=== PATIENT | male | born 1975 | race Caucasian/White ===

== ENCOUNTER 2017-11-10 15:17 | Emergency (ER) | payer MEDICAID, SELFPAY ==
[2017-11-10 15:18] VITALS: BP 163/90; PULSE 89; RESP 18; TEMP 37.2; O2SAT 98; BMI 31.2
--- NOTE | 2017-11-10 15:31 | CT_ITS ---
STUDY: CT ABDOMEN AND PELVIS WITH CONTRAST REASON FOR EXAM: Male, 41 years old. Flank pain RADIATION DOSAGE (If Supplied By Facility): CTDIvol = ( 17.45 ) mGy, DLP = ( 1202.18 ) mGycm TECHNIQUE: Transaxial images were obtained from the dome of the diaphragm to the symphysis pubis without oral contrast. 100mL ml of Isovue 300 contrast was administered. Sagittal and coronal images were reconstructed. Individualized dose optimization techniques were used for this CT. COMPARISON: 01/04/2017 FINDINGS: The visualized lung bases are unremarkable. The visualized portions of the heart are within normal limits. Normal liver. There are surgical clips in the gallbladder fossa consistent with a prior cholecystectomy. Normal spleen. Normal pancreas. Normal bilateral adrenal glands. Normal right kidney. Normal left kidney. Normal visualized stomach. Multiple nondistended fluid-filled small bowel loops consistent with ileus. Normal colon. The appendix is visualized and appears normal. Appendix best seen on coronal recon image 63 Normal abdominal aorta. Normal inferior vena cava. Scattered subcentimeter mesenteric, retroperitoneal and inguinal adenopathy. Normal urinary bladder. Small fat-containing inguinal hernias. Normal osseous structures. CT/Abdomen/Pelvis W IV Cont ONLY IMPRESSION: No CT evidence of an acute inflammatory process, normal appendix visualized. Specifically, no obstructive uropathy or bladder abnormality. Small bowel ileus No free intraperitoneal fluid, air, or suspicious adenopathy Electronically Signed: Kirit Gill MD at 17:10 EST , Service support ,
--- NOTE | 2017-11-10 15:33 | ED.DCSUM_ITS ---
- ER Visit Summary Date of Service: 11/10/17 Chief Complaint: Abdominal pain History of Present Illness: The patient is a 41 M since to the emergency department with abdominal pain. Patient symptoms began yesterday. He states it started his midepigastric area. Since that time, he states it worked its way around to his right flank. He did have nausea with a few bouts of vomiting. He also had some loose watery diarrhea. He states he did have a low- grade fever yesterday. Patient states he had similar pain before with my gallbladder. The patient did have prior cholecystectomy. He is on no other abdominal surgery. He denies any blood in his emesis or in his diarrhea. He does have a history of diabetes but is not on insulin. Physical Examination: Vital signs reviewed General: Well-nourished, well-developed Head: Normocephalic, atraumatic Eyes: Pupils equal and reactive, extraocular muscles intact Neck, supple, no lymphadenopathy Heart: Regular rate and rhythm Respiratory: No distress, clear bilaterally Abdomen: Soft, tender in the midepigastric area without rebound or guarding, nondistended, no peritoneal signs Back: Nontender Extremities: Nontender, no edema, no cords Skin: Normal color no rash Neuro: Alert and oriented, no focal or lateralizing deficits Test Results: [] Emergency Department Course and Treatment: IV was established. The patient was given fluids, analgesics, and antiemetics. He did have marked improvement of his pain with his second dose. His labs are relatively unremarkable. CT shows questionable mild ileus, but the patient has had multiple bowel movements. I do feel he more likely has an enteritis. He is tolerating p.o. on reevaluation. He has no focal tenderness. He has a benign abdomen. I do for the patient is safe for discharge. I will prescribe him Zofran and Bentyl. He will be discharged home. Treatment Plan: [] Disposition: Discharge Impression: 1. Abdominal pain 2. Enteritis This note was generated with [employer] dictation software. It may contain incorrect words, spelling, and punctuation that were not noted in review of the chart prior to signing ED Disposition - Plan for ED Patient: Chief Complaint: Abd Pain Instructions: ED Abdominal Pain Unkn Cause Prescriptions: Ondansetron [Zofran Odt] 4 mg PO Q8H PRN PRN #10 tab PRN Reason: Nausea Dicyclomine HCl [Bentyl] 20 mg PO TIDAC #20 cap [facility] Kaur [NON-STAFF] -
[2017-11-10] MEDS: 0.9% Normal Saline 1,000 ML 1000 ML IV (15:41)
[2017-11-10] MEDS: Ondansetron 4 MG/2 ML Vial IV (15:41)
[2017-11-10 16:03] LABS: Absolute Lymphocyte Count 1.29 X10^3/ul (0.83-4.51); Absolute Neutrophil Count 4.4 X10^3/uL (2.0-7.7); Basophil# 0.04 X10^3/uL; Basophil% 0.6 % (0-1); Eosinophil# 0.08 X10^3/uL; Eosinophils% 1.2 % (0-5); Hematocrit 41.6 % (40-54); Hemoglobin 15.1 g/dl (13.0-16.5); Lymphocyte # 1.29 X10^3/ul (4.0); Lymphocyte % 20.1 % (19-41); Mean Corp Hgb Conc 36.3 g/gl (32-36); Mean Corpuscular Hgb 31.7 pg (27.0-32.0); Mean Corpuscular Volume 87.4 fL (80-94); Mean Platelet Vol. 9.7 fl (6.2-12.0); Monocyte# 0.61 X10^3/uL; Monocyte% 9.5 % (0-10); Neutrophil % 68.4 % (47-70); Platelet Count 195 K/mm3 (150-450); RBC Distribution Width CV 12.8 % (11.6-14.6); Red Blood Count 4.76 M/mm3 (4.6-6.2); White Blood Count 6.4 K/mm3 (4.4-11.0)
[2017-11-10 16:04] LABS: POSITIVE COUNT NO; POSITIVE DIFFERENTIAL NO; POSITIVE MORPHOLOGY NO
[2017-11-10 16:17] LABS: ALB/GLOB Ratio 1.1 RATIO (0.9-2.4); AST(SGOT) 18 U/L (15-37); Alanine Aminotransfer ALT/SGPT 45 U/L (16-61); Albumin, Serum 4.1 g/dL (3.2-5.0); Alkaline Phosphatase 92 U/L (45-117); Anion Gap 8 (5-15); BUN 13 mg/dL (7-18); BUN/Creat Ratio 15.7 RATIO (10-20); Calcium,Total 9.2 mg/dL (8.5-10.1); Chloride 103 mmol/L (98-107); Creatinine, Serum 0.83 mg/dL (0.70-1.30); EST Glomerular Filtration Rate 109 mL/min (>60); Est Glom Filt Rate - Afr Amer 132 mL/min (>60); Globulin 3.9 g/dL (2.2-4.2); Glucose 163 mg/dL (74-106); Lipase 214 U/L (73-393); Potassium 3.5 mmol/L (3.5-5.1); Sodium Level 140 mmol/L (136-145)
[2017-11-10 16:52] LABS: Bacteria 0 SEEN /hpf (None Seen); Mucous, Urine 0 SEEN /hpf (<or=2+); Red Blood Cells-Urine 0 SEEN /hpf (0-5); Squamous Epithelial Cells - UA 0 SEEN /hpf (0-5); White Blood Cells 0 SEEN /hpf (0-5)
[2017-11-10 16:56] LABS: Color, Urine Yellow (Yellow); Glucose, Dipstick Normal (Normal); Ketone-Dipstick Negative (Negative); Leukocyte Esterase-Dipstick Negative /ul (Negative); Nitrite-Dipstick Negative (Negative); Occult Blood-Urine Negative /ul (Negative); Protein-Dipstick Negative (Negative); Specific Gravity, Urine 1.015 (1.002-1.030); Urine Bilirubin Dipstick Negative (Negative); Urine Clarity Clear (Clear); Urine Urobilinogen Normal (Normal); Urine pH 6.5 (5.0 - 8.0)
[2017-11-10 17:20] VITALS: BP 120/58; PULSE 68; RESP 16; O2SAT 98
[2017-11-10 17:41] VITALS: BP 112/67; PULSE 76; RESP 14; O2SAT 99
== END 2017-11-10 17:42 | disposition home or self-care (01) ==
LOC: ED 16:09
PROVIDERS: Emergency Provider Emergency Medicine; Family Provider Nurse Practitioner Family; PCP Nurse Practitioner Family
DX: R10.9 Unspecified abdominal pain (principal); K52.9 Noninfective gastroenteritis and colitis, unspecified; K56.7 Ileus, unspecified; E11.9 Type 2 diabetes mellitus without complications; K21.9 Gastro-esophageal reflux disease without esophagitis; Z72.0 Tobacco use; Z79.84 Long term (current) use of oral hypoglycemic drugs; Z79.82 Long term (current) use of aspirin; Z79.899 Other long term (current) drug therapy; Z90.49 Acquired absence of other specified parts of digestive tract
CPT/HCPCS: 74177; 80053; 81001; 83690; 85025; 96361; 96372; 96374; 96375; 99283; J7030; Q9967; A4216; J2405

== ENCOUNTER 2017-12-05 08:35 | Day surgery (SDC) | payer MEDICAID, SELFPAY ==
--- NOTE | 2017-12-05 | EGD_PTH ---
PATIENT: GILLES SMITH LOC: EN U#:[id number] AGE/SX: 41/M ROOM: RE12/05/[address]: Dr. Glenn Krishnan MD : [id number] BED: DIS: 12/05/2017 SPEC #: [id number] RECD: 12/05/17 13:27 STATUS: YUE CK #: [id number] AMISHA: 12/05/17 00:[address]: Glenn Krishnan DEPT: SURGICAL PATHOLOGY RECD BY: Shari Escalante ENTERED: 12/05/17 14:48 SP TYPE: EGD BIOPSY MANISH DR: Swetha Cox, STAMPING DIE MAKER BENCH-C [facility] Tissues: BOWEL BIOPSY Procedures: Surgery Specimen Level IV HEADER OPERATION: EGD PRE-OP DIAGNOSIS: Epigastric pain TISSUE SUBMITTED: Small bowel biopsy MICROSCOPIC DIAGNOSIS Small bowel, biopsy: Fragment of small intestinal mucosa, no pathologic diagnosis. SJ:eric 3/8/18 MICROSCOPIC DESCRIPTION Slides are reviewed. GROSS DESCRIPTION Received in fixative is one container labeled with the patient's name and designated small bowel biopsy. The specimen consists of one irregular fragment of light henderson soft tissue that measures 0.6 x 0.2 x 0.1 cm. The specimen is totally submitted in one cassette. / AM:eric 12/05/17 TC:4 CPT: 87827
[2017-12-05 08:57] VITALS: BP 118/76; PULSE 71; RESP 16; TEMP 36.5; O2SAT 98; BMI 30.8
--- NOTE | 2017-12-05 09:59 | PCM.OPRPT ---
Problem List (1) Epigastric pain Status: Acute Report of Operation Date of Procedure: 12/05/17 Pre-Operative Diagnosis: r10.13 epigastric abdominal pain Post-Operative Diagnosis: Same Surgery/Procedure Performed:: 73697 esophagogastroduodenoscopy with biopsies Type of Anesthesia:: MAC Anesthesiologist: Sean Hodge Description of Procedure: Patient was brought in into the endoscopy suite. Back of his throat was sprayed with Cetacaine spray. A bite-block was placed. He was placed in the left lateral decubitus position. He was given graded anesthesia. The scope was inserted into the back of the oropharynx and directed down through the esophagus into the stomach and into the duodenum without difficulty operative findings: 1. Duodenum: Normal appearance no mass lesions biopsy for celiac sprue was obtained. 2. Stomach: Minimal gastritis was identified in the prepyloric area biopsy for H. pylori was obtained. Pylorus itself was widely patent and the scope easily traversed that into the duodenum. Retroflexion did not show any signs of a hiatal hernia there were no polyps there were no mass lesions. 3. Esophagus: Normal appearance no mass lesions no signs of esophagitis no signs of a hiatal hernia Z line was at 44 cm and was entirely normal. The scope was withdrawn the patient tolerated the procedure well. There is no obvious explanation for his epigastric pain I will see him back in the office and possibly evaluate him with esophageal manometry. - Admit VTE Documentation VTE Present on Admission: No VTE Mechan Device Prophylaxis: None VTE Pharm Prophylaxis ordered?: No Reason prophylaxis not ordered:: Treatment Not Indicated
[2017-12-05 10:02] VITALS: BP 101/65; BP 118/76; PULSE 70; RESP 16; O2SAT 98
[2017-12-05 10:05] VITALS: BP 107/91; BP 118/76; PULSE 78; RESP 14; O2SAT 96
[2017-12-05 10:10] VITALS: BP 111/73; BP 118/76; PULSE 72; RESP 16; O2SAT 93
[2017-12-05 10:15] VITALS: BP 113/69; BP 118/76; PULSE 75; RESP 16; TEMP 36.3; O2SAT 98
[2017-12-05 10:48] VITALS: BP 118/76
== END 2017-12-05 10:48 | disposition home or self-care (01) ==
LOC: EN 08:37 → AC 08:37
PROVIDERS: Visit Provider Surgery
PROC: 0DJ08ZZ Inspection of Upper Intestinal Tract, Via Natural or Artificial Opening Endoscopic (ICD-10-PCS; CPT 43235; principal; 2017-12-05 09:55)
DX: K29.70 Gastritis, unspecified, without bleeding (principal); E11.9 Type 2 diabetes mellitus without complications; G47.30 Sleep apnea, unspecified; K21.9 Gastro-esophageal reflux disease without esophagitis; E78.00 Pure hypercholesterolemia, unspecified; Z79.84 Long term (current) use of oral hypoglycemic drugs; Z79.82 Long term (current) use of aspirin; Z79.899 Other long term (current) drug therapy
CPT/HCPCS: 43239; 88305; J7120

== ENCOUNTER 2018-01-28 19:52 | Emergency (ER) | payer MEDICAID, SELFPAY ==
[2018-01-28 19:53] VITALS: BP 127/83; PULSE 83; RESP 16; TEMP 37; O2SAT 97; BMI 32.2
--- NOTE | 2018-01-28 21:27 | RAD_ITS ---
STUDY: X-RAY - RIGHT HAND REASON FOR EXAM: Male, 42 years old. No known injury. Hand swelling TECHNIQUE: 3 view(s) of the hand. COMPARISON: None. FINDINGS: Normal radiocarpal articulation. Normal distal radioulnar joint. Normal visualized carpal bones. Normal carpal articulations Normal carpometacarpal articulation of the thumb. Normal second through fifth carpometacarpal joints. Normal metacarpi. Normal metacarpophalangeal joint of the thumb. Normal interphalangeal joint of the thumb. Normal proximal and distal phalanges of the thumb. Normal metacarpophalangeal joints of the second through fifth fingers. Normal proximal and distal interphalangeal joints of the second through fifth fingers. Normal phalanges of the second through fifth fingers. There is soft tissue swelling along the ventral aspect of the metatarsals and proximal phalanges. RAD/Hand Min 3 Views IMPRESSION: No acute osseous injury. Soft tissue swelling. Electronically Signed: Jenni Otto MD at 21:50 EDT Tel , Service support ,
[2018-01-28] MEDS: oxyCODONE 5 MG Tablet PO (21:50)
--- NOTE | 2018-01-28 22:33 | ED.VISSUMM ---
- ER Visit Summary Date of Service: 01/28/18 Chief Complaint: Right thumb pain History of Present Illness: The patient is a 42 M presenting with right thumb pain. He states this has been ongoing since Sunday. 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 His hand hits the handle of the lawnmower and he states it is uneven. He complains of pain to the proximal right thumb. He has tried ice and Tylenol at home. No other injuries. He is right-handed. Physical Examination: Vitals are stable. Patient is afebrile. Alert no acute distress. HEENT exam is unremarkable. Lungs are clear and equal bilaterally. Heart is regular rate and rhythm. Extremities tenderness right thenar eminence, active full range of motion, normal cap refill Skin is warm and dry. No focal neurologic deficit. Remainder of exam is unremarkable. Emergency Department Course and Treatment: X-ray right hand shows no fracture, soft tissue swelling. He was given OxyIR ?1 in the ED. He is given a Velcro wrist splint. He is given a prescription for Naprosyn. Advised to follow-up with his primary care physician. Advised return ED if worsening complaints. Disposition: Discharge home Impression: Right hand contusion This note was generated with [employer] dictation software. It may contain incorrect words, spelling, and punctuation that were not noted in review of the chart prior to signing ED Disposition - Plan for ED Patient: Chief Complaint: Upper Extremity Injury Referrals: Izabel Chicas [Primary Care Provider] -
--- NOTE | 2018-01-28 22:37 | ED.DCSUM_ITS ---
- ER Visit Summary Date of Service: 01/28/18 Chief Complaint: Right thumb pain History of Present Illness: The patient is a 42 M presenting with right thumb pain. He states this has been ongoing since Sunday. 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 His hand hits the handle of the lawnmower and he states it is uneven. He complains of pain to the proximal right thumb. He has tried ice and Tylenol at home. No other injuries. He is right-handed. Physical Examination: Vitals are stable. Patient is afebrile. Alert no acute distress. HEENT exam is unremarkable. Lungs are clear and equal bilaterally. Heart is regular rate and rhythm. Extremities tenderness right thenar eminence, active full range of motion, normal cap refill Skin is warm and dry. No focal neurologic deficit. Remainder of exam is unremarkable. Emergency Department Course and Treatment: X-ray right hand shows no fracture, soft tissue swelling. He was given OxyIR ?1 in the ED. He is given a Velcro wrist splint. He is given a prescription for Naprosyn. Advised to follow-up with his primary care physician. Advised return ED if worsening complaints. Disposition: Discharge home Impression: Right hand contusion This note was generated with [employer] dictation software. It may contain incorrect words, spelling, and punctuation that were not noted in review of the chart prior to signing ED Disposition - Plan for ED Patient: Chief Complaint: Upper Extremity Injury Referrals: Izabel Chicsa [Primary Care Provider] -
--- NOTE | 2018-01-28 22:37 | ED.DEP ---
ED Disposition - Plan for ED Patient: Chief Complaint: Upper Extremity Injury Instructions: ED Contusion Upper Ext Prescriptions: Naproxen [Naprosyn] 500 mg PO BID PRN #20 tablet Referrals: Izabel Chicas [Primary Care Provider] -
== END 2018-01-28 23:08 | disposition home or self-care (01) ==
PROVIDERS: Emergency Provider Emergency Medicine
DX: S60.011A Contusion of right thumb without damage to nail, initial encounter (principal); W22.8XXA Striking against or struck by other objects, initial encounter; Y93.H2 Activity, gardening and landscaping; Y92.9 Unspecified place or not applicable; Y99.9 Unspecified external cause status
CPT/HCPCS: 73130; 99283

== ENCOUNTER 2018-03-13 07:12 | Emergency (ER) | payer MEDICAID, SELFPAY ==
[2018-03-13 07:13] VITALS: BP 134/89; PULSE 78; RESP 26; TEMP 36.7; O2SAT 99; BMI 31.9
--- NOTE | 2018-03-13 07:26 | EKG12_ITS ---
Test Reason : REPEAT Blood Pressure : / mmHG Vent. Rate : 069 BPM Atrial Rate : 069 BPM P-R Int : 148 ms QRS Dur : 088 ms QT Int : 398 ms P-R-T Axes : 014 -04 001 degrees QTc Int : 426 ms Normal sinus rhythm Normal ECG Confirmed by EDISON CASTRO, GILLES ([id number]), medical transcription editor RIMMA LUCAS ([id number]) on 03/15/2018 2:36:45 PM Referred By: CHANDLER Confirmed By:GILLES HOGAN MD
[2018-03-13 07:36] LABS: Absolute Lymphocyte Count 1.87 X10^3/ul (0.83-4.51); Absolute Neutrophil Count 3.5 X10^3/uL (2.0-7.7); Basophil# 0.03 X10^3/uL; Basophil% 0.5 % (0-1); Eosinophil# 0.12 X10^3/uL; Hematocrit 37.8 % (40-54); Hemoglobin 13.7 g/dl (13.0-16.5); Lymphocyte # 1.87 X10^3/ul (4.0); Lymphocyte % 30.6 % (19-41); Mean Corp Hgb Conc 36.2 g/gl (32-36); Mean Corpuscular Hgb 32.1 pg (27.0-32.0); Mean Corpuscular Volume 88.5 fL (80-94); Monocyte# 0.62 X10^3/uL; Monocyte% 10.1 % (0-10); Neutrophil # 3.47 X10^3/uL (2.7-7.7); Neutrophil % 56.8 % (47-70); Platelet Count 146 K/mm3 (150-450); RBC Distribution Width CV 13.2 % (11.6-14.6); RBC Distribution Width SD 42.3 fl (35.1-43.9); Red Blood Count 4.27 M/mm3 (4.6-6.2); White Blood Count 6.1 K/mm3 (4.4-11.0)
[2018-03-13 07:41] LABS: POSITIVE COUNT NO; POSITIVE DIFFERENTIAL NO; POSITIVE MORPHOLOGY NO
[2018-03-13 07:57] LABS: Anion Gap 8 (5-15); BUN 13 mg/dL (7-18); BUN/Creat Ratio 13.2 RATIO (10-20); Calcium,Total 8.8 mg/dL (8.5-10.1); Chloride 103 mmol/L (98-107); Creatinine, Serum 0.99 mg/dL (0.70-1.30); EST Glomerular Filtration Rate 89 mL/min (>60); Est Glom Filt Rate - Afr Amer 107 mL/min (>60); Glucose 220 mg/dL (74-106); Potassium 3.7 mmol/L (3.5-5.1); Sodium Level 141 mmol/L (136-145)
--- NOTE | 2018-03-13 08:10 | EKG12_ITS ---
Test Reason : CP Blood Pressure : / mmHG Vent. Rate : 078 BPM Atrial Rate : 078 BPM P-R Int : 146 ms QRS Dur : 086 ms QT Int : 372 ms P-R-T Axes : 040 -10 029 degrees QTc Int : 424 ms Normal sinus rhythm Normal ECG Confirmed by EDISON CASTRO, GILLES ([id number]), senior technical editor RIMMA LUCAS ([id number]) on 03/15/2018 2:37:00 PM Referred By: SOLO Confirmed By:GILLES HOGAN MD
--- NOTE | 2018-03-13 08:25 | ED.VISSUMM ---
- ER Visit Summary Date of Service: 03/13/18 Chief Complaint: Chest pain History of Present Illness: The patient is a 42 M past medical history of qcv-esphuvh-fritivryx diabetes and high cholesterol. States that he awoke this morning around 06 10 with midsternal chest pain radiating to the right. Associated nausea. No shortness of breath. He has never had a DVT or PE. He denies any recent travel, surgery or mobilization. He denies any leg pain or swelling. He denies any hemoptysis. There is no pleuritic nature to his pain. It is not associated with exertion. He states he had a negative stress test done about 1 year ago here at [facility]. He denies ever having a cardiac cath. He has never had any cardiac surgery, cardiac stents nor is he on any blood thinners. Physical Examination: Well-appearing middle-age male. No acute distress. Vital signs are stable afebrile. Blood pressure 134/89. Pulse ox 9 9% on room air no signs of hypoxia. H EENT exam unremarkable. Neck nontender no JVD. Lungs clear to auscultation bilaterally. Heart regular rhythm no murmur. Rate about 80. He does have mild reproducible chest wall tenderness where he is complaining of pain. There is no ecchymosis of bruising. No subcu air. No redness or warmth. Abdomen is soft and nontender. Normal bowel sounds no peritoneal signs. He is moving all 4 extremities. Calves are nontender without edema or cords. He has full range of motion of both upper and lower extremities. He is equal and symmetrical radial pulses. Back exam nontender. Neurologically he is awake and alert without focal deficits. Test Results: Portal chest x-ray one view shows no acute abnormality. Normal cardiac silhouette and mediastinum. CBC unremarkable except for a platelet count of 146,000 just below normal. BMP normal. Troponin normal. EKG sinus rhythm rate of 78 with no acute signs of VA or ischemia. Second EKG was also read as well by myself. It was a sinus rhythm rate of 69 with no signs of ischemia. Second troponin was also normal 2+ hours after the first. Repeat exam patient is doing well at 1010. Emergency Department Course and Treatment: Feet exam the patient is still having some chest discomfort. This really does not sound to be cardiac. I am going to get a repeat troponin and a repeat EKG. The patient has had a recent stress test which was negative. Treatment Plan: Patient is doing well repeat exam. Clinically I do not feel this is cardiac. He did have a negative nuclear stress test last July. He will be discharged home to follow-up with his primary care physician. Disposition: Discharge Impression: Acute atypical chest pain of uncertain etiology This note was generated with [employer] dictation software. It may contain incorrect words, spelling, and punctuation that were not noted in review of the chart prior to signing ED Disposition - Plan for ED Patient: Chief Complaint: Chest Pain Referrals: Izabel Chicas [Primary Care Provider] -
[2018-03-13 08:34] VITALS: BP 113/79; PULSE 71
--- NOTE | 2018-03-13 08:35 | ED.RN ---
PT REPORTS PAIN IS INCREASING AGAIN. DR ARTEAGA INFORMED STATES TO GIVE NITRO SERIES. DR ARTEAGA ENTERED ORDER FOR NITRO X1 TAB SL. CLARIFIED THAT DR WOULD LIKE NITRO X3 TAB SL- CONFIRMS. NOT ABLE TO ENTER NITRO SERIES SO EACH NITRO ORDERED INDEP.
[2018-03-13 08:41] VITALS: BP 119/66; PULSE 81
--- NOTE | 2018-03-13 08:43 | ED.DCSUM_ITS ---
- ER Visit Summary Date of Service: 03/13/18 Chief Complaint: Chest pain History of Present Illness: The patient is a 42 M past medical history of non- insulin-dependent diabetes and high cholesterol. States that he awoke this morning around 06 10 with midsternal chest pain radiating to the right. Associated nausea. No shortness of breath. He has never had a DVT or PE. He denies any recent travel, surgery or mobilization. He denies any leg pain or swelling. He denies any hemoptysis. There is no pleuritic nature to his pain. It is not associated with exertion. He states he had a negative stress test done about 1 year ago here at [facility]. He denies ever having a cardiac cath. He has never had any cardiac surgery, cardiac stents nor is he on any blood thinners. Physical Examination: Well-appearing middle-age male. No acute distress. Vital signs are stable afebrile. Blood pressure 134/89. Pulse ox 9 9% on room air no signs of hypoxia. H EENT exam unremarkable. Neck nontender no JVD. Lungs clear to auscultation bilaterally. Heart regular rhythm no murmur. Rate about 80. He does have mild reproducible chest wall tenderness where he is complaining of pain. There is no ecchymosis of bruising. No subcu air. No redness or warmth. Abdomen is soft and nontender. Normal bowel sounds no peritoneal signs. He is moving all 4 extremities. Calves are nontender without edema or cords. He has full range of motion of both upper and lower extremities. He is equal and symmetrical radial pulses. Back exam nontender. Neurologically he is awake and alert without focal deficits. Test Results: Portal chest x-ray one view shows no acute abnormality. Normal cardiac silhouette and mediastinum. CBC unremarkable except for a platelet count of 146,000 just below normal. BMP normal. Troponin normal. EKG sinus rhythm rate of 78 with no acute signs of SD or ischemia. Second EKG was also read as well by myself. It was a sinus rhythm rate of 69 with no signs of ischemia. Second troponin was also normal 2+ hours after the first. Repeat exam patient is doing well at 1010. Emergency Department Course and Treatment: Feet exam the patient is still having some chest discomfort. This really does not sound to be cardiac. I am going to get a repeat troponin and a repeat EKG. The patient has had a recent stress test which was negative. Treatment Plan: Patient is doing well repeat exam. Clinically I do not feel this is cardiac. He did have a negative nuclear stress test last July. He will be discharged home to follow-up with his primary care physician. Disposition: Discharge Impression: Acute atypical chest pain of uncertain etiology This note was generated with [employer] dictation software. It may contain incorrect words, spelling, and punctuation that were not noted in review of the chart prior to signing ED Disposition - Plan for ED Patient: Chief Complaint: Chest Pain Referrals: Izabel Chicas [Primary Care Provider] -
[2018-03-13 08:46] VITALS: BP 116/71; PULSE 81
[2018-03-13 10:14] VITALS: BP 110/74; PULSE 70; RESP 12; O2SAT 95
--- NOTE | 2018-03-13 10:15 | ED.DEP ---
ED Disposition - Plan for ED Patient: Disposition: Home or Assisted Living Chief Complaint: Chest Pain Instructions: ED Chest Pain Atypical Unkn Cause [facility]errals: [facility]zabel Kaur [Primary Care Provider] - 3-5 Days if not improving Additional Instructions: Call and follow-up with the Izabel asencio. Return if you are feeling worse.
== END 2018-03-13 10:22 | disposition home or self-care (01) ==
PROVIDERS: Emergency Provider Emergency Medicine
DX: R07.89 Other chest pain (principal); R11.0 Nausea; E11.9 Type 2 diabetes mellitus without complications; E78.00 Pure hypercholesterolemia, unspecified; Z79.84 Long term (current) use of oral hypoglycemic drugs; Z79.82 Long term (current) use of aspirin; Z79.899 Other long term (current) drug therapy
CPT/HCPCS: 36415; 71045; 80048; 84484; 85025; 93005; 99285; A4216

== ENCOUNTER 2018-04-05 22:46 | Emergency (ER) | payer MEDICAID, SELFPAY ==
[2018-04-05 22:48] VITALS: BP 150/93; PULSE 93; RESP 18; TEMP 37.4; O2SAT 95; BMI 30.9
[2018-04-05 23:00] LABS: Bedside Glucose 160 mg/dL (70-110)
--- NOTE | 2018-04-05 23:00 | EKG12_ITS ---
Test Reason : Blood Pressure : / mmHG Vent. Rate : 093 BPM Atrial Rate : 093 BPM P-R Int : 144 ms QRS Dur : 084 ms QT Int : 340 ms P-R-T Axes : 028 -20 008 degrees QTc Int : 422 ms Normal sinus rhythm Normal ECG Confirmed by NATALIE CASILLAS MD ([id number]), newspaper photo editor RIMMA LUCAS ([id number]) on 04/08/2018 2:18:37 PM Referred By: RIGOBERTO Confirmed By:NATALIE CASILLAS MD
--- NOTE | 2018-04-05 23:03 | ED.DCSUM_ITS ---
- ER Visit Summary Date of Service: 04/05/18 Chief Complaint: Low blood sugar, high blood pressure History of Present Illness: The patient is a 42 M presenting today stating earlier today he had a low blood sugar of 57. After eating repeat blood sugar was 160. He was concerned that his blood pressure was 168/95. He is not currently on blood pressure medication. He complains of shortness of breath and cough. Denies chest pain. Denies fever. Denies abdominal pain, nausea, vomiting. He complains of diarrhea. Denies other complaints. Physical Examination: Vitals are stable. Patient is afebrile. Alert no acute distress. HEENT exam is unremarkable. Neck is supple. Lungs are clear and equal bilaterally. Heart is regular rate and rhythm. Abdomen is soft nontender nondistended. Extremities are unremarkable. Skin is warm and dry. No focal neurologic deficit. Remainder of exam is unremarkable. Emergency Department Course and Treatment: Chest x-ray shows no acute process. EKG is sinus rate of 93 unchanged from previous. CBC, chemistries unremarkable. Glucose is 134. Patient is feeling improved in the emergency department. He has a scheduled appointment with his primary care physician next week. He is advised to monitor his blood sugars and his blood pressure. Advised return to ED if worsening complaints. Disposition: Discharge home Impression: Hypoglycemia, resolved This note was generated with [employer] dictation software. It may contain incorrect words, spelling, and punctuation that were not noted in review of the chart prior to signing ED Disposition - Plan for ED Patient: Chief Complaint: Hypoglycemia Instructions: ED Diabetes Hypoglycemia Oral Agent Referrals: Swetha Cox NP-C [Primary Care Provider] -
--- NOTE | 2018-04-05 23:06 | RAD_ITS ---
STUDY: X-RAY CHEST REASON FOR EXAM: Male, 42 years old. High blood pressure TECHNIQUE: Single AP portable view of the chest. COMPARISON: March 13, 2018 FINDINGS: The lungs are clear and expanded. There is no demonstrated pleural abnormality. Normal size heart. Normal mediastinum and derick. Normal visualized pulmonary arteries. Normal visualized aortic arch and descending thoracic aorta. Normal visualized thoracic spine. Normal visualized ribs, clavicles, and shoulders. There is no demonstrated abnormality of the visualized soft tissue structures of the upper abdomen. RAD/Chest 1 View (Portable) IMPRESSION: Normal x-ray examination of the chest. Electronically Signed: Rd Ji MD at 23:32 EDT , Service support ,
[2018-04-05 23:27] VITALS: RESP 18
[2018-04-05 23:34] LABS: Absolute Lymphocyte Count 1.25 X10^3/ul (0.83-4.51); Absolute Neutrophil Count 6.2 X10^3/uL (2.0-7.7); Basophil# 0.03 X10^3/uL; Basophil% 0.4 % (0-1); Eosinophil# 0.03 X10^3/uL; Eosinophils% 0.4 % (0-5); Hematocrit 39.7 % (40-54); Hemoglobin 14.5 g/dl (13.0-16.5); Lymphocyte # 1.25 X10^3/ul (4.0); Lymphocyte % 15.4 % (19-41); Mean Corp Hgb Conc 36.5 g/gl (32-36); Mean Corpuscular Hgb 32.6 pg (27.0-32.0); Mean Corpuscular Volume 89.2 fL (80-94); Mean Platelet Vol. 9.2 fl (6.2-12.0); Monocyte# 0.58 X10^3/uL; Monocyte% 7.1 % (0-10); Neutrophil # 6.22 X10^3/uL (2.7-7.7); Neutrophil % 76.5 % (47-70); Platelet Count 184 K/mm3 (150-450); RBC Distribution Width CV 12.8 % (11.6-14.6); RBC Distribution Width SD 41.2 fl (35.1-43.9); Red Blood Count 4.45 M/mm3 (4.6-6.2); White Blood Count 8.1 K/mm3 (4.4-11.0)
[2018-04-05 23:38] LABS: POSITIVE COUNT NO; POSITIVE DIFFERENTIAL NO; POSITIVE MORPHOLOGY NO
[2018-04-05 23:50] LABS: Anion Gap 8 (5-15); BUN 11 mg/dL (7-18); BUN/Creat Ratio 11.9 RATIO (10-20); Calcium,Total 9.4 mg/dL (8.5-10.1); Chloride 103 mmol/L (98-107); Creatinine, Serum 0.92 mg/dL (0.70-1.30); EST Glomerular Filtration Rate 96 mL/min (>60); Est Glom Filt Rate - Afr Amer 116 mL/min (>60); Estimated Creatinine Clearance 119.42 ml/min; Glucose 134 mg/dL (74-106); Potassium 3.7 mmol/L (3.5-5.1); Sodium Level 140 mmol/L (136-145)
--- NOTE | 2018-04-06 00:05 | ED.DEP ---
ED Disposition - Plan for ED Patient: Chief Complaint: Hypoglycemia Instructions: ED Diabetes Hypoglycemia Oral Agent Referrals: Swetha Cox, GABRIELLA-C [Primary Care Provider] -
[2018-04-06 00:24] VITALS: RESP 18
== END 2018-04-06 00:28 | disposition home or self-care (01) ==
LOC: ED 23:28
PROVIDERS: Emergency Provider Emergency Medicine; Family Provider Nurse Practitioner Family; PCP Nurse Practitioner Family
DX: E11.649 Type 2 diabetes mellitus with hypoglycemia without coma (principal); R19.7 Diarrhea, unspecified; R03.0 Elevated blood-pressure reading, without diagnosis of hypertension; J45.909 Unspecified asthma, uncomplicated; K21.9 Gastro-esophageal reflux disease without esophagitis; F41.9 Anxiety disorder, unspecified; Z79.84 Long term (current) use of oral hypoglycemic drugs; Z79.899 Other long term (current) drug therapy
CPT/HCPCS: 71045; 80048; 82962; 85025; 93005; 99285; A4216

== ENCOUNTER 2018-05-17 19:32 | Emergency (ER) | payer MEDICAID, SELFPAY ==
[2018-05-17 19:33] VITALS: BP 120/79; PULSE 108; RESP 16; TEMP 36.6; O2SAT 97; BMI 30.3
[2018-05-17] MEDS: Acetaminophen 500 MG Tablet 1000 MG PO (20:17)
[2018-05-17] MEDS: oxyCODONE 5 MG Tablet PO (20:18)
--- NOTE | 2018-05-17 21:45 | ED.DCSUM_ITS ---
- ER Visit Summary Date of Service: 05/17/18 Chief Complaint: Left foot pain History of Present Illness: The patient is a 42 M who [facility]. He reports he has pain in his left foot that began yesterday. Is a sharp pain is 10-10 with walking 7 out of 10 at rest. He denies any known trauma. No fall, MVA, or change in activity. However, he does report that he has a large dog which may have stepped on it. He denies any paresthesias or weakness. Physical Examination: Vitals: Stable. Afebrile. General: Well-nourished and well-developed. Head: Normocephalic atraumatic. Neck: Supple, no lymphadenopathy. No JVD. Nontender. Cardiovascular: Regular rate and rhythm. No murmurs. Respiratory: No respiratory distress. Clear to auscultation bilaterally. Abdominal: Soft, nontender, nondistended, normal bowel sounds. No guarding, rebound, or peritoneal signs. Back: Nontender. Extremities: Moderate tenderness palpation that is diffuse over the top of his left foot. This is reproduced with dorsiflexion against resistance. There is no erythema or warmth to suggest infection. He has a 2+ dorsalis pedis pulse Skin: Normal color, no rash. Neurologic: Alert and oriented ?3. Cranial nerves II through XII are intact. Normal strength and sensation. Psych: Normal affect. Test Results: X-ray is negative. Emergency Department Course and Treatment: Patient was treated to single dose of [place] here. He is resting comfortably. Treatment Plan: Patient will be discharged naproxen. Instructed to follow-up Dr. Duran in 1 week if not improving. Return to the emergency department for any worsening symptoms. Disposition: To home in improved and stable condition. Impression: 1. Left foot pain, acute. This note was generated with [employer] dictation software. It may contain incorrect words, spelling, and punctuation that were not noted in review of the chart prior to signing ED Disposition - Plan for ED Patient: Disposition: Home or Assisted Living Chief Complaint: Lower Extremity Injury Instructions: ED Sprain Foot Prescriptions: Naproxen [Naprosyn] 500 mg PO BID #14 tablet Referrals: Ishan Duran DPM [STAFF PHYSICIAN] - 1 Week if not improving
[2018-05-17 21:54] VITALS: PULSE 94; RESP 20; O2SAT 97
--- NOTE | 2018-05-17 21:54 | ED.RN ---
THIS NURSE REVIEWED D/C INSTRUCTIONS WITH PT. PT VERBALIZED UNDERSTANDING OF INSTRUCTIONS. PT DENIES FURTHER NEEDS OR QUESTIONS AT THIS TIME. PT AMBULATES FROM ROOM ON OWN WITHOUT ASSISTANCE FROM STAFF
== END 2018-05-17 21:55 | disposition home or self-care (01) ==
LOC: ED 20:14
PROVIDERS: Emergency Provider Emergency Medicine; Family Provider Nurse Practitioner Family; PCP Nurse Practitioner Family
DX: M79.672 Pain in left foot (principal); E11.9 Type 2 diabetes mellitus without complications; Z79.84 Long term (current) use of oral hypoglycemic drugs; Z79.82 Long term (current) use of aspirin; Z79.899 Other long term (current) drug therapy
CPT/HCPCS: 73630; 99283

== ENCOUNTER 2018-08-06 04:26 | Emergency (ER) | payer MEDICAID, SELFPAY ==
[2018-08-06 04:27] VITALS: BP 150/101; PULSE 92; RESP 24; TEMP 36.8; O2SAT 98; BMI 31.8
--- NOTE | 2018-08-06 04:43 | CT_ITS ---
STUDY: CT ABDOMEN AND PELVIS WITHOUT CONTRAST REASON FOR EXAM: Male, 42 years old. Kidney stones abdominal pain RADIATION DOSAGE (If Supplied By Facility): CTDIvol = ( 18.12 ) mGy, DLP = ( 932.63 ) mGycm TECHNIQUE: Transaxial images were obtained from the dome of the diaphragm to the symphysis pubis without oral contrast, and without intravenous contrast. Sagittal and coronal images were reconstructed. Individualized dose optimization techniques were used for this CT. COMPARISON: 11/10/2017 FINDINGS: The visualized lung bases are unremarkable. The visualized portions of the heart are within normal limits. Normal liver. There has been a cholecystectomy. Normal spleen. Normal pancreas. Normal bilateral adrenal glands. Normal right kidney. Normal left kidney. Normal visualized stomach. Normal small intestine. Normal colon. The appendix is visualized and appears normal. Normal abdominal aorta. Normal inferior vena cava. Normal retroperitoneum. Normal urinary bladder. There is NO ascites or free air, abscess or adenopathy. Normal abdominal wall. Normal osseous structures. CT/Abdomen/Pelvis without Cont IMPRESSION: There are NO kidney stones. There is NO bowel obstruction, colitis or enteritis. The appendix is normal. There has been a cholecystectomy. Electronically Signed: Prasad Glass MD at 6:06 EST , Service support ,
[2018-08-06] MEDS: Ondansetron 4 MG/2 ML Vial IV (05:06)
[2018-08-06] MEDS: Ketorolac 30 MG/ML Syringe 15 MG IV (05:06)
[2018-08-06 05:20] LABS: Absolute Lymphocyte Count 2.06 X10^3/ul (0.83-4.51); Absolute Neutrophil Count 3.5 X10^3/uL (2.0-7.7); Basophil# 0.05 X10^3/uL; Basophil% 0.8 % (0-1); Eosinophil# 0.17 X10^3/uL; Eosinophils% 2.7 % (0-5); Hematocrit 39.9 % (40-54); Hemoglobin 14.1 g/dl (13.0-16.5); Lymphocyte # 2.06 X10^3/ul (4.0); Lymphocyte % 32.9 % (19-41); Mean Corp Hgb Conc 35.3 g/gl (32-36); Mean Corpuscular Hgb 32.7 pg (27.0-32.0); Mean Corpuscular Volume 92.6 fL (80-94); Mean Platelet Vol. 9.1 fl (6.2-12.0); Monocyte# 0.48 X10^3/uL; Monocyte% 7.7 % (0-10); Neutrophil # 3.49 X10^3/uL (2.7-7.7); Neutrophil % 55.7 % (47-70); Platelet Count 175 K/mm3 (150-450); RBC Distribution Width CV 13.1 % (11.6-14.6); RBC Distribution Width SD 43.8 fl (35.1-43.9); Red Blood Count 4.31 M/mm3 (4.6-6.2); White Blood Count 6.3 K/mm3 (4.4-11.0)
[2018-08-06 05:23] LABS: POSITIVE COUNT NO; POSITIVE DIFFERENTIAL NO; POSITIVE MORPHOLOGY NO
[2018-08-06 05:32] LABS: Bacteria 0 SEEN /hpf (None Seen); Mucous, Urine 0 SEEN /hpf (<or=2+); Red Blood Cells-Urine 0 SEEN /hpf (0-5); Squamous Epithelial Cells - UA 0 SEEN /hpf (0-5); White Blood Cells 0 SEEN /hpf (0-5)
[2018-08-06 05:44] LABS: Color, Urine Yellow (Yellow); Glucose, Dipstick 1000 mg/dl (Normal); Ketone-Dipstick 5 mg/dl (Negative); Leukocyte Esterase-Dipstick Negative /ul (Negative); Nitrite-Dipstick Negative (Negative); Occult Blood-Urine Negative /ul (Negative); Protein-Dipstick 15 mg/dl (Negative); Specific Gravity, Urine 1.025 (1.002-1.030); Urine Bilirubin Dipstick Negative (Negative); Urine Clarity Sl. Cloudy (Clear); Urine Urobilinogen Normal (Normal)
[2018-08-06 05:53] LABS: Anion Gap 9 (5-15); BUN 10 mg/dL (7-18); BUN/Creat Ratio 11.8 RATIO (10-20); Calcium,Total 8.5 mg/dL (8.5-10.1); Chloride 103 mmol/L (98-107); Creatinine, Serum 0.85 mg/dL (0.70-1.30); EST Glomerular Filtration Rate 106 mL/min (>60); Est Glom Filt Rate - Afr Amer 128 mL/min (>60); Estimated Creatinine Clearance 129.25 ml/min; Glucose 239 mg/dL (74-106); Potassium 3.5 mmol/L (3.5-5.1); Sodium Level 139 mmol/L (136-145)
--- NOTE | 2018-08-06 06:14 | ED.VISSUMM ---
- ER Visit Summary Date of Service: 08/06/18 Chief Complaint: Abdominal pain History of Present Illness: The patient is a 42 M presenting for evaluation secondary to abdominal pain. Patient states that about 2100 he had a sudden onset of abdominal pain. He describes it as a sharp pain with occasional paroxysms of stabbing pain in his right lower quadrant and right back. He states that it seems to be better with lying flat. He endorses some nausea, but denies any sort of vomiting hematemesis diarrhea fevers. He does endorse that there is a mild amount of dysuria associated with this but no hematuria. Patient denies any history of kidney stones. He is status post cholecystectomy. Review of systems otherwise negative. Physical Examination: Vital signs are within normal limits, patient is afebrile. General: Patient is well-nourished well-developed and in no acute distress. Head: Normocephalic, atraumatic Eyes: Pupils equal round and reactive bilaterally, extra occular motion intact bialterally ENT: Moist mucous membranes Neck: Supple, no lymphadenopathy, no JVD, no meningismus CVS: Heart regular rate and rhythm, radial pulses 2+ bilaterally Resp: Respirations nondistressed, lung sounds clear bilaterally Abdomen: Soft, right upper quadrant tenderness without guarding or rebound noted, nondistended, no palpable masses, normal bowel sounds Back: Nontender Extremities: Nontender, atraumatic, active full range of motion, no peripheral edema Skin: warm, no rashes, no petechia Neuro: Alert and oriented x 4, CN 2-12 intact, no lateralizing neurological defecits Psyc: Normal affect Test Results: CBC chemistry and urinalysis found to be unremarkable. CT abdomen and pelvis shows no evidence of kidney stones, no evidence appendicitis, no evidence of bowel blockage or acute inflammatory process. Emergency Department Course and Treatment: Patient presented for evaluation secondary to abdominal pain. Patient seemed to be more localizing the pain to his flank and right upper quadrant although he is status post cholecystectomy so the likelihood of gallbladder disease is eliminated. Patient was treated with Toradol and Zofran and IV fluids. CBC chemistry urinalysis found to be unremarkable. CT abdomen and pelvis also unremarkable. Patient had improvement of his pain on repeat evaluation at 6 AM. At this point the patient has a nonsurgical abdomen, and nonspecific abdominal pain. I believe that he safely can be discharged with a course of Bentyl. He was given signs and symptoms for which to return which he voiced understanding of and his own words. Patient was discharged with outpatient follow-up as needed. Disposition: Discharge Impression: 1. Abdominal pain This note was generated with [employer] dictation software. It may contain incorrect words, spelling, and punctuation that were not noted in review of the chart prior to signing ED Disposition - Plan for ED Patient: Disposition: Home or Assisted Living Chief Complaint: Abd Pain Diagnosis: Abdominal pain Instructions: ED Abdominal Pain Unkn Cause Prescriptions: Dicyclomine HCl [Bentyl] 20 mg PO TIDAC #20 cap Referrals: Swetha Cox, SUPERVISOR L[employer]SCAPE-C [Primary Care Provider] - 1-2 Days if not improving
--- NOTE | 2018-08-06 06:18 | ED.DCSUM_ITS ---
- ER Visit Summary Date of Service: 08/06/18 Chief Complaint: Abdominal pain History of Present Illness: The patient is a 42 M presenting for evaluation secondary to abdominal pain. Patient states that about 2100 he had a sudden onset of abdominal pain. He describes it as a sharp pain with occasional paro xysms of stabbing pain in his right lower quadrant and right back. He states that it seems to be better with lying flat. He endorses some nausea, but denies any sort of vomiting hematemesis diarrhea fevers. He does endorse that there is a mild amount of dysuria associated with this but no hematuria. Patient denies any history of kidney stones. He is status post cholecystectomy. Review of sys tems otherwise negative. Physical Examination: Vital signs are within normal limits, patient is afebrile. General: Patient is well-nourished well-developed and in no acute distress. Head: Normocephalic, atraumatic Eyes: Pupils equal round and reactive bilaterally, extra occular motion intact bialterally ENT: Moist mucous membranes Neck: Supple, no lymphadenopathy, no JVD, no meningismus CVS: Heart regular rate and rhythm, radial pulses 2+ bilaterally Resp: Respirations nondistressed, lung sounds clear bilaterally Abdomen: Soft, right upper quadrant tenderness without guarding or rebound noted, nondistended, no palpable masses, normal bowel sounds Back: Nontender Extremities: Nontender, atraumatic, active full range of motion, no peripheral edema Skin: warm, no rashes, no petechia Neuro: Alert and oriented x 4, CN 2-12 intact, no lateralizing neurological defecits Psyc: Normal affect Test Results: CBC chemistry and urinalysis found to be unremarkable. CT abdomen and pelvis shows no evidence of kidney stones, no evidence appendicitis, no evidence of bowel blockage or acute inflammatory process. Emergency Department Course and Treatment: Patient presented for evaluation secondary to abdominal pain. Patient seemed to be more localizing the pain to his flank and right upper quadrant although he is status post cholecystectomy so the likelihood of gallbladder disease is eliminated. Patient was treated with Toradol and Zofran and IV fluids. CBC chemistry urinalysis found to be unremarkable. CT abdomen and pelvis also unremarkable. Patient had improvement of his pain on repeat evaluation at 6 AM. At this point the patient has a nonsurgical abdomen, and nonspecific abdominal pain. I believe that he safely can be discharged with a course of Bentyl. He was given signs and symptoms for which to return which he voiced understanding of and his own words. Patient was discharged with outpatient follow-up as needed. Disposition: Discharge Impression: 1. Abdominal pain This note was generated with [employer] dictation software. It may contain incorrect words, spelling, and punctuation that were not noted in review of the chart prior to signing ED Disposition - Plan for ED Patient: Disposition: Home or Assisted Living Chief Complaint: Abd Pain Diagnosis: Abdominal pain Instructions: ED Abdominal Pain Unkn Cause Prescriptions: Dicyclomine HCl [Bentyl] 20 mg PO TIDAC #20 cap Referrals: Swetha Cox, CARDIOLOGY TECHNOLOGIST-C [Primary Care Provider] - 1-2 Days if not improving
[2018-08-06 06:22] VITALS: BP 137/86; PULSE 83; O2SAT 95
== END 2018-08-06 06:25 | disposition home or self-care (01) ==
PROVIDERS: Emergency Provider Emergency Medicine; Family Provider Nurse Practitioner Family; PCP Nurse Practitioner Family
DX: R10.31 Right lower quadrant pain (principal); E11.9 Type 2 diabetes mellitus without complications; M54.9 Dorsalgia, unspecified; R30.0 Dysuria; R11.0 Nausea; Z79.84 Long term (current) use of oral hypoglycemic drugs; Z79.899 Other long term (current) drug therapy; Z90.49 Acquired absence of other specified parts of digestive tract
CPT/HCPCS: 74176; 80048; 81001; 85025; 96374; 96375; 99285; A4216; J2405

== ENCOUNTER 2018-08-20 16:27 | Emergency (ER) | payer MEDICAID, SELFPAY ==
[2018-08-20 16:28] VITALS: BP 138/88; PULSE 87; RESP 16; TEMP 36.8; O2SAT 99; BMI 32.1
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
--- NOTE | 2018-08-20 16:59 | ED.DEP ---
ED Disposition - Plan for ED Patient: Disposition: Home or Assisted Living Chief Complaint: Back Instructions: ED Spasm Back No Trauma Prescriptions: Oxycodone HCl/Acetaminophen [Percocet 5/325] 1 tablet PO Q6H PRN PRN 3 Days #12 tablet PRN Reason: Pain Naproxen [Naprosyn] 500 mg PO BID PRN PRN #20 tablet PRN Reason: Pain Cyclobenzaprine [Flexeril] 10 mg PO TID PRN #20 tablet PRN Reason: Muscle Spasm Referrals: Swetha Cox BRIDGE LEVERMAN-C [Primary Care Provider] - 1 Week
[2018-08-20] MEDS: oxyCODONE 5 MG Tablet PO (17:08)
[2018-08-20] MEDS: Naproxen 500 MG Tablet PO (17:08)
[2018-08-20 17:11] VITALS: BP 124/77; PULSE 62; RESP 15; O2SAT 99
== END 2018-08-20 17:12 | disposition home or self-care (01) ==
PROVIDERS: Emergency Provider Emergency Medicine; Family Provider Nurse Practitioner Family; PCP Nurse Practitioner Family
DX: M62.830 Muscle spasm of back (principal); R20.0 Anesthesia of skin; E11.9 Type 2 diabetes mellitus without complications; K21.9 Gastro-esophageal reflux disease without esophagitis; Z72.0 Tobacco use; Z79.84 Long term (current) use of oral hypoglycemic drugs; Z79.1 Long term (current) use of non-steroidal anti-inflammatories (NSAID); Z79.899 Other long term (current) drug therapy
CPT/HCPCS: 99282

== ENCOUNTER 2018-10-26 20:45 | Emergency (ER) | payer MEDICAID, SELFPAY ==
[2018-10-26 20:46] VITALS: BP 132/87; PULSE 112; RESP 18; TEMP 36.2; O2SAT 98; BMI 31.6
--- NOTE | 2018-10-26 21:02 | ED.VISSUMM ---
- ER Visit Summary Date of Service: 10/26/18 Chief Complaint: [] Nasal congestion since yesterday History of Present Illness: The patient is a 42 M [] ports nasal congestion since yesterday occasional cough he is using eusebio and some other remedies for the congestion that has not helped he presents for evaluation no fever no abdominal pain no numbness weakness or paresthesias, eating and drinking without difficulty his diabetes is well-controlled Physical Examination: [] Afebrile he does have some rhinorrhea General, no distress resting comfortably HEENT is generally unremarkable, except for rhinorrhea his throat is clear The neck is supple no adenopathy Cardiovascular, regular rate and rhythm Lungs, clear bilateral Abdomen, soft nontender Extremities, no clubbing cyanosis or edema Neurologic, awake alert answering questions appropriately moving all 4 extremities Patient is complaining of a URI with predominant symptoms of rhinorrhea he is taken no specific medicines for this I explained to him he can use Tylenol and Advil [id number] flu medicine Flonase nasal spray and follow-up with his family doctors the next few days and he agrees with this Test Results: [] Emergency Department Course and Treatment: [] Treatment Plan: [] Disposition: [] Home stable Impression: [] URI This note was generated with [employer] dictation software. It may contain incorrect words, spelling, and punctuation that were not noted in review of the chart prior to signing ED Disposition - Plan for ED Patient: Chief Complaint: Cold Sx Referrals: Swetha Cox, GABRIELLA-C [Primary Care Provider] -
--- NOTE | 2018-10-26 21:04 | DCINST.ED_ITS ---
ED Disposition - Plan for ED Patient: Chief Complaint: Cold Sx Instructions: ED Upper Resp Infec No Abx Tx Referrals: Swetha Cox, GEOSPATIAL SYSTEMS INTEGRATOR-C [Primary Care Provider] -
[2018-10-26 21:09] VITALS: BP 130/80; PULSE 78; RESP 16; O2SAT 97
== END 2018-10-26 21:34 | disposition home or self-care (01) ==
LOC: ED 21:17
PROVIDERS: Emergency Provider Emergency Medicine; Referring Provider Nurse Practitioner Family
DX: J06.9 Acute upper respiratory infection, unspecified (principal); E11.9 Type 2 diabetes mellitus without complications; Z79.84 Long term (current) use of oral hypoglycemic drugs; Z79.899 Other long term (current) drug therapy
CPT/HCPCS: 99282

== ENCOUNTER 2018-11-06 08:47 | Emergency (ER) | payer MEDICAID, SELFPAY ==
[2018-11-06 08:48] VITALS: BP 152/90; PULSE 66; RESP 15; TEMP 36.6; O2SAT 98; BMI 31.6
--- NOTE | 2018-11-06 08:51 | EKG12_ITS ---
Test Reason : CHEST PAIN Blood Pressure : / mmHG Vent. Rate : 065 BPM Atrial Rate : 065 BPM P-R Int : 148 ms QRS Dur : 084 ms QT Int : 388 ms P-R-T Axes : 049 -08 014 degrees QTc Int : 403 ms Normal sinus rhythm Normal ECG Confirmed by SONJA CASTRO, NATALIE ([id number]), make up editor RIMMA LUCAS ([id number]) on 11/11/2018 9:48:54 AM Referred By: MACK Confirmed By:NATALIE CASILLAS MD
--- NOTE | 2018-11-06 08:51 | RAD_ITS ---
STUDY: X-RAY CHEST REASON FOR EXAM: Male, 42 years old. Chest pain. TECHNIQUE: Single AP portable view of the chest. COMPARISON: Comparison is made with prior study dated April 05, 2018. FINDINGS: EKG electrodes are seen. The lungs are clear and expanded. There is no demonstrated pleural abnormality. Normal size heart. Normal mediastinum and derick. Normal visualized pulmonary arteries. Normal visualized aortic arch and descending thoracic aorta. Normal visualized thoracic spine. Healed proximal left humeral fracture. There is no demonstrated abnormality of the visualized soft tissue structures of the upper abdomen. RAD/Chest 1 View (Portable) IMPRESSION: Normal x-ray examination of the chest. Electronically Signed: Carlos Curiel MD at 9:12 EST , Service support ,
--- NOTE | 2018-11-06 09:15 | ED.DCSUM_ITS ---
- ER Visit Summary Date of Service: 11/06/18 Chief Complaint: Anxiety attack History of Present Illness: The patient is a 42 M with a history of anxiety presenting with what he describes as his typical anxiety attack. He states that he always has chest pain with his panic attacks and that this is no different than his usual flareup. He believes that he is having anxiety because his dog had 4 puppies last night and he was so excited about naming them and keeping 1 of the puppies that he began to experience anxiety and chest tightness when he went to bed last night. When he woke up this morning it was still present. When he told his boss at [employer], he was advised to go to the emergency department for evaluation. He denies associated diaphoresis or dyspnea. There is no exertional or pleuritic component. He has had a stress test less than 1 year ago and it was negative. He denies recent travel or mobilization. He denies history of DVT or PE. Pain is currently quite mild in severity and has almost resolved after he took his anxiety medication. Physical Examination: Vitals are within normal limits. He is not in distress. Pulse ox is 99%. Heart tones are regular and without murmur. Lungs are clear bilaterally. No chest wall tenderness. No tenderness along the lower extremity venous system, palpable cords, or other evidence of DVT. Strong pulses in all extremities. His mental status exam is normal at this point. Thought content is normal. He denies suicidal thoughts or ideation. Test Results: Chest x-ray unremarkable. CBC, BMP, and troponin all negative. He began having pain last night which was over 8 hours ago so I do not feel he needs serial enzymes. Additionally, he had a negative stress test 1 year ago and he assures me that this is his typical anxiety attack symptom. He is fairly low risk for cardiac issues and I feel that he can safely be discharged home after a single negative biomarker. He has no clinical evidence of DVT and no hypoxia so I do not suspect pulmonary embolism. Emergency Department Course and Treatment: His pain resolved. He was discharged in stable condition to follow-up with his doctor Treatment Plan: Follow-up with his doctor Disposition: Home stable Impression: Initial encounter chest pain, anxiety attack This note was generated with [employer] dictation software. It may contain incorrect words, spelling, and punctuation that were not noted in review of the chart prior to signing ED Disposition - Plan for ED Patient: Instructions: ED Chest Pain NonCardiac Referrals: Izabel Chicas [Primary Care Provider] -
[2018-11-06 09:26] LABS: Absolute Lymphocyte Count 1.58 X10^3/ul (0.83-4.51); Absolute Neutrophil Count 2.6 X10^3/uL (2.0-7.7); Basophil# 0.04 X10^3/uL; Basophil% 0.8 % (0-1); Eosinophil# 0.21 X10^3/uL; Eosinophils% 4.3 % (0-5); Hematocrit 40.5 % (40-54); Hemoglobin 14.4 g/dl (13.0-16.5); Lymphocyte # 1.58 X10^3/ul (4.0); Lymphocyte % 32.1 % (19-41); Mean Corp Hgb Conc 35.6 g/gl (32-36); Mean Platelet Vol. 11.2 fl (6.2-12.0); Monocyte# 0.45 X10^3/uL; Monocyte% 9.1 % (0-10); Neutrophil # 2.63 X10^3/uL (2.7-7.7); Neutrophil % 53.5 % (47-70); Platelet Count 225 K/mm3 (150-450); RBC Distribution Width CV 13.4 % (11.6-14.6); White Blood Count 4.9 K/mm3 (4.4-11.0)
[2018-11-06 09:27] LABS: POSITIVE COUNT NO; POSITIVE DIFFERENTIAL NO; POSITIVE MORPHOLOGY NO
[2018-11-06 09:45] LABS: AST(SGOT) 46 U/L (15-37); Alanine Aminotransfer ALT/SGPT 46 U/L (16-61); Albumin, Serum 3.7 g/dL (3.2-5.0); Alkaline Phosphatase 88 U/L (45-117); Anion Gap 6 (5-15); BUN 10 mg/dL (7-18); BUN/Creat Ratio 11.7 RATIO (10-20); Bilirubin, Direct 0.11 mg/dL (0.00-0.30); Calcium,Total 8.3 mg/dL (8.5-10.1); Chloride 105 mmol/L (98-107); Creatinine, Serum 0.85 mg/dL (0.70-1.30); EST Glomerular Filtration Rate 105 mL/min (>60); Est Glom Filt Rate - Afr Amer 127 mL/min (>60); Estimated Creatinine Clearance 129.25 ml/min; Globulin 3.4 g/dL (2.2-4.2); Glucose 220 mg/dL (74-106); Lipase 102 U/L (73-393); Potassium 4.3 mmol/L (3.5-5.1); Protein, Total 7.1 g/dL (6.4-8.2); Sodium Level 138 mmol/L (136-145)
[2018-11-06 10:10] VITALS: BP 127/76; PULSE 62; RESP 15; O2SAT 97
== END 2018-11-06 10:14 | disposition home or self-care (01) ==
LOC: ED 09:25
PROVIDERS: Emergency Provider Emergency Medicine
DX: R07.9 Chest pain, unspecified (principal); F41.9 Anxiety disorder, unspecified; F41.0 Panic disorder [episodic paroxysmal anxiety]; E11.9 Type 2 diabetes mellitus without complications; I10 Essential (primary) hypertension; Z79.899 Other long term (current) drug therapy; Z79.84 Long term (current) use of oral hypoglycemic drugs
CPT/HCPCS: 71045; 80048; 80076; 83690; 84484; 85025; 93005; 99285; A4216

== ENCOUNTER 2019-01-11 21:34 | Emergency (ER) | payer MEDICAID, SELFPAY ==
[2019-01-11 21:35] VITALS: BP 133/95; PULSE 72; RESP 16; TEMP 36.3; O2SAT 99; BMI 30.2
--- NOTE | 2019-01-11 21:47 | ED.DCSUM_ITS ---
History of Present Illness Chief Complaint: Headache Narrative: She stated he started developing headache about 4 hours ago at home. Gradual onset frontal aching. Moderate in severity. He felt nausea just when he got here and had one episode of emesis in the car. Denies any visual symptoms. Does have a history of migraines per patient. Normally he takes Midol and goes away. He tried this earlier but it did not work. It did not come on suddenly. He is not having any other symptoms. Lites are not bothering his eyes. Denies any neck pain. - Past Medical History (1) Atypical chest pain Status: Acute (2) Epigastric pain Status: Acute (3) S/P cholecystectomy Status: Acute (4) S/P hernia repair Status: Acute (5) S/P tonsillectomy Status: Acute (6) Diabetes mellitus Status: Chronic (7) Diabetes mellitus type 2 in obese Status: Chronic (8) Dyslipidemia Status: Chronic (9) GERD (gastroesophageal reflux disease) Status: Chronic (10) Obesity, mild Status: Chronic Past Medical History - Allergies and Home Meds Allergies/Adverse Reactions: Allergies hydrocodone Adverse Reaction (Verified 01/11/19 21:35) Nausea/Vom/Diarrhea Primary Care Physician: [facility] Izabel Sawyer [Primary Care Provider] - Prior records reviewed: Yes Surgical History: no surgical history Smoking Status: Never smoker Alcohol: None Drugs: None - Family History Sibling Family History: Family History (Last Reviewed 12/12/17 @ 08:13 by Lina Coker) Father Cancer Family History: Reports: Heart Disease Review of Systems General: Denies: Chills, Fever, Sweats Eyes: Denies: Visual changes - bilaterally, Diplopia ENT: Denies: Rhinorrhea, Sore throat Cardiovascular: Denies: Chest pain, Palpitations Respiratory: Denies: Dyspnea, Cough, Dyspnea on exertion Gastrointestinal: Reports: Nausea. Denies: Abdominal pain, Vomiting, Diarrhea, Melena, Hematochezia Genitourinary: Denies: Dysuria, Hematuria, Frequency Musculoskeletal: Denies: Back pain, Extremity Pain Skin: Denies: Rash, Wounds Neurological: Reports: Headache. Denies: Weakness, Numbness Physical Exam Vital Signs/Narrative: Vital Signs Temp Pulse Resp BP Pulse Ox 01/11/19 21:35 97.3 F L 72 16 133/95 H 99 General: Well nourished, Well developed, No Acute Distress Head: Normocephalic, Atraumatic Eyes: Perrl, EOMI ENT: Moist mucous membranes, No rhinorrhea Neck: Supple, Nontender Cardiovascular: Regular rate, Regular rhythm, No murmurs Respiratory: No distress, CTA bilaterally, Chest nontender Abdomen: Soft, Nontender, Nondistended, Normal bowel sounds Back: Nontender, Normal Inspection Extremities: Nontender, No edema Skin: Normal color, No rash Neurological: Alert, Oriented x3, Cranial nerves II-XII grossly intact, Normal Strength, Normal Sensation, - - Resting comfortably. No temporal artery tenderness. No neck tenderness. Psychological: Normal affect, Normal Mood Diagnostic/Tx/Re-eval - Medical Decision Making I feel the patient is having a migraine. He feels the same. He gets these infrequently. He asked for injections IM to be discharged. Given Compazine Toradol and Benadryl. I discussed given IV fluids and IV medications and he declined this. I do not think he needs a CT of his head. Have a low suspicion for intracranial hemorrhage or mass lesion. He will follow-up as an outpatient ED Disposition - Plan for ED Patient: Diagnosis: Migraine headache Instructions: ED Headache Migraine Referrals: Izabel Chicas [Primary Care Provider] -
[2019-01-11] MEDS: DiphenhydrAMINE 50 MG/ML Syringe IM (21:56)
[2019-01-11] MEDS: Ketorolac 30 MG/ML Syringe 60 MG IM (21:56)
[2019-01-11] MEDS: proCHLORPERazine 10 MG/2 ML Vial IM (21:57)
[2019-01-11 22:18] VITALS: BP 138/90; PULSE 74; RESP 16; O2SAT 98
== END 2019-01-11 22:19 | disposition home or self-care (01) ==
LOC: ED 21:56
PROVIDERS: Emergency Provider Emergency Medicine
DX: G43.909 Migraine, unspecified, not intractable, without status migrainosus (principal); E11.9 Type 2 diabetes mellitus without complications; E78.5 Hyperlipidemia, unspecified; K21.9 Gastro-esophageal reflux disease without esophagitis; E66.9 Obesity, unspecified; Z79.84 Long term (current) use of oral hypoglycemic drugs; Z79.899 Other long term (current) drug therapy; Z90.49 Acquired absence of other specified parts of digestive tract
CPT/HCPCS: 96372; 99282

== ENCOUNTER 2019-08-09 19:54 | Emergency (ER) | payer SELFPAY ==
[2019-08-09 19:55] VITALS: BP 135/82; PULSE 95; RESP 17; TEMP 36.6; O2SAT 99; BMI 31.4
--- NOTE | 2019-08-09 20:04 | ED.DCSUM_ITS ---
History of Present Illness Chief Complaint: Dizziness Detail of Chief Complaint: Hyperglycemia, symptoms of hyperglycemia Informant: Patient Onset: Days Context: Sudden Onset Timing: Continuous, Waxes and wanes Quality: Symptoms of hyperglycemia Location: Not applicable Current Severity: Mild Maximum Severity: Moderate Worsened by: Not able to get prescription for Metformin Relieved by: Nothing Associated Symptoms: Read HPI Narrative: Patient is a 43-year-old male with type 2 diabetes. States he lost his insurance. He is not been able to fill his prescription for metformin Taya since July. He complains of blurred vision, polyuria, polydipsia and nocturia. He denies double vision or loss of vision. He denies ringing in his ears, decreased hearing or pain. Denies rhinorrhea, congestion or postnasal d rainage. Denies sore throat. Denies cough or shortness of breath. Denies chest pain. Does report nausea without vomiting or diarrhea. Denies paresthesia, anesthesia or motor weakness. Patient when asked to define what he means by dizziness. He states the lights bothering his eyes. Prior similar symptoms: No Recent Illness/Hospitalization: No - Past Medical History (1) S/P cholecystectomy Status: Acute (2) S/P tonsillectomy Status: Acute (3) Diabetes mellitus type 2 in obese Status: Chronic (4) Dyslipidemia Status: Chronic (5) GERD (gastroesophageal reflux disease) Status: Chronic (6) Obesity, mild Status: Chronic Past Medical History - Allergies and Home Meds Allergies/Adverse Reactions: Allergies hydrocodone Adverse Reaction (Verified 08/09/19 19:54) Nausea/Vom/Diarrhea Primary Care Physician: Izabel Chicas [Primary Care Provider] - Prior records reviewed: Yes Surgical History: no surgical history Lives: Alone Smoking Status: Never smoker Alcohol: None Drugs: None - Family History Sibling Family History: Family History (Last Reviewed 12/12/17 @ 08:13 by Lina Coker) Father Cancer Family History: Reports: Heart Disease Review of Systems General: Denies: Chills, Fever, Sweats Eyes: Reports: Blurred Vision - bilaterally. Denies: Visual changes - bilaterally, Diplopia ENT: Denies: Bilateral ear pain, Rhinorrhea, Sore throat Cardiovascular: Denies: Chest pain, Palpitations Respiratory: Denies: Dyspnea, Cough, Dyspnea on exertion Gastrointestinal: Denies: Abdominal pain, Nausea, Vomiting, Diarrhea, Melena, Hematochezia Genitourinary: Reports: Frequency, - - Nocturia. Denies: Dysuria, Hematuria Musculoskeletal: Denies: Myalgias, Arthralgias, Back pain, Swelling, Extremity Pain Skin: Denies: Rash, Wounds Neurological: Reports: Headache, Weakness. Denies: Parasthesia, Numbness Endocrine: Reports: Polyuria, Polydipsia Physical Exam Vital Signs/Narrative: Vital Signs Temp Pulse Resp BP Pulse Ox 08/09/19 19:55 97.8 F 95 17 135/82 H 99 Inital Vital Signs reviewed: Yes General: Well nourished, Well developed, Unkempt, No Acute Distress Head: Normocephalic, Atraumatic Eyes: Perrl, EOMI. Negative for: Pale conjunctiva, Scleral icterus ENT: No rhinorrhea, Dry mucous membranes Neck: Supple, Nontender, No lymphadenopathy, No JVD Cardiovascular: Regular rate, Regular rhythm, No murmurs, Normal S1, Normal S2 Respiratory: No distress, CTA bilaterally, Chest nontender Abdomen: Soft, Nontender, Nondistended, Normal bowel sounds Back: Nontender, Normal Inspection Extremities: Nontender, No edema Skin: Normal color, No rash Neurological: Alert, Oriented x3, Cranial nerves II-XII grossly intact, Normal Strength, Normal Sensation Psychological: Normal affect, Normal Mood Diagnostic/Tx/Re-eval Laboratory Results 08/09/19 08/09/19 08/09/19 20:01 20:05 20:05 WBC 7.2 RBC 5.06 Hgb 15.9 Hct 43.8 MCV 86.6 MCH 31.4 MCHC 36.3 H RDW Std Deviation 39.6 RDW Coeff of Génesis 12.7 Plt Count 194 MPV 9.2 Immature Gran % (Auto) 0.100 Neut % (Auto) 62.1 Lymph % (Auto) 28.8 [place] % (Auto) 6.9 Eos % (Auto) 1.5 Baso % (Auto) 0.6 Absolute Neuts (auto) 4.5 Absolute Lymphs (auto) 2.08 Nucleated RBC % 0 Sodium 135 L Potassium 3.6 Chloride 99 Carbon Dioxide 29.0 Anion Gap 7 BUN 11 Creatinine 0.94 Estim Creat Clear Calc 115.69 Est GFR (MDRD) Af Amer 112 Est GFR (MDRD) Non-Af 93 BUN/Creatinine Ratio 11.6 Glucose 318 H Calcium 8.9 Urine Color Urine Clarity Urine pH Ur Specific [place] Urine Protein Urine Glucose (UA) Urine Ketones Urine Occult Blood Urine Nitrite Urine Bilirubin Urine Urobilinogen Ur Leukocyte Esterase Urine RBC Urine WBC Ur Squamous Epith Cells Urine Bacteria Urine Mucus POC Glucose 323 H 08/09/19 20:33 WBC RBC Hgb Hct MCV MCH MCHC RDW Std Deviation RDW Coeff of Génesis Plt Count MPV Immature Gran % (Auto) Neut % (Auto) Lymph % (Auto) [place] % (Auto) Eos % (Auto) Baso % (Auto) Absolute Neuts (auto) Absolute Lymphs (auto) Nucleated RBC % Sodium Potassium Chloride Carbon Dioxide Anion Gap BUN Creatinine Estim Creat Clear Calc Est GFR (MDRD) Af Amer Est GFR (MDRD) Non-Af BUN/Creatinine Ratio Glucose Calcium Urine Color Yellow Urine Clarity Sl. Cloudy Urine pH 6.0 Ur Specific [place] 1.020 Urine Protein Negative Urine Glucose (UA) 1000 H Urine Ketones Negative Urine Occult Blood Negative Urine Nitrite Negative Urine Bilirubin Negative Urine Urobilinogen Normal Ur Leukocyte Esterase Negative Urine RBC 0 SEEN Urine WBC 0 SEEN Ur Squamous Epith Cells 0 SEEN Urine Bacteria 0 SEEN Urine Mucus 0 SEEN POC Glucose White count and differential unremarkable. Basic metabolic panel is remarkable elevated blood sugar with a normal CO2 and anion gap. Urine is positive for glucose only. - Medical Decision Making PTT is 325. Basic metabolic panel was obtained to assess CO2 and anion gap. IV was established he received 1 L of normal saline. He also will receive 4 units of insulin subcutaneous. Patient was informed of his results. He feels better after a liter of normal saline. He was discharged with prescription for metformin 500 mg twice daily. He states since he no longer has insurance he will follow-up at [facility]. ED Disposition - Plan for ED Patient: Disposition: Home or Assisted Living Diagnosis: Hyperglycemia due to type 2 diabetes mellitus Instructions: ED Diabetic Hyperglycemia Prescriptions: Metformin HCl 500 mg PO BID #60 tab Transmission Status: Pending to [facility]30 Referrals: Izabel Chicas [Primary Care Provider] - Additional Instructions: Your prescription was electronically sent to [facility]
[2019-08-09 20:06] LABS: Bedside Glucose 323 mg/dL (70-110)
[2019-08-09 20:13] LABS: Absolute Lymphocyte Count 2.08 X10^3/uL (0.83-4.51); Absolute Neutrophil Count 4.5 X10^3/uL (2.0-7.7); Basophil# 0.04 X10^3/uL; Basophil% 0.6 % (0-1); Eosinophil# 0.11 X10^3/uL; Eosinophils% 1.5 % (0-5); Hematocrit 43.8 % (40-54); Hemoglobin 15.9 g/dL (13.0-16.5); Lymphocyte # 2.08 X10^3/ul (4.0); Lymphocyte % 28.8 % (19-41); Mean Corp Hgb Conc 36.3 g/dL (32-36); Mean Corpuscular Hgb 31.4 pg (27.0-32.0); Mean Corpuscular Volume 86.6 fL (80-94); Mean Platelet Vol. 9.2 fl (6.2-12.0); Monocyte% 6.9 % (0-10); NRBC Flagged by Analyzer 0 % (0-5); Neutrophil # 4.48 X10^3/uL (2.7-7.7); Neutrophil % 62.1 % (47-70); Platelet Count 194 K/mm3 (150-450); RBC Distribution Width CV 12.7 % (11.6-14.6); RBC Distribution Width SD 39.6 fl (35.1-43.9); Red Blood Count 5.06 M/mm3 (4.6-6.2); White Blood Count 7.2 K/mm3 (4.4-11.0)
[2019-08-09] MEDS: 0.9% Normal Saline 1,000 ML 1000 ML IV (20:13)
[2019-08-09] MEDS: Insulin Lispro 100 UNIT/ML INSULN.PEN SC (20:13)
[2019-08-09 20:29] LABS: Anion Gap 7 (5-15); BUN 11 mg/dL (7-18); BUN/Creat Ratio 11.6 RATIO (10-20); Calcium,Total 8.9 mg/dL (8.5-10.1); Chloride 99 mmol/L (98-107); Creatinine, Serum 0.94 mg/dL (0.70-1.30); EST Glomerular Filtration Rate 93 mL/min (>60); Est Glom Filt Rate - Afr Amer 112 mL/min (>60); Estimated Creatinine Clearance 115.69 ml/min; Glucose 318 mg/dL (74-106); Potassium 3.6 mmol/L (3.5-5.1); Sodium Level 135 mmol/L (136-145)
[2019-08-09 20:40] LABS: Bacteria 0 SEEN /hpf (None Seen); Mucous, Urine 0 SEEN /hpf (<or=2+); Red Blood Cells-Urine 0 SEEN /hpf (0-5); Squamous Epithelial Cells - UA 0 SEEN /hpf (0-5); White Blood Cells 0 SEEN /hpf (0-5)
[2019-08-09 20:41] LABS: Color, Urine Yellow (Yellow); Glucose, Dipstick 1000 mg/dl (Normal); Ketone-Dipstick Negative (Negative); Leukocyte Esterase-Dipstick Negative /ul (Negative); Nitrite-Dipstick Negative (Negative); Occult Blood-Urine Negative /ul (Negative); Protein-Dipstick Negative (Negative); Urine Bilirubin Dipstick Negative (Negative); Urine Clarity Sl. Cloudy (Clear); Urine Urobilinogen Normal (Normal)
[2019-08-09 21:15] VITALS: BP 132/78; PULSE 99; RESP 15; O2SAT 99
== END 2019-08-09 21:18 | disposition home or self-care (01) ==
PROVIDERS: Emergency Provider Emergency Medicine
DX: E11.65 Type 2 diabetes mellitus with hyperglycemia (principal); E78.5 Hyperlipidemia, unspecified; K21.9 Gastro-esophageal reflux disease without esophagitis; E66.9 Obesity, unspecified; Z79.84 Long term (current) use of oral hypoglycemic drugs; Z79.899 Other long term (current) drug therapy; Z88.5 Allergy status to narcotic agent; Z90.49 Acquired absence of other specified parts of digestive tract
CPT/HCPCS: 80048; 81001; 82962; 85025; 96360; 99284; J7030

== ENCOUNTER 2019-11-02 20:45 | Emergency (ER) | payer MEDICAID, SELFPAY ==
[2019-11-02 20:46] VITALS: BP 143/97; PULSE 83; RESP 16; TEMP 36.8; O2SAT 98; BMI 33.0
[2019-11-02 20:58] VITALS: O2SAT 98
--- NOTE | 2019-11-02 21:00 | RAD_ITS ---
STUDY: X-RAY CHEST REASON FOR EXAM: Male, 43 years old. COUGH TECHNIQUE: Portable COMPARISON: 11/06/2018 FINDINGS: The lungs are clear and expanded. There is no demonstrated pleural abnormality. Normal size heart. Normal mediastinum and derick. Normal visualized pulmonary arteries. Normal visualized aortic arch and descending thoracic aorta. Normal visualized thoracic spine. Normal visualized ribs, clavicles, and shoulders. There is no demonstrated abnormality of the visualized soft tissue structures of the upper abdomen. RAD/Chest 1 View (Portable) IMPRESSION: Normal x-ray examination of the chest. Electronically Signed: Mattie Marie MD at 21:25 EST Tel , Service support ,
--- NOTE | 2019-11-02 21:54 | ED.VISSUMM ---
- ER Visit Summary Date of Service: 11/02/19 Chief Complaint: Cough History of Present Illness: The patient is a 43 M presenting with cough, URI symptoms. This has been ongoing for the past week. He has had subjective fever and chills. He has rhinorrhea and productive cough. He did not receive a flu shot this year. 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 Denies other complaints. Physical Examination: Vitals are stable. Patient is afebrile. Alert no acute distress. HEENT exam is unremarkable. Neck is supple. Lungs are clear and equal bilaterally. Heart is regular rate and rhythm. Abdomen is soft nontender nondistended. Extremities are unremarkable. Skin is warm and dry. No focal neurologic deficit. Remainder of exam is unremarkable. Emergency Department Course and Treatment: Chest x-ray shows no acute process. Influenza negative. Patient is given prescription for Tessalon Perles. Advised follow-up with his primary care physician. Advised return the ED for worsening complaints. Disposition: Discharge home Impression: URI This note was generated with [employer] dictation software. It may contain incorrect words, spelling, and punctuation that were not noted in review of the chart prior to signing ED Disposition - Plan for ED Patient: Referrals: [facility],Izabel Kaur [Primary Care Provider] -
--- NOTE | 2019-11-02 21:56 | ED.DEP ---
ED Disposition - Plan for ED Patient: Instructions: VIRAL SYNDROME (Adult) Prescriptions: Benzonatate [Tessalon Perle] 200 mg PO TID PRN PRN #20 capsule PRN Reason: Cough Referrals: Izabel Chicas [Primary Care Provider] -
[2019-11-02 22:05] VITALS: PULSE 71; RESP 18; O2SAT 98
--- NOTE | 2019-11-02 22:05 | ED.RN ---
THIS NURSE REVIEWED D/C INSTRUCTIONS WITH PT. PT VERBALIZED UNDERSTANDING OF INSTRUCTIONS. DENIES FURTHER NEEDS OR QUESTIONS AT [facility]
== END 2019-11-02 22:06 | disposition home or self-care (01) ==
LOC: ED 21:10
PROVIDERS: Emergency Provider Emergency Medicine
DX: J06.9 Acute upper respiratory infection, unspecified (principal); E11.9 Type 2 diabetes mellitus without complications; Z79.84 Long term (current) use of oral hypoglycemic drugs; Z79.899 Other long term (current) drug therapy
CPT/HCPCS: 71045; 87804; 99282

== ENCOUNTER 2019-11-05 00:57 | Emergency (ER) | payer MEDICAID, SELFPAY ==
[2019-11-05 00:59] VITALS: BP 155/111; PULSE 95; RESP 16; TEMP 37; O2SAT 97; BMI 32.2
[2019-11-05 01:31] LABS: Bedside Glucose 388 mg/dL (70-110)
--- NOTE | 2019-11-05 02:06 | ED.VIS.GEN ---
History of Present Illness Chief Complaint: Hyperglycemia Narrative: Patient is a 43-year-old male who presents with elevated blood sugar. He is a diabetic. He is on metformin only. He is not insulin-dependent. He states normally his blood sugar is in the 150s. Tonight he had a headache and blurry vision so he checked his blood sugar at home and it was about 450. He does complain of polydipsia and polyuria. No fevers. No vomiting or diarrhea. He has had a recent cough and is taking Tessalon Perles. Past Medical History - Allergies and Home Meds Allergies/Adverse Reactions: Allergies hydrocodone Adverse Reaction (Verified 11/02/19 20:48) Nausea/Vom/Diarrhea Primary Care Physician: [facility],Izabel Kaur [Primary Care Provider] - Past Medical History: - - Diabetes, hypertension, hyperlipidemia Surgical History: no surgical history Smoking Status: Current some day smoker - Family History Sibling Family History: Family History (Last Reviewed 12/12/17 @ 08:13 by Lina Coker) Father Cancer Family History: Reports: Heart Disease Review of Systems All systems negative except as indicated General: Denies: Fever Eyes: Reports: Blurred Vision - bilaterally Cardiovascular: Denies: Chest pain Respiratory: Reports: Cough. Denies: Dyspnea Gastrointestinal: Denies: Abdominal pain, Nausea, Vomiting, Diarrhea Skin: Denies: Rash Neurological: Reports: Headache Endocrine: Reports: Polyuria, Polydipsia Allergy: Denies: Uticaria Physical Exam Vital Signs/Narrative: Vital Signs Temp Pulse Resp BP Pulse Ox 11/05/19 00:59 98.6 F 95 16 155/111 H 97 Inital Vital Signs reviewed: Yes General: Well nourished, Well developed, Obese Head: Normocephalic Eyes: EOMI ENT: Moist mucous membranes Neck: Supple Cardiovascular: Regular rate, Regular rhythm Respiratory: No distress, CTA bilaterally Abdomen: Soft, Nontender Skin: Normal color Neurological: Alert Psychological: Normal affect Diagnostic/Tx/Re-eval Laboratory Results 11/05/19 11/05/19 11/05/19 01:10 01:10 01:10 WBC 6.3 RBC 4.89 Hgb 15.6 Hct 42.3 MCV 86.5 MCH 31.9 MCHC 36.9 H RDW Std Deviation 39.4 RDW Coeff of Génesis 12.7 Plt Count 216 MPV 9.7 Immature Gran % (Auto) 0.200 Neut % (Auto) 55.0 Lymph % (Auto) 33.3 [place] % (Auto) 9.0 Eos % (Auto) 1.7 Baso % (Auto) 0.8 Absolute Neuts (auto) 3.5 Absolute Lymphs (auto) 2.10 Nucleated RBC % 0 Specimen Type Sample Site VBG pH VBG pO2 VBG O2 Sat (Calc) VBG O2 Content VBG Base Excess POC Mix VBG pCO2 Pt Tmp O2 Delivery Device Blood Gas Notified Whom Sodium 133 L Potassium 3.7 Chloride 100 Carbon Dioxide 25.0 Anion Gap 8 BUN 12 Creatinine 1.22 Estim Creat Clear Calc 86.58 Est GFR (MDRD) Af Amer 83 Est GFR (MDRD) Non-Af 69 BUN/Creatinine Ratio 9.8 L Glucose 446 H Calcium 8.7 Acetone Level NEGATIVE POC Glucose 11/05/19 11/05/19 11/05/19 01:23 02:20 03:21 WBC RBC Hgb Hct MCV MCH MCHC RDW Std Deviation RDW Coeff of Génesis Plt Count MPV Immature Gran % (Auto) Neut % (Auto) Lymph % (Auto) [place] % (Auto) Eos % (Auto) Baso % (Auto) Absolute Neuts (auto) Absolute Lymphs (auto) Nucleated RBC % Specimen Type OMKAR Sample Site OTHER VBG pH 7.42 VBG pO2 54 H VBG O2 Sat (Calc) 88 H VBG O2 Content 27 VBG Base Excess 2 POC Mix VBG pCO2 Pt Tmp 40.0 L O2 Delivery Device Room Air Blood Gas Notified Whom ED MD Sodium Potassium Chloride Carbon Dioxide Anion Gap BUN Creatinine Estim Creat Clear Calc Est GFR (MDRD) Af Amer Est GFR (MDRD) Non-Af BUN/Creatinine Ratio Glucose Calcium Acetone Level POC Glucose 388 H 321 H 11/05/19 04:14 WBC RBC Hgb Hct MCV MCH MCHC RDW Std Deviation RDW Coeff of Génesis Plt Count MPV Immature Gran % (Auto) Neut % (Auto) Lymph % (Auto) [place] % (Auto) Eos % (Auto) Baso % (Auto) Absolute Neuts (auto) Absolute Lymphs (auto) Nucleated RBC % Specimen Type Sample Site VBG pH VBG pO2 VBG O2 Sat (Calc) VBG O2 Content VBG Base Excess POC Mix VBG pCO2 Pt Tmp O2 Delivery Device Blood Gas Notified Whom Sodium Potassium Chloride Carbon Dioxide Anion Gap BUN Creatinine Estim Creat Clear Calc Est GFR (MDRD) Af Amer Est GFR (MDRD) Non-Af BUN/Creatinine Ratio Glucose Calcium Acetone Level POC Glucose 302 H - Medical Decision Making Patient was treated with IV fluids. Laboratory evaluation as above notable for diabetic hyperglycemia but no evidence of DKA. He has a normal pH, negative ketones. He was given subcutaneous insulin. On recheck his blood sugar is 300. Patient does note that he ran out of his metformin. I provided a refill for this and patient does have upcoming follow-up with his primary care provider later this month. Patient understands to return for new or worsening symptoms. He was discharged home. ED Disposition - Plan for ED Patient: Disposition: Home or Assisted Living Diagnosis: Diabetes mellitus with hyperglycemia Instructions: ED Diabetic Hyperglycemia Prescriptions: Metformin HCl 500 mg PO BID #60 tab Prescription Printed Referrals: [facility]zabel Kaur [Primary Care Provider] -
[2019-11-05 02:12] LABS: Absolute Neutrophil Count 3.5 X10^3/uL (2.0-7.7); Basophil# 0.05 X10^3/uL; Basophil% 0.8 % (0-1); Eosinophil# 0.11 X10^3/uL; Eosinophils% 1.7 % (0-5); Hematocrit 42.3 % (40-54); Hemoglobin 15.6 g/dL (13.0-16.5); Lymphocyte % 33.3 % (19-41); Mean Corp Hgb Conc 36.9 g/dL (32-36); Mean Corpuscular Hgb 31.9 pg (27.0-32.0); Mean Corpuscular Volume 86.5 fL (80-94); Mean Platelet Vol. 9.7 fl (6.2-12.0); Monocyte# 0.57 X10^3/uL; NRBC Flagged by Analyzer 0 % (0-5); Neutrophil # 3.46 X10^3/uL (2.7-7.7); Platelet Count 216 K/mm3 (150-450); RBC Distribution Width CV 12.7 % (11.6-14.6); RBC Distribution Width SD 39.4 fl (35.1-43.9); Red Blood Count 4.89 M/mm3 (4.6-6.2); White Blood Count 6.3 K/mm3 (4.4-11.0)
[2019-11-05] MEDS: 0.9% Normal Saline 1,000 ML 999 ML IV ×2 (02:17→02:18)
[2019-11-05 02:22] LABS: Anion Gap 8 (5-15); BUN 12 mg/dL (7-18); BUN/Creat Ratio 9.8 RATIO (10-20); Calcium,Total 8.7 mg/dL (8.5-10.1); Chloride 100 mmol/L (98-107); Creatinine, Serum 1.22 mg/dL (0.70-1.30); EST Glomerular Filtration Rate 69 mL/min (>60); Est Glom Filt Rate - Afr Amer 83 mL/min (>60); Estimated Creatinine Clearance 86.58 ml/min; Glucose 446 mg/dL (74-106); Potassium 3.7 mmol/L (3.5-5.1); Sodium Level 133 mmol/L (136-145)
[2019-11-05 02:25] LABS: Blood Gas Specimen Type VEN; O2 Delivery Device Room Air; SITE OTHER; VBG BASE EXCESS 2 mmol/L (-1.0-3.5); VBG Bicarbonate 26 mmol/L (22-26); VBG Oxygen Content 27 mmol/L (23-33); VBG PO2 54 mmHg (25-40); VBG SO2 88 % (50-70); VBG pH 7.42 (7.32-7.42)
[2019-11-05] MEDS: Insulin Lispro 100 UNIT/ML INSULN.PEN 8 UNIT SC (03:23)
[2019-11-05 03:25] VITALS: BP 137/81; PULSE 76; RESP 18; O2SAT 96
[2019-11-05 03:30] LABS: Bedside Glucose 321 mg/dL (70-110)
[2019-11-05 04:20] LABS: Bedside Glucose 302 mg/dL (70-110)
--- NOTE | 2019-11-05 04:55 | ED.RN ---
PT received a total of 2L of NS fluids.
== END 2019-11-05 04:55 | disposition home or self-care (01) ==
PROVIDERS: Emergency Provider Emergency Medicine; Referring Provider Nurse Practitioner Family
DX: E11.65 Type 2 diabetes mellitus with hyperglycemia (principal); I10 Essential (primary) hypertension; E78.5 Hyperlipidemia, unspecified; R05 Cough; Z88.5 Allergy status to narcotic agent; Z79.84 Long term (current) use of oral hypoglycemic drugs; F17.200 Nicotine dependence, unspecified, uncomplicated
CPT/HCPCS: 36415; 80048; 82009; 82803; 82962; 85025; 96360; 96361; 99284; J7030; A4216

== ENCOUNTER 2019-11-13 07:40 | Emergency (ER) | payer MEDICAID, SELFPAY ==
[2019-11-13 07:41] VITALS: BP 126/88; PULSE 74; RESP 17; TEMP 37.1; O2SAT 97; BMI 31.8
--- NOTE | 2019-11-13 07:51 | CT_ITS ---
STUDY: CT ABDOMEN AND PELVIS WITH CONTRAST REASON FOR EXAM: Male, 43 years old. Left sided abdomen pain x 1 week, worsening. Prior cholecystectomy, hernia repair. Diet controlled diabetes. RADIATION DOSAGE (If Supplied By Facility): CTDIvol = ( 21.22 ) mGy, DLP = ( 1280.32 ) mGycm TECHNIQUE: Transaxial images were obtained from the dome of the diaphragm to the symphysis pubis with oral contrast. Oral and amp; IV Gastrografin and amp; 100mL Isovue-300 was administered. Sagittal and coronal images were reconstructed. Individualized dose optimization techniques were used for this CT. COMPARISON: CT abdomen and pelvis 08/06/2018. FINDINGS: There is mild atelectasis in the lingula. The visualized portions of the heart are within normal limits. Normal liver. There are surgical clips in the gallbladder fossa consistent with a prior cholecystectomy. Normal spleen. Normal pancreas. Normal bilateral adrenal glands. Normal right kidney. Normal left kidney. Normal visualized stomach. Normal small intestine. Normal colon. The appendix is visualized and appears normal. Normal abdominal aorta. Normal inferior vena cava. Normal retroperitoneum. Normal urinary bladder. Normal abdominal wall. There is straightening of the lumbar lordosis. CT/Abdomen/Pelvis WITH Contrast IMPRESSION: No acute abdominal or pelvic pathology. Cholecystectomy. Electronically Signed: Edmund Cheek, at 11:45 EST Tel , Service support ,
--- NOTE | 2019-11-13 07:52 | ED.VISSUMM ---
- ER Visit Summary Date of Service: 11/13/19 Chief Complaint: [Abdominal pain] History of Present Illness: The patient is a 43 M [presents to the emergency department complaint of abdominal pain for the last 8 days. Patient was seen in the emergency department in [place] 8 days ago and had lab work and a CT scan that per patient were unremarkable. Patient states that he has had continued pain since that time. Patient feels like the pain is getting worse. Patient describes the pain is left upper quadrant it kind of radiates across the center of his abdomen and at times into his back. He has had nausea but no vomiting. He denies any fever although he has had chills and sweats. Patient describes some urinary frequency without any dysuria or hematuria. Patient denies any chest pain or shortness of breath. Pain is made worse with coughing. Patient has never had pain like this before. At times food seems to make it worse. Currently rates it as a 9 out of 10. Patient has history of diabetes, high cholesterol, and history of GERD. Patient has had prior cholecystectomy as well as hernia repair.] Physical Examination: [HEENT-PERRLA, EOMI. Cranial nerves II through XII grossly intact. TMs clear. Mucous membranes moist. No adenopathy. Cardiovascular-regular rate and rhythm without murmur or ectopy Lungs-clear to auscultation, chest wall stable without crepitus or subcu emphysema Abdomen-normoactive bowel sounds, soft. Patient does have tenderness over the epigastric region as well as the left upper quadrant that seems to reproduce his pain. There is no rebound, rigidity, or peritoneal signs. Extremities-intact ?4, normal range of motion, normal pulses, atraumatic] Test Results: [CBC with it was normal. Chemistries unremarkable. LFTs normal. Lipase was 162. Urinalysis unremarkable. Troponin was less than 0.15. EKG obtained arrival shows sinus rhythm with a ventricular rate of 67 bpm with no acute ST segment changes. CT scan of the abdomen pelvis with IV and p.o. contrast showed nothing acute.] Emergency Department Course and Treatment: [Received 1 dose of morphine and Zofran. Patient complained of pain migrating and moving to the right flank at one point.] Treatment Plan: [Patient advised to follow-up with his primary care physician within next 3 to 5 days. Patient will be given a prescription for few Percocet for pain.] Disposition: [Discharged home in stable condition] Impression: [Abdominal pain-etiology uncertain] This note was generated with [employer] dictation software. It may contain incorrect words, spelling, and punctuation that were not noted in review of the chart prior to signing ED Disposition - Plan for ED Patient: Referrals: [facility],Izabel Kaur [Primary Care Provider] -
[2019-11-13] MEDS: Morphine 4 MG/ML Syringe IV (08:08)
[2019-11-13] MEDS: Ondansetron 4 MG/2 ML Vial IV (08:08)
[2019-11-13 08:12] LABS: Absolute Neutrophil Count 3.4 X10^3/uL (2.0-7.7); Basophil# 0.05 X10^3/uL; Basophil% 0.9 % (0-1); Eosinophil# 0.11 X10^3/uL; Mean Corp Hgb Conc 35.6 g/dL (32-36); Mean Corpuscular Hgb 31.3 pg (27.0-32.0); Mean Corpuscular Volume 87.9 fL (80-94); Mean Platelet Vol. 9.7 fl (6.2-12.0); Monocyte# 0.41 X10^3/uL; Monocyte% 7.6 % (0-10); NRBC Flagged by Analyzer 0 % (0-5); Neutrophil % 63.3 % (47-70); Platelet Count 184 K/mm3 (150-450); RBC Distribution Width CV 12.5 % (11.6-14.6); RBC Distribution Width SD 39.7 fl (35.1-43.9); Red Blood Count 5.12 M/mm3 (4.6-6.2); White Blood Count 5.4 K/mm3 (4.4-11.0)
--- NOTE | 2019-11-13 08:14 | EKG12_ITS ---
Test Reason : Blood Pressure : / mmHG Vent. Rate : 067 BPM Atrial Rate : 067 BPM P-R Int : 140 ms QRS Dur : 088 ms QT Int : 382 ms P-R-T Axes : 041 -11 001 degrees QTc Int : 403 ms Sinus rhythm with Premature atrial complexes Otherwise normal ECG Confirmed by JUAN BURROUGHS ([id number]), copy editor RIMMA LUCAS ([id number]) on 11/17/2019 3:46:00 PM Referred By: TOD Confirmed By:JUAN BURROUGHS
[2019-11-13 08:27] LABS: ALB/GLOB Ratio 1.1 RATIO (0.9-2.4); AST(SGOT) 22 U/L (15-37); Alanine Aminotransfer ALT/SGPT 62 U/L (16-61); Albumin, Serum 4.1 g/dL (3.2-5.0); Alkaline Phosphatase 85 U/L (45-117); Anion Gap 6 (5-15); BUN 18 mg/dL (7-18); BUN/Creat Ratio 18.6 RATIO (10-20); Calcium,Total 9.2 mg/dL (8.5-10.1); Chloride 106 mmol/L (98-107); Creatinine, Serum 0.97 mg/dL (0.70-1.30); EST Glomerular Filtration Rate 90 mL/min (>60); Est Glom Filt Rate - Afr Amer 109 mL/min (>60); Estimated Creatinine Clearance 108.89 ml/min; Globulin 3.7 g/dL (2.2-4.2); Glucose 225 mg/dL (74-106); Lipase 162 U/L (73-393); Potassium 3.9 mmol/L (3.5-5.1); Protein, Total 7.8 g/dL (6.4-8.2); Sodium Level 139 mmol/L (136-145)
[2019-11-13] MEDS: 0.9% Normal Saline 1,000 ML 125 ML IV (08:31)
[2019-11-13 08:35] LABS: Bacteria 0 SEEN /hpf (None Seen); Mucous, Urine 0 SEEN /hpf (<or=2+)
[2019-11-13 08:37] LABS: Color, Urine Yellow (Yellow); Glucose, Dipstick 250 mg/dl (Normal); Ketone-Dipstick 5 mg/dl (Negative); Leukocyte Esterase-Dipstick Negative /ul (Negative); Nitrite-Dipstick Negative (Negative); Occult Blood-Urine Negative /ul (Negative); Protein-Dipstick Negative (Negative); Specific Gravity, Urine 1.025 (1.002-1.030); Urine Bilirubin Dipstick Negative (Negative); Urine Clarity Clear (Clear); Urine Urobilinogen Normal (Normal)
[2019-11-13 09:00] LABS: Red Blood Cells-Urine 0-5 SEEN /hpf (0-5); Squamous Epithelial Cells - UA 0-5 SEEN /hpf (0-5); White Blood Cells 0-5 SEEN /hpf (0-5)
[2019-11-13 10:47] VITALS: BP 119/86; PULSE 63; RESP 16; O2SAT 98
--- NOTE | 2019-11-13 11:49 | ED.DEP ---
ED Disposition - Plan for ED Patient: Instructions: ABDOMINAL PAIN, Unkown Cause, (Male) Prescriptions: Oxycodone HCl/Acetaminophen [Percocet 5/325] 1 tablet PO Q6H PRN PRN 3 Days #12 tablet PRN Reason: Pain Transmission Status: Received by TAMERA NIELSEN [facility] Referrals: [facility],Izabel Kaur [Primary Care Provider] - 3-5 Days
== END 2019-11-13 12:09 | disposition home or self-care (01) ==
PROVIDERS: Emergency Provider Emergency Medicine
DX: R10.12 Left upper quadrant pain (principal); R35.0 Frequency of micturition; E11.9 Type 2 diabetes mellitus without complications; E78.00 Pure hypercholesterolemia, unspecified; K21.9 Gastro-esophageal reflux disease without esophagitis; Z90.49 Acquired absence of other specified parts of digestive tract
CPT/HCPCS: 74177; 80053; 81001; 83690; 84484; 85025; 93005; 96361; 96374; 96375; 99284; J7030; Q9967; A4216; J2405

== ENCOUNTER → 2020-06-14 11:29 | Outpatient (CLI) | payer MEDICAID, SELFPAY ==
[2020-06-14 12:22] LABS: Absolute Lymphocyte Count 1.78 X10^3/uL (0.83-4.51); Absolute Neutrophil Count 3.6 X10^3/uL (2.0-7.7); Basophil# 0.04 X10^3/uL; Basophil% 0.7 % (0-1); Eosinophil# 0.15 X10^3/uL; Eosinophils% 2.5 % (0-5); Hemoglobin 14.6 g/dL (13.0-16.5); Lymphocyte # 1.78 X10^3/ul (4.0); Lymphocyte % 29.4 % (19-41); Mean Corp Hgb Conc 35.6 g/dL (32-36); Mean Corpuscular Hgb 32.4 pg (27.0-32.0); Mean Corpuscular Volume 90.9 fL (80-94); Mean Platelet Vol. 9.4 fl (6.2-12.0); Monocyte# 0.45 X10^3/uL; Monocyte% 7.4 % (0-10); NRBC Flagged by Analyzer 0 % (0-5); Neutrophil % 59.3 % (47-70); Platelet Count 217 K/mm3 (150-450); RBC Distribution Width CV 13.2 % (11.6-14.6); RBC Distribution Width SD 42.1 fl (35.1-43.9); Red Blood Count 4.51 M/mm3 (4.6-6.2); White Blood Count 6.1 K/mm3 (4.4-11.0)
[2020-06-14 12:43] LABS: Hemoglobin A1c 7.1 % (3.8-5.6)
[2020-06-14 12:58] LABS: Vitamin D,25 Hydroxy 21.6 ng/mL
[2020-06-14 13:02] LABS: ALB/GLOB Ratio 1.2 RATIO (0.9-2.4); AST(SGOT) 28 U/L (15-37); Alanine Aminotransfer ALT/SGPT 60 U/L (16-61); Albumin, Serum 4.2 g/dL (3.2-5.0); Alkaline Phosphatase 85 U/L (45-117); Anion Gap 3 (5-15); BUN 12 mg/dL (7-18); BUN/Creat Ratio 15.6 RATIO (10-20); Calcium,Total 8.8 mg/dL (8.5-10.1); Chloride 103 mmol/L (98-107); Cholesterol 196 mg/dL (200); Creatinine, Serum 0.77 mg/dL (0.70-1.30); EST Glomerular Filtration Rate 117 mL/min (>60); Est Glom Filt Rate - Afr Amer 142 mL/min (>60); Globulin 3.4 g/dL (2.2-4.2); Glucose 180 mg/dL (74-106); High Density Lipoprotein 37 mg/dL; Potassium 3.9 mmol/L (3.5-5.1); Protein, Total 7.6 g/dL (6.4-8.2); Sodium Level 137 mmol/L (136-145); Triglycerides 271 mg/dL; Very Low Density Lipoprotein 54 mg/dL (5-40)
== END ==
PROVIDERS: Referring Provider Nurse Practitioner Family; Visit Provider Nurse Practitioner Family
DX: E11.9 Type 2 diabetes mellitus without complications (principal); E78.2 Mixed hyperlipidemia; E55.9 Vitamin D deficiency, unspecified
CPT/HCPCS: 36415; 80053; 80061; 82306; 83036; 85025

== ENCOUNTER 2020-09-14 12:50 | Emergency (ER) | payer MEDICAID, SELFPAY ==
[2020-09-14 12:51] VITALS: BP 153/91; PULSE 89; RESP 20; TEMP 37.1; O2SAT 100; BMI 31.1
--- NOTE | 2020-09-14 13:13 | EKG12_ITS ---
Test Reason : CP Blood Pressure : / mmHG Vent. Rate : 079 BPM Atrial Rate : 079 BPM P-R Int : 136 ms QRS Dur : 090 ms QT Int : 368 ms P-R-T Axes : 035 -19 034 degrees QTc Int : 421 ms Sinus rhythm with Premature atrial complexes Otherwise normal ECG Confirmed by HOA CASTRO, MARIA ESTHER ([id number]), staff editor JACLYN TOLBERT ([id number]) on 09/22/2020 9:58:45 A M Referred By: FRANKLYN Confirmed By:LEILA CAMARA MD
--- NOTE | 2020-09-14 13:13 | ED.DCSUM_ITS ---
History of Present Illness Chief Complaint: Shortness of Breath Informant: Patient Narrative: 44-year-old male with past medical history of diabetes presents with concern for chest pain and cough and myalgias. States that it began approximately 3 hours ago. 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 Denies any nausea, vomiting, diaphoresis. Patient is not a current smoker. Past Medical History - Allergies and Home Meds Allergies/Adverse Reactions: Allergies hydrocodone Adverse Reaction (Verified 09/14/20 12:53) Nausea/Vom/Diarrhea Primary Care Physician: [facility],Izabel Kaur [Primary Care Provider] - Prior records reviewed: Yes Past Medical History: - - DMII Surgical History: no surgical history Lives: With Family Smoking Status: Former smoker Alcohol: None Drugs: None - Family History Sibling Family History: Family History (Last Reviewed 12/12/17 @ 08:13 by Lina Coker) Father Cancer Family History: Reports: Heart Disease Review of Systems General: Reports: Malaise. Denies: Chills, Fever, Sweats Eyes: Denies: Visual changes - bilaterally, Diplopia ENT: Denies: Rhinorrhea, Sore throat Cardiovascular: Reports: Chest pain. Denies: Palpitations Respiratory: Reports: Dyspnea. Denies: Cough, Dyspnea on exertion Gastrointestinal: Denies: Abdominal pain, Nausea, Vomiting, Diarrhea, Melena, Hematochezia Genitourinary: Denies: Dysuria, Hematuria, Frequency Musculoskeletal: Reports: Myalgias. Denies: Back pain, Extremity Pain Skin: Denies: Rash, Wounds Neurological: Denies: Headache, Weakness, Numbness Physical Exam Vital Signs/Narrative: Vital Signs Temp Pulse Resp BP Pulse Ox 09/14/20 12:51 98.7 F 89 20 H 153/91 H 100 Inital Vital Signs reviewed: Yes General: Well nourished, Well developed, No Acute Distress Head: Normocephalic, Atraumatic Eyes: Perrl, EOMI ENT: Moist mucous membranes, No rhinorrhea Neck: Supple, Nontender Cardiovascular: Regular rate, Regular rhythm, No murmurs Respiratory: No distress, CTA bilaterally, Chest nontender Abdomen: Soft, Nontender, Nondistended, Normal bowel sounds Back: Nontender, Normal Inspection Extremities: Nontender, No edema Skin: Normal color, No rash Neurological: Alert, Oriented x3, Cranial nerves II-XII grossly intact, Normal Strength, Normal Sensation Psychological: Normal affect, Normal Mood Diagnostic/Tx/Re-eval Chest X-Ray - ED: 1 View, Read by ED Physician, Read by Radiologist, Normal - Rhythm Strip Rhythm Strip: Sinus Rhythm Rate: 79 Ectopy: PAC(s) - EKG Initial EKG Interpretation: Sinus Rhythm - Normal sinus rhythm at 79 bpm. VT interval of 136 ms. QTC of 421 ms. No evidence of ST elevation or depression at this time. - Medical Decision Making Patient appears well and nontoxic. Vital signs within normal limits. Chest x- ray interpreted by myself and is stable without signs of cardiomegaly or acute infiltrate. Radiologist concurs. EKG shows no acute ischemia. Troponin negative. Coronavirus negative. Patient advised if he has continued symptoms he needs to self isolate at home and be retested in the next 4 to 5 days as an outpatient. Asked to return for new or worsening symptoms. Patient agreeable and discharged home in stable condition. Impression: 1. Atypical chest pain 2. URI ED Disposition - Plan for ED Patient: Disposition: Home or Assisted Living Instructions: ED Chest Pain, Uncertain Cause [facility] [Primary Care Provider] - 2 Days Additional Instructions: Please self-isolate at home until symptoms resolve. Should be retested in 4 days if symptoms persist as an outpatient.
--- NOTE | 2020-09-14 13:13 | RAD_ITS ---
STUDY: X-RAY CHEST REASON FOR EXAM: Male, 44 years old. COUGH, SOB ACUTE ON-SET TODAY TECHNIQUE: Single AP portable view of the chest. COMPARISON: Comparison is made with prior study dated 11/02/2019. FINDINGS: EKG electrodes are seen. Mild increased markings in the lingular segment of the left upper lobe. Early infiltrate should be ruled out. There is no demonstrated pleural abnormality. Normal size heart. Normal mediastinum and derick. Normal visualized pulmonary arteries. Normal visualized aortic arch and descending thoracic aorta. Normal visualized thoracic spine. Normal visualized ribs, clavicles, and shoulders. There is no demonstrated abnormality of the visualized soft tissue structures of the upper abdomen. RAD/Chest 1 View (Portable) IMPRESSION: Mild increased markings in the lingular segment of the left upper lobe. Early infiltrate should be ruled out. Electronically Signed: Carlos Curiel, at 14:26 EST , Service support ,
[2020-09-14 13:27] VITALS: BP 163/93; PULSE 92; RESP 15; O2SAT 99
[2020-09-14 13:29] VITALS: O2SAT 98
[2020-09-14 13:38] LABS: Absolute Lymphocyte Count 1.28 X10^3/uL (0.83-4.51); Absolute Neutrophil Count 3.5 X10^3/uL (2.0-7.7); Basophil# 0.03 X10^3/uL; Basophil% 0.6 % (0-1); Eosinophil# 0.09 X10^3/uL; Eosinophils% 1.7 % (0-5); Hematocrit 42.4 % (40-54); Hemoglobin 14.8 g/dL (13.0-16.5); Lymphocyte # 1.28 X10^3/ul (4.0); Lymphocyte % 24.3 % (19-41); Mean Corp Hgb Conc 34.9 g/dL (32-36); Mean Corpuscular Volume 88.7 fL (80-94); Mean Platelet Vol. 9.4 fl (6.2-12.0); Monocyte# 0.35 X10^3/uL; Monocyte% 6.7 % (0-10); NRBC Flagged by Analyzer 0 % (0-5); Neutrophil # 3.51 X10^3/uL (2.7-7.7); Neutrophil % 66.7 % (47-70); Platelet Count 201 K/mm3 (150-450); RBC Distribution Width CV 12.3 % (11.6-14.6); RBC Distribution Width SD 40.1 fl (35.1-43.9); Red Blood Count 4.78 M/mm3 (4.6-6.2); White Blood Count 5.3 K/mm3 (4.4-11.0)
[2020-09-14 13:52] LABS: ALB/GLOB Ratio 1.2 RATIO (0.9-2.4); AST(SGOT) 18 U/L (15-37); Alanine Aminotransfer ALT/SGPT 42 U/L (16-61); Alkaline Phosphatase 83 U/L (45-117); Anion Gap 7 (5-15); BUN 10 mg/dL (7-18); BUN/Creat Ratio 11.2 RATIO (10-20); CRP 5.55 mg/L (0.0-3.0); Calcium,Total 8.6 mg/dL (8.5-10.1); Chloride 104 mmol/L (98-107); Creatinine, Serum 0.89 mg/dL (0.70-1.30); EST Glomerular Filtration Rate 98 mL/min (>60); Est Glom Filt Rate - Afr Amer 119 mL/min (>60); Estimated Creatinine Clearance 117.47 ml/min; Globulin 3.3 g/dL (2.2-4.2); Glucose 197 mg/dL (74-106); Potassium 3.8 mmol/L (3.5-5.1); Protein, Total 7.3 g/dL (6.4-8.2); Sodium Level 138 mmol/L (136-145)
[2020-09-14 15:01] VITALS: BP 131/72; PULSE 73; RESP 17; O2SAT 99
== END 2020-09-14 15:05 | disposition home or self-care (01) ==
PROVIDERS: Emergency Provider Emergency Medicine
DX: J06.9 Acute upper respiratory infection, unspecified (principal); R07.89 Other chest pain; R06.00 Dyspnea, unspecified; E11.9 Type 2 diabetes mellitus without complications; Z79.84 Long term (current) use of oral hypoglycemic drugs; Z79.899 Other long term (current) drug therapy; Z87.891 Personal history of nicotine dependence
CPT/HCPCS: 71045; 80053; 84484; 85025; 86140; 87426; 93005; 99285

== ENCOUNTER → 2020-11-23 08:50 | Outpatient (CLI) | payer MEDICAID, SELFPAY ==
[2020-11-23 09:11] LABS: Absolute Lymphocyte Count 2.15 X10^3/uL (0.83-4.51); Absolute Neutrophil Count 3.6 X10^3/uL (2.0-7.7); Basophil# 0.08 X10^3/uL; Basophil% 1.2 % (0-1); Eosinophil# 0.19 X10^3/uL; Eosinophils% 2.9 % (0-5); Hematocrit 44.2 % (40-54); Hemoglobin 15.4 g/dL (13.0-16.5); Lymphocyte # 2.15 X10^3/ul (4.0); Lymphocyte % 32.4 % (19-41); Mean Corp Hgb Conc 34.8 g/dL (32-36); Mean Corpuscular Hgb 30.5 pg (27.0-32.0); Mean Corpuscular Volume 87.5 fL (80-94); Mean Platelet Vol. 9.1 fl (6.2-12.0); Monocyte# 0.57 X10^3/uL; Monocyte% 8.6 % (0-10); NRBC Flagged by Analyzer 0 % (0-5); Neutrophil # 3.64 X10^3/uL (2.7-7.7); Neutrophil % 54.7 % (47-70); Platelet Count 254 K/mm3 (150-450); RBC Distribution Width CV 12.7 % (11.6-14.6); RBC Distribution Width SD 40.4 fl (35.1-43.9); Red Blood Count 5.05 M/mm3 (4.6-6.2); White Blood Count 6.6 K/mm3 (4.4-11.0)
[2020-11-23 09:26] LABS: Hemoglobin A1c 6.3 % (3.8-5.6)
[2020-11-23 09:42] LABS: PTHIN 71.7 pg/mL (18.4-80.1)
[2020-11-23 09:45] LABS: ALB/GLOB Ratio 1.2 RATIO (0.9-2.4); AST(SGOT) 16 U/L (15-37); Alanine Aminotransfer ALT/SGPT 39 U/L (16-61); Albumin, Serum 4.2 g/dL (3.2-5.0); Alkaline Phosphatase 92 U/L (45-117); Anion Gap 6 (5-15); BUN 14 mg/dL (7-18); BUN/Creat Ratio 14.7 RATIO (10-20); Calcium,Total 9.2 mg/dL (8.5-10.1); Chloride 101 mmol/L (98-107); Cholesterol 184 mg/dL (200); Creatinine, Serum 0.96 mg/dL (0.70-1.30); EST Glomerular Filtration Rate 91 mL/min (>60); Est Glom Filt Rate - Afr Amer 110 mL/min (>60); Globulin 3.6 g/dL (2.2-4.2); Glucose 196 mg/dL (74-106); High Density Lipoprotein 35 mg/dL; Potassium 4.1 mmol/L (3.5-5.1); Protein, Total 7.8 g/dL (6.4-8.2); Sodium Level 138 mmol/L (136-145); Triglycerides 396 mg/dL; Very Low Density Lipoprotein 79 mg/dL (5-40)
[2020-11-23 09:47] LABS: Vitamin D,25 Hydroxy 11.5 ng/mL
== END ==
DX: E11.9 Type 2 diabetes mellitus without complications (principal); D69.6 Thrombocytopenia, unspecified; E78.2 Mixed hyperlipidemia; E55.9 Vitamin D deficiency, unspecified
CPT/HCPCS: 36415; 80053; 80061; 82306; 83036; 83970; 85025

== ENCOUNTER 2020-11-23 19:36 | Emergency (ER) | payer MEDICAID, SELFPAY ==
[2020-11-23 19:38] VITALS: BP 133/100; PULSE 94; RESP 16; TEMP 36.3; O2SAT 99; BMI 30.6
[2020-11-23 20:00] LABS: Bacteria 0 SEEN /hpf (None Seen); Mucous, Urine 0 SEEN /hpf (<or=2+); Red Blood Cells-Urine 0 SEEN /hpf (0-5); Squamous Epithelial Cells - UA 0 SEEN /hpf (0-5); White Blood Cells 0 SEEN /hpf (0-5)
[2020-11-23 20:04] LABS: Color, Urine Yellow (Yellow); Glucose, Dipstick Normal (Normal); Ketone-Dipstick Negative (Negative); Leukocyte Esterase-Dipstick Negative /ul (Negative); Nitrite-Dipstick Negative (Negative); Occult Blood-Urine 10 /ul (Negative); Protein-Dipstick 30 mg/dl (Negative); Specific Gravity, Urine 1.025 (1.002-1.030); Urine Bilirubin Dipstick Negative (Negative); Urine Clarity Clear (Clear); Urine Urobilinogen Normal (Normal)
[2020-11-23 20:06] LABS: Absolute Lymphocyte Count 2.06 X10^3/uL (0.83-4.51); Absolute Neutrophil Count 4.3 X10^3/uL (2.0-7.7); Basophil# 0.06 X10^3/uL; Basophil% 0.8 % (0-1); Eosinophil# 0.15 X10^3/uL; Eosinophils% 2.1 % (0-5); Hematocrit 43.5 % (40-54); Hemoglobin 15.5 g/dL (13.0-16.5); Lymphocyte # 2.06 X10^3/ul (4.0); Lymphocyte % 28.8 % (19-41); Mean Corp Hgb Conc 35.6 g/dL (32-36); Mean Corpuscular Hgb 31.1 pg (27.0-32.0); Mean Corpuscular Volume 87.3 fL (80-94); Mean Platelet Vol. 9.4 fl (6.2-12.0); Monocyte# 0.54 X10^3/uL; Monocyte% 7.5 % (0-10); NRBC Flagged by Analyzer 0 % (0-5); Neutrophil # 4.33 X10^3/uL (2.7-7.7); Neutrophil % 60.5 % (47-70); Platelet Count 262 K/mm3 (150-450); RBC Distribution Width CV 12.7 % (11.6-14.6); RBC Distribution Width SD 39.5 fl (35.1-43.9); Red Blood Count 4.98 M/mm3 (4.6-6.2); White Blood Count 7.2 K/mm3 (4.4-11.0)
[2020-11-23 20:17] LABS: Anion Gap 6 (5-15); BUN 13 mg/dL (7-18); BUN/Creat Ratio 12.9 RATIO (10-20); Calcium,Total 9.1 mg/dL (8.5-10.1); Chloride 101 mmol/L (98-107); Creatinine, Serum 1.01 mg/dL (0.70-1.30); EST Glomerular Filtration Rate 85 mL/min (>60); Est Glom Filt Rate - Afr Amer 103 mL/min (>60); Estimated Creatinine Clearance 106.58 ml/min; Glucose 192 mg/dL (74-106); Sodium Level 137 mmol/L (136-145)
--- NOTE | 2020-11-23 20:46 | CT_ITS ---
STUDY: CT ABDOMEN AND PELVIS WITHOUT CONTRAST REASON FOR EXAM: Male, 44 years old. right flank pain RADIATION DOSAGE (If Supplied By Facility): CTDIvol = ( 15.87 ) mGy, DLP = ( 844.69 ) mGycm TECHNIQUE: Transaxial images were obtained from the dome of the diaphragm to the symphysis pubis without oral contrast, and without intravenous contrast. Sagittal and coronal images were reconstructed. Individualized dose optimization techniques were used for this CT. COMPARISON: 11/13/2019. FINDINGS: Limited views through the lower chest show some scarring in the lingula, grossly stable. There is decreased attenuation of the liver consistent with steatosis. There is hepatomegaly. The gallbladder is contracted. Normal spleen. Normal pancreas. Normal bilateral adrenal glands. Normal right kidney. Normal left kidney. No definite renal or ureteral stones are seen. There is no hydronephrosis on either side. Evaluation of the GI tract is limited by absence of oral contrast. Cannot exclude stomach wall thickening. No dilated loops of bowel or evidence for obstruction. Cannot exclude segmental thickening of the and[place]en of the small or large bowel. Cannot exclude enteritis or colitis. Moderate diffuse fecal retention. Appendix within normal limits. Normal abdominal aorta. Normal inferior vena cava. Normal retroperitoneum. Normal urinary bladder. Normal abdominal wall. There are diffuse degenerative changes of the visualized lumbar spine. CT/Abdomen/Pelvis without Cont IMPRESSION: No definite acute or significant abnormality seen. Electronically Signed: Wilton Gonzalez MD at 21:31 EST , Service support ,
--- NOTE | 2020-11-23 20:48 | ED.VIS.GEN ---
History of Present Illness Chief Complaint: Abd Pain Informant: Patient Onset: Today Context: Sudden Onset Timing: Waxes and wanes Current Severity: Moderate Maximum Severity: Moderate Narrative: Patient presents with sharp pain to the right flank that started approximately 3 hours ago. He denies any injury. No vomiting or diarrhea. No dysuria or obvious hematuria. Patient has had prior cholecystectomy. - Past Medical History (1) Anxiety and depression Status: Chronic (2) Diabetes mellitus Status: Chronic (3) Dyslipidemia Status: Chronic (4) GERD (gastroesophageal reflux disease) Status: Chronic Past Medical History - Allergies and Home Meds Allergies/Adverse Reactions: Allergies hydrocodone Adverse Reaction (Verified 11/23/20 19:36) Nausea/Vom/Diarrhea Primary Care Physician: [facility],Izabel Kaur [Primary Care Provider] - Keep Ayden appointment Prior records reviewed: Yes Surgical History: no surgical history Smoking Status: Never smoker - Family History Sibling Family History: Family History (Last Reviewed 12/12/17 @ 08:13 by Lina Coker) Father Cancer Family History: Reports: Heart Disease Review of Systems General: Denies: Chills, Fever Eyes: Denies: Visual changes - bilaterally ENT: Denies: Bilateral ear pain Cardiovascular: Denies: Chest pain Respiratory: Denies: Dyspnea, Cough Gastrointestinal: Reports: Abdominal pain. Denies: Nausea, Vomiting, Diarrhea Genitourinary: Denies: Dysuria, Hematuria Musculoskeletal: Denies: Swelling, Extremity Pain Skin: Denies: Rash Neurological: Denies: Headache Hematologic: Denies: Easy bruising, Easy bleeding Allergy: Denies: Uticaria Physical Exam Vital Signs/Narrative: Vital Signs Temp Pulse Resp BP Pulse Ox 11/23/20 19:38 97.4 F L 94 16 133/100 H 99 Inital Vital Signs reviewed: Yes General: Well nourished, Well developed Head: Normocephalic ENT: Moist mucous membranes Neck: Supple Cardiovascular: Regular rate, Regular rhythm Respiratory: No distress, CTA bilaterally Abdomen: Soft, Tender - Mild tenderness right lateral abdominal wall., Hypoactive bowel sounds Extremities: Nontender Skin: Normal color Neurological: Alert, Oriented x3 Psychological: Normal affect Diagnostic/Tx/Re-eval Impressions Abdomen/Pelvis CT 11/23/20 20:46 IMPRESSION: No definite acute or significant abnormality seen. Electronically Signed: Wilton Gonzalez MD at 21:31 EST , Service support , 11/23/20 20:46 Abdomen/Pelvis without Cont [CT] Stat Laboratory Results 11/23/20 11/23/20 11/23/20 19:50 19:50 19:55 WBC 7.2 RBC 4.98 Hgb 15.5 Hct 43.5 MCV 87.3 MCH 31.1 MCHC 35.6 RDW Std Deviation 39.5 RDW Coeff of Génesis 12.7 Plt Count 262 MPV 9.4 Immature Gran % (Auto) 0.300 Neut % (Auto) 60.5 Lymph % (Auto) 28.8 [place] % (Auto) 7.5 Eos % (Auto) 2.1 Baso % (Auto) 0.8 Absolute Neuts (auto) 4.3 Absolute Lymphs (auto) 2.06 Nucleated RBC % 0 Sodium 137 Potassium 4.0 Chloride 101 Carbon Dioxide 30.0 Anion Gap 6 BUN 13 Creatinine 1.01 Estim Creat Clear Calc 106.58 Est GFR (MDRD) Af Amer 103 Est GFR (MDRD) Non-Af 85 BUN/Creatinine Ratio 12.9 Glucose 192 H Calcium 9.1 Urine Color Yellow Urine Clarity Clear Urine pH 5.0 Ur Specific [place] 1.025 Urine Protein 30 H Urine Glucose (UA) Normal Urine Ketones Negative Urine Occult Blood 10 H Urine Nitrite Negative Urine Bilirubin Negative Urine Urobilinogen Normal Ur Leukocyte Esterase Negative Urine RBC 0 SEEN Urine WBC 0 SEEN Ur Squamous Epith Cells 0 SEEN Urine Bacteria 0 SEEN Urine Mucus 0 SEEN - Medical Decision Making Patient was given morphine, Toradol, Zofran, and IV fluids. On repeat evaluation he was resting more comfortably. Test results are discussed with him. He does not voice that when he got up to use the restroom while here he had significant pain when urinating. I do not see evidence of kidney stone on his scan, however he may have recently passed a small stone or have a noncalcified stone that is not visible on imaging. No evidence of UTI. Patient will be given a prescription for Percocet at home. He has a follow-up appointment scheduled with his PCP in early November. Return instructions are provided. ED Disposition - Plan for ED Patient: Disposition: Home or Assisted Living Diagnosis: Flank pain Instructions: ED Flank Pain, Uncertain Cause Prescriptions: Oxycodone HCl/Acetaminophen [Percocet 5/325] 1 tab PO Q6H PRN PRN 3 Days #10 tab PRN Reason: Pain Transmission Status: Received by [id number] Referrals: [facility],Izabel Kaur [Primary Care Provider] - Keep Ayden appointment
[2020-11-23] MEDS: Ondansetron 4 MG/2 ML Vial IV (20:58)
[2020-11-23] MEDS: 0.9% Normal Saline 1,000 ML 150 ML IV (20:58)
[2020-11-23] MEDS: Morphine 4 MG/ML Syringe IV (20:59)
[2020-11-23] MEDS: Ketorolac 30 MG/ML Syringe IV (20:59)
== END 2020-11-23 22:56 | disposition home or self-care (01) ==
PROVIDERS: Emergency Provider Emergency Medicine
DX: R10.9 Unspecified abdominal pain (principal); E11.9 Type 2 diabetes mellitus without complications; E78.5 Hyperlipidemia, unspecified; K21.9 Gastro-esophageal reflux disease without esophagitis; E55.9 Vitamin D deficiency, unspecified; D69.6 Thrombocytopenia, unspecified; E78.2 Mixed hyperlipidemia; F32.9 Major depressive disorder, single episode, unspecified; F41.9 Anxiety disorder, unspecified; Z79.84 Long term (current) use of oral hypoglycemic drugs; Z79.899 Other long term (current) drug therapy; Z90.49 Acquired absence of other specified parts of digestive tract
CPT/HCPCS: 36415; 74176; 80048; 80053; 80061; 81001; 82306; 83036; 83970; 85025; 96361; 96374; 96375; 99283; J7030; A4216; J2405

== ENCOUNTER 2020-12-13 17:48 | Emergency (ER) | payer MEDICAID, SELFPAY ==
[2020-12-13 17:48] VITALS: BP 148/81; PULSE 122; RESP 16; TEMP 37.1; O2SAT 97; BMI 32.6
--- NOTE | 2020-12-13 17:56 | ED.VIS.GEN ---
History of Present Illness Chief Complaint: Abd Pain Informant: Patient Onset: Yesterday Context: Gradual Onset Timing: Continuous Current Severity: Moderate Maximum Severity: Moderate Narrative: The patient is a 44-year-old male history of non insulin dependent diabetes, who presents to the emergency department abdominal cramping, nausea, diarrhea. Patient states her symptoms began last night. He states he had some diffuse abdominal cramping. Today he states he has a generalized ache. He denies fevers. He does admit to chills. The pain is not localized. He states that he was still able to eat today. He does have history of prior hernia repair. He denies any urinary symptoms. Prior similar symptoms: Yes Recent Illness/Hospitalization: No Past Medical History - Allergies and Home Meds Allergies/Adverse Reactions: Allergies hydrocodone Adverse Reaction (Verified 12/13/20 17:48) Nausea/Vom/Diarrhea Primary Care Physician: [facility],Izaebl Kaur [Primary Care Provider] - Prior records reviewed: Yes Past Medical History: - - Diabetes, high cholesterol Surgical History: no surgical history Smoking Status: Never smoker - Family History Sibling Family History: Family History (Last Reviewed 12/12/17 @ 08:13 by Lina Coker) Father Cancer Family History: Reports: Heart Disease Review of Systems General: Denies: Chills, Fever, Sweats Eyes: Denies: Visual changes - bilaterally, Diplopia ENT: Denies: Rhinorrhea, Sore throat Cardiovascular: Denies: Chest pain, Palpitations Respiratory: Denies: Dyspnea, Cough, Dyspnea on exertion Gastrointestinal: Reports: Abdominal pain, Nausea, Diarrhea. Denies: Vomiting, Melena, Hematochezia Genitourinary: Denies: Dysuria, Hematuria, Frequency Musculoskeletal: Denies: Back pain, Extremity Pain Skin: Denies: Rash, Wounds Neurological: Denies: Headache, Weakness, Numbness Physical Exam Vital Signs/Narrative: Vital Signs Temp Pulse Resp BP Pulse Ox 12/13/20 17:48 98.7 F 122 H 16 148/81 H 97 Inital Vital Signs reviewed: Yes General: Well nourished, Well developed, No Acute Distress Head: Normocephalic, Atraumatic Eyes: Perrl, EOMI ENT: Moist mucous membranes, No rhinorrhea Neck: Supple, Nontender Cardiovascular: Regular rate, Regular rhythm, No murmurs Respiratory: No distress, CTA bilaterally, Chest nontender Abdomen: Soft, Nontender, Nondistended, Hyperactive bowel sounds Back: Nontender, Normal Inspection Extremities: Nontender, No edema Skin: Normal color, No rash Neurological: Alert, Oriented x3, Cranial nerves II-XII grossly intact, Normal Strength, Normal Sensation Psychological: Normal affect, Normal Mood Diagnostic/Tx/Re-eval Abnormal Lab Results 12/13/20 12/13/20 18:15 18:15 WBC 7.5 RBC 4.84 Hgb 15.2 Hct 43.3 MCV 89.5 MCH 31.4 MCHC 35.1 RDW Std Deviation 42.4 RDW Coeff of Génesis 13.2 Plt Count 183 MPV 9.1 Immature Gran % (Auto) 0.100 Neut % (Auto) 76.0 H Lymph % (Auto) 12.1 L [place] % (Auto) 9.2 Eos % (Auto) 2.1 Baso % (Auto) 0.5 Absolute Neuts (auto) 5.7 Absolute Lymphs (auto) 0.91 Nucleated RBC % 0 Sodium 137 Potassium 3.7 Chloride 105 Carbon Dioxide 27.0 Anion Gap 5 BUN 14 Creatinine 0.93 Estim Creat Clear Calc 109.08 Est GFR (MDRD) Af Amer 113 Est GFR (MDRD) Non-Af 93 BUN/Creatinine Ratio 15.0 Glucose 189 H Calcium 8.8 Total Bilirubin 0.90 AST 25 ALT 57 Alkaline Phosphatase 93 Total Protein 8.1 Albumin 4.2 Globulin 3.9 Albumin/Globulin Ratio 1.1 Lipase 178 - Medical Decision Making Patient presents with diffuse abdominal cramping, nausea, and diarrhea. He has no focal tenderness. Metabolic work-up was pursued. Labs are unremarkable. The patient was given fluids, Zofran, and Bentyl. He did have some improvement. No further nausea. He was complaining of some mild pain. He was given morphine and a total resolution of his symptoms. At this point, I do not suspect a dangerous process of his pain. He will be treated Bentyl and Zofran. I did queen's counsel him that if his symptoms worsen, migrate to his right lower quadrant, or spikes fever to return. He is comfortable with this plan of care. Impression 1. Nausea 2. Cramping abdominal pain ED Disposition - Plan for ED Patient: Disposition: Home or Assisted Living Instructions: ED Gastritis (Adult) Prescriptions: Dicyclomine HCl [Bentyl] 20 mg PO TIDAC #20 cap Prescription Printed Ondansetron [Zofran Odt] 4 mg PO Q8H PRN PRN #10 tab PRN Reason: Nausea Prescription Printed Referrals: [facility],Izabel Kaur [Primary Care Provider] -
[2020-12-13] MEDS: 0.9% Normal Saline 1,000 ML 1000 ML IV (18:13)
[2020-12-13] MEDS: Dicyclomine 20 MG/2 ML Vial IM (18:13)
[2020-12-13] MEDS: Ondansetron 4 MG/2 ML Vial IV (18:13)
[2020-12-13 18:28] LABS: Absolute Lymphocyte Count 0.91 X10^3/uL (0.83-4.51); Absolute Neutrophil Count 5.7 X10^3/uL (2.0-7.7); Basophil# 0.04 X10^3/uL; Basophil% 0.5 % (0-1); Eosinophil# 0.16 X10^3/uL; Eosinophils% 2.1 % (0-5); Hematocrit 43.3 % (40-54); Hemoglobin 15.2 g/dL (13.0-16.5); Lymphocyte # 0.91 X10^3/ul (4.0); Lymphocyte % 12.1 % (19-41); Mean Corp Hgb Conc 35.1 g/dL (32-36); Mean Corpuscular Hgb 31.4 pg (27.0-32.0); Mean Corpuscular Volume 89.5 fL (80-94); Mean Platelet Vol. 9.1 fl (6.2-12.0); Monocyte# 0.69 X10^3/uL; Monocyte% 9.2 % (0-10); NRBC Flagged by Analyzer 0 % (0-5); Platelet Count 183 K/mm3 (150-450); RBC Distribution Width CV 13.2 % (11.6-14.6); RBC Distribution Width SD 42.4 fl (35.1-43.9); Red Blood Count 4.84 M/mm3 (4.6-6.2); White Blood Count 7.5 K/mm3 (4.4-11.0)
[2020-12-13 18:43] LABS: ALB/GLOB Ratio 1.1 RATIO (0.9-2.4); AST(SGOT) 25 U/L (15-37); Alanine Aminotransfer ALT/SGPT 57 U/L (16-61); Albumin, Serum 4.2 g/dL (3.2-5.0); Alkaline Phosphatase 93 U/L (45-117); Anion Gap 5 (5-15); BUN 14 mg/dL (7-18); Calcium,Total 8.8 mg/dL (8.5-10.1); Chloride 105 mmol/L (98-107); Creatinine, Serum 0.93 mg/dL (0.70-1.30); EST Glomerular Filtration Rate 93 mL/min (>60); Est Glom Filt Rate - Afr Amer 113 mL/min (>60); Estimated Creatinine Clearance 109.08 ml/min; Globulin 3.9 g/dL (2.2-4.2); Glucose 189 mg/dL (74-106); Lipase 178 U/L (73-393); Potassium 3.7 mmol/L (3.5-5.1); Protein, Total 8.1 g/dL (6.4-8.2); Sodium Level 137 mmol/L (136-145)
[2020-12-13] MEDS: Morphine 4 MG/ML Syringe IV (19:07)
[2020-12-13 19:32] VITALS: BP 135/93; PULSE 96; RESP 16
== END 2020-12-13 19:36 | disposition home or self-care (01) ==
LOC: ED 18:44
PROVIDERS: Emergency Provider Emergency Medicine
DX: R11.0 Nausea (principal); R10.9 Unspecified abdominal pain; R19.7 Diarrhea, unspecified; E11.9 Type 2 diabetes mellitus without complications; E78.00 Pure hypercholesterolemia, unspecified; Z79.84 Long term (current) use of oral hypoglycemic drugs; Z79.899 Other long term (current) drug therapy
CPT/HCPCS: 80053; 83690; 85025; 96361; 96372; 96374; 96375; 99285; J7030; A4216; J2405

== ENCOUNTER 2021-02-06 07:55 | Emergency (ER) | payer MEDICAID, SELFPAY ==
[2021-02-06 08:00] VITALS: BP 140/96; PULSE 79; RESP 17; TEMP 36.7; O2SAT 98; BMI 31.0
--- NOTE | 2021-02-06 08:13 | ED.VIS.BACK ---
HPI History of Present Illness Chief Complaint: Back Informant: patient Onset/Context/Timing Onset: Yesterday Context: Gradual Onset Injury: fall (near-fall -- tripped and torqued upper back) Timing: Continuous Quality: Aching Location: Thoracic Current Severity: Moderate Maximum Severity: Moderate Worsened by: improves with Movement and - (lying on affected area) Relieved by: Remaining Still; Not Relieved By Medications (tried Tylenol only) Associated Symptoms Associated Symptoms: Negative for Numbness, Tingling, Radiation to Right Leg, Radiation to Left Leg, Abdominal Pain, Dysuria, Unable to Ambulate, Urinary Retention, Urinary Incontinence and Fecal Incontinence Narrative Narrative: Patient states he started having back discomfort yesterday and had trouble sleeping all night and presents for treatment. States he feels like he pulled something. He tripped and almost fell yesterday while at his sister's, he did not have immediate pain but had gradual onset hours later of this discomfort. Nothing in his chest or abdomen, nothing in his low back just his upper back. No radiation into his neck or head or arms. No numbness or tingling or weakness in his extremities. Nonpleuritic. He is a type II diabetic, compliant with his medications states his blood sugars under better control now that he has had some medicine changes, running in the 120s recently. No recent illness. No other injuries. [facility] Medical History Atypical chest pain Diabetes mellitus Diabetes mellitus type 2 in obese Dyslipidemia GERD (gastroesophageal reflux disease) Obesity, mild Home Medications fluoxetine 20 mg PO DAILY 09/14/20 [History Last Taken Unknown] omeprazole 20 mg PO DAILY 09/14/20 [History Last Taken Unknown] cholecalciferol (vitamin D3) 50,000 unit PO WE 02/06/21 [History Last Taken Unknown] cholestyramine (with sugar) 1 ea PO DAILY 02/06/21 [History Last Taken Unknown] cyclobenzaprine 10 mg PO TID PRN #15 tablet 02/06/21 [Rx Last Taken Unknown] metformin 750 mg PO DAILY 02/06/21 [History Last Taken Unknown] Allergy/AdvReac Type Severity Reaction Status Date / Time hydrocodone AdvReac Nausea/Vom/ Verified 02/06/21 07:56 Diarrhea Family History Father Cancer Lung Surgical History History of esophagogastroduodenoscopy (EGD) S/P cholecystectomy S/P hernia repair S/P tonsillectomy Social History Smoking Status: Never smoker second hand exposure: No alcohol intake: never substance use type: does not use caffeine: Yes what type of physical activity do you participate in: none frequency: does not exercise seatbelt use: always ROS ROS ED Constitutional Constitutional ED: Denies chills or fever(s) Eyes Eyes: Denies change in vision or diplopia ENT ENT ED: Denies rhinorrhea or sore throat Cardiovascular Cardiovascular: Denies chest pain or palpitations Respiratory/Chest Respiratory/Chest: Denies cough or dyspnea Gastrointestinal Gastrointestinal: Denies abdominal pain, diarrhea, nausea or vomiting Genitourinary Genitourinary ED: Denies dysuria or hematuria Musculoskeletal Musculoskeletal: Denies neck pain Integumentary Denies abscess or rash Neurologic Neurologic: Denies headache(s), paresthesias or weakness Psychiatric Psychiatric: Denies anxiety or suicidal thoughts EXAM Physical Exam Const Vital Signs: 02/06/21 08:00 Temperature 98.1 F Temperature Source Oral Pulse Rate 79 Respiratory Rate 17 Blood Pressure 140/96 H Blood Pressure Mean 110 Pulse Ox 98 Oxygen Delivery Method Room Air Positive well nourished and well developed General Appearance ED: well developed and NAD HEENT Reports moist mucous membranes normocephalic and atraumatic Eyes PERRL and EOMs intact bilaterally Neck full ROM and supple Resp normal respiratory effort, no use of accessory muscles and clear to auscultation bilaterally Resp Narrative: No splinting with deep inspiration. Equal breath sounds present bilaterally and clear. Cardio regular rate, regular rhythm and no murmurs GI non-tender and non-distended Auscultation: normoactive bowel sounds Palpation: soft Back/Spine no CVA tenderness, normal ROM and normal to inspection Back/Spine Narrative: No midline tenderness or paraspinal tenderness. No step-off or abnormality. Patient states he has pain when he moves but he is able to without any apparent extreme difficulty. Area of pain is from about the T3 area down to around T9 or 10. Extremity normal to inspection General Extremety ED: Negative for edema, pulses abnormal or tenderness General Extremity: Negative for edema or pulses abnormal Neuro oriented x3, CN's II-XII intact bilaterally and no sensory deficits noted Sensorium / Orientation: awake and alert Motor Exam: strength 5/5 throughout Skin no rashes or lesions noted and no wounds MDM MDM MDM Narrative Medical decision making narrative: History and exam are consistent with muscular strain in the patient's thoracic back. He had labs within the last month or 2, his renal function is normal with an EGFR over 100. He was given a half dose of Toradol IM as well as Norflex, and discharged with a prescription for Flexeril. Advised that if he has no improvement after a week or so, to follow-up with his doctor, returning to the ER for dyspnea, abdominal symptoms, neurologic symptoms. He is comfortable with that plan. Discharge Plan Triage Chief Complaint: Back ED Provider: Arvind Mckeon Dx/Rx/DC Orders Clinical Impression: Acute thoracic myofascial strain Instructions: ED Thoracic Spine Strain Prescriptions: New cyclobenzaprine 10 mg tablet 10 mg PO TID PRN (Reason: Muscle Spasm) Qty: 15 RF: 0 No Action omeprazole 20 MG capsule,delayed release(DR/EC) 20 mg PO DAILY RF: 0 fluoxetine 20 MG capsule 20 mg PO DAILY RF: 0 metformin 750 mg tablet extended release 24 hr 750 mg PO DAILY RF: 0 cholestyramine (with sugar) 4 gram powder 1 ea PO DAILY RF: 0 cholecalciferol (vitamin D3) 1,250 mcg (50,000 unit) capsule 50,000 unit PO WE RF: 0 Primary Care Provider: [facility] Izabel Maradiaga Referrals: [facility] Izabel Maradiaga [Primary Care Provider] - 1 Week if not improving Disposition Disposition: Home, self care
[2021-02-06] MEDS: Orphenadrine 60 MG/2 ML Ampul IM (08:19)
[2021-02-06] MEDS: Ketorolac 30 MG/ML Syringe IM (08:19)
[2021-02-06 08:23] VITALS: BP 123/94; PULSE 71; RESP 15
== END 2021-02-06 08:47 | disposition home or self-care (01) ==
LOC: ED 08:30
PROVIDERS: Emergency Provider Emergency Medicine
DX: S29.012A Strain of muscle and tendon of back wall of thorax, initial encounter (principal); E66.9 Obesity, unspecified; K21.9 Gastro-esophageal reflux disease without esophagitis; E11.9 Type 2 diabetes mellitus without complications; Z79.84 Long term (current) use of oral hypoglycemic drugs; W01.0XXA Fall on same level from slipping, tripping and stumbling without subsequent striking against object, initial encounter
CPT/HCPCS: 96372; 99282

== ENCOUNTER 2021-04-07 22:51 | Emergency (ER) | payer MEDICAID, SELFPAY ==
[2021-04-07 22:52] VITALS: BP 140/67; PULSE 98; RESP 16; TEMP 36.6; O2SAT 98; BMI 31.1
--- NOTE | 2021-04-07 23:24 | EDS_ITS ---
HPI HPI - URI History of Present Illness Chief Complaint: Cough Informant: patient Onset/Context/Timing Onset: Weeks (2) Context: Gradual Onset Timing: Continuous Quality: [employer] mostly w/ occ white sputum Current Severity: Moderate Maximum Severity: Moderate Worsened by: - (nothing) Relieved by: - (nothing despite taking urgent care Rx's) Associated Symptoms Associated Symptoms: Positive for Nasal Congestion, Chest Pain (heaviness) and Productive Cough; Negative for Headache, Diarrhea and Shortness of Breath Narrative Narrative: Patient has had a cough for the past 2 weeks. He has had some myalgias but it has not been the most prominent symptom. No fevers or dyspnea. He has had chest heaviness for the past 2 weeks as well, it has been constant, for the entire time of the illness. It is nonpleuritic, substernal, feels like an elephant sitting on his chest. He is a type II diabetic and takes reflux medication but is otherwise healthy and states his sugars are fairly well controlled on his medication and diet. He saw urgent care several days ago, although he has not been wheezing nor does he have a history of asthma, they put him on prednisone, cough medication, and albuterol inhaler. He states it is not helping but now he is urinating more and more thirsty. Diabetic. ROS ROS ED Constitutional Constitutional ED: Denies chills or fever(s) Eyes Eyes: Denies change in vision or diplopia ENT ENT ED: Denies rhinorrhea or sore throat Cardiovascular Cardiovascular: Denies chest pain or palpitations Respiratory/Chest Respiratory/Chest: Reports as per HPI and cough; Denies dyspnea or wheezing Gastrointestinal Gastrointestinal: Denies abdominal pain, diarrhea, nausea or vomiting Genitourinary Genitourinary ED: Denies dysuria or hematuria Musculoskeletal Musculoskeletal: Reports myalgias; Denies back pain or neck pain Integumentary Denies abscess or rash Neurologic Neurologic: Denies headache(s), paresthesias or weakness Psychiatric Psychiatric: Denies anxiety or suicidal thoughts [facility] Medical History Atypical chest pain Diabetes mellitus Diabetes mellitus type 2 in obese Dyslipidemia GERD (gastroesophageal reflux disease) Obesity, mild Home Medications fluoxetine 20 mg PO DAILY 09/14/20 [History Last Taken Unknown] omeprazole 20 mg PO DAILY 12/15/20 [History Last Taken Unknown] cholecalciferol (vitamin D3) 50,000 unit PO WE 02/06/21 [History Last Taken Unknown] cholestyramine (with sugar) 1 ea PO DAILY 02/06/21 [History Last Taken Unknown] cyclobenzaprine 10 mg PO TID PRN #15 tablet 02/06/21 [Rx Last Taken Unknown] metformin 750 mg PO DAILY 02/06/21 [History Last Taken Unknown] azithromycin 250 mg PO DAILY #6 tablet 04/08/21 [Rx Last Taken Unknown] Allergy/AdvReac Type Severity Reaction Status Date / Time hydrocodone AdvReac Nausea/Vom/ Verified 04/07/21 22:54 Diarrhea Family History Father Cancer Lung Surgical History History of esophagogastroduodenoscopy (EGD) S/P cholecystectomy S/P hernia repair S/P tonsillectomy Social History Smoking Status: Never smoker second hand exposure: No alcohol intake: never substance use type: does not use caffeine: Yes what type of physical activity do you participate in: none frequency: does not exercise seatbelt use: always EXAM Physical Exam Const Vital Signs: 04/07/21 22:52 04/07/21 23:29 Temperature 97.9 F Temperature Source Temporal Pulse Rate 98 Respiratory Rate 16 Respiratory Effort Normal Non-Labored Respiratory Depth Normal Respiratory Pattern Normal Blood Pressure 140/67 H Blood Pressure Mean 91 Pulse Ox 98 Oxygen Delivery Method Room Air Positive well nourished and well developed General Appearance ED: well developed and NAD HEENT Reports moist mucous membranes normocephalic and atraumatic Eyes PERRL and EOMs intact bilaterally Neck full ROM, no lymphadenopathy and supple Resp normal respiratory effort and clear to auscultation bilaterally Cardio regular rate, regular rhythm and no murmurs GI non-tender and non-distended Auscultation: normoactive bowel sounds Palpation: soft Back/Spine no CVA tenderness General Back: other FROM Extremity normal to inspection and no calf tenderness General Extremety ED: Negative for edema, pulses abnormal or tenderness General Extremity: Negative for edema or pulses abnormal Neuro oriented x3, CN's II-XII intact bilaterally and no sensory deficits noted Sensorium / Orientation: awake and alert Motor Exam: strength 5/5 throughout Skin no rashes or lesions noted and no wounds MDM MDM MDM Narrative Medical decision making narrative: Patient showed me his recent negative Covid test from urgent care, it was PCR. Therefore I do not think any of his Covid testing needs to be repeated. His glucose is high likely due to the prednisone, which is not indicated given his history and illness. He likely has bronchitis, could be viral, since he has been sick for 2 weeks and not improving at all, I think it would be reasonable to treat him for atypicals with a Z-Remi. I do not think he needs further cardiac work-up with his normal EKG and troponin high- sensitivity at 4.5. Patient is comfortable with that plan. Lab Data Attestation: I reviewed the patient's lab results. Labs: Laboratory Results - last 24 hr 04/07/21 04/07/21 23:35 23:40 Troponin I High Sens 4.5 POC Glucose 320 H Radiography Diagnostic Testing: Radiology Impression Chest X-Ray 04/07/21 23:24 IMPRESSION: Normal x-ray examination of the chest. Electronically Signed: Bashir Camp DO at 23:47 EDT Tel , Service support , EKG Initial EKG: Attestation: I personally reviewed and interpreted this EKG as follows: Interpretation: Sinus Rhythm and No Acute Injury Pattern Comments: PVCs frequent Discharge Plan Triage Chief Complaint: Cough ED Provider: Arvind Mckeon Dx/Rx/DC Orders Clinical Impression: Acute bronchitis, Chest pain, unspecified, Hyperglycemia due to type 2 diabetes mellitus Instructions: ED Upper Resp Infec Abx Tx Prescriptions: New azithromycin [azithromycin] 250 MG tablet 250 mg PO DAILY Qty: 6 RF: 0 Continued omeprazole 20 MG capsule,delayed release(DR/EC) 20 mg PO DAILY RF: 0 fluoxetine 20 MG capsule 20 mg PO DAILY RF: 0 metformin 750 mg tablet extended release 24 hr 750 mg PO DAILY RF: 0 cholestyramine (with sugar) 4 gram powder 1 ea PO DAILY RF: 0 cholecalciferol (vitamin D3) 1,250 mcg (50,000 unit) capsule 50,000 unit PO WE RF: 0 cyclobenzaprine 10 mg tablet 10 mg PO TID PRN (Reason: Muscle Spasm) Qty: 15 RF: 0 Primary Care Provider: Izabel Boucher Referrals: [facility] Izabel Maradiaga [Primary Care Provider] - (And/or [facility] primary care 1 week if not improving) Activity Restrictions/Additional Instructions: STOP Deltasone/prednisone. May continue other medications as needed for cough. Disposition Disposition: Home, Self Care
--- NOTE | 2021-04-07 23:24 | RAD_ITS ---
STUDY: X-RAY CHEST REASON FOR EXAM: Male, 45 years old. cough TECHNIQUE: Single AP portable view of the chest. COMPARISON: 09/14/2020 FINDINGS: The lungs are clear and expanded. There is no demonstrated pleural abnormality. Normal size heart. Normal mediastinum and derick. Normal visualized pulmonary arteries. Normal visualized aortic arch and descending thoracic aorta. Normal visualized thoracic spine. Normal visualized ribs, clavicles, and shoulders. There is no demonstrated abnormality of the visualized soft tissue structures of the upper abdomen. RAD/Chest 1 View (Portable) IMPRESSION: Normal x-ray examination of the chest. Electronically Signed: Bashir Camp DO at 23:47 EDT Tel , Service support ,
--- NOTE | 2021-04-07 23:26 | EKG12_ITS ---
Test Reason : DYSRYTHMIA Blood Pressure : / mmHG Vent. Rate : 092 BPM Atrial Rate : 092 BPM P-R Int : 144 ms QRS Dur : 088 ms QT Int : 352 ms P-R-T Axes : 044 -20 014 degrees QTc Int : 435 ms Sinus rhythm with Premature atrial complexes with Aberrant conduction Otherwise normal ECG Confirmed by SONJA CASTRO, NATALIE ([id number]), market editor JACLYN TOLBERT ([id number]) on 04/11/2021 1:06:35 PM Referred By: CHRISTA Confirmed By:NATALIE ACSILLAS MD
[2021-04-07 23:41] LABS: Bedside Glucose 320 mg/dL (70-110)
[2021-04-08 00:08] LABS: Troponin-I HS 4.5 pg/mL (3.0-78.5)
== END 2021-04-08 00:52 | disposition home or self-care (01) ==
PROVIDERS: Emergency Provider Emergency Medicine
DX: J20.9 Acute bronchitis, unspecified (principal); J45.909 Unspecified asthma, uncomplicated; E11.65 Type 2 diabetes mellitus with hyperglycemia; E78.5 Hyperlipidemia, unspecified; K21.9 Gastro-esophageal reflux disease without esophagitis; E66.9 Obesity, unspecified; Z79.84 Long term (current) use of oral hypoglycemic drugs; Z79.899 Other long term (current) drug therapy
CPT/HCPCS: 71045; 82962; 84484; 93005; 99284; A4216

== ENCOUNTER 2021-09-06 01:49 | Emergency (ER) | payer MEDICAID, SELFPAY ==
[2021-09-06 01:51] VITALS: BP 142/94; PULSE 67; RESP 16; TEMP 36.6; O2SAT 98; BMI 30.3
--- NOTE | 2021-09-06 02:01 | CT_ITS ---
STUDY: CT ABDOMEN AND PELVIS WITH CONTRAST REASON FOR EXAM: Male, 45 years old patient with abdominal pain. RADIATION DOSAGE (If Supplied By Facility): CTDIvol = ( 16.27 ) mGy, DLP = ( 1262.72 ) mGycm TECHNIQUE: Transaxial images were obtained from the dome of the diaphragm to the symphysis pubis without oral contrast. 100 ml of IV Isovue-370 was administered. Sagittal and coronal images were reconstructed. Individualized dose optimization techniques were used for this CT. COMPARISON: CT of the abdomen and pelvis dated 11/23/2020. FINDINGS: There is mild right basilar dependent atelectasis. The visualized portions of the heart are within normal limits. There is decreased attenuation of the liver consistent with steatosis. There is non-visualization of the gallbladder, which may be secondary to either contraction or a prior cholecystectomy. Normal spleen. Normal pancreas. Normal bilateral adrenal glands. Normal right kidney. Normal left kidney. Normal visualized stomach. There is no evidence for dilated bowel, ascites or pneumoperitoneum. The small bowel has a grossly normal appearance. There is nonspecific thickening of the andersen of the distal transverse colon, descending and sigmoid colon suggesting sequela of acute versus chronic infectious or inflammatory colitis. Most of the stool is visible in the ascending colon. There are prominent diverticula in the transverse colon versus spasm of the colon or strictures. The appendix is visualized and appears normal. Normal abdominal aorta. There is venous distention of the inferior vena cava (IVC). Normal retroperitoneum. Normal urinary bladder. Normal visualized prostate gland. Normal abdominal wall. There are degenerative changes of the sacroiliac joints with bridging osteophytes. Imaged thoracic and lumbar vertebral bodies have normal height and alignment. CT/Abdomen/Pelvis W IV Cont ONLY IMPRESSION: 1. Hepatic steatosis. 2. Questionable infectious or inflammatory colitis. Electronically Signed: Annamarie Rangel MD at 3:39 EST , Service support ,
--- NOTE | 2021-09-06 02:02 | ED.VIS.GI ---
HPI HPI - GI History of Present Illness Chief Complaint: Abd Pain Informant: patient Abdominal Pain/Flank Pain Onset: Days Timing: Continuous Quality: Aching Current Severity: Mild Maximum Severity: Mild Worsened by: Nothing Relieved by: Nothing Nausea/Vomiting/Emesis GI Symptom: Negative for Nausea and Vomiting Diarrhea/Melena/Hematochezia GI Symptom: Negative for Diarrhea, Melena and Hematochezia Associated Symptoms Associated Symptoms: Negative for Dysuria, Frequency and Hematuria Narrative Narrative: 5-year-old male past medical history of hernia repair and gallbladder surgery. No diabetic or reflux. States since Sunday his mid right and left-sided abdominal pain. He denies any trauma. He denies any nausea or vomiting. Denies any fever or chills. Denies any dysuria. No melena. No diarrhea nor constipation. Pain goes into his back but his back itself does not hurt. Prior similar symptoms: No Recent Illness/Hospitalization: No PFSH PFSH Medical History Atypical chest pain Diabetes mellitus Diabetes mellitus type 2 in obese Dyslipidemia GERD (gastroesophageal reflux disease) Obesity, mild Home Medications fluoxetine 40 mg PO DAILY 09/14/20 [History Last Taken Unknown] omeprazole 20 mg PO DAILY 09/14/20 [History Last Taken Unknown] cholecalciferol (vitamin D3) 50,000 unit PO WE 02/06/21 [History Last Taken Unknown] cholestyramine (with sugar) 1 ea PO DAILY 02/06/21 [History Last Taken Unknown] metformin 500 mg PO DAILY 02/06/21 [History Last Taken Unknown] cetirizine 10 mg PO DAILY 09/06/21 [History Last Taken Unknown] ciprofloxacin HCl [Cipro] 500 mg PO BID 10 Days #20 tab 09/06/21 [Rx Last Taken Unknown] metronidazole 500 mg PO BID 10 Days #20 tab 09/06/21 [Rx Last Taken Unknown] Allergy/AdvReac Type Severity Reaction Status Date / Time hydrocodone AdvReac Nausea/Vom/ Verified 09/06/21 01:50 Diarrhea Family History Father Cancer Lung Surgical History History of esophagogastroduodenoscopy (EGD) S/P cholecystectomy S/P hernia repair S/P tonsillectomy Social History Smoking Status: Never smoker second hand exposure: No alcohol intake: never substance use type: does not use caffeine: Yes what type of physical activity do you participate in: none frequency: does not exercise seatbelt use: always ROS ROS ED ROS Narrative Abdominal pain. Review of Systems ROS Unobtainable: Denies due to encephalopathy Constitutional Constitutional ED: Denies fever(s) ENT ENT ED: Denies ear pain Cardiovascular Cardiovascular: Denies chest pain Respiratory/Chest Respiratory/Chest: Denies cough or dyspnea Gastrointestinal Gastrointestinal: Reports abdominal pain; Denies constipation, diarrhea, melena, nausea or vomiting Genitourinary Genitourinary ED: Denies dysuria or hematuria Musculoskeletal Musculoskeletal: Denies myalgias Integumentary Denies rash Neurologic Neurologic: Denies headache(s) Psychiatric Psychiatric: Denies depression Endocrine Endocrinology: Denies polyuria Hematologic/Lymphatic Hematologic/Lymphatic: Denies easy bruising Allergic/Immunologic Allergic/Immunologic ED: Denies urticaria EXAM Physical Exam Narrative Exam Narrative: 45-year-old male vital signs stable afebrile. HEENT exam normal. Moist mucous memories. Neck nontender. Lungs clear to auscultation. Heart regular rhythm no murmur. Abdomen soft nondistended normal bowel sounds no peritoneal signs. Tender about the left and right mid abdomen. No hernia or mass. No distention. No pulsatile mass. Right upper and right lower quadrants are unremarkable. No obstruction. Normal bowel sounds. Moving all 4 extremities. Back nontender. Neurologically normal. Const Vital Signs: 09/06/21 01:51 Temperature 97.8 F Temperature Source Oral Pulse Rate 67 Respiratory Rate 16 Blood Pressure 142/94 H Blood Pressure Mean 110 Pulse Ox 98 Oxygen Delivery Method Room Air Positive well nourished, well developed and obese; Negative for cachectic, contractures or unkempt General Appearance ED: well developed and NAD; Negative for unkempt, cachectic, contractures or pallor Nutritional Appearance: obese; Negative for cachectic HEENT Reports moist mucous membranes normocephalic and atraumatic; Negative for trauma or tenderness Eyes PERRL and EOMs intact bilaterally Neck no lymphadenopathy, supple and no JVD General: Negative for tenderness Resp normal respiratory effort and clear to auscultation bilaterally Auscultation: Negative for rales, rhonchi or wheezes GI non-distended and no masses; Negative for non-tender Inspection: Negative for abdominal distention Auscultation: normoactive bowel sounds; Negative for hyperactive bowel sounds or hypoactive bowel sounds Palpation: soft and tender; Negative for guarding, rigid or rebound tenderness present Back/Spine no CVA tenderness General Back: Negative for CVA tenderness Extremity full ROM General Extremety ED: Negative for edema or tenderness General Extremity: Negative for edema Neuro moves all extremities Sensorium / Orientation: alert, oriented to person, oriented to place and oriented to time; Negative for orientation impaired, confused, lethargic or stuporous Motor Exam: strength 5/5 throughout Psych mental status grossly normal and thought process normal Appearance: Negative for unkempt Skin no wounds General Skin Exam: Negative for jaundice or pallor Lesions: no lesions Rashes: no rashes MDM MDM MDM Narrative Medical decision making narrative: 45-year-old male with mid abdominal pain without other symptoms. CAT scan labs pending. Treated with morphine, Toradol and Zofran. Gallbladders out. There is no signs of obstruction. It be atypical appendicitis. Repeat exam patient doing well at 3:50 AM. Will be discharged home. We went over his results. Due to the colitis he will be placed on Cipro and Flagyl and follow-up with his primary care physician. Lab Data Attestation: I reviewed the patient's lab results. Lab results narrative: CBC unremarkable white count of 6. Hemoglobin of 14. Electrolytes unremarkable gap of 8 normal BUN and creatinine. Liver enzymes unremarkable. Glucose 352. UA negative. CAT scan concern for inflammatory versus infectious colitis. Labs: Laboratory Results - last 24 hr 09/06/21 09/06/21 09/06/21 02:15 02:17 02:17 WBC 6.6 RBC 4.69 Hgb 14.9 Hct 41.3 MCV 88.1 MCH 31.8 MCHC 36.1 H RDW Std Deviation 41.1 RDW Coeff of Génesis 13.1 Plt Count 209 MPV 9.3 Immature Gran % (Auto) 0.200 Neut % (Auto) 52.3 Lymph % (Auto) 35.3 Craven % (Auto) 9.2 Eos % (Auto) 2.1 Baso % (Auto) 0.9 Absolute Neuts (auto) 3.5 Absolute Lymphs (auto) 2.34 Nucleated RBC % 0 Sodium 137 Potassium 3.8 Chloride 102 Carbon Dioxide 27.0 Anion Gap 8 BUN 12 Creatinine 1.00 Estim Creat Clear Calc 106.53 Est GFR (MDRD) Af Amer 104 Est GFR (MDRD) Non-Af 86 BUN/Creatinine Ratio 12.0 Glucose 352 H Calcium 9.4 Total Bilirubin 0.80 AST 32 ALT 68 H Alkaline Phosphatase 108 Total Protein 7.5 Albumin 4.0 Globulin 3.5 Albumin/Globulin Ratio 1.1 Lipase 249 Urine Color Yellow Urine Clarity Clear Urine pH 5.0 Ur Specific Hoffman 1.020 Urine Protein 15 H Urine Glucose (UA) 1000 H Urine Ketones Negative Urine Occult Blood Negative Urine Nitrite Negative Urine Bilirubin Negative Urine Urobilinogen Normal Ur Leukocyte Esterase Negative Urine RBC 0 SEEN Urine WBC 0 SEEN Ur Squamous Epith Cells 0 SEEN Urine Bacteria 0 SEEN Urine Mucus 0 SEEN Radiography Diagnostic Testing: Clinical Impression(s) from Imaging Studies Abdomen/Pelvis CT 09/06/21 02:01 IMPRESSION: 1. Hepatic steatosis. 2. Questionable infectious or inflammatory colitis. Electronically Signed: Annamarie Rangel MD at 3:39 EST , Service support , Discharge Plan Triage Chief Complaint: Abd Pain ED Provider: Santy Groves Dx/Rx/DC Orders Clinical Impression: Colitis Prescriptions: New ciprofloxacin HCl [Cipro] 500 mg tablet 500 mg PO BID 10 Days Qty: 20 RF: 0 metronidazole 500 mg tablet 500 mg PO BID 10 Days Qty: 20 RF: 0 No Action omeprazole 20 MG capsule,delayed release(DR/EC) 20 mg PO DAILY RF: 0 fluoxetine 20 MG capsule 40 mg PO DAILY RF: 0 metformin 750 mg tablet extended release 24 hr 500 mg PO DAILY RF: 0 cholestyramine (with sugar) 4 gram powder 1 ea PO DAILY RF: 0 cholecalciferol (vitamin D3) 1,250 mcg (50,000 unit) capsule 50,000 unit PO WE RF: 0 cetirizine 10 mg tablet 10 mg PO DAILY RF: 0 Primary Care Provider: Renetta Schmid Referrals: Renetta Schmid MD [Primary Care Provider] - 1 Week Activity Restrictions/Additional Instructions: You have inflammation on your colon on the CAT scan which could be infectious or inflammatory. You will be placed on 2 antibiotics in case it is infectious. You need to follow-up with your primary care physician because they may have to have you see a surgeon or central stores attendant to have a colonoscopy for further evaluation. Tylenol and Motrin for pain. Plenty of fluids and rest. Disposition Disposition: Home, Self Care
[2021-09-06] MEDS: Ketorolac 30 MG/ML Syringe IV (02:16)
[2021-09-06] MEDS: Ondansetron 4 MG/2 ML Vial IV (02:16)
[2021-09-06] MEDS: 0.9% Normal Saline 1,000 ML 1000 ML IV (02:16)
[2021-09-06] MEDS: morphine 8 MG/ML Syringe IV (02:18)
[2021-09-06 02:21] LABS: Bacteria 0 SEEN /hpf (None Seen); Mucous, Urine 0 SEEN /hpf (<or=2+); Red Blood Cells-Urine 0 SEEN /hpf (0-5); Squamous Epithelial Cells - UA 0 SEEN /hpf (0-5); White Blood Cells 0 SEEN /hpf (0-5)
[2021-09-06 02:22] LABS: Absolute Lymphocyte Count 2.34 X10^3/uL (0.83-4.51); Absolute Neutrophil Count 3.5 X10^3/uL (2.0-7.7); Basophil# 0.06 X10^3/uL; Basophil% 0.9 % (0-1); Eosinophil# 0.14 X10^3/uL; Eosinophils% 2.1 % (0-5); Hematocrit 41.3 % (40-54); Hemoglobin 14.9 g/dL (13.0-16.5); Lymphocyte # 2.34 X10^3/ul (0.83-4.51); Lymphocyte % 35.3 % (19-41); Mean Corp Hgb Conc 36.1 g/dL (32-36); Mean Corpuscular Hgb 31.8 pg (27.0-32.0); Mean Corpuscular Volume 88.1 fL (80-94); Mean Platelet Vol. 9.3 fl (6.2-12.0); Monocyte# 0.61 X10^3/uL; Monocyte% 9.2 % (0-10); NRBC Flagged by Analyzer 0 % (0-5); Neutrophil # 3.46 X10^3/uL (2.7-7.7); Neutrophil % 52.3 % (47-70); Platelet Count 209 K/mm3 (150-450); RBC Distribution Width CV 13.1 % (11.6-14.6); RBC Distribution Width SD 41.1 fl (35.1-43.9); Red Blood Count 4.69 M/mm3 (4.6-6.2); White Blood Count 6.6 K/mm3 (4.4-11.0)
[2021-09-06 02:23] LABS: Color, Urine Yellow (Yellow); Glucose, Dipstick 1000 mg/dl (Normal); Ketone-Dipstick Negative (Negative); Leukocyte Esterase-Dipstick Negative /ul (Negative); Nitrite-Dipstick Negative (Negative); Occult Blood-Urine Negative /ul (Negative); Protein-Dipstick 15 mg/dl (Negative); Urine Bilirubin Dipstick Negative (Negative); Urine Clarity Clear (Clear); Urine Urobilinogen Normal (Normal)
[2021-09-06 02:39] LABS: ALB/GLOB Ratio 1.1 RATIO (0.9-2.4); AST(SGOT) 32 U/L (15-37); Alanine Aminotransfer ALT/SGPT 68 U/L (16-61); Alkaline Phosphatase 108 U/L (45-117); Anion Gap 8 (5-15); BUN 12 mg/dL (7-18); Calcium,Total 9.4 mg/dL (8.5-10.1); Chloride 102 mmol/L (98-107); EST Glomerular Filtration Rate 86 mL/min (>60); Est Glom Filt Rate - Afr Amer 104 mL/min (>60); Estimated Creatinine Clearance 106.53 ml/min; Globulin 3.5 g/dL (2.2-4.2); Glucose 352 mg/dL (74-106); Lipase 249 U/L (73-393); Potassium 3.8 mmol/L (3.5-5.1); Protein, Total 7.5 g/dL (6.4-8.2); Sodium Level 137 mmol/L (136-145)
[2021-09-06] MEDS: metroNIDAZOLE 500 MG Tablet PO (04:10)
[2021-09-06] MEDS: Ciprofloxacin 500 MG Tablet PO (04:10)
[2021-09-06 04:13] VITALS: PULSE 86; RESP 16; O2SAT 98
== END 2021-09-06 04:14 | disposition home or self-care (01) ==
PROVIDERS: Emergency Provider Emergency Medicine; PCP Internal Medicine
DX: K52.9 Noninfective gastroenteritis and colitis, unspecified (principal); E11.9 Type 2 diabetes mellitus without complications; E78.5 Hyperlipidemia, unspecified; K21.9 Gastro-esophageal reflux disease without esophagitis; E66.9 Obesity, unspecified; Z79.84 Long term (current) use of oral hypoglycemic drugs; Z79.899 Other long term (current) drug therapy
CPT/HCPCS: 74177; 80053; 81001; 83690; 85025; 96361; 96374; 96375; 99284; J7030; Q9967; A4216; J2405

== ENCOUNTER 2022-01-15 11:17 | Emergency (ER) | payer MEDICAID, SELFPAY ==
[2022-01-15 11:19] VITALS: BP 114/97; PULSE 148; RESP 18; TEMP 36.7; O2SAT 94; BMI 30.7
--- NOTE | 2022-01-15 11:31 | EDS_ITS ---
HPI History of Present Illness Chief Complaint: Nausea/Vomiting/Diarrhea Informant: patient Narrative Narrative: 46-year-old male presented to the emergency room with vomiting and diarrhea. Patient states that several days ago he went to urgent care with a cough and was prescribed an inhaler, prednisone, and a mucus pill. He states that 2 days ago he ate [employer] and other family members did as well and they also noted that the food tasted different. He states that this morning he began to vomit and diarrhea began around 0100 hrs. He denies any mucus or blood in the stool or vomit. He notes crampy discomfort in his abdomen. He feels lightheaded when standing. [facility] Medical History Atypical chest pain Diabetes mellitus Diabetes mellitus type 2 in obese Dyslipidemia GERD (gastroesophageal reflux disease) Obesity, mild Home Medications fluoxetine 40 mg PO DAILY 09/14/20 [History Last Taken Unknown] omeprazole 20 mg PO DAILY 09/14/20 [History Last Taken Unknown] cholecalciferol (vitamin D3) 50,000 unit PO WE 02/06/21 [History Last Taken Unknown] cholestyramine (with sugar) 1 ea PO DAILY 02/06/21 [History Last Taken Unknown] metformin 500 mg PO DAILY 02/06/21 [History Last Taken Unknown] cetirizine 10 mg PO DAILY 09/06/21 [History Last Taken Unknown] ciprofloxacin HCl [Cipro] 500 mg PO BID 10 Days #20 tab 09/06/21 [Rx Last Taken Unknown] metronidazole 500 mg PO BID 10 Days #20 tab 09/06/21 [Rx Last Taken Unknown] ondansetron 4 mg PO Q6H PRN PRN #20 tab 01/15/22 [Rx Last Taken Unknown] Allergy/AdvReac Type Severity Reaction Status Date / Time hydrocodone AdvReac Nausea/Vom/ Verified 01/15/22 11:23 Diarrhea Family History Father Cancer Lung Surgical History History of esophagogastroduodenoscopy (EGD) S/P cholecystectomy S/P hernia repair S/P tonsillectomy Social History Smoking Status: Never smoker second hand exposure: No alcohol intake: never substance use type: does not use caffeine: Yes what type of physical activity do you participate in: none frequency: does not exercise seatbelt use: always ROS ROS ED Constitutional Constitutional ED: Reports fever(s) and subjective; Denies chills or weight loss Eyes Eyes: Denies change in vision or diplopia ENT ENT ED: Denies ear pain, rhinorrhea or sore throat Cardiovascular Cardiovascular: Denies chest pain, orthopnea, palpitations or racing heartbeat Respiratory/Chest Respiratory/Chest: Reports cough; Denies dyspnea or orthopnea Gastrointestinal Gastrointestinal: Reports diarrhea, nausea and vomiting; Denies abdominal pain Genitourinary Genitourinary ED: Denies dysuria, hematuria or urinary frequency Musculoskeletal Musculoskeletal: Denies arthralgias or myalgias Integumentary Denies abscess or rash Neurologic Neurologic: Denies headache(s) or weakness Psychiatric Psychiatric: Denies anxiety, depression, suicidal ideation or suicidal thoughts Endocrine Endocrinology: Denies polydipsia, polyphagia or polyuria Allergic/Immunologic Allergic/Immunologic ED: Denies mouth swelling, tongue swelling or urticaria EXAM Physical Exam Const Vital Signs: 01/15/22 11:19 01/15/22 11:37 Temperature 98.1 F Temperature Source Temporal Pulse Rate 148 H 119 H Respiratory Rate 18 18 Blood Pressure 114/97 H 117/96 H Blood Pressure Mean 102 103 Pulse Ox 94 96 Oxygen Delivery Method Room Air Room Air Positive well nourished and well developed General Appearance ED: well developed HEENT Reports normocephalic, head/scalp atraumatic, TM's clear and moist mucous membranes Negative for tenderness Tympanic Membrane ED: Yes TM's clear Eyes PERRL and EOMs intact bilaterally Neck no lymphadenopathy, supple and no JVD Resp normal respiratory effort and clear to auscultation bilaterally Cardio regular rate, regular rhythm and no murmurs GI normal to inspection, nondistended, normoactive bowel sounds and non-tender Palpation: soft Back/Spine no CVA tenderness and normal ROM Extremity normal to inspection General Extremety ED: Negative for edema General Extremity: Negative for edema Neuro oriented x3 and CN's II-XII intact bilaterally Sensorium / Orientation: alert Motor Exam: strength 5/5 throughout Psych mental status grossly normal Mood & Affect: Negative for depressed or tearful Skin no rashes or lesions noted and no wounds MDM MDM MDM Narrative Medical decision making narrative: Patient received 2 L of IV fluids and Zofran. Basic blood work showed a glucose of 429 most likely due to his prednisone use, diabetes, and now gastroenteritis. Patient will have a prescription for Zofran sent. He is to continue to monitor his sugars and follow-up with primary care. Lab Data Attestation: I reviewed the patient's lab results. Labs: Laboratory Results - last 24 hr 01/15/22 01/15/22 11:40 11:40 WBC 7.4 RBC 5.11 Hgb 16.1 Hct 43.3 MCV 84.7 MCH 31.5 MCHC 37.2 H RDW Std Deviation 41.7 RDW Coeff of Génesis 13.5 Plt Count 173 MPV 9.2 Immature Gran % (Auto) 0.300 Neut % (Auto) 81.4 H Lymph % (Auto) 6.5 L [place] % (Auto) 10.9 H Eos % (Auto) 0.5 Baso % (Auto) 0.4 Absolute Neuts (auto) 6.0 Absolute Lymphs (auto) 0.48 L Nucleated RBC % 0 Sodium 132 L Potassium 3.9 Chloride 97 L Carbon Dioxide 24.0 Anion Gap 11 BUN 19 H Creatinine 1.14 Estim Creat Clear Calc 89.81 Est GFR (MDRD) Af Amer 89 Est GFR (MDRD) Non-Af 74 BUN/Creatinine Ratio 16.7 Glucose 429 H Calcium 8.7 Total Bilirubin 1.30 H AST 23 ALT 49 Alkaline Phosphatase 100 Total Protein 7.8 Albumin 4.2 Globulin 3.6 Albumin/Globulin Ratio 1.2 Discharge Plan Triage Chief Complaint: Nausea/Vomiting/Diarrhea ED Provider: Glenn Reyes Dx/Rx/DC Orders Clinical Impression: Gastroenteritis, Hyperglycemia due to type 2 diabetes mellitus Instructions: ED Gastroenteritis, Viral (Adult) Prescriptions: New ondansetron [ondansetron] 4 MG tablet 4 mg PO Q6H PRN PRN (Reason: Nausea) Qty: 20 RF: 0 No Action omeprazole 20 MG capsule,delayed release(DR/EC) 20 mg PO DAILY RF: 0 fluoxetine 20 MG capsule 40 mg PO DAILY RF: 0 metformin 750 mg tablet extended release 24 hr 500 mg PO DAILY RF: 0 cholestyramine (with sugar) 4 gram powder 1 ea PO DAILY RF: 0 cholecalciferol (vitamin D3) 1,250 mcg (50,000 unit) capsule 50,000 unit PO WE RF: 0 cetirizine 10 mg tablet 10 mg PO DAILY RF: 0 ciprofloxacin HCl [Cipro] 500 mg tablet 500 mg PO BID 10 Days Qty: 20 RF: 0 metronidazole 500 mg tablet 500 mg PO BID 10 Days Qty: 20 RF: 0 Primary Care Provider: Renetta Schmid Referrals: Renetta Schmid MD [Primary Care Provider] - As Needed Disposition Disposition: Home, Self Care
[2022-01-15 11:37] VITALS: BP 117/96; PULSE 119; RESP 18; O2SAT 96
[2022-01-15] MEDS: Ondansetron 4 MG/2 ML Vial IV (11:41)
[2022-01-15] MEDS: 0.9% Normal Saline 1,000 ML 1000 ML IV ×2 (11:57→11:58)
[2022-01-15 12:02] LABS: ALB/GLOB Ratio 1.2 RATIO (0.9-2.4); AST(SGOT) 23 U/L (15-37); Alanine Aminotransfer ALT/SGPT 49 U/L (16-61); Albumin, Serum 4.2 g/dL (3.2-5.0); Alkaline Phosphatase 100 U/L (45-117); Anion Gap 11 (5-15); BUN 19 mg/dL (7-18); BUN/Creat Ratio 16.7 RATIO (10-20); Calcium,Total 8.7 mg/dL (8.5-10.1); Chloride 97 mmol/L (98-107); Creatinine, Serum 1.14 mg/dL (0.70-1.30); EST Glomerular Filtration Rate 74 mL/min (>60); Est Glom Filt Rate - Afr Amer 89 mL/min (>60); Estimated Creatinine Clearance 89.81 ml/min; Globulin 3.6 g/dL (2.2-4.2); Glucose 429 mg/dL (74-106); Potassium 3.9 mmol/L (3.5-5.1); Protein, Total 7.8 g/dL (6.4-8.2); Sodium Level 132 mmol/L (136-145)
[2022-01-15 12:04] LABS: Absolute Lymphocyte Count 0.48 X10^3/uL (0.83-4.51); Basophil# 0.03 X10^3/uL; Basophil% 0.4 % (0-1); Eosinophil# 0.04 X10^3/uL; Eosinophils% 0.5 % (0-5); Hematocrit 43.3 % (40-54); Hemoglobin 16.1 g/dL (13.0-16.5); Lymphocyte # 0.48 X10^3/ul (0.83-4.51); Lymphocyte % 6.5 % (19-41); Mean Corp Hgb Conc 37.2 g/dL (32-36); Mean Corpuscular Hgb 31.5 pg (27.0-32.0); Mean Corpuscular Volume 84.7 fL (80-94); Mean Platelet Vol. 9.2 fl (6.2-12.0); Monocyte% 10.9 % (0-10); NRBC Flagged by Analyzer 0 % (0-5); Neutrophil % 81.4 % (47-70); POSITIVE DIFFERENTIAL YES; Platelet Count 173 K/mm3 (150-450); RBC Distribution Width CV 13.5 % (11.6-14.6); RBC Distribution Width SD 41.7 fl (35.1-43.9); Red Blood Count 5.11 M/mm3 (4.6-6.2); White Blood Count 7.4 K/mm3 (4.4-11.0)
[2022-01-15 12:05] LABS: Differential Indicated SCAN CRITERIA MET
[2022-01-15 13:51] VITALS: BP 112/70; PULSE 119; RESP 20; O2SAT 98
[2022-01-15 14:06] VITALS: BP 116/78; PULSE 104; RESP 16; TEMP 36.9; O2SAT 98
== END 2022-01-15 14:07 | disposition home or self-care (01) ==
PROVIDERS: Emergency Provider Emergency Medicine; PCP Internal Medicine; Visit Provider Emergency Medicine
DX: K52.9 Noninfective gastroenteritis and colitis, unspecified (principal); E11.65 Type 2 diabetes mellitus with hyperglycemia; E78.5 Hyperlipidemia, unspecified; K21.9 Gastro-esophageal reflux disease without esophagitis; E66.9 Obesity, unspecified; Z79.84 Long term (current) use of oral hypoglycemic drugs; Z79.899 Other long term (current) drug therapy
CPT/HCPCS: 80053; 85025; 96361; 96374; 99283; J7030; J2405

== ENCOUNTER 2022-01-16 16:28 | Emergency (ER) | payer MEDICAID, SELFPAY ==
[2022-01-16 16:31] VITALS: BP 151/95; PULSE 106; RESP 16; TEMP 35.8; O2SAT 97; BMI 30.8
--- NOTE | 2022-01-16 17:13 | EKG12_ITS ---
Test Reason : CP Blood Pressure : / mmHG Vent. Rate : 115 BPM Atrial Rate : 115 BPM P-R Int : 138 ms QRS Dur : 080 ms QT Int : 330 ms P-R-T Axes : 051 -28 026 degrees QTc Int : 456 ms Sinus tachycardia with Premature atrial complexes Leftward axis Poor R wave progression Nonspecific ST abnormality Abnormal ECG Confirmed by EDISON CASTRO, GILLES ([id number]), electronic news gathering editor JACLYN TOLBERT ([id number]) on 01/17/2022 8:59:11 AM Referred By: YA Confirmed By:GILLES HOGAN MD
--- NOTE | 2022-01-16 17:14 | EDS_ITS ---
HPI History of Present Illness Chief Complaint: General Illness Narrative Narrative: 36-year-old male presenting with chest pain. He states started about 3 today. He states he is concerned he might have acid reflux. He has no cardiac history that he admits to. He does have a history of diabetes and was recently on prednisone and has a history of gastroenteritis. He still having diarrhea but is not vomiting. No black or bloody stools. No hematemesis or coffee-ground emesis. No fever. PFSH PFS Medical History Atypical chest pain Diabetes mellitus Diabetes mellitus type 2 in obese Dyslipidemia GERD (gastroesophageal reflux disease) Obesity, mild Home Medications fluoxetine 40 mg PO DAILY 09/14/20 [History Last Taken Unknown] omeprazole 20 mg PO DAILY 09/14/20 [History Last Taken Unknown] cholecalciferol (vitamin D3) 50,000 unit PO WE 02/06/21 [History Last Taken Unknown] cholestyramine (with sugar) 1 ea PO DAILY 02/06/21 [History Last Taken Unknown] metformin 500 mg PO DAILY 02/06/21 [History Last Taken Unknown] cetirizine 10 mg PO DAILY 09/06/21 [History Last Taken Unknown] ciprofloxacin HCl [Cipro] 500 mg PO BID 10 Days #20 tab 09/06/21 [Rx Last Taken Unknown] metronidazole 500 mg PO BID 10 Days #20 tab 09/06/21 [Rx Last Taken Unknown] ondansetron 4 mg PO Q6H PRN PRN #20 tab 01/15/22 [Rx Last Taken Unknown] dulaglutide [Trulicity] 0.75 mg SUBCUT QWEEK 01/16/22 [History Last Taken Unknown] Allergy/AdvReac Type Severity Reaction Status Date / Time hydrocodone AdvReac Nausea/Vom/ Verified 01/16/22 16:34 Diarrhea Family History Father Cancer Lung Surgical History History of esophagogastroduodenoscopy (EGD) S/P cholecystectomy S/P hernia repair S/P tonsillectomy Social History Smoking Status: Never smoker second hand exposure: No alcohol intake: never substance use type: does not use caffeine: Yes what type of physical activity do you participate in: none frequency: does not exercise seatbelt use: always ROS ROS ED Constitutional Constitutional ED: Denies chills or fever(s) Eyes Eyes: Denies blurry vision or diplopia ENT ENT ED: Denies rhinorrhea or sore throat Cardiovascular Cardiovascular: Reports chest pain Respiratory/Chest Respiratory/Chest: Denies dyspnea Gastrointestinal Gastrointestinal: Reports abdominal pain, diarrhea and nausea Genitourinary Genitourinary ED: Denies dysuria or hematuria Musculoskeletal Musculoskeletal: Denies arthralgias or myalgias Integumentary Denies rash Neurologic Neurologic: Denies headache(s) or paresthesias EXAM Physical Exam Const Vital Signs: 01/16/22 16:31 01/16/22 16:40 01/16/22 17:22 Temperature 96.4 F L Temperature Source Temporal Pulse Rate 106 H Respiratory Rate 16 Respiratory Pattern Normal Blood Pressure 151/95 H Blood Pressure Mean 113 Pulse Ox 97 Oxygen Delivery Method Room Air Room Air Positive well nourished General Appearance ED: NAD; Negative for pallor HEENT Reports moist mucous membranes Negative for trauma Eyes PERRL and EOMs intact bilaterally Chest Wall inspection of chest normal Resp normal respiratory effort and clear to auscultation bilaterally Cardio regular rate Rate: tachycardic GI normal to inspection, nondistended, normoactive bowel sounds Back/Spine no CVA tenderness Extremity normal to inspection General Extremety ED: Negative for edema or tenderness General Extremity: Negative for edema Neuro oriented x3 and CN's II-XII intact bilaterally Sensorium / Orientation: alert Motor Exam: strength 5/5 throughout Psych mental status grossly normal Skin General Skin Exam: Negative for jaundice or pallor MDM MDM MDM Narrative Medical decision making narrative: Patient with recent gastroenteritis now complaining of retrosternal chest pain. He states he believes it might be acid reflux but he has not had chest pain before. He does not describe chest pressure or tightness. He states at times it feels sharp but there is no pleuritic component to it. EKG obtained shows a normal sinus rhythm with a ventricular rate of 115 bpm with occasional PACs. Patient states he has been able to eat food today however it goes right through him and he has diarrhea. He denies black or bloody stools. Patient CBC and BMP are unremarkable with exception of a mild hypokalemia with a potassium of 3.4 and a glucose at slightly elevated at 285 without anion gap. Sodium also slightly low at 130 however however adjusted this is not too abnormal. Patient given a liter of IV fluids. High-sensitivity troponin is less than 3. Chest x-ray on my interpretation shows no acute cardiopulmonary process and the radiologist does agree. Clinically I do not believe this is ACS given the patient's pain and recent steroid use with nausea and vomiting. Patient is given a GI cocktail. He is counseled to continue his acid reflux medication. He will continue Zofran at home. Patient stable for discharge. Impression: 1. Chest pain noncardiac 2. History of GERD 3. Hyperglycemia 4. Pseudohyponatremia Lab Data Attestation: I reviewed the patient's lab results. Labs: Laboratory Results - last 24 hr 01/16/22 01/16/22 01/16/22 16:44 16:44 16:44 WBC 7.6 RBC 5.36 Hgb 16.7 H Hct 46.3 MCV 86.4 MCH 31.2 MCHC 36.1 H RDW Std Deviation 41.4 RDW Coeff of Génesis 13.3 Plt Count 169 MPV 9.6 Immature Gran % (Auto) 0.500 Neut % (Auto) 73.1 H Lymph % (Auto) 14.5 L [place] % (Auto) 11.4 H Eos % (Auto) 0.1 Baso % (Auto) 0.4 Absolute Neuts (auto) 5.5 Absolute Lymphs (auto) 1.10 Nucleated RBC % 0 Sodium 130 L Potassium 3.4 L Chloride 96 L Carbon Dioxide 22.0 Anion Gap 12 BUN 17 Creatinine 1.05 Estim Creat Clear Calc 97.51 Est GFR (MDRD) Af Amer 98 Est GFR (MDRD) Non-Af 81 BUN/Creatinine Ratio 16.2 Glucose 285 H Calcium 8.5 Troponin I High Sens < 3 L Radiography Diagnostic Testing: Clinical Impression(s) from Imaging Studies Chest X-Ray 01/16/22 17:20 IMPRESSION: No radiographic evidence of acute cardiopulmonary disease. at 1738 Reported and signed by: Joe Littlejohn MD Electronically Signed: Joe Littlejohn MD at 17:37 EDT , Discharge Plan Triage Chief Complaint: General Illness ED Provider: Qamar Gonzalez Dx/Rx/DC Orders Prescriptions: No Action omeprazole 20 MG capsule,delayed release(DR/EC) 20 mg PO DAILY RF: 0 fluoxetine 20 MG capsule 40 mg PO DAILY RF: 0 metformin 750 mg tablet extended release 24 hr 500 mg PO DAILY RF: 0 cholestyramine (with sugar) 4 gram powder 1 ea PO DAILY RF: 0 cholecalciferol (vitamin D3) 1,250 mcg (50,000 unit) capsule 50,000 unit PO WE RF: 0 cetirizine 10 mg tablet 10 mg PO DAILY RF: 0 ciprofloxacin HCl [Cipro] 500 mg tablet 500 mg PO BID 10 Days Qty: 20 RF: 0 metronidazole 500 mg tablet 500 mg PO BID 10 Days Qty: 20 RF: 0 ondansetron [ondansetron] 4 MG tablet 4 mg PO Q6H PRN PRN (Reason: Nausea) Qty: 20 RF: 0 Trulicity 0.75 mg/0.5 mL Pen Injector 0.75 mg SUBCUT QWEEK RF: 0 Primary Care Provider: Renetta Schmid
--- NOTE | 2022-01-16 17:20 | RAD_ITS ---
EXAM: XR CHEST, 1 VIEW : 1975 CLINICAL INDICATION: chest pain TECHNIQUE: Frontal view of the chest. This report was created using [employer] report generation technology. COMPARISON: 04/07/2021 FINDINGS: LUNGS AND PLEURAL SPACES: Unremarkable. No consolidation or edema. No pneumothorax. No effusion. HEART: Unremarkable. Cardiac silhouette not enlarged. MEDIASTINUM: Central airways and mediastinal contour are unremarkable. BONES/JOINTS: Unremarkable. SOFT TISSUES: Unremarkable. RAD/Chest 1 View (Portable) IMPRESSION: No radiographic evidence of acute cardiopulmonary disease. at 1738 Reported and signed by: Joe Littlejohn MD Electronically Signed: Joe Littlejohn MD at 17:37 EDT ,
[2022-01-16 17:28] LABS: Absolute Neutrophil Count 5.5 X10^3/uL (2.0-7.7); Basophil# 0.03 X10^3/uL; Basophil% 0.4 % (0-1); Eosinophil# 0.01 X10^3/uL; Eosinophils% 0.1 % (0-5); Hematocrit 46.3 % (40-54); Hemoglobin 16.7 g/dL (13.0-16.5); Lymphocyte % 14.5 % (19-41); Mean Corp Hgb Conc 36.1 g/dL (32-36); Mean Corpuscular Hgb 31.2 pg (27.0-32.0); Mean Corpuscular Volume 86.4 fL (80-94); Mean Platelet Vol. 9.6 fl (6.2-12.0); Monocyte# 0.86 X10^3/uL; Monocyte% 11.4 % (0-10); NRBC Flagged by Analyzer 0 % (0-5); Neutrophil # 5.53 X10^3/uL (2.7-7.7); Neutrophil % 73.1 % (47-70); Platelet Count 169 K/mm3 (150-450); RBC Distribution Width CV 13.3 % (11.6-14.6); RBC Distribution Width SD 41.4 fl (35.1-43.9); Red Blood Count 5.36 M/mm3 (4.6-6.2); White Blood Count 7.6 K/mm3 (4.4-11.0)
[2022-01-16] MEDS: 0.9% Normal Saline 1,000 ML 1000 ML IV (17:30)
[2022-01-16] MEDS: Famotidine 200 MG/20 ML MDV 20 MG in 0.9% Normal Saline (Pres. free 8 ML 300 MG IV (17:30)
[2022-01-16 17:41] LABS: Anion Gap 12 (5-15); BUN 17 mg/dL (7-18); BUN/Creat Ratio 16.2 RATIO (10-20); Calcium,Total 8.5 mg/dL (8.5-10.1); Chloride 96 mmol/L (98-107); Creatinine, Serum 1.05 mg/dL (0.70-1.30); EST Glomerular Filtration Rate 81 mL/min (>60); Est Glom Filt Rate - Afr Amer 98 mL/min (>60); Estimated Creatinine Clearance 97.51 ml/min; Glucose 285 mg/dL (74-106); Potassium 3.4 mmol/L (3.5-5.1); Sodium Level 130 mmol/L (136-145)
[2022-01-16 17:51] LABS: Troponin-I HS (w/2H Reflex) < 3 pg/mL (3.0-78.0)
[2022-01-16] MEDS: Mag Hydrox/Al Hydrox/Simeth 30 ML UDC PO (18:25)
[2022-01-16 19:04] VITALS: BP 139/94; PULSE 111; RESP 22; O2SAT 97
[2022-01-16 19:21] LABS: Reflex Troponin-HS? (from REC) Y
== END 2022-01-16 19:15 | disposition home or self-care (01) ==
PROVIDERS: Emergency Provider Student in an Organized Health Care Education/Training Program; PCP Internal Medicine; Visit Provider Student in an Organized Health Care Education/Training Program
DX: R07.89 Other chest pain (principal); E11.65 Type 2 diabetes mellitus with hyperglycemia; E87.6 Hypokalemia; R19.7 Diarrhea, unspecified; K21.9 Gastro-esophageal reflux disease without esophagitis; E78.5 Hyperlipidemia, unspecified; E66.9 Obesity, unspecified; Z79.84 Long term (current) use of oral hypoglycemic drugs; Z79.899 Other long term (current) drug therapy
CPT/HCPCS: 71045; 80048; 84484; 85025; 93005; 96361; 96374; 99285; J7030; A4216; J3490

== ENCOUNTER 2022-03-26 00:41 | Emergency (ER) | payer MEDICAID, SELFPAY ==
[2022-03-26 00:43] VITALS: BP 149/109; PULSE 103; RESP 20; TEMP 36.8; O2SAT 98; BMI 30.7
[2022-03-26] MEDS: Clindamycin HCl 150 MG Capsule 450 MG PO (01:04)
--- NOTE | 2022-03-26 01:04 | EX.ED.DYSGE1 ---
HPI History of Present Illness Chief Complaint: Abscess Narrative Narrative: 46-year-old male presenting with a small bump on the posterior aspect of his left testicle along the scrotum. He denies any trauma to the area. He states it is tender to palpation. He states he has used a heating pad and is not going away. He states he tried to squeeze it and nothing is come out of it. No systemic signs or symptoms. No urinary complaints. [facility] Medical History Atypical chest pain Diabetes mellitus Diabetes mellitus type 2 in obese Dyslipidemia GERD (gastroesophageal reflux disease) Obesity, mild Home Medications omeprazole 20 mg capsule,delayed release 20 mg PO DAILY 09/14/20 [History Last Taken Unknown] cholecalciferol (vitamin D3) 1,250 mcg (50,000 unit) capsule 1,000 mcg PO WE 02/06/21 [History Last Taken Unknown] dulaglutide 0.75 mg/0.5 mL subcutaneous pen injector (Trulicity) 0.75 mg subcut QWEEK 01/16/22 [History Last Taken Unknown] clindamycin HCl 150 mg capsule 450 mg PO TID 7 days #63 caps 03/26/22 [Rx Last Taken Unknown] colestipol 1 gram tablet 3 tab PO TID 03/26/22 [History Last Taken Unknown] escitalopram oxalate 20 mg tablet 1 tab PO DAILY 03/26/22 [History Last Taken Unknown] rosuvastatin 10 mg tablet 1 tab PO QHS 03/26/22 [History Last Taken Unknown] Allergy/AdvReac Type Severity Reaction Status Date / Time hydrocodone AdvReac Nausea/Vom/ Verified 01/16/22 16:34 Diarrhea Family History Father Cancer Lung Surgical History History of esophagogastroduodenoscopy (EGD) S/P cholecystectomy S/P hernia repair S/P tonsillectomy Social History Smoking Status: Never smoker second hand exposure: No alcohol intake: never substance use type: does not use caffeine: Yes what type of physical activity do you participate in: none frequency: does not exercise seatbelt use: always ROS ROS ED Constitutional Constitutional ED: Denies chills or fever(s) Eyes Eyes: Denies change in vision ENT ENT ED: Denies rhinorrhea or sore throat Cardiovascular Cardiovascular: Denies chest pain or palpitations Respiratory/Chest Respiratory/Chest: Denies cough or dyspnea Gastrointestinal Gastrointestinal: Denies abdominal pain, constipation or diarrhea Genitourinary Genitourinary ED: Reports other Details: Tender area on left posterior scrotum Musculoskeletal Musculoskeletal: Denies arthralgias Neurologic Neurologic: Denies headache(s) Psychiatric Psychiatric: Denies anxiety or depression EXAM Physical Exam Const Vital Signs: 03/26/22 00:43 Temperature 98.2 F Temperature Source Oral Pulse Rate 103 H Respiratory Rate 20 H Blood Pressure 149/109 H Blood Pressure Mean 122 Pulse Ox 98 Oxygen Delivery Method Room Air Positive well nourished General Appearance ED: NAD HEENT Reports moist mucous membranes and dry mucous membranes Mouth ED: Yes dry mucous membranes Mouth: dry mucous membranes Eyes PERRL and EOMs intact bilaterally Resp normal respiratory effort Cardio regular rate and regular rhythm Narrative: There is a 0.5 cm firm area on the left posterior scrotum/perineal area. There is no fluctuance noted. Mild erythema. Mildly tender to palpation. Neuro oriented x3 and CN's II-XII intact bilaterally Psych mental status grossly normal MDM MDM MDM Narrative Medical decision making narrative: Patient has what looks to be an ingrown hair on the posterior aspect of the left scrotum in the perineal space. There is mild erythema. Its minimally tender to palpation. I do not believe there is an abscess here. I do believe it is more of a folliculitis that is localized to the. Likely due to an ingrown hair. Patient was started on clindamycin. He is counseled on sitz bath's. He is to monitor this and if it gets worse he is to return to the ER. Impression: 1. Folliculitis Discharge Plan Triage Chief Complaint: Abscess ED Provider: Qamar Gonzalez Dx/Rx/DC Orders Instructions: ED Folliculitis Prescriptions: New clindamycin HCl 150 mg capsule 450 mg PO TID 7 Days Qty: 63 0RF No Action omeprazole 20 MG capsule,delayed release(DR/EC) 20 mg PO DAILY cholecalciferol (vitamin D3) 1,250 mcg (50,000 unit) capsule 1,000 mcg PO WE Trulicity 0.75 mg/0.5 mL Pen Injector 0.75 mg SUBCUT QWEEK escitalopram oxalate 20 mg tablet 1 tab PO DAILY Label Comments: take 1 tablet by mouth once daily rosuvastatin 10 mg tablet 1 tab PO QHS Label Comments: take 1 tablet by mouth once daily at bedtime colestipol 1 gram tablet 3 tab PO TID Label Comments: take 3 tablets by mouth twice a day Primary Care Provider: Renetta Schmid Referrals: Renetta Schmid MD [Primary Care Provider] - Disposition Disposition: Home, Self Care
[2022-03-26 01:05] VITALS: RESP 16
== END 2022-03-26 01:05 | disposition home or self-care (01) ==
PROVIDERS: Emergency Provider Student in an Organized Health Care Education/Training Program; PCP Internal Medicine; Visit Provider Student in an Organized Health Care Education/Training Program
DX: L73.9 Follicular disorder, unspecified (principal); E11.9 Type 2 diabetes mellitus without complications; E78.5 Hyperlipidemia, unspecified; K21.9 Gastro-esophageal reflux disease without esophagitis; E66.9 Obesity, unspecified; Z79.899 Other long term (current) drug therapy
CPT/HCPCS: 99283

== ENCOUNTER 2024-03-13 19:08 | Emergency (ER) | payer MEDICAID, SELFPAY ==
[2024-03-13 19:09] VITALS: BP 128/79; PULSE 80; RESP 16; TEMP 36.9; O2SAT 97; BMI 28.2
[2024-03-13 19:10] VITALS: BP 128/79; PULSE 80; RESP 16; TEMP 36.9; O2SAT 97
--- NOTE | 2024-03-13 19:23 | EDS_ITS ---
HPI <WOO Ackerman - Last Filed: 03/13/24 20:35> History of Present Illness Chief Complaint: Abd Pain Narrative Narrative: Patient is 48-year-old male with history of hypertension hyperlipidemia, diabetes who presents to the emergency department for coughing, feeling short of breath. Patient dates he has had some lower abdominal pain that he was seen at [facility]. Patient had a CAT scan, this was negative. Enemas. Patient is currently going to the bathroom and there is no other pain. Patient states that he is feeling more short of breath and has coughing and is here for reevaluation. Patient denies any fever or chills, patient does have sometimes white sputum. He is currently not on antibiotics. [facility] <WOO Ackerman - Last Filed: 03/13/24 20:35> [facility] Medical History Atypical chest pain Diabetes mellitus Diabetes mellitus type 2 in obese Dyslipidemia GERD (gastroesophageal reflux disease) Obesity, mild Home Medications ?Medication ?Instructions ?Recorded ?Last Taken ?Type omeprazole 20 mg capsule,delayed 20 mg PO DAILY 09/14/20 Unknown History release cholecalciferol (vitamin D3) 1,250 1,000 mcg PO WE 02/06/21 Unknown History mcg (50,000 unit) capsule dulaglutide 0.75 mg/0.5 mL 0.75 mg subcut QWEEK 01/16/22 Unknown History subcutaneous pen injector (Trulicity) clindamycin HCl 150 mg capsule 450 mg (3 x 150 mg) PO TID 7 days 03/26/22 Unknown Rx #63 caps colestipol 1 gram tablet 3 tab PO TID 03/26/22 Unknown History escitalopram oxalate 20 mg tablet 1 tab PO DAILY 03/26/22 Unknown History rosuvastatin 10 mg tablet 1 tab PO QHS 03/26/22 Unknown History Allergy/AdvReac Type Severity Reaction Status Date / Time hydrocodone AdvReac Nausea/Vom/ Verified 03/13/24 19:11 Diarrhea Family History Father Cancer Lung Surgical History History of esophagogastroduodenoscopy (EGD) S/P cholecystectomy S/P hernia repair S/P tonsillectomy Social History Smoking Status: Never smoker second hand exposure: No alcohol intake: never substance use type: does not use caffeine: Yes what type of physical activity do you participate in: none frequency: does not exercise seatbelt use: always ROS <WOO Ackerman - Last Filed: 03/13/24 20:35> ROS ED ROS Narrative Constitutional: Negative for fever, chills, weight loss, weakness Eyes: Negative for vision loss, vision change, double vision ENT: Negative for any sore throat, ear pain, congestion Cardiovascular: Negative for any chest pain, tightness, palpitations Respiratory: Negative for any hemoptysis, dyspnea on exertion, orthopnea. Positive for cough, dyspnea, sputum production Gastrointestinal: Negative for any abdominal pain, nausea, vomiting, diarrhea, constipation, blood in stool, blood in vomit : Negative for any urinary frequency, dysuria, retention, blood in urine Muscle skeletal: Negative for any neck pain, back pain Neurological: Negative for any headache, syncope, dizziness Skin: Negative for any rashes, itching, abrasions, lacerations Psychiatric: Negative for any depression, anxiety, stress, suicidal ideation, homicidal ideation Hematologic: Negative for any excessive bruising, easy bleeding EXAM <WOO Ackerman - Last Filed: 03/13/24 20:35> Physical Exam Narrative Exam Narrative: Vital signs reviewed. HEET: Head normocephalic atraumatic, TMs clear bilaterally. Posterior pharynx is clear, moist mucous membranes. Nares clear bilaterally. Neck: Supple with no lymphadenopathy or tenderness. No signs of meningismus. Cardiac: Regular rate and rhythm no murmurs gallops or rubs, equal peripheral pulses bilaterally. Respiratory: Lungs clear to auscultation bilaterally. No chest tenderness. Patient does cough throughout my entire exam. However there is no wheezing. Patient looks generally well. Abdomen: Soft, nontender, nondistended. No abdominal bruit or pulsatile masses. No hepatosplenomegaly Extremities: No peripheral edema, no signs of gross trauma or deformity. Active full range of motion of all extremities. Neuro: Cranial nerves II through XII intact, no focal neurological deficits. Skin: Clean dry and intact with no rash, purpura, petechiae, vesicles or pus tules. Backs/flank: No CVA tenderness, no midline spinal tenderness, no deformity. Psych: Normal mood and affect. No SI, HI or acute psychosis. Const Vital Signs: 03/13/24 19:09 03/13/24 19:10 Temperature 98.4 F 98.4 F Temperature Source Temporal Temporal Pulse Rate 80 80 Respiratory Rate 16 16 Blood Pressure 128/79 H 128/79 H Blood Pressure Mean 95 95 Pulse Ox 97 97 Oxygen Delivery Method Room Air Room Air <Dr. Santy Groves MD - Last Filed: 03/13/24 20:31> Physical Exam Const Vital Signs: 03/13/24 19:09 03/13/24 19:10 Temperature 98.4 F 98.4 F Temperature Source Temporal Temporal Pulse Rate 80 80 Respiratory Rate 16 16 Blood Pressure 128/79 H 128/79 H Blood Pressure Mean 95 95 Pulse Ox 97 97 Oxygen Delivery Method Room Air Room Air [facility] <WOO Ackerman - Last Filed: 03/13/24 20:35> [facility] Lab Data Labs: Laboratory Results - last 24 hr 03/13/24 19:37 POC Glucose 257 H Treatment and Re-Evaluation :: Differential diagnosis includes however is not limited to: Asthma exacerbation, COPD exacerbation, community-acquired pneumonia, URI, viral symptoms, Patient appears to be in no obvious respiratory distress vital signs are stable, patient appears nontoxic. Presenting to the emergency department with complaints of cough, feeling shortness of breath. Patient will receive a two- view chest x-ray. All radiologic examinations were read, reviewed by the emergency department attending. From these reads, a plan of care will be put in place. BGT will be obtained. 2 view chest x-ray was negative for any acute process. Patient's BGT was 257, at this time, I do not believe the patient needs any antibiotics, patient is likely suffering from her upper respiratory tract infection. All questions were answered, patient will follow-up outpatient. Patient stable for discharge. <Dr. Santy Groves MD - Last Filed: 03/13/24 20:31> [facility] Narrative Medical decision making narrative: I have personally performed a face to face assessment of the patient and have reviewed the FLETCHER Note. I performed a substantive portion of the visit including all aspects of the following. My horne findings include: History is 48-year-old diabetic male complaining of o'clock. Initially says abdominal pain has had it extensively worked up. States he was diagnosed with constipation he has been having enemas, milk of magnesia etc. has been having bowel movements the last 2 days. States he is having chest discomfort when he coughs. Denies exertional chest pain. Exam is [right male vital signs stable afebrile. Pulse is 97% room air no hyp oxia. No distress. H EENT exam unremarkable. Neck nontender no lymphadenopathy. Lungs clear to auscultation bilaterally. Heart regular rate and rhythm no murmur rate about 80. He does have reproducible chest wall discomfort on the left. No rales rhonchi or wheezing. No crepitance or subcu air. Abdomen is soft and nontender. Moving all 4 extremities. Calves are nontender no edema or cords. Equal symmetric radial pulses. Neurologically is awake and alert no focal motor deficits.] Medical Decision Making [48-year-old male with a cough.] Other additions or changes: [None] Lab Data Attestation: I reviewed the patient's lab results. Lab results narrative: BGT 257. Labs: Laboratory Results - last 24 hr 03/13/24 19:37 POC Glucose 257 H Radiography Chest X-Ray - ED: 2 View, Read by ED Physician, Normal, Heart, Lungs, Mediastinum, Bony Structures and No Acute Disease Diagnostic Testing: Chest x-ray, 2 views, interpreted by myself shows no acute abnormality. Normal cardiac silhouette mediastinum. Discharge Plan Triage Chief Complaint: Abd Pain ED Midlevel Provider: Marcos Man ED Provider: Santy Groves Dx/Rx/DC Orders Clinical Impression: Cough, URI (upper respiratory infection) Instructions: ED URI, Viral, No Abx (Adult) Prescriptions: No Action omeprazole 20 MG capsule,delayed release(DR/EC) 20 mg PO DAILY cholecalciferol (vitamin D3) 1,250 mcg (50,000 unit) capsule 1,000 mcg PO WE Trulicity 0.75 mg/0.5 mL Pen Injector 0.75 mg SUBCUT QWEEK escitalopram oxalate 20 mg tablet 1 tab PO DAILY Patient Comments: take 1 tablet by mouth once daily rosuvastatin 10 mg tablet 1 tab PO QHS Patient Comments: take 1 tablet by mouth once daily at bedtime colestipol 1 gram tablet 3 tab PO TID Patient Comments: take 3 tablets by mouth twice a day clindamycin HCl 150 mg capsule 450 mg PO TID 7 Days Qty: 63 0RF Primary Care Provider: Renetta Schmid Referrals: Renetta Schmid MD [Primary Care Provider] - Print Language: Spanish Disposition Disposition: Home, Self Care
--- NOTE | 2024-03-13 19:30 | RAD_ITS ---
INDICATION: cough EXAMINATION/TECHNIQUE: X-RAY - XR Chest 2 Views COMPARISON: 01/16/2022. FINDINGS: The lungs are clear. The cardiomediastinal silhouette is unremarkable. No pleural effusion or pneumothorax. No acute osseous abnormalities. RAD/Chest PA and Lateral IMPRESSION: No acute radiographic abnormalities. Electronically Signed: Salvatore Hurt MD at 21:56 EDT ,
[2024-03-13 19:57] LABS: Bedside Glucose 257 mg/dL (74-106)
[2024-03-13 20:40] VITALS: BP 120/82; PULSE 67; RESP 16; TEMP 36.7; O2SAT 98
== END 2024-03-13 20:42 | disposition home or self-care (01) ==
PROVIDERS: Emergency Provider Emergency Medicine; PCP Internal Medicine; Visit Provider Emergency Medicine
DX: J06.9 Acute upper respiratory infection, unspecified (principal); E11.9 Type 2 diabetes mellitus without complications; R05.9 Cough, unspecified
CPT/HCPCS: 71046; 82962; 99282

== ENCOUNTER 2024-06-12 22:02 | Emergency (ER) | payer MEDICAID, SELFPAY ==
[2024-06-12 22:04] VITALS: BP 141/105; PULSE 106; RESP 18; TEMP 36.6; O2SAT 95; BMI 26.7
[2024-06-12 23:10] LABS: Bacteria 0 SEEN /hpf (None Seen); Mucous, Urine 0 SEEN /hpf (<or=2+); Red Blood Cells-Urine 0 SEEN /hpf (0-5); White Blood Cells 0 SEEN /hpf (0-5)
[2024-06-12 23:13] LABS: Absolute Lymphocyte Count 1.48 X10^3/uL (0.83-4.51); Absolute Neutrophil Count 4.3 X10^3/uL (2.0-7.7); Basophil# 0.06 X10^3/uL; Basophil% 0.9 % (0-1); Eosinophil# 0.13 X10^3/uL; Hematocrit 39.2 % (40-54); Hemoglobin 13.8 g/dL (13.0-16.5); Lymphocyte # 1.48 X10^3/ul (0.83-4.51); Lymphocyte % 22.7 % (19-41); Mean Corp Hgb Conc 35.2 g/dL (32-36); Mean Corpuscular Hgb 29.9 pg (27.0-32.0); Mean Corpuscular Volume 84.8 fL (80-94); Mean Platelet Vol. 9.2 fl (6.2-12.0); Monocyte# 0.52 X10^3/uL; NRBC Flagged by Analyzer 0 % (0-5); Neutrophil # 4.31 X10^3/uL (2.7-7.7); Neutrophil % 66.1 % (47-70); Platelet Count 200 K/mm3 (150-450); RBC Distribution Width CV 14.1 % (11.6-14.6); RBC Distribution Width SD 43.4 fl (35.1-43.9); Red Blood Count 4.62 M/mm3 (4.6-6.2); White Blood Count 6.5 K/mm3 (4.4-11.0)
[2024-06-12 23:15] LABS: Color, Urine Yellow (Yellow); Glucose, Dipstick 1000 mg/dl (Normal); Ketone-Dipstick Negative (Negative); Leukocyte Esterase-Dipstick Negative /ul (Negative); Nitrite-Dipstick Negative (Negative); Occult Blood-Urine Negative /ul (Negative); Protein-Dipstick Negative (Negative); Specific Gravity, Urine 1.015 (1.002-1.030); Urine Bilirubin Dipstick Negative (Negative); Urine Clarity Sl. Cloudy (Clear); Urine Urobilinogen Normal (Normal)
[2024-06-12 23:25] LABS: Amorphous Sediment 1+ URATE; Squamous Epithelial Cells - UA 0-5 SEEN /hpf (0-5)
--- NOTE | 2024-06-12 23:38 | EX.ED.DYSGE1 ---
HPI History of Present Illness Chief Complaint: Flank Pain Informant: patient Narrative Narrative: Patient is a 48-year-old male with history of [id number] type 2 diabetes mellitus, prior cholecystectomy, GERD, anxiety and depression and reports a history of passing a kidney stone. He is presenting today for high blood sugars for the past month. He states it was 323 today. He notes the past week his urine smelled like rotten eggs. Over the past day she is also developed some left flank pain. He states the pain is intermittent and worse with movement and then radiates to his back. He denies any dysuria, hematuria. He reports a low-grade temperature of 99.8 and some chills. Denies any recent change in his bowel movements. Notes he was having issues with diarrhea however because of his diabetic medications as well as having his gallbladder removed. No nausea vomiting reported. Denies any chest pain or difficulty breathing. No other complaints or concerns reported at this time. 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 [facility] Medical History Diabetes mellitus type 2 in obese Obesity, mild Dyslipidemia GERD (gastroesophageal reflux disease) Atypical chest pain Diabetes mellitus Home Medications ?Medication ?Instructions ?Recorded ?Last Taken ?Type omeprazole 20 mg capsule,delayed 20 mg PO DAILY 09/14/20 Unknown History release cholecalciferol (vitamin D3) 1,250 1,000 mcg PO WE 02/06/21 Unknown History mcg (50,000 unit) capsule dulaglutide 0.75 mg/0.5 mL 0.75 mg subcut QWEEK 01/16/22 Unknown History subcutaneous pen injector (Trulicity) clindamycin HCl 150 mg capsule 450 mg (3 x 150 mg) PO TID 7 days 03/26/22 Unknown Rx #63 caps colestipol 1 gram tablet 3 tab PO TID 03/26/22 Unknown History escitalopram oxalate 20 mg tablet 1 tab PO DAILY 03/26/22 Unknown History rosuvastatin 10 mg tablet 1 tab PO QHS 03/26/22 Unknown History Allergy/AdvReac Type Severity Reaction Status Date / Time hydrocodone AdvReac Nausea/Vom/ Verified 06/12/24 22:28 Diarrhea Family History Father Cancer Lung Surgical History History of esophagogastroduodenoscopy (EGD) S/P tonsillectomy S/P hernia repair S/P cholecystectomy Social History Smoking Status: Never smoker second hand exposure: No alcohol intake: never substance use type: does not use caffeine: Yes what type of physical activity do you participate in: none frequency: does not exercise seatbelt use: always ROS ROS ED Constitutional Constitutional ED: Reports chills and fever(s) ENT ENT ED: Denies sore throat Cardiovascular Cardiovascular: Denies chest pain Respiratory/Chest Respiratory/Chest: Denies cough Gastrointestinal Gastrointestinal: Reports abdominal pain; Denies nausea or vomiting Genitourinary Genitourinary ED: Reports other Details: Reports odor to his urine ; Denies dysuria, hematuria or urinary frequency Musculoskeletal Musculoskeletal: Reports back pain Integumentary Denies rash Neurologic Neurologic: Denies headache(s) EXAM Physical Exam Const Vital Signs: 06/12/24 22:04 06/12/24 22:21 06/13/24 00:03 Temperature 97.9 F Temperature Source Temporal Pulse Rate 106 H 95 Respiratory Rate 18 18 Respiratory Effort Normal Respiratory Pattern Normal Blood Pressure 141/105 H 123/90 H Blood Pressure Mean 117 101 Pulse Ox 95 97 Oxygen Delivery Method Room Air Room Air 06/13/24 02:00 Temperature Temperature Source Pulse Rate 77 Respiratory Rate 18 Respiratory Effort Respiratory Pattern Blood Pressure 131/80 H Blood Pressure Mean 97 Pulse Ox 97 Oxygen Delivery Method Room Air Positive well nourished and well developed General Appearance ED: well developed and NAD HEENT Reports dry mucous membranes Mouth ED: Yes dry mucous membranes Mouth: dry mucous membranes Eyes PERRL Neck supple Chest Wall inspection of chest normal and palpation of chest normal Resp normal respiratory effort and clear to auscultation bilaterally Cardio regular rate and regular rhythm GI normal to inspection, nondistended, normoactive bowel sounds GI Narrative: Mild tenderness to palpation in the left upper quadrant Palpation: Negative for guarding Back/Spine General Back: CVA tenderness right Thoracic Spine / Upper Back: paraspinal muscle tenderness right T11 and T12; Negative for thoracic spinal tenderness Lumbar Spine / Lower Back: Negative for lumbar spinal tenderness Extremity normal to inspection General Extremety ED: Negative for edema General Extremity: Negative for edema Neuro oriented x3 Sensorium / Orientation: alert Motor Exam: Negative for general weakness Psych mental status grossly normal Skin no rashes or lesions noted and no wounds MDM MDM MDM Narrative Medical decision making narrative: Patient is evaluated for elevated blood glucose as well as left flank pain. Notes an odor to his urine but denies any dysuria or other urinary symptoms. Patient overall well-appearing. Is mildly tachycardic on arrival but this improves while in the emergency room. Patient is given IV fluids. Blood sugar is elevated at 454 however after liter of fluid is 316. Patient is given 8 units of insulin in the emergency room. Workup is otherwise largely negative. He has a normal anion gap and normal bicarb. Low suspicion for HHNK or DKA. CBC normal low suspicion for infection. Does have mild hyponatremia at 132 but suspect this is actually pseudohyponatremia secondary to his hyperglycemia. Urinalysis is not consistent with infection. CT flank study does not show any kidney stones. Patient does have prominent inguinal lymph nodes which he is informed of and will follow-up with his PCP. I do not think he requires antibiotics or further workup for this at this time. I do not think this is really associated with his flank pain at this time. Patient is initially given Tylenol with no improvement. Over then given Toradol (has normal kidney function) and a Lidoderm patch. Counseled alternate ibuprofen and Tylenol as needed for pain and to follow-up with his primary care doctor as scheduled tomorrow (later today). Patient verbalized agreement of transplant. Discharged home in stable condition. Lab Data Attestation: I reviewed the patient's lab results. Labs: Laboratory Results - last 24 hr 06/12/24 06/13/24 22:53 01:27 WBC 6.5 RBC 4.62 Hgb 13.8 Hct 39.2 L MCV 84.8 MCH 29.9 MCHC 35.2 RDW Std Deviation 43.4 RDW Coeff of Génesis 14.1 Plt Count 200 MPV 9.2 Immature Gran % (Auto) 0.300 Neut % (Auto) 66.1 Lymph % (Auto) 22.7 Reynolds % (Auto) 8.0 Eos % (Auto) 2.0 Baso % (Auto) 0.9 Absolute Neuts (auto) 4.3 Absolute Lymphs (auto) 1.48 Nucleated RBC % 0 Sodium 132 L Potassium 3.6 Chloride 96 L Carbon Dioxide 27.0 Anion Gap 9 BUN 13 Creatinine 1.01 Estim Creat Clear Calc 102.18 Est GFR (MDRD) Af Amer 102 Est GFR (MDRD) Non-Af 84 BUN/Creatinine Ratio 12.9 Glucose 454 H* Calcium 9.3 Total Bilirubin 0.70 AST 14 L ALT 19 Alkaline Phosphatase 118 H Total Protein 8.1 Albumin 3.9 Globulin 4.2 Albumin/Globulin Ratio 0.9 Urine Color Yellow Urine Clarity Sl. Cloudy Urine pH 5.0 Ur Specific [place] 1.015 Urine Protein Negative Urine Glucose (UA) 1000 H Urine Ketones Negative Urine Occult Blood Negative Urine Nitrite Negative Urine Bilirubin Negative Urine Urobilinogen Normal Ur Leukocyte Esterase Negative Urine RBC 0 SEEN Urine WBC 0 SEEN Ur Squamous Epith Cells 0-5 SEEN Amorphous Sediment 1+ URATE Urine Bacteria 0 SEEN Urine Mucus 0 SEEN POC Glucose 316 H Radiography Diagnostic Testing: Clinical Impression(s) from Imaging Studies Abdomen/Pelvis CT 06/13/24 23:36 IMPRESSION: 1. No acute intra-abdominal abnormalities. 2. Multiple prominent inguinal lymph nodes bilaterally measuring up to 1 cm in short axis dimension. These may be reactive to an infectious/inflammatory process, but clinical follow-up is recommended to ensure resolution. Electronically Signed: Rd Mcdonald MD at 1:13 EDT , Discharge Plan Triage Chief Complaint: Flank Pain Other Complaint: Hyperglycemia ED Provider: Greta De Leon Dx/Rx/DC Orders Clinical Impression: Muscle strain of left upper back, Hyperglycemia due to type 2 diabetes mellitus Instructions: ED Back Sprain/Strain, ED Diabetic Hyperglycemia Prescriptions: No Action omeprazole 20 MG capsule,delayed release(DR/EC) 20 mg PO DAILY cholecalciferol (vitamin D3) 1,250 mcg (50,000 unit) capsule 1,000 mcg PO WE Trulicity 0.75 mg/0.5 mL Pen Injector 0.75 mg SUBCUT QWEEK escitalopram oxalate 20 mg tablet 1 tab PO DAILY Patient Comments: take 1 tablet by mouth once daily rosuvastatin 10 mg tablet 1 tab PO QHS Patient Comments: take 1 tablet by mouth once daily at bedtime colestipol 1 gram tablet 3 tab PO TID Patient Comments: take 3 tablets by mouth twice a day clindamycin HCl 150 mg capsule 450 mg PO TID 7 Days Qty: 63 0RF Primary Care Provider: Renetta Schmid Referrals: Renetta Schmid MD [Primary Care Provider] - Activity Restrictions/Additional Instructions: No signs of a kidney stone or kidney infection today. Your CT did show enlargement of your bilateral inguinal (groin) lymph nodes. Please follow-up with your primary care doctor for this. In addition your blood sugar was elevated however you do not require hospitalization for this. Make sure you are drinking plenty of fluids and adhering to a low sugar/low-carb diet. Again follow-up with your primary care doctor as scheduled. Alternate ibuprofen and Tylenol as needed for pain. Print Language: Yakut Disposition Disposition: Home, Self Care
[2024-06-12] MEDS: Acetaminophen 325 MG Tablet 650 MG PO (23:54)
[2024-06-12 23:55] LABS: ALB/GLOB Ratio 0.9 RATIO (0.9-2.4); AST(SGOT) 14 U/L (15-37); Alanine Aminotransfer ALT/SGPT 19 U/L (16-61); Albumin, Serum 3.9 g/dL (3.2-5.0); Alkaline Phosphatase 118 U/L (45-117); Anion Gap 9 (5-15); BUN 13 mg/dL (7-18); BUN/Creat Ratio 12.9 RATIO (10-20); Calcium,Total 9.3 mg/dL (8.5-10.1); Chloride 96 mmol/L (98-107); Creatinine, Serum 1.01 mg/dL (0.70-1.30); EST Glomerular Filtration Rate 84 mL/min (>60); Est Glom Filt Rate - Afr Amer 102 mL/min (>60); Estimated Creatinine Clearance 102.18 ml/min; Globulin 4.2 g/dL (2.2-4.2); Glucose 454 mg/dL (74-106); Potassium 3.6 mmol/L (3.5-5.1); Protein, Total 8.1 g/dL (6.4-8.2); Sodium Level 132 mmol/L (136-145)
[2024-06-12] MEDS: 0.9% Normal Saline (1000mL) 1,000 ML 999 ML IV (23:55)
[2024-06-13 00:03] VITALS: BP 123/90; PULSE 95; RESP 18; O2SAT 97
[2024-06-13 01:45] LABS: Bedside Glucose 316 mg/dL (74-106)
[2024-06-13 02:00] VITALS: BP 131/80; PULSE 77; RESP 18; O2SAT 97
[2024-06-13] MEDS: Insulin Lispro 100 UNIT/ML INSULN.PEN 8 UNIT SC (02:51)
[2024-06-13] MEDS: Lidocaine 5% Patch 1 PATCH TOPICAL (03:26)
[2024-06-13] MEDS: Ketorolac 15 MG/ML Vial IV (03:27)
[2024-06-13 03:32] VITALS: BP 129/80; PULSE 73; RESP 15; TEMP 36.4; O2SAT 96
--- NOTE | 2024-06-13 23:36 | CT_ITS ---
EXAM: CT ABDOMEN AND PELVIS WITHOUT INTRAVENOUS CONTRAST CLINICAL INDICATION: Pain TECHNIQUE: Helically acquired images were obtained of the abdomen and pelvis without intravenous contrast. This CT exam was performed using one or more of the following dose reduction techniques: automated exposure control, adjustment of the mA and/or kV according to patient size, and/or use of iterative reconstruction technique. RADIATION DOSE: CTDIvol = 11.45 mGy, DLP = 643.57 mGy-cm COMPARISON: CT abdomen and pelvis 02/12/2016 FINDINGS: LOWER THORAX: Bibasilar dependent atelectasis. No cardiomegaly. No significant pericardial effusion. ABDOMEN: LIVER: Hepatomegaly. GALLBLADDER AND BILE DUCTS: Cholecystectomy. No intra- or extrahepatic biliary ductal dilation. PANCREAS: Unremarkable. No focal cystic mass. SPLEEN: Splenomegaly. ADRENALS: Unremarkable. No nodules. KIDNEYS AND URETERS: No ureteral stones or renal obstruction. Normal renal size and position. STOMACH AND BOWEL: Unremarkable. No stomach or bowel distention. No focal inflammatory change. PELVIS: APPENDIX: The appendix is normal. BLADDER: Unremarkable. REPRODUCTIVE: Unremarkable as visualized. No mass. ABDOMEN and PELVIS: INTRAPERITONEAL SPACE: Unremarkable. No ascites or other fluid collection. No free air. BONES/JOINTS: Degenerative changes of the spine. No suspicious lytic or blastic abnormality. SOFT TISSUES: Unremarkable. No discrete abdominal or pelvic wall hernia. VASCULATURE: Unremarkable. Abdominal aorta is non-dilated. LYMPH NODES: Multiple prominent inguinal lymph nodes bilaterally measuring up to 1 cm in short axis dimension. CT/Abdomen/Pelvis without Cont IMPRESSION: 1. No acute intra-abdominal abnormalities. 2. Multiple prominent inguinal lymph nodes bilaterally measuring up to 1 cm in short axis dimension. These may be reactive to an infectious/inflammatory process, but clinical follow-up is recommended to ensure resolution. Electronically Signed: Rd Mcdonald MD at 1:13 EDT ,
== END 2024-06-13 03:33 | disposition home or self-care (01) ==
PROVIDERS: Emergency Provider Emergency Medicine; PCP Internal Medicine; Visit Provider Emergency Medicine
DX: S29.012A Strain of muscle and tendon of back wall of thorax, initial encounter (principal); E11.65 Type 2 diabetes mellitus with hyperglycemia; X58.XXXA Exposure to other specified factors, initial encounter; K21.9 Gastro-esophageal reflux disease without esophagitis; F41.9 Anxiety disorder, unspecified; F32.A Depression, unspecified; R59.0 Localized enlarged lymph nodes; R82.998 Other abnormal findings in urine; E78.5 Hyperlipidemia, unspecified; Z88.5 Allergy status to narcotic agent; Z90.49 Acquired absence of other specified parts of digestive tract; Z79.85 Long-term (current) use of injectable non-insulin antidiabetic drugs; Z79.899 Other long term (current) drug therapy
CPT/HCPCS: 74176; 80053; 81001; 82962; 85025; 96361; 96374; 99284; J7030; A4216

== ENCOUNTER 2025-06-07 18:19 | Emergency (ER) | payer BC, SELFPAY ==
[2025-06-07 18:19] VITALS: BP 147/94; PULSE 78; RESP 16; TEMP 36.9; O2SAT 98; BMI 29.7
--- NOTE | 2025-06-07 18:24 | EDS_ITS ---
HPI History of Present Illness Chief Complaint: Lower Extremity Injury [facility] Medical History Diabetes mellitus type 2 in obese Obesity, mild Dyslipidemia GERD (gastroesophageal reflux disease) Atypical chest pain Diabetes mellitus Home Medications ?Medication ?Instructions ?Recorded ?Last Taken ?Type omeprazole 20 mg capsule,delayed 20 mg PO DAILY Unknown History release cholecalciferol (vitamin D3) 1,250 1,000 mcg PO WE 06/21 Unknown History mcg (50,000 unit) capsule dulaglutide 0.75 mg/0.5 mL 0.75 mg subcut QWEEK Unknown History subcutaneous pen injector (Trulicity) clindamycin HCl 150 mg capsule 450 mg (3 x 150 mg) PO TID 7 days 03/26/22 Unknown Rx #63 caps colestipol 1 gram tablet 3 tab PO TID 03/26/22 Unknow n History escitalopram oxalate 20 mg tablet 1 tab PO DAILY 03/26 Unknown History rosuvastatin 10 mg tablet 1 tab PO QHS 03/26/22 Unknow n History Allergy/AdvReac Type Severity Reaction Status Date / Time hydrocodone AdvReac Nausea/Vom/ Verified 06/07/25 18:19 Diarrhea Family History Father Cancer Lung Surgical History History of esophagogastroduodenoscopy (EGD) S/P tonsillectomy S/P hernia repair S/P cholecystectomy Social History (Updated 06/07/25 @ 18:26 by Zahira Armenta) housing: house Smoking Status: Never smoker second hand exposure: No alcohol intake: never substance use type: does not use caffeine: Yes what type of physical activity do you participate in: none frequency: does not exercise seatbelt use: always EXAM Physical Exam Const Vital Signs: 06/07/25 18:19 Temperature 98.4 F Temperature Source Oral Pulse Rate 78 Respiratory Rate 16 Blood Pressure 147/94 H Blood Pressure Mean 111 Pulse Ox 98 MDM MDM MDM Narrative Medical decision making narrative: HISTORY OF PRESENT ILLNESS: Chief complaint: Ankle injury 49-year-old male history of type 2 diabetes, obesity, hyperlipidemia, GERD presents with ankle pain. Notes he was walking home when he rolled his right ankle. This occurred just prior to arrival REVIEW OF SYSTEMS: Pertinent positives: Ankle pain Pertinent negatives: Numbness, tingling PHYSICAL EXAM: Nursing triage notes reviewed, Vital signs reviewed Constitutional: please see mdm Extremities: Slight swelling and TTP over right lateral malleolus Neuro: Intact sensation L1-S1 dermatomal distributions. Intact 5/5 strength in hip flexion (T12-L3). Knee extension (L2-L4). Ankle dorsiflexion (L4-L5). Ankle plantar flexion (S1). Great toe extension (L5). 2+ patellar and Achilles DTRs. Skin: No signs of open fracture MEDICAL DECISION MAKING: Chief Complaint: please see HPI External records reviewed: Reviewed prior imaging studies. Reviewed x-ray from 2017 of the right ankle which showed prior avulsion injury of lateral ankle Factors affecting care: none Social determinants of health: none History obtained from others: none Consults: none [facility] Narrative: Patient was initially hemodynamically stable, afebrile and nontoxic-appearing. Exam with slight swelling and TTP over lateral malleolus. No sign of open fracture. Right lower extremity neurovascular intact otherwise. I considered the following differential diagnosis: Ankle fracture, ankle dislocation, ankle sprain I obtained an x-ray to further determine if the patient was suffering from a life-threatening etiology. Placed ice for initial pain control ALL IMAGES (IF OBTAINED) HAVE BEEN PERSONALLY REVIEWED AND INTERPRETED BY MYSELF. X-ray of the right ankle was read reviewed personally myself shows no acute fracture or dislocation. Realities agrees my interpretation. Aircast provided. [id number] pain relief recommendations given. RICE therapy discussed The patient and/or family, caregivers express understanding. The patient and/or family, caregivers agrees with the plan. Shared decision making: I will have a discussion with the patient and or visitors regarding risk/benefits of further testing or admission. They will be made aware of of the risk/benefits inherent in this decision they will be given the opportunity to voice understanding. Total critical care time today provided was at least 0 minutes. This excludes separately billable procedures. Critical care time (if documented) is secondary to the patient having high probability of clinically significant/life threatening deterioration in the patient's condition which required my urgent intervention. Impression: 1. Acute ankle pain 2. Acute ankle sprain Dispo: Discharge home This note was generated with [employer] dictation software. It may contain incorrect words, spelling, and punctuation that were not noted in review of the chart prior to signing. Radiography Diagnostic Testing: Clinical Impression(s) from Imaging Studies Ankle X-Ray 06/07/25 18:30 IMPRESSION: No radiographic evidence of an acute osseous injury or malalignment. - There is soft tissue swelling. - Other findings discussed above in detail. Reading Location: [id number] Discharge Plan Triage Chief Complaint: Lower Extremity Injury ED Provider: Moris Donohue Dx/Rx/DC Orders Prescriptions: No Action omeprazole 20 MG capsule,delayed release(DR/EC) 20 mg PO DAILY cholecalciferol (vitamin D3) 1,250 mcg (50,000 unit) capsule 1,000 mcg PO WE Trulicity 0.75 mg/0.5 mL Pen Injector 0.75 mg SUBCUT QWEEK escitalopram oxalate 20 mg tablet 1 tab PO DAILY Patient Comments: take 1 tablet by mouth once daily rosuvastatin 10 mg tablet 1 tab PO QHS Patient Comments: take 1 tablet by mouth once daily at bedtime colestipol 1 gram tablet 3 tab PO TID Patient Comments: take 3 tablets by mouth twice a day clindamycin HCl 150 mg capsule 450 mg PO TID 7 Days Qty: 63 0RF Primary Care Provider: Renetta Schmid Referrals: Renetta Schmid MD [Primary Care Provider] - Print Language: [place]
--- NOTE | 2025-06-07 18:30 | RAD_ITS ---
PROCEDURE: ANKLE MIN 3 VIEWS 06/07/2025 REASON FOR EXAM: PAIN TECHNIQUE: Procedure Code: RADANK Modality: DX Procedure: ANKLE MIN 3 VIEWS Laterality: Right COMPARISON: None FINDINGS: Osseous: Distal tibiofibular congruency is maintained. The ankle mortise is preserved. There is bony deformity of the distal fibular tip with a 14.4 mm fragment inferolateral to the distal fibula most likely representing an old ununited fracture fragment. Vague subchondral lucency noted along the lateral talar dome could represent an underlying osteochondral injury of indeterminate acuity. Mild osteoarthritic changes are noted at the ankle joint. Subtalar alignment is anatomic. Calcaneal height is preserved. Moderately large plantar calcaneal heel spur. Achilles insertional enthesopathic change noted. Soft tissue: There is focal lateral soft tissue swelling. Soft tissue injury is not reliably assessed by this technique. RAD/Ankle min 3 Views IMPRESSION: No radiographic evidence of an acute osseous injury or malalignment. - There is soft tissue swelling. - Other findings discussed above in detail. Reading Location: [id number]
--- OUTSIDE RECORDS SUMMARY | 2025-06-07 18:43 | XMS RPT_ITS | CCD ---
Author Organization [facility] Care Team Providers Care County Historian Name Role Phone David Stephenson Primary Care Provider UnavailDAVID Daley Primary Care Unavailable Binu CASTRO, Sandi [facility] Sandi Bird MD Primary Care Provider Binu CASTRO, Sandi Primary Care Provider Binu CASTRO, Sandi Primary Care Provider Sandi Bird MD Primary Care Provider Hilaria Foster PA-C L Unavailable [phone] Older COMPLIANCE ANALYST.SAVANAH, Kaya Unavailable Isela Anne PA-C Unavailable Hugh Marinelli Attending Unavailable Ganta, Sandi Primary Care Unavailable Ganta, Sandi Referring Unavailable Santy Groves Attending Unavailable Ganta, Sandi Primary Care Unavailable Greta De Leon Attending Unavailable Ganta, Sandi Primary Care Unavailable NATASHA DUENAS DO Admitting Unavailable NATASHA DUENAS DO Attending Unavailable NATASHA DUENAS DO Primary Care Unavailable CHUCK BURNS DO Attending Unavailable CHUCK BURNS DO Primary Care Unavailable CHUCK BURNS DO Admitting Unavailable ZENA MAN Attending Unavailable ZENA MAN Primary Care Unavailable ZENA MAN Admitting Unavailable JONA RUSSELL DO Attending Unavailable JONA RUSSELL DO Primary Care Unavailable JONA RUSSELL DO Admitting Unavailable Denjoel RESTREPO, Hilaria L Unavailable [phone] Isela Anne PA-C Unavailable GANTA, SANDI Attending Unavailable GANTA, SANDI Primary Care Unavailable GANTA, SANDI Attending Unavailable GANTA, SANDI Primary Care Unavailable GANTA, SANDI Referring Unavailable GANTA, SANDI Primary Care Unavailable GANTA, SANDI Referring Unavailable GANTA, SANDI Primary Care Unavailable OLDER, KAYA Attending Unavailable GANTA, SANDI Primary Care Unavailable SELF Referring Unavailable GANTA, SANDI Primary Care Unavailable GANTA, SANDI Primary Care Unavailable CLUTTER, TOMMY Attending Unavailable OLDER, KAYA Attending Unavailable GANTA, SANDI Primary Care Unavailable GANTA, SANDI Primary Care Unavailable SELLERS, LU Referring Unavailable GANTA, SANDI Primary Care Unavailable Allergies Allergy Classification Reported Allergen(s) Allergy Type Date of Onset Reaction(s) Facility Opioid Agonists (2 sources) HYDROcodone Drug Allergy 4 GI Upset [facility] (1 source) Acetaminophen / HYDROcodone Drug Allergy 0 Nausea And Vomiting [place] (20 sources) HYDROcodone; Translations: [HYDROCODONE] Drug Allergy 4 GI Upset [facility] (1 source) HYDROcodone Drug Allergy 4 [facility] Repository Medications Current Medications Medication Drug Class(es) Dates Sig (Normalized) Sig (Original) Blood-Glucose Meter (TRUE METRIX GLUCOSE METER) monitoring kit (1 source) Start: 03-21-2023 End: 03-22-2023 Blood-Glucose Meter (TRUE METRIX GLUCOSE METER) monitoring kit 1 Each as needed for up to 1 day. 1 Each 0 03/21/2023 03/22/2023 Active Comment on above: 1 Each as needed for up to 1 day. busPIRone hydrochloride 5 mg oral tablet (20 sources) Start: 12-26-2023 End: 08-18-2024 take 1 tablet by mouth twice daily busPIRone (BUSPAR) 5 mg tablet Take 1 tablet by mouth two times a day. 180 tablet 3 08/18/2024 Active Start: 11-05-2023 take 1 tablet by [facility] twice daily busPIRone (BUSPAR) 5 mg tablet Take 1 tablet by mouth two times a day. 60 tablet 1 11/05/2023 Active Comment on above: Take 1 tablet by [facility] two times a day. Take 1 tablet by [facility] twice daily cetirizine hydrochloride 10 mg oral tablet (2 sources) Histamine-1 Receptor Antagonist Start: 09-06-20 take 10 mg by mouth once daily Cetirizine Active 10 MG PO DAILY September 06, 2021 2:53am ciprofloxacin 500 mg oral tablet (2 sources) Quinolone Antimicrobial Start: 09-06-20 take 1 tablet by mouth twice daily Ciprofloxacin Hcl (Cipro) 500 mg tablet Active 500 MG PO TWICE A DAY 20 07September 06, 2021 4:58am clindamycin 150 mg oral capsule (1 source) Lincosamide Antibacterial Start: 03-26-20 take 450 mg by mouth three times daily Clindamycin Hcl Active 450 MG PO THREE TIMES A DAY March 26, 2022 12:00am colesevelam hydrochloride 625 mg oral tablet (1 source) Bile Acid Sequestrant Start: 05-05-20 take 1 tablet by mouth twice daily at mealtime colesevelam (WELCHOL) 625 mg tablet Take 1 tablet by mouth two times a day with meals. 180 tablet 3 05/05/2025 Active colestipol hydrochloride 1000 mg oral tablet (20 sources) Bile Acid Sequestrant Start: 04-30-20 take 3 tablets by mouth twice daily colestipol (COLESTID) 1 gram tablet Indications: Diarrhea, unspecified type Take 3 tablets by mouth two times a day. 360 tablet 1 04/30/2025 Active Start: 03-26-2022 take 3 tablets by mo ut three times daily Colestipol Active 3 TABLET PO THREE TIMES A DAY March 26, 2022 12:00am Start: 08-15-2021 End: 04-21-2025 take 3 tablets by mouth twice daily colestipol (COLESTID) 1 gram tablet Indications: Diarrhea, unspecified type Take 3 tablets by mouth two times a day. 360 tablet 1 12/04/2024 04/21/2025 Discontinued Comment on above: Take 3 tablets by mo uth twice daily. Take 3 tablets by mo uth two times a day. cyclobenzaprine hydrochloride 10 mg oral tablet (1 source) Muscle Relaxant Start: 05-14-20 take 1 tablet by mouth three times daily as needed for muscle spasms cyclobenzaprine (FLEXERIL) 10 MG tablet Take 1 tablet by mouth 3 times daily as needed for Muscle spasms 30 tablet 0 05/14/2020 Active escitalopram 20 mg oral tablet (20 sources) Serotonin Reuptake Inhibitor Start: 09-21-20 End: 08-18-20 take 1 tablet by mouth once daily escitalopram oxalate (LEXAPRO) 20 mg tablet Take 1 tablet by mouth once daily. 90 tablet 3 08/18/2024 Active Start: 08-21-2022 take 1 tablet by [facility] once daily escitalopram oxalate (LEXAPRO) 20 mg tablet Take 1 tablet by mouth once daily. 90 tablet 3 08/21/2022 Active Start: 11-07-2021 End: 04-11-2022 take 1 tablet by mouth once daily escitalopram oxalate (LEXAPRO) 20 mg tablet Take 1 tablet by mouth once daily. 30 tablet 5 04/12/2022 Active Comment on above: Take 1 tablet by [facility] once daily. FLUoxetine 20 mg oral capsule (5 sources) Serotonin Reuptake Inhibitor Start: 09-14-2020 take 40 mg by mouth once daily Fluoxetine Active 40 MG PO DAILY September 14, 2020 2:27pm Start: 04-05-2018 End: 11-13-2019 take 20 mg by mouth once daily Fluoxetine Discontinued 20 MG PO DAILY April 05, 2018 10:52pm November 13, 2019 10:31am glipiZIDE er 5 mg 24 hr extended release oral tablet (20 sources) Sulfonylurea Start: 05-09-2024 End: 11-05-2024 take 1 tablet by mouth twice daily glipiZIDE (GLUCOTROL XL) 5 mg 24 hr tablet Indications: Controlled type 2 diabetes mellitus without complication, without long-term current use of insulin (HCC) Take 1 tablet by mouth two times a day. 180 tablet 3 08/18/2024 Active 12 hr guaiFENesin 600 mg extended release oral tablet (2 sources) Start: 01-01-2023 End: 01-06-2023 take 2 tablets by mouth twice daily guaiFENesin (MUCINEX) 600 mg 12 hr tablet Take 2 tablets by mouth twice daily for 5 days. 20 tablet 0 01/01/2023 01/06/2023 Active Comment on above: Take 2 tablets by mo [facility] twice daily for 5 days. 3 ml insulin glargine 100 unt/ml pen injector (20 sources) Insulin Analog Start: 06-19-2024 End: 12-03-2024 inject 10 [IU] by subcutaneous injection once daily at bedtime insulin glargine (LANTUS SOLOSTAR U-100 INSULIN) 100 unit/mL (3 mL) Inject 10 Units subcutaneously daily at bedtime. 9 mL 1 12/04/2024 Active lidocaine 0.05 mg/mg medicated patch (1 source) Antiarrhythmic, Amide Local Anesthetic Start: 05-14-2020 End: 05-24-2020 lidocaine (LIDODERM) 5 % Place 1 patch onto the skin every 24 hours for 10 days 12 hours on, 12 hours off. 10 patch 0 05/14/2020 05/24/2020 Active loperamide hydrochloride 2 mg oral capsule (1 source) Opioid Agonist Start: 05-29-2025 take 1 capsule by mouth once daily loperamide (IMODIUM A-D) 2 mg cap(s) Take 1 capsule by mouth once daily. 30 capsule 1 05/29/2025 Active 24 hr metFORMIN hydrochloride 500 mg extended release oral tablet (20 sources) Biguanide Start: 02-13-2023 End: 05-01-2026 take 1 tablet by mouth twice daily at mealtime metFORMIN ER (GLUCOPHAGE XR) 500 mg 24 hr tablet Take 1 tablet by mouth two times a day with meals. 180 tablet 3 05/01/2025 05/01/2026 Active Start: 08-21-2022 End: 02-11-2023 take 1 tablet by mouth twice daily at mealtime metFORMIN ER (GLUCOPHAGE XR) 500 mg 24 hr tablet Take 1 tablet by mouth twice daily with meals. 180 tablet 3 08/21/2022 02/11/2023 Discontinued Start: 05-10-2022 take 1 tablet by [facility] twice daily at mealtime metFORMIN ER (GLUCOPHAGE XR) 500 mg 24 hr tablet Take 1 tablet by mouth twice daily with meals. 60 tablet 5 05/10/2022 Active Start: 08-04-2021 take 1 tablet by [facility] twice daily at mealtime metFORMIN ER (GLUCOPHAGE XR) 500 mg 24 hr tablet Take 1 tablet by mouth twice daily with meals. 60 tablet 5 08/04/2021 Active Start: 02-06-2021 take 500 mg by mouth once corona y Metformin Active 500 MG PO DAILY February 06, 2021 7:56am Start: 08-09-2019 End: 09-14-2020 take 500 mg by mouth twice daily Metformin Discontinue d 500 MG PO TWICE A DAY 60 August 09, 2019 10:07pm September 14, 2020 2:29pm Comment on above: Take 1 tablet by [facility] twice daily with meals. Take 2 tablets by mo ut twice daily with meals. methylPREDNISolone 4 mg oral tablet (1 source) Corticosteroid Start: 2019 End: 2019 methylPREDNISolone (MEDROL, MELLY,) 4 MG tablet Take by mouth. 1 kit 0 05/14/2020 05/20/2020 Active metroNIDAZOLE 500 mg oral tablet (2 sources) Nitroimidazole Antimicrobial Start: 2020 take 500 mg by mouth twice daily Metronidazole Active 500 MG PO TWICE A DAY 20 07September 06, 2021 4:59am naproxen 500 mg oral tablet (1 source) Nonsteroidal Anti-inflammatory Drug Start: 2019 take 1 tablet by mouth twice daily naproxen (NAPROSYN) 500 MG tablet Take 1 tablet by mouth 2 times daily 60 tablet 0 05/14/2020 Active ofloxacin 3 mg/ml ophthalmic solution (1 source) Quinolone Antimicrobial Start: 2024 End: 2024 take 5 drop(s) into the eye(s) twice daily ofloxacin (OCUFLOX) 0.3 % ophthalmic solution - OTIC USE ONLY Indications: Acute otitis externa of right ear, unspecified type Use 5 drops in the right ear two times a day for 7 days. 10 mL 01/16/2025 01/23/2025 Active ondansetron 4 mg disintegrating oral tablet (2 sources) Serotonin-3 Receptor Antagonist Start: 2021 take 4 mg by mouth every six hours as needed Ondansetron Active 4 MG PO EVERY 6 HOURS NEEDED January 15, 2022 12:13pm rosuvastatin calcium 10 mg oral tablet (20 sources) HMG-CoA Reductase Inhibitor Start: 2022 End: 2023 take 1 tablet by mouth once daily at bedtime rosuvastatin (CRESTOR) 10 mg tablet Take 1 tablet by mouth daily at bedtime. 90 tablet 3 08/18/2024 Active Start: 08-21-2022 take 1 tablet by [facility] once daily at bedtime rosuvastatin (CRESTOR) 10 mg tablet Take 1 tablet by mouth daily at bedtime. 90 tablet 3 08/21/2022 Active Start: 08-15-2021 End: 07-10-2022 take 1 tablet by mouth once daily at bedtime rosuvastatin (CRESTOR) 10 mg tablet Take 1 tablet by mouth daily at bedtime. 90 tablet 0 07/10/2022 Active Start: 06-16-2017 End: 11-13-2019 take 10 mg by mouth once daily Rosuvastatin Discontinu ed 10 MG PO DAILY June 16, 2017 9:44pm November 13, 2019 10:31am Comment on above: Take 1 tablet by [facility] daily at bedtime. triamcinolone acetonide 0.25 mg/ml topical cream (2 sources) Corticosteroid Start: 04-22-2024 End: 04-29-2024 triamcinolone (KENALOG) 0.025 % cream Indications: Dry skin Apply to affected area two times a day for 7 days. 15 g 0 04/22/2024 04/29/2024 Active Completed/Discontinued Medications Medication Drug Class(es) Dates Sig (Normalized) Sig (Original) acetaminophen 325 mg / oxyCODONE hydrochloride 5 mg oral tablet (9 sources) Opioid Agonist Start: 11-23-2020 End: 11-26-2020 take 1 tablet by mouth every six hours as needed Oxycodone-Acetamino phen Discontinued 1 TABLET PO EVERY 6 HOURS NEEDED 10 November 23, 2020 11:43pm November 26, 2020 1:03am Start: 11-13-2019 End: 11-16-2019 take 1 tablet by mouth every six hours as needed Oxycodone-Acetaminophen Discontinued 1 TABLET PO EVERY 6 HOURS NEEDED 12 November 13, 2019 November 16, 2019 1:08am Start: 08-20-2018 End: 08-23-2018 take 1 tablet by mouth every six hours as needed Oxycodone-Acetaminophen Discontinued 1 TABLET PO EVERY 6 HOURS NEEDED 12 3 August 20, 2018 5:59pm August 23, 2018 1:12am amoxicillin 875 mg / clavulanate 125 mg oral tablet (3 sources) Penicillin-class Antibacterial Start: 11-10-2017 End: 12-12-2017 Amoxicillin-Pot Clavulanate Discontinued 1 EACH PO TWICE A DAY November 10, 2017 4:53pm December 12, 2017 8:13am benzonatate 100 mg oral capsule (20 sources) Non-narcotic Antitussive Start: 01-01-2023 take 2 capsules by mouth every eight hours as needed benzonatate (TESSALON PERLES) 100 mg capsule Take 2 capsules by mouth three times daily as needed. 30 capsule 0 01/01/2023 Active Start: 11-02-2019 End: 11-13-2019 take 200 mg by mouth three times daily as needed Benzonatate Discontinued 200 MG PO 3 TIMES DAILY NEEDED November 02, 2019 10:57pm November 13, 2019 10:31am Comment on above: Take 2 capsules by m out three times daily as needed. cholecalciferol 1.25 mg oral capsule (20 sources) Vitamin D Start: 3 End: 4 take 1 capsule by mouth every week cholecalciferol, Vitamin D3, (VITAMIN D3) 1,250 mcg (50,000 unit) cap capsule Indications: Vitamin D deficiency Take 1 capsule by mouth one time a week. 12 capsule 0 10/10/2022 05/12/2024 Discontinued Start: 08-15-2021 End: 10-08-2022 take 1 capsule by mouth every week cholecalciferol, Vitamin D3, (VITAMIN D3) 1,250 mcg (50,000 unit) cap capsule Indications: Vitamin D deficiency Take 1 capsule by mouth one time a week. 12 capsule 0 07/10/2022 10/08/2022 Discontinued Start: 02-06-2021 Cholecalcifero l (Vitamin D3) Active [address]14 UNIT PO WE February 06, 2021 7:56am Start: 02-06-2021 Cholecalcifero l (Vitamin D3) Active 1000 MCG PO WE February 06, 2021 12:00am Start: 08-01-2017 End: 11-13-2019 take 1000 [IU] by mouth once daily Cholecalciferol (Vitamin D3) Discontinued 1000 UNIT PO DAILY August 01, 2017 12:28pm November 13, 2019 10:31am Comment on above: Take 1 capsule by mo ut one time a week. cholestyramine resin 4000 mg powder for oral suspension (20 sources) Bile Acid Sequestrant Start: 12-07-19 End: 06-08-20 23 take 1 dose by mouth twice daily at mealtime cholestyramine (QUESTRAN) 4 gram packet Take 1 Packet by mouth twice daily with meals. 60 Packet 3 12/06/2021 06/08/2023 Discontinued (Erroneous entry) Start: 02-06-2021 Cholestyramine (With Sugar) Active 1 EACH PO DAILY February 06, 2021 7:56am Comment on above: Take 1 Packet by [facility] twice daily with meals. ciclopirox 80 mg/ml topical solution (20 sources) Start: End: Ciclopirox (LOPROX) 8 % solution Apply to affected area daily at bedtime. 6.6 mL 2 03/29/2023 05/12/2024 Discontinued Comment on above: Apply to affected ar ea daily at bedtime. clobetasol propionate 0.5 mg/ml topical cream (17 sources) Corticosteroid Start: End: clobetasol (TEMOVATE) 0.05 % cream Apply to affected area two times a day. Apply 1 g application to affected area two times a day as needed 30 g 5 05/13/2024 12/15/2024 Discontinued 0.5 ml dulaglutide 3 mg/ml auto-injector (20 sources) GLP-1 Receptor Agonist Start: End: inject 1.5 mg by subcutaneous injection every week dulaglutide (TRULICITY) 1.5 mg/0.5 mL pen injector Indications: Controlled type 2 diabetes mellitus without complication, without long-term current use of insulin (HCC) Inject 1.5 mg subcutaneously one time a week. 4 Each 09/21/2023 12/12/2023 Discontinued Start: 11-06-2022 End: 02-27-2023 inject 1.5 mg by subcutaneous injection every week dulaglutide (TRULICITY) 1.5 mg/0.5 mL pen injector Indications: Controlled type 2 diabetes mellitus without complication, without long-term current use of insulin (HCC) Inject 1.5 mg subcutaneously one time a week. 4 Each 5 02/27/2023 Active Start: 08-21-2022 End: 11-03-2022 inject 1.5 mg by subcutaneous injection every week dulaglutide (TRULICITY) 1.5 mg/0.5 mL pen injector Inject 1.5 mg subcutaneously one time a week. 4 Each 5 08/21/2022 11/03/2022 Discontinued Start: 09-06-2021 End: 02-24-2022 inject 0.75 mg by subcutaneous injection every week dulaglutide (TRULICITY) 0.75 mg/0.5 mL pen injector Inject 0.75 mg subcutaneously one time a week. Inject dose once per week. Discard Pen After 4 Each 5 02/24/2022 Active Comment on above: Inject 0.75 mg subcu taneously one time a week. Inject dose once per week. Discard Pen After Inject 1.5 mg subcut aneously one time a week. fluticasone propionate 0.05 mg/actuat metered dose nasal spray (20 sources) Corticosteroid Start: 01-02-20 take 2 spray(s) by mouth once daily fluticasone (FLONASE) 50 mcg/actuation nasal spray Use 2 Sprays in each nostril once daily. Rinse mouth after use. 1 Each 0 01/01/2023 Active Comment on above: Use 2 Sprays in each nostril once daily. Rinse mouth after use. 3 ml liraglutide 6 mg/ml pen injector (20 sources) GLP-1 Receptor Agonist Start: 12-14-19 End: 05-09-20 24 liraglutide (VICTOZA) 0.6 mg/ 0.1 ml subcutaneous pen injector Inject 0.6 mg daily via pen for 7 days, if tolerated increase to 1.2mg daily. Please supply the 3 pack option 9 mL 1 02/22/2024 05/09/2024 Discontinued Comment on above: Inject 0.6 mg daily via pen for 7 days, if tolerated increase to 1.2mg daily Inject 0.6 mg daily via pen for 7 days, if tolerated increase to 1.2mg daily. Please supply the 3 pack option omeprazole 20 mg delayed release oral capsule (20 sources) Proton Pump Inhibitor Start: 08-21-20 22 End: 12-16-19 25 take 1 capsule by mouth once daily omeprazole (PRILOSEC) 20 mg capsule Take 1 capsule by mouth once daily. 90 capsule 3 08/21/2022 12/15/2024 Discontinued Start: 09-14-2020 End: 07-10-2022 take 1 capsule by mouth once daily omeprazole (PRILOSEC) 20 mg capsule Take 1 capsule by mouth once daily. 90 capsule 0 07/10/2022 Active Comment on above: Take 1 capsule by [facility] once daily. semaglutide (OZEMPIC) 0.25 mg or 0.5 mg (2 mg/3 mL) pen (8 sources) Start: End: inject 0.5 mg by subcutaneous injection every week semaglutide (OZEMPIC) 0.25 mg or 0.5 mg (2 mg/3 mL) pen Indications: Controlled type 2 diabetes mellitus without complication, without long-term current use of insulin (HCC) Inject 0.5 mg subcutaneously one time a week. This REPLACES Trulicity 3 mL 5 12/12/2023 12/17/2023 Discontinued Start: 12-12-2023 inject 0.5 mg by sub cutaneous injection every week semaglutide (OZEMPIC) 0.25 mg or 0.5 mg (2 mg/3 mL) pen Indications: Controlled type 2 diabetes mellitus without complication, without long-term current use of insulin (HCC) Inject 0.5 mg subcutaneously one time a week. This REPLACES Trulicity 3 mL 5 12/12/2023 Active Start: 10-24-2023 End: 12-12-2023 inject 0.5 mg by subcutaneous injection every week semaglutide (OZEMPIC) 0.25 mg or 0.5 mg (2 mg/3 mL) pen Inject 0.5 mg subcutaneously one time a week. This REPLACES Trulicity 3 mL 5 10/24/2023 12/12/2023 Discontinued Start: 10-24-2023 inject 0.5 mg by sub cutaneous injection every week semaglutide (OZEMPIC) 0.25 mg or 0.5 mg (2 mg/3 mL) pen Inject 0.5 mg subcutaneously one time a week. This REPLACES Trulicity 3 mL 5 10/24/2023 Active Comment on above: Inject 0.5 mg subcut aneously one time a week. This REPLACES Trulicity traZODone hydrochloride 100 mg oral tablet (20 sources) Serotonin Reuptake Inhibitor Start: 04-11-20 take 1 tablet by mouth once daily at bedtime traZODone (DESYREL) 100 mg tablet Indications: Insomnia, unspecified type Take 1 tablet by mouth daily at bedtime. 30 tablet 4 04/11/2023 Active Start: 08-21-2022 take 1 tablet by [facility] once daily at bedtime traZODone (DESYREL) 50 mg tablet Take 1 tablet by mouth daily at bedtime. 30 tablet 1 08/21/2022 Active Comment on above: Take 1 tablet by [facility] daily at bedtime. Problems Active Problems Problem Classification Problem Date Documented Da te Episodic/Chronic Acute bronchitis (3 sources) Acute bronchitis; Translations: [Acute bronchitis, unspecified] Episodic Administrative/social admission (8 sources) Patient encounter status; Translations: [Encounter for pre-employment examination] 11-05-2023 Episodic Anxiety disorders (4 sources) Mixed anxiety and depressive disorder; Translations: [Anxiety disorder, unspecified] 11-05-2023 Chronic Diabetes mellitus with complications (20 sources) Hyperglycemia due to type 2 diabetes mellitus; Translations: [Type 2 diabetes mellitus with hyperglycemia] Onset: 1 09-06-2021 Chronic Diabetes mellitus without complication (20 sources) Diabetes mellitus; Translations: [Type 2 diabetes mellitus without complications] Onset: 6 10-14-2015 Chronic Disorders of lipid metabolism (6 sources) Dyslipidemia; Translations: [Hyperlipidemia, unspecified] Chronic Esophageal disorders (3 sources) Gastroesophageal reflux disease; Translations: [Gastro-esophageal reflux disease without esophagitis] Chronic Fluid and electrolyte disorders (3 sources) Dehydration; Translations: [Dehydration] Episodic Headache; including migraine (3 sources) Migraine; Translations: [Migraine, unspecified, not intractable, without status migrainosus] Chronic Mycoses (2 sources) Onychomycosis; Translations: [Tinea unguium] Episodic Nutritional deficiencies (2 sources) Vitamin D deficiency; Translations: [Vitamin D deficiency, unspecified] Chronic Other circulatory disease (1 source) Elevated blood-pressure reading without diagnosis of hypertension; Translations: [Elevated blood-pressure reading, without diagnosis of hypertension] Episodic Other ear and sense organ disorders (1 source) Acute otitis externa of right ear; Translations: [Unspecified acute noninfective otitis externa, right ear] 01-16-2025 Episodic Other ear and sense organ disorders (1 source) Unspecified acute noninfective otitis externa, right ear; Translations: [Acute otitis externa of right ear, unspecified type] Onset: Episodic Other gastrointestinal disorders (11 sources) Diarrhea; Translations: [Diarrhea, unspecified] Episodic Other liver diseases (20 sources) Steatosis of liver; Translations: [Fatty (change of) liver, not elsewhere classified] Onset: 1 09-06-2021 Chronic Other liver diseases (1 source) Increased bilirubin level; Translations: [Unspecified jaundice] 02-28-2024 Episodic Other liver diseases (1 source) Alkaline phosphatase raised; Translations: [Abnormal levels of other serum enzymes] 02-28-2024 Episodic Other nutritional; endocrine; and metabolic disorders (3 sources) Obesity; Translations: [Obesity, unspecified] Chronic Other nutritional; endocrine; and metabolic disorders (20 sources) Cholesterol level - finding; Translations: [Lipoprotein deficiency] Onset: 4 03-14-2016 Chronic Other skin disorders (2 sources) Ingrowing nail; Translations: [Ingrowing nail] Episodic Other skin disorders (1 source) Skin tag; Translations: [Other hypertrophic disorders of the skin] 11-05-2023 Episodic Other skin disorders (1 source) Xeroderma; Translations: [Xerosis cutis] 04-22-2024 Episodic Other skin disorders (1 source) Disorder of perianal skin; Translations: [Rash and other nonspecific skin eruption] 06-13-2024 Episodic Other upper respiratory infections (4 sources) Viral upper respiratory tract infection; Translations: [Acute upper respiratory infection, unspecified] Episodic Residual codes; unclassified (3 sources) History of hernia repair; Translations: [Other specified postprocedural states] Episodic Spondylosis; intervertebral disc disorders; other back problems (1 source) Degeneration of lumbar intervertebral disc; Translations: [Degenerative disc disease, lumbar] Chronic Spondylosis; intervertebral disc disorders; other back problems (1 source) Low back pain; Translations: [Right-sided low back pain without sciatica, unspecified chronicity] Episodic Sprains and strains (6 sources) Strain of thoracic region; Translations: [Strain of muscle and tendon of unspecified wall of thorax, initial encounter] Episodic Unclassified (1 source) Patient encounter status 12-15-2024 Past or Other Problems Problem Classification Problem Date Documented Da te Episodic/Chronic Abdominal pain (12 sources) Flank pain; Translations: [Unspecified abdominal pain] Onset: 03-09-2024 Episodic Allergic reactions (4 sources) Inflammatory dermatosis; Translations: [Dermatitis, unspecified] Onset: 02-23-2024 05-09-2024 Episodic Biliary tract disease (20 sources) Biliary calculus; Translations: [Calculus of gallbladder without cholecystitis without obstruction] Onset: 10-23-2013 Resolved: 03-14-2016 03-14-2016 Episodic Diabetes mellitus without complication (1 source) Hyperglycemia, unspecified; Translations: [Hyperglycemia] Onset: 06-14-2024 Episodic Fracture of upper limb (20 sources) Closed fracture of proximal left humerus; Translations: [Unspecified fracture of upper end of left humerus, initial encounter for closed fracture] Onset: 11-20-2013 Resolved: 03-14-2016 03-14-2016 Episodic Noninfectious gastroenteritis (20 sources) Colitis; Translations: [Noninfective gastroenteritis and colitis, unspecified] Onset: 09-06-2021 09-06-2021 Episodic Nonspecific chest pain (7 sources) Atypical chest pain; Translations: [Other chest pain] Onset: 03-09-2024 Episodic Other aftercare (1 source) 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; Translations: [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] Onset: 03-09-2024 Episodic Other connective tissue disease (20 sources) Pain in upper limb; Translations: [Pain in arm, unspecified] Onset: 01-12-2014 01-12-2014 Episodic Other gastrointestinal disorders (1 source) Constipation, unspecified; Translations: [Constipation, unspecified] Onset: 03-09-2024 Episodic Other lower respiratory disease (1 source) Shortness of breath; Translations: [Shortness of breath] Onset: 03-09-2024 Episodic Other skin disorders (1 source) Rash and other nonspecific skin eruption; Translations: [Perianal rash] Onset: 06-13-2024 Episodic Residual codes; unclassified (20 sources) Insomnia; Translations: [Insomnia, unspecified] Onset: 12-16-2013 12-16-2013 Episodic Residual codes; unclassified (1 source) Acquired absence of other specified parts of digestive tract; Translations: [Acquired absence of other specified parts of digestive tract] Onset: 03-09-2024 Episodic Results Test Name Value Interpretation Reference Range Facility ED MED ADMINISTRATION DETAIL on 02-04-2025 ED MED ADMINISTRATION DETAIL Desk Manager Medication Administration Record [facility] [address] [place] [address] [id number] 02/03/2025 Patient: MARCOS INFANTE Sex: Male : 1975 Age: 49y MEASUREMENTS: Wt: 97.5 kg, Ht/Tab: 73.0 in, BMI: 28.37 ALLERGIES: hydrocodone Medication Ordered Medication Administration Date/Time Amoxicillin-Clav 23:45 05/ Amoxicillin-Clav (Augmentin) PO 875 mg-125 mg Tab Given (Augmentin) PO 875 1 tab given. Allergies verified and confirmed 5 rights. Information 23:45 02/03/2025 mg-125 mg Tab 1 reviewed with patient. - 23:45 Teddy Vegas R.N. tab (NOW x1) Scanned TraMADol (Ultram) 23:46 05 TraMADol (Ultram) PO 50 mg given. Allergies verified Given PO 50 mg (NOW x1, and confirmed 5 rights. Information reviewed with patient. - 23:46 23:46 02/03/2025 HIGH ALERT Teddy Vegas R.N. MEDICATION) Scanned 1 of 1 Normal [facility] ED NURSES CLINICAL NOTEon ED NURSES CLINICAL NOTE Nurse Narrative Nurse Clinical Narrative [address] [address] [id number] 02/03/2025 23:09:00 Patient: MARCOS INFANTE Sex: Male : 1975 Age: 49y Disposition: Discharge to Home Disposition Decision Time: 23:50 02/03/2025 Departure Time: 00:02 02/04/2025 TRIAGE Arrived by private vehicle. Historian: (patient). Patient has a primary care physician. Primary physician (Brett). Triage time: 23:11 02/03/2025. Acuity: LEVEL 4. Chief Complaint: RIGHT EAR PAIN. Alert. This started today. ( Recent ear infection, just finished course of ear drops, denies relief). SEPSIS SCREEN: NEGATIVE. SIRS criteria negative. No possible sources of infection. -- 23:15 02/03/25 EDT Kavon Domingo R.N. 23:12 02/03/25. BP: 138/84 MAP: 102. HR: 88. RR: 16. O2 saturation: 95% on room air. Temperature: 98.2 F. Pain level now 05/10. -- 23:13 02/03/25 JS Domingo R.N. Measurements: 23:15 02/03/25 Wt: 97.5 kg, Ht/Tab: 73.0 in, BMI: 28.37 -- 23:02/03/25 JS Domingo R.N. Medications: home medications unknown -- 23:02/03/25 JS Domingo R.N. rosuvastatin 10 mg tablet: 1 tablet every night at bedtime. -- 23:02/03/25 JS Domingo R.N. 1 of 4 Nurse Narrative metformin ER 500 mg tablet,extended release 24 hr: 2 tablet twice a day. -- 23:02/03/25 JS Domingo R.N. Lantus Solostar U-100 Insulin 100 unit/mL (3 mL) subcutaneous pen: 10 unit every night at bedtime. -- 23:02/03/25 JS Domingo R.N. glipizide ER 5 mg tablet, extended release 24 hr: 1 tablet twice a day. -- 23:02/03/25 JS Domingo R.N. escitalopram 20 mg tablet: 1 tablet once a day. -- 23:02/03/25 JS Domingo R.N. colestipol 1 gram tablet: 3 tablet twice a day. -- 23:02/03/25 JS Domingo R.N. buspirone 5 mg tablet: 1 tablet twice a day. -- 23:02/03/25 JS Domingo R.N. 23:02/03/25. Preferred Pharmacy: ([facility]). -- 23:02/03/25 JS Domingo R.N. Allergies: hydrocodone -- 23:02/03/25 JS Domingo R.N. Problems: Diabetes Mellitus -- 23:02/03/25 EDT Kavon Domingo R.N. Anxiety disorder -- 23:14 02/03/25 [place]AK[place]HI[place] Kavon Domingo R.N. ADDITIONAL SURGERIES: Cholecystectomy -- 23:15 02/03/25 LAKESHIAT Kavon Domingo R.N. Hernia Repair -- 23:15 02/03/25 LAKESHIAT Kavon Domingo R.N. History 23:11 02/03/25. SOCIAL HX: Never smoker. No alcohol use or drug use. The patient has not traveled outside the [place] Infectious disease exposure: No infectious disease exposure. ABUSE ASSESSMENT: The patient answered yes to the question(s) Do you feel safe in your home? and no to the question(s) Are you afraid to go home?. SELF HARM ASSESSMENT: Self harm assessment was performed. The patient answered no to the question(s) Have you recently felt down, depressed, or hopeless? and Do you have thoughts of harming or killing yourself?. 2 of 4 Nurse Narrative FALL RISK ASSESSMENT: Fall risk assessment completed. No risk factors identified. -- 23:15 02/03/25 EDT Kavon Domingo R.N. Interventions 23:11 02/03/25. Identification band and allergy band on patient. -- 23:15 02/03/25 LAKESHIAT Kavon Domingo R.N. PHYSICAL ASSESSMENT 23:12 02/03/25. BP: 138/84 MAP: 102. HR: 88. RR: 16. O2 saturation: 95% on room air. Temperature: 98.2 F. Pain level now 8/10. -- 23:38 02/03/25 EDT Zahida Flores R.N. 23:31 02/03/25. Ambulatory to room. ( No drainage noted to right ear. Pt c/o pain extending to right neck area.). GENERAL / NEURO / PSYCH: Alert. HEENT: No facial asymmetry noted. Abnormal ear exam (Pt c/o pain to right ear with onset this AM). Right ear within normal limits. RESPIRATORY: Respirations not labored. SKIN: Skin is warm and dry. -- 23:41 02/03/25 EDT Zahida Flores R.N. NURSING PROGRESS NOTES 23:45 02/03/25. Amoxicillin-Clav (Augmentin) PO 875 mg-125 mg Tab 1 tab given. Allergies verified and confirmed 5 rights. Information reviewed with patient. -- 23:45 02/03/25 EDT Zahida Flores R.N. 23:46 02/03/25. TraMADol (Ultram) PO 50 mg given. Allergies verified and confirmed 5 rights. Information reviewed with patient. -- 23:46 02/03/25 EDT Zahida Flores R.N. 23:49 02/03/25. Head of bed elevated. The patient reports no complaints and the patient is calm. Call light placed in reach. Bed placed in lowest position. Brakes of bed on. -- 23:49 02/03/25 EDT Zahida Flores R.N. 23:50 02/03/25. ED physician at the patient's bedside (23:09 02/03/2025). -- 23:50 02/03/25 EDT Zahida Flores R.N. DISPOSITION / DISCHARGE 23:12 02/03/25. BP: 138/84 MAP: 102. HR: 88. RR: 16. O2 saturation: 95% on room air. Temperature: 98.2 F. Pain level now 8/10. -- 00:03 02/04/25 EDT Zahida Flores R.N. Departure time: 00:02 02/04/2025. Condition at departure: stable. Discharge instructions provided and reviewed with the patient. Reviewed medicat (more content not included)... Normal [facility] ED ORDER SHEET (CPOE ONLY)on 02-04-2025 ED ORDER SHEET (CPOE ONLY) Order Sheet Order Sheet [address] [address] [id number] 02/03/2025 Patient: MARCOS INFANTE Sex: Male : 1975 Age: 49y MEASUREMENTS: Wt: 97.5 kg, Ht/Tab: 73.0 in, BMI: 28.37 ALLERGIES: hydrocodone MEDICATION/IV/DRIP/FLUID ORDERS Order Description Priority Entered Acknowledged Completed Amoxicillin-Clav (Augmentin) 23:37 02/03/2025 23:38 23:45 PO 875 mg-125 mg Tab1 tab Natasha Duenas D.O. 02/03/2025 02/03/2025 (NOW x1) Zahida Vegas R.N. RPetronaNPetrona TraMADol (Ultram) PO50 mg 23:37 02/03/2025 23:38 23:46 (NOW x1, HIGH ALERT Natasha Duenas D.O. 02/03/2025 02/03/2025 MEDICATION) Zahida Vegas R.N. RPetronaNPetrona Reason for ordering with alerts: Clinical consideration given --23:37 02/03/2025 Natasha Duenas D.O. LAB ORDERS Order Description Priority Entered Acknowledged Collected Completed DIAGNOSTIC STUDY ORDERS Order Description Priority Entered Acknowledged Completed STAFF ORDERS 1 of 2 Order Sheet Order Description Priority Entered Acknowledged Collected Completed [Electronically signed by Natasha Duenas D.O. (02/04/2025 02:08 EDT)] 2 of 2 Normal [facility] ED PHYSICIAN CLINICAL REPORT on 02-04-2025 ED PHYSICIAN CLINICAL REPORT Narrative Physician Clinical Narrative [address] [address] [id number] 02/03/2025 23:09:00 Patient: MARCOS INFANTE Sex: Male : 1975 Age: 49y Disposition: Discharge to Home Disposition Decision Time: 23:50 02/03/2025 Departure Time: 00:02 02/04/2025 Measurements Wt: 97.5 kg, Ht/Tab: 73.0 in, BMI: 28.37 Initial Vital Sign Measured Time BP MAP HR RR O2Sat ETCO2 Temp Pain GCS RTS 23:12 02/03/2025 138/84 102 88 16 95% RA 98.2 F 8 Time Seen: 23:09 02/03/2025. Arrived- By private vehicle. Historian- patient. HISTORY OF PRESENT ILLNESS Chief Complaint: EARACHE. This started today and is still present. Location- right ear. The pain is described as moderate. The patient has had ear pain and hearing loss. No ear drainage, nasal discharge or congestion, sinus pressure or complaint of foreign body in the ear. No ear trauma, recent barotrauma, tinnitus, sore throat or toothache. No jaw pain or facial pain. Similar symptoms previously. Patient has had similar symptoms once. Recent medical care: The patient was seen recently in a clinic. ( Seen at [facility] and put on prescription ear drops. Still has the drops at home but symptoms are not improving). 1 of 4 Narrative REVIEW OF SYSTEMS CONSTITUTIONAL: No fever or chills. GI: Has not had decreased oral intake. No nausea, vomiting, diarrhea or abdominal pain. NEUROLOGICAL: No headache. EYES: No eye discomfort. : No difficulty with urination. SKIN: No skin rash. ENDO/HEME/LYMPH: No enlarged lymph nodes. MUSCULOSKELETAL: No joint pain. RESPIRATORY: No cough or difficulty breathing. CVS: No chest pain. PAST HISTORY See nurses notes. Anxiety disorder Diabetes Mellitus Surgeries: Cholecystectomy Hernia Repair Medications: home medications unknown Allergies: hydrocodone SOCIAL HISTORY Never smoker. No alcohol use or drug use. ADDITIONAL NOTES The nursing notes have been reviewed. PHYSICAL EXAM Appearance: Alert. Appears to be in pain. Eyes: Eyes normal inspection. Nose: Nose normal. Throat: Pharynx normal. No pharyngeal erythema. 2 of 4 Narrative Ear (right): There is erythema and dullness of the tympanic membrane. No erythema of the external canal, swelling of the external canal, material in the external canal, bulging of the tympanic membrane or perforation of the tympanic membrane. No TM tube seen. Ear (left): Left ear normal. Neck: Normal inspection. Neck supple. No lymphadenopathy. CVS: Normal heart rate and rhythm. Heart sounds normal. Respiratory: No respiratory distress. Painless inspiration. Breath sounds normal. Abdomen: Soft and nontender. Skin: Skin warm and dry. Normal skin color. No rash. Extremities: Extremities exhibit normal ROM. No lower extremity edema. Neuro: Oriented X 3. No motor deficit. No sensory deficit. PROGRESS AND PROCEDURES MEDICAL DECISION MAKING: Test(s) not done: based on risk / benefit analysis. The patient has been stable. Narcotics and antibiotics were given. The pain got better. The exam has not changed. (complaining of right ear pain that started again tonight. Was recently seen at [facility] for right ear pain and was placed on ear drops for swimmer's ear. But pain started to come back tonight. He denies any drainage from the right ear. Does complain of some hearing loss. Denies any trauma to the right ear. Presently rates his pain an 8 on a severity scale 1-10. Describes pain as sharp in nature.). Disposition: Condition: good. Disposition Decision Time: 23:50 02/03/2025. Patient discharged to Home. Discharged in good condition. Discharge decision based on the following: patient's condition is stable; patient is ambulatory; patient's pain is controlled; patient's exam is stable; stable condition on multiple repeat evaluations; social support is adequate; transportation is available; follow-up is available; clinical impression is consistent with outpatient treatment. CLINICAL IMPRESSION Acute right otitis media. No suppurative right otitis media. No perforation of right tympanic membrane. DISCHARGE INSTRUCTIONS (Take medication as prescribed.). Warnings: GENERAL WARNINGS: Return or contact your physician immediately if your condition worsens or changes unexpectedly, if not improving as expected, or if other problems arise. Prescription Medications: 3 of 4 Narrative tramadol 50 mg tablet: Take 1 tablet by mouth every six hours as needed for pain for 3 days, dispense 10 tablet. Refills 0. Pharmacy: [facility] [id number] [place] [address]. amoxicillin 875 mg-potassium clavulanate 125 mg tablet: Take 1 tablet by mouth twice a day for 10 days, dispense 20 tablet. Refills 0. (more content not included)... [facility] ED SUPER BILLon 02-04-[address] [address] [id number] 02/03/2025 Patient: MARCOS INFANTE Sex: Male : 1975 Age: 49y Item Professional Category Description Facility Code Code Quantity Fee Total Nurse/E/M EMERGENCY 572187 1 $0.00 $0.00 DEPARTMENT VISIT MODERATE SEVERITY (36990) Grand Total $0.00 Providers Natasha Duenas D.O. Chief Complaint EARACHE. Principal Diagnosis Acute right otitis media. No suppurative right otitis media. No perforation of right tympanic membrane. ICD-10 Codes 1 of 2 [facility] H66.91: Otitis media, unspecified, right ear 2 of 2 [facility] ED VISIT SUMMARYon ED VISIT SUMMARY Visit Overview Visit Overview [address] [address] [id number] 02/03/2025 [id number] Sex: Male : 1975 Age: 49y 02/04/2025 02:50 AM EDT ED Arrival:23:09 02/03/2025 EDT Status: Recent Travel:no Language:eng Adv Directive: Isolation Status: Ethnicity:N Fall Risk:no risk Infectious Disease Exposure:no Measurements:6'1 / 185.4 Self-Harm Status:risk Sepsis Screen:negative cm 215.0 lb / 97.5 kg Chief Complaint:RIGHT EAR PAIN, ([place]), and (Recent ear infection, just finished course of ear drops, denies relief) ALLERGIES hydrocodone HOME MEDICATIONS Unknown PAST MEDICAL HISTORY / PROBLEMS Anxiety disorder 1 of 3 Visit Overview Diabetes Mellitus See nurses notes PAST SURGICAL HISTORY Cholecystectomy Hernia Repair SOCIAL HISTORY Smoking status: No Alcohol use: No Drug use: No ED COURSE MEDICATIONS GIVEN IN EMERGENCY DEPARTMENT 23:45 02/03/25 Amoxicillin-Clav (Augmentin) PO 875 mg-125 mg Tab 1 tab 23:46 02/03/25 TraMADol (Ultram) PO 50 mg IV SITE INFORMATION INTAKE OUTPUT REASSESMENT (most recent) 23:49 02/03/25. Head of bed elevated. The patient reports no complaints and the patient is calm. Call light placed in reach. Bed placed in lowest position. Brakes of bed on. VITAL SIGNS First Vitals Last Vitals Temp 23:12 02/03/25 98.2 F Temp 23:12 02/03/25 98.2 F BP 23:12 02/03/25 138/84 BP 23:12 02/03/25 138/84 HR 23:12 02/03/25 88 HR 23:12 02/03/25 88 RR 23:12 02/03/25 16 RR 23:12 02/03/25 16 O2 Sat 23:12 02/03/25 95% RA O2 Sat 23:12 02/03/25 95% RA Pain 23:12 02/03/25 8 Pain 23:12 02/03/25 8 2 of 3 Visit Overview First Vitals Last Vitals ETCO2 23:12 02/03/25 ETCO2 23:12 02/03/25 GCS 23:12 02/03/25 GCS 23:12 02/03/25 RTS 23:12 02/03/25 RTS 23:12 02/03/25 PROCEDURES NURSING INTERVENTIONS LABS / STUDIES CLINICAL IMPRESSION ACUTE RIGHT OTITIS MEDIA. NO SUPPURATIVE RIGHT OTITIS MEDIA. NO PERFORATION OF RIGHT TYMPANIC MEMBRANE 3 of 3 Normal [facility] ED VITALS FLOW SHEETon 02-04 ED VITALS FLOW SHEET Vitals Vital Sign Flow Sheet [facility] [address] [place] [address] [id number] 02/03/2025 Patient: MARCOS INFANTE Sex: Male : 1975 Age: 49y Measurements Wt: 97.5 kg, Ht/Tab: 73.0 in, BMI: 28.37 Measured Time BP MAP HR RR O2Sat ETCO2 Temp Pain GCS RTS 23:12 02/03/2025 138/84 102 88 16 95% RA 98.2 F 8 1 of 1 Normal [facility] CNOVon 01-16-2025 CNOV Office Visit (UCWSTR ) INFANTEMARCOS MERIDA ([id number]) 1975 M Date Time Provider Department 01/16/25 12:00 PM TOMMY BASSETT [facility] During your visit today, we recorded the following information about you: Temperature Pulse Respiration Blood pressure 97.9 degrees 85/minute 20/minute 136/87 Weight 99 kg Tommy Bassett PA-C 01/16/2025 12:07 PM Signed This note was created using NoteWriter. Subjective Marcos Infante is a 49 year old male. Patient is a 49-year-old male who complains of acute onset of right ear pain that began at approximately 0300 this morning. Patient states that his left ear is asymptomatic and nontender. Patient reports no congestion, sinus pressure, sore throat, cough or other illness symptoms. Patient has noted no bleeding, serous appearing fluid to his right ear. Patient denies fever, chills or myalgia. Ear Pain Review of Systems HENT: Positive for ear pain. All other systems reviewed and are negative. Objective BP 136/87 Pulse 85 Temp 36.6 ?C (97.9 ?F) Resp 20 Wt 99 kg (218 lb 4.1 oz) SpO2 97% BMI 29.60 kg/m? Physical Exam Vitals and nursing note reviewed. Constitutional: Appearance: Normal appearance. He is normal weight. HENT: Head: Normocephalic and atraumatic. Right Ear: Tympanic membrane and external ear normal. There is no impacted cerumen. Left Ear: Tympanic membrane, ear canal and external ear normal. There is no impacted cerumen. Ears: Comments: Tympanic membranes are clear bilaterally with excellent color and light reflex. There is moderate edema noted to the right external canal the patient demonstrated significant tenderness with speculum insertion and otic exam. No bleeding, serous appearing fluid is noted at the right external canal. Right auricle is clear without erythema or edema. Exam of the left external canal is unremarkable. Nose: Nose normal. Mouth/Throat: Mouth: Mucous membranes are moist. Pharynx: Oropharynx is clear. Eyes: Extraocular Movements: Extraocular movements intact. Conjunctiva/sclera: Conjunctivae normal. Pupils: Pupils are equal, round, and reactive to light. Cardiovascular: Rate and Rhythm: Normal rate and regular rhythm. Pulses: Normal pulses. Heart sounds: Normal heart sounds. Pulmonary: Effort: Pulmonary effort is normal. Breath sounds: Normal breath sounds. Musculoskeletal: Cervical back: Normal range of motion and neck supple. Skin: General: Skin is warm and dry. Capillary Refill: Capillary refill takes less than 2 seconds. Neurological: General: No focal deficit present. Mental Status: He is alert and oriented to person, place, and time. Psychiatric: Mood and Affect: Mood normal. Behavior: Behavior normal. Thought Content: Thought content normal. Judgment: Judgment normal. Assessment and Plan Physical exam findings as noted above. Patient was provided with prescription for ofloxacin 0.3% otic solution and instructions for application were discussed. Patient verbalizes clear understanding of same. CLINICAL IMPRESSION: Acute Otitis Externa Right Ear ASSESSMENT/PLAN: 1. Acute otitis externa of right ear, unspecified type - ICD9: 380.10, ICD10: H60.501 - OFLOXACIN 0.3% EYE DROPS - OTIC USE ONLY MDM Risk of Complications, Morbidity, and/or Mortality Presenting problems: low Diagnostic procedures: low Management options: nehemias Bassett PA-C Allergies As of Date: 01/16/2025 Noted Allergy Reaction HYDROCODONE 11/20/2013 8 - GI Upset Date Reviewed: 01/16/2025 Reviewed by: Jaimee Covington LPN - Fully Assessed Reason for Visit: Ear Pain [817] Cmt: R ear pain x this am nasal congestion Primary Visit Diagnosis:Acute otitis externa of right ear, unspecified type [H60.501] Order(s):ofloxacin (OCUFLOX) 0.3 % ophthalmic solution - OTIC USE ONLYUse 5 drops in the right ear two times a day for 7 days.Disp: 10 mLRfl: 0 Prescriptions as of 01/16/2025 - ofloxacin (OCUFLOX) 0.3 % ophthalmic solution - OTIC USE ONLY Use 5 drops in the right ear two times a day for 7 days. - blood sugar diagnostic (BLOOD GLUCOSE TEST) test strip Test blood sugar(s) 3 times daily. Dx: Type 2 DM - Controlled E11.9 Insulin: Yes - Lancets Test blood sugar(s) 2-3 times daily and as needed. Dx: Type 2 DM - Controlled E11.9 Insulin: No - metFORMIN ER (GLUCOPHAGE XR) 500 mg 24 hr tablet Take 1 tablet by mouth two times a day with meals. - insulin glargine (LANTUS SOLOSTAR U-100 INSULIN) 100 unit/mL (3 mL) Inject 10 Units subcutaneously daily at bedtime. - colestipol (COLESTID) 1 gram tablet Take 3 tablets by mouth two times a day. - glipiZIDE (GLUCOTROL XL) 5 mg 24 hr tablet Take 1 tablet by mouth two times a day. - busPIRone (BUSPAR) 5 mg tablet Take 1 tablet by mouth two times a day. - escitalopram oxalate (LEXAPRO) 20 mg tablet Take 1 tablet by mouth once daily. - rosuvastati (more content not included)... Normal [facility] Office Visit Reporton 2024 Office Visit Report [facility] [address] [place] [address] OFFICE VISIT Date of Service: 01/08/25 MR#: [id number] Acct: [id number] Patient: MARCOS INFANTE Rep #: [id number] : 1975 Provider: REGULO Strange Age/Sex: 49/M Location: [email or web address] Status: Signed Intake Vital Signs 06/12/24 22:04 Height 6 ft 1 in Intake Visit Reasons: PE NON DOT DRUG SCREEN/ DOMETIC Chief Complaint: Preemployment physical Allergies hydrocodone Adverse Reaction (Verified 06/12/24 22:28) Nausea/Vom/Diarrhea Office Procedures [facility] Billing Sheet Testing Pre-Employment Drug Screen: Yes 01/15/25 0714 Date Hugh RAJPUT Cosigner Signature: Date (if applicable) CC: Normal [facility] CNNURSEon 12-19-2024 [facility] Nurse Visit (FAMPWS) MARCOS INFANTE ([id number]) 1975 M Date Time Provider Department 12/19/24 1:15 PM [facility] your visit today, we recorded the following information about you: NATALYA RAMIREZ 12/19/2024 1:22 PM Signed Patient presents for Pneumococcal and Hepatitis A vaccines. Denies any problems at this time. Tolerated injections well. Natalya Ramirez LPN Referring Provider: SELF [[id number]] Allergies As of Date: 12/19/2024 Noted Allergy Reaction HYDROCODONE 11/20/2013 8 - GI Upset Date Reviewed: 12/15/2024 Reviewed by: Kaya [place] APRN.DEVELOPMENT CHEMIST - Fully Assessed Reason for Visit: Imm/Inj [58] Primary Visit Diagnosis:Encounter for immunization [Z23] Prescriptions as of 12/19/2024 - metFORMIN ER (GLUCOPHAGE XR) 500 mg 24 hr tablet Take 1 tablet by mouth two times a day with meals. - insulin glargine (LANTUS SOLOSTAR U-100 INSULIN) 100 unit/mL (3 mL) Inject 10 Units subcutaneously daily at bedtime. - colestipol (COLESTID) 1 gram tablet Take 3 tablets by mouth two times a day. - glipiZIDE (GLUCOTROL XL) 5 mg 24 hr tablet Take 1 tablet by mouth two times a day. - busPIRone (BUSPAR) 5 mg tablet Take 1 tablet by mouth two times a day. - escitalopram oxalate (LEXAPRO) 20 mg tablet Take 1 tablet by mouth once daily. - rosuvastatin (CRESTOR) 10 mg tablet Take 1 tablet by mouth daily at bedtime. - blood sugar diagnostic (BLOOD GLUCOSE TEST) test strip Test blood sugar(s) 1 times daily. Dx: Type 2 DM - Controlled E11.9 Insulin: No - Lancets lancets Test blood sugar(s) 2-3 times daily and as needed. Dx: Type 2 DM - Controlled E11.9 Insulin: No Problem List As Of Date 12/19/2024 Noted Resolved Cholelithiasis [K80.20] 10/23/2013 03/14/2016 Cholecystitis [K81.9] 10/23/2013 03/14/2016 Fracture of humerus, proximal, left, closed [S4*11/20/2013 03/14/2016 Insomnia [G47.00] 12/16/2013 Arm pain [M79.603] 01/12/2014 Closed fracture of unspecified part of upper en*01/12/2014 03/14/2016 Diabetes mellitus type 2, controlled, without c*10/14/2015 Low HDL (under 40) [E78.6] 12/30/2013 Hepatic steatosis [K76.0] 09/06/2021 Colitis [K52.9] 09/06/2021 Uncontrolled type 2 diabetes mellitus with hype*09/06/2021 Encounter Status:Closed by NATALYA RAMIREZ on 12/19/24 [facility] Niesha 12-17-2024 CNPN Telephone (INTMWS) INFANTEMARCOS MERIDA ([id number]) 1975 M Date Time Provider Department 12/17/24 SANDI BIRD INTMWS During your visit today, we recorded the following information about you: NATALYA RAMIREZ 12/17/2024 8:15 AM Signed Patient scheduled for nurse visit 12/19/24 to receive Hepatitis A. Please place order at this time. Natalya Ramirez LPN Allergies As of Date: 12/17/2024 Noted Allergy Reaction HYDROCODONE 11/20/2013 8 - GI Upset Date Reviewed: 12/15/2024 Reviewed by: Kaya Colorado APRN.DEVELOPMENT CHEMIST - Fully Assessed Reason for Visit: Orders [681] Visit Diagnosis:Encounter for immunization [Z23] Order(s):HEP A VACCINE, ADULT (HAVRIX, VAQTA) [[id number]] Order #: [id number] Prescriptions as of 12/18/2024 - metFORMIN ER (GLUCOPHAGE XR) 500 mg 24 hr tablet Take 1 tablet by mouth two times a day with meals. - insulin glargine (LANTUS SOLOSTAR U-100 INSULIN) 100 unit/mL (3 mL) Inject 10 Units subcutaneously daily at bedtime. - colestipol (COLESTID) 1 gram tablet Take 3 tablets by mouth two times a day. - glipiZIDE (GLUCOTROL XL) 5 mg 24 hr tablet Take 1 tablet by mouth two times a day. - busPIRone (BUSPAR) 5 mg tablet Take 1 tablet by mouth two times a day. - escitalopram oxalate (LEXAPRO) 20 mg tablet Take 1 tablet by mouth once daily. - rosuvastatin (CRESTOR) 10 mg tablet Take 1 tablet by mouth daily at bedtime. - blood sugar diagnostic (BLOOD GLUCOSE TEST) test strip Test blood sugar(s) 1 times daily. Dx: Type 2 DM - Controlled E11.9 Insulin: No - Lancets lancets Test blood sugar(s) 2-3 times daily and as needed. Dx: Type 2 DM - Controlled E11.9 Insulin: No Problem List As Of Date 12/17/2024 Noted Resolved Cholelithiasis [K80.20] 10/23/2013 03/14/2016 Cholecystitis [K81.9] 10/23/2013 03/14/2016 Fracture of humerus, proximal, left, closed [S4*11/20/2013 03/14/2016 Insomnia [G47.00] 12/16/2013 Arm pain [M79.603] 01/12/2014 Closed fracture of unspecified part of upper en*01/12/2014 03/14/2016 Diabetes mellitus type 2, controlled, without c*10/14/2015 Low HDL (under 40) [E78.6] 12/30/2013 Hepatic steatosis [K76.0] 09/06/2021 Colitis [K52.9] 09/06/2021 Uncontrolled type 2 diabetes mellitus with hype*09/06/2021 Encounter Status:Closed by NATALYA RAMIREZ on 12/18/[address] [facility] MARCOS INFANTE ([id number]) 1975 M Date Time Provider Department 12/16/24 SANDI BIRD INTBernieWS During your visit today, we recorded the following information about you: NATALYA RAMIREZ 12/16/2024 9:49 AM Signed Patient scheduled for nurse visit 12/19/24 to receive Pneumococcal vaccine. Please place order at this time. Natalya Ramirez LPN Allergies As of Date: 12/16/2024 Noted Allergy Reaction HYDROCODONE 11/20/2013 8 - GI Upset Date Reviewed: 12/15/2024 Reviewed by: Kaya Colorado APRN.DEVELOPMENT CHEMIST - Fully Assessed Reason for Visit: Orders [681] Visit Diagnosis:Encounter for immunization [Z23] Order(s):PNEUMOCOCCAL VACCINE, 20 VALENT (PREVNAR 20) [[id number]] Order #: [id number] Prescriptions as of 12/17/2024 - metFORMIN ER (GLUCOPHAGE XR) 500 mg 24 hr tablet Take 1 tablet by mouth two times a day with meals. - insulin glargine (LANTUS SOLOSTAR U-100 INSULIN) 100 unit/mL (3 mL) Inject 10 Units subcutaneously daily at bedtime. - colestipol (COLESTID) 1 gram tablet Take 3 tablets by mouth two times a day. - glipiZIDE (GLUCOTROL XL) 5 mg 24 hr tablet Take 1 tablet by mouth two times a day. - busPIRone (BUSPAR) 5 mg tablet Take 1 tablet by mouth two times a day. - escitalopram oxalate (LEXAPRO) 20 mg tablet Take 1 tablet by mouth once daily. - rosuvastatin (CRESTOR) 10 mg tablet Take 1 tablet by mouth daily at bedtime. - blood sugar diagnostic (BLOOD GLUCOSE TEST) test strip Test blood sugar(s) 1 times daily. Dx: Type 2 DM - Controlled E11.9 Insulin: No - Lancets lancets Test blood sugar(s) 2-3 times daily and as needed. Dx: Type 2 DM - Controlled E11.9 Insulin: No Problem List As Of Date 12/16/2024 Noted Resolved Cholelithiasis [K80.20] 10/23/2013 03/14/2016 Cholecystitis [K81.9] 10/23/2013 03/14/2016 Fracture of humerus, proximal, left, closed [S4*11/20/2013 03/14/2016 Insomnia [G47.00] 12/16/2013 Arm pain [M79.603] 01/12/2014 Closed fracture of unspecified part of upper en*01/12/2014 03/14/2016 Diabetes mellitus type 2, controlled, without c*10/14/2015 Low HDL (under 40) [E78.6] 12/30/2013 Hepatic steatosis [K76.0] 09/06/2021 Colitis [K52.9] 09/06/2021 Uncontrolled type 2 diabetes mellitus with hype*09/06/2021 Encounter Status:Closed by NATALYA RAMIREZ on 12/17/24 [facility] CNOVon 12-15-2024 CNOV Office Visit (INTMWS ) MARCOS INFANTE ([id number]) 1975 M Date Time Provider Department 12/15/24 1:20 PM KAYA COLORADO During your visit today, we recorded the following information about you: Pulse Respiration Blood pressure Weight 78/minute 16/minute 124/72 96.6 kg Kaya Colorado APRN.CNP 12/15/2024 1:42 PM Signed CC: Patient presents with: Recheck: 6 month follow up HPI Marcos Infante is a 48 year old male who presents today for routine follow up. DIABETES MELLITUS: Mr. Infante denies excessive thirst or increased frequency of urination, chest pain or dyspnea , numbness, tingling or pain in extremities, new or unusual visual symptoms, low sugar/hypoglycemic reactions, weight loss/gain, and lightheadedness/dizziness. Follows a diabetic diet some of the time. He is compliant with medication(s) but would like to stop the metformin as it causes diarrhea which is why he takes the colestipol he says and it does not work. States he has diarrhea 2-3 times a day which he states he has the entire time he has taken the metformin and does not want to do it anymore. Currently is taking 2 tablets once a day. He reports checking his glucose on a twice a day schedule with sugars in the 130s range. Patient's last HgA1C was Hemoglobin A1C (%) Date Value 12/08/2024 6.4 06/14/2024 11.4 05/14/2021 8.5 11/27/2016 6.1 Hemoglobin A1C (POCT) (%) Date Value 08/21/2022 7.6 09/06/2021 8.5 ) Elevated Triglycerides: Taking statin therapy as ordered. Typically walks 7 days a week but has been walking less in the cold weather since moving back from [place]. Eating a healthy diet some of the time. REVIEW OF SYSTEMS See HPI PAST MEDICAL HISTORY Diagnosis Date Acute cholecystitis Diabetes mellitus type 2 in obese 2011 Hypertriglyceridemia 12/2013 Low HDL (under 40) 12/2013 Poor dentition PAST SURGICAL HISTORY Procedure Laterality Date HERNIA REPAIR HX 1975 LAPS SURG CHOLECYSTECTOMY W/CHOLANGIOGRAPHY 10/17/13 ALLERGIES Hydrocodone MEDICATIONS insulin glargine (LANTUS SOLOSTAR U-100 INSULIN) 100 unit/mL (3 mL) Inject 10 Units subcutaneously daily at bedtime. colestipol (COLESTID) 1 gram tablet Take 3 tablets by mouth two times a day. glipiZIDE (GLUCOTROL XL) 5 mg 24 hr tablet Take 1 tablet by mouth two times a day. busPIRone (BUSPAR) 5 mg tablet Take 1 tablet by mouth two times a day. escitalopram oxalate (LEXAPRO) 20 mg tablet Take 1 tablet by mouth once daily. rosuvastatin (CRESTOR) 10 mg tablet Take 1 tablet by mouth daily at bedtime. clobetasol (TEMOVATE) 0.05 % cream Apply to affected area two times a day. Apply 1 g application to affected area two times a day as needed blood sugar diagnostic (BLOOD GLUCOSE TEST) test strip Test blood sugar(s) 1 times daily. Dx: Type 2 DM - Controlled E11.9 Insulin: No metFORMIN ER (GLUCOPHAGE XR) 500 mg 24 hr tablet Take 2 tablets by mouth two times a day with meals. Lancets lancets Test blood sugar(s) 2-3 times daily and as needed. Dx: Type 2 DM - Controlled E11.9 Insulin: No omeprazole (PRILOSEC) 20 mg capsule Take 1 capsule by mouth once daily. FAMILY HISTORY Problem Relation Age of Onset Cancer Father COPD Mother Arthritis Mother Heart Maternal Grandmother Allergies Mother Social History Tobacco Use Smoking status: Never Smokeless tobacco: Never Vaping Use Vaping status: Never Used Substance Use Topics Alcohol use: No Drug use: No PHYSICAL EXAM BP 124/72 Pulse 78 Resp 16 Wt 96.6 kg (213 lb) SpO2 98% BMI 28.89 kg/m? General Appearance: well appearing, in no acute distress, alert Eyes: conjunctiva pink and moist, no icterus, sclera white, non-injected Lungs: Lungs clear to auscultation. No wheezing, rhonchi, rales. Heart: RRR without murmur, gallop, or rubs. No ectopy Abdomen: Abdomen soft, non-tender. Bowel sounds normal. No masses, organomegaly Extremities: No deformities, edema, skin discoloration, clubbing or cyanosis. Good capillary refill. Feet:Shoes and socks removed, normal distal pulses, sensitive to 10 gm monofilament, and vibratory perception normal Health maintenance reviewed with patient: Depression Screening Never done Anxiety Screening Never done Hepatitis A Vaccine(2 of 2 - Risk 2-dose series) due on 11/25/2016 Colorectal Cancer Screening Never done Pneumococcal Vaccine(2 of 2 - PCV) due on 09/06/2022 Dilated Retinal Exam due on 06/23/2023 Influenza Vaccine(1) due on 06/01/2024 Covid-19 Vaccine( - season) Never done Diabetic Foot Exam due on 11/05/2024 Urine Albumin:Creatinine Ratio due on 02/22/2025 HbA1C due on 06/10/2025 Annual PCP Team Chronic Disease Visit due on 06/13/2025 LDL Cholesterol due on 12/08/2025 DTaP,Tdap,Td Vaccine(3 - Td or Tdap) due on 04/14/2029 Hepatitis B Vaccine Completed Hepatitis C Screening Completed HIV Screening Completed DATA REVIEWED: (more content not included)... Normal [facility] CBC panel Auto (Bld)on 12-08 Erythrocyte distribution width (RBC) [Ratio] 13.0 % Normal 11.5-15.0 [facility] Comment on above: Order Comment: Speci men Type: BLOOD SPECIMENOrdering Facility: [facility] Address: [address] [place] [address] Performed By: #### 5 8410-2 ####[facility] LABCLIA [id number] [place] [address] [place] Hematocrit (Bld) [Volume fraction] 35.8 % Low 39.0-51.0 [facility] Comment on above: Order Comment: Speci men Type: BLOOD SPECIMENOrdering Facility: [facility] Address: [address] [place] [address] Performed By: #### 5 8410-2 ####[facility] LABCLIA [id number] [place] [address] [place] Hemoglobin (Bld) [Mass/Vol] 13.4 g/dL Normal 13.0-17.0 [facility] Comment on above: Order Comment: Speci men Type: BLOOD SPECIMENOrdering Facility: [facility] Address: [address] [place] [address] Performed By: #### 5 8410-2 ####[facility] LABIA [id number] [place] [address] [place] MCH (RBC) [Entitic mass] 32.6 pg Normal 26.0-34.0 [facility] Comment on above: Order Comment: Speci men Type: BLOOD SPECIMENOrdering Facility: [facility] Address: [address] [place] [address] Performed By: #### 5 8410-2 ####[facility] LABIA [id number] [place] [address] [place] MCHC (RBC) [Mass/Vol] 37.4 g/dL High 30.5-36.0 [facility] Comment on above: Order Comment: Speci men Type: BLOOD SPECIMENOrdering Facility: [facility] Address: [address] [place] [address] Performed By: #### 5 8410-2 ####[facility] LABCLIA [id number] [place] [address] [place] MCV (RBC) [Entitic vol] 87.1 fL Normal 80.0-100.0 [facility] Comment on above: Order Comment: Speci men Type: BLOOD SPECIMENOrdering Facility: [facility] Address: [address] [place] [address] Performed By: #### 5 8410-2 ####[facility] LABCLIA [id number] [place] [address] [place] Nucleated RBC (Bld) [#/Vol] 10*3/uL Normal <0.01 [facility] Comment on above: Order Comment: Speci men Type: BLOOD SPECIMENOrdering Facility: [facility] Address: [address] [place] [address] Performed By: #### 5 8410-2 ####[facility] LABCLIA [id number] [place] [address] [place] Platelet mean volume (Bld) [Entitic vol] 9.7 fL Normal 9.0-12.7 [facility] Comment on above: Order Comment: Speci men Type: BLOOD SPECIMENOrdering Facility: [facility] Address: [address] [place] [address] Performed By: #### 5 8410-2 ####[facility] LABCLIA [id number] [place] [address] [place] Platelets (Bld) [#/Vol] 175 10*3/uL Normal 150-400 [facility] Comment on above: Order Comment: Speci men Type: BLOOD SPECIMENOrdering Facility: [facility] Address: [address] [place] [address] Performed By: #### 5 8410-2 ####[facility] LABCLIA [id number] [place] [address] [place] RBC (Bld) [#/Vol] 4.11 10*6/uL Low 4.20-6.00 [facility] Comment on above: Order Comment: Speci men Type: BLOOD SPECIMENOrdering Facility: [facility] Address: [address] [place] [address] Performed By: #### 5 8410-2 ####[facility] LABCLIA [id number] [place] [id number] [place] WBC (Bld) [#/Vol] 5.70 10*3/uL Normal 3.70-11.00 [facility] Comment on above: Order Comment: Speci men Type: BLOOD SPECIMENOrdering Facility: [facility] Address: [address] [place] [address] Performed By: #### 5 8410-2 ####[facility] LABCLIA [id number] [address] [place] [address] [place] Comprehensive metabolic 2000 panelon 12-08-2024 Albumin [Mass/Vol] 4.3 g/dL Normal 3.9-4.9 [facility] Comment on above: Order Comment: Speci men Type: BLOOD SPECIMENOrdering Facility: [facility] Address: [address] [place] [address] Performed By: #### 2 4323-8, 23039-8, 6-3 ####[facility] LABIA [id number] [place] [address] [place] ALP [Catalytic activity/Vol] 86 U/L Normal 38-113 [facility] Comment on above: Order Comment: Speci men Type: BLOOD SPECIMENOrdering Facility: [facility] Address: [address] [place] [address] Performed By: #### 2 4323-8, 87635-7, 6-3 ####[facility] LABIA [id number] [address] [address] [place] ALT [Catalytic activity/Vol] 14 U/L Normal 10-54 [facility] Comment on above: Order Comment: Speci men Type: BLOOD SPECIMENOrdering Facility: [facility] Address: [address] [place] [address] Performed By: #### 2 4323-8, 89058-5, 6-3 ####[facility] LABCLIA [id number] [address] [place] [address] [place] Anion gap [Moles/Vol] 9 mmol/L Normal 8-15 [facility] Comment on above: Order Comment: Speci men Type: BLOOD SPECIMENOrdering Facility: [facility] Address: [address] [place] [address] Performed By: #### 2 4323-8, 38367-9, 6-3 ####[facility] LABCLIA [id number] [address] [address] [place] AST [Catalytic activity/Vol] 16 U/L Normal 14-40 [facility] Comment on above: Order Comment: Speci men Type: BLOOD SPECIMENOrdering Facility: [facility] Address: [address] [place], [place] [address] Performed By: #### 2 4323-8, 79078-5, 3015-3 ####[facility] LABIA [id number] [address] [address] [place] Bilirubin [Mass/Vol] 0.5 mg/dL Normal 0.2-1.3 [facility] Comment on above: Order Comment: Speci men Type: BLOOD SPECIMENOrdering Facility: [facility] Address: [address] [place], [place] [address] Performed By: #### 2 4323-8, 98055-7, 3015-3 ####[facility] LABIA [id number] [address] [address] [place] Calcium [Mass/Vol] 9.1 mg/dL Normal 8.5-10.2 [facility] Comment on above: Order Comment: Speci men Type: BLOOD SPECIMENOrdering Facility: [facility] Address: [address] [place], [place] [address] Performed By: #### 2 4323-8, 98929-2, 3015-3 ####[facility] LABIA [id number] [address] [address] [place] Chloride [Moles/Vol] 104 mmol/L Normal 98-107 [facility] Comment on above: Order Comment: Speci men Type: BLOOD SPECIMENOrdering Facility: [facility] Address: [address] [place] [address] Performed By: #### 2 4323-8, 10175-9, 3015-3 ####[facility] LABCLIA [id number] [place] [address] [place] CO2 [Moles/Vol] 28 mmol/L Normal 22-30 [facility] Comment on above: Order Comment: Speci men Type: BLOOD SPECIMENOrdering Facility: [facility] Address: [address] [place] [address] Performed By: #### 2 4323-8, 64001-3, 3 ####[facility] LABIA [id number] [place] [address] [place] Creatinine [Mass/Vol] 0.68 mg/dL Low 0.73-1.22 [facility] Comment on above: Order Comment: Speci men Type: BLOOD SPECIMENOrdering Facility: [facility] Address: [address] [place] [address] Performed By: #### 2 4323-8, 78553-0, 3 ####[facility] LABIA [id number] [place] [address] [place] Creatinine and Glomerular filtration rate.predicted panel (S/P/Bld) 115 mL/min/1.73m??? Normal >=60 [facility] Comment on above: Order Comment: Speci men Type: BLOOD SPECIMENOrdering Facility: [facility] Address: [address] [place] [address] Result Comment: Tiffany mated Glomerular Filtration Rate (eGFR) is calculated using the 2020 CKD-EPI creatinine equation. This equation utilizes serum creatinine, sex, and age as parameters. The creatinine assay has traceable calibration to isotope dilution-mass spectrometry. Refer to KDIGO guidelines for clinical interpretation. In patients with unstable renal function, e.g. those with acute kidney injury, the eGFR may not accurately reflect actual GFR. Performed By: #### 2 4323-8, 17197-8, 3015-3 ####[facility] LABCLIA [id number] [address] [address] [place] Glucose [Mass/Vol] 219 mg/dL High 74-99 [facility] Comment on above: Order Comment: Speci men Type: BLOOD SPECIMENOrdering Facility: [facility] Address: [address] [place] [address] Result Comment: The [place] Diabetes Association (ADA) provides guidance for cutoff values for fasting glucose and random glucose. The ADA defines fasting as no caloric intake for at least 8 hours. Fasting plasma glucose results between 100 to 125 mg/dL indicate increased risk for diabetes (prediabetes). Fasting plasma glucose results greater than or equal to 126 mg/dL meet the criteria for diagnosis of diabetes. In the absence of unequivocal hyperglycemia, results should be confirmed by repeat testing. In a patient with classic symptoms of hyperglycemia or hyperglycemic crisis, random plasma glucose results greater than or equal to 200 mg/dL meet the criteria for diagnosis of diabetes. Reference: Standards of Medical Care in Diabetes 2016, [place] [employer] Association. Diabetes Care. 2016.39(Suppl 1). Performed By: #### 2 4323-8, 09561-1, 6-3 ####[facility] LABIA [id number] [place] [address] [place] Potassium [Moles/Vol] 3.9 mmol/L Normal 3.7-5.1 [facility] Comment on above: Order Comment: Ryanni men Type: BLOOD SPECIMENOrdering Facility: [facility] Address: [address] [place] [address] Performed By: #### 2 4323-8, 31652-9, 3015-3 ####[facility] LABIA [id number] [place] [address] [place] Protein [Mass/Vol] 7.1 g/dL Normal 6.3-8.0 [facility] Comment on above: Order Comment: Ryanni men Type: BLOOD SPECIMENOrdering Facility: [facility] Address: [address] [place], [place] [address] Performed By: #### 2 4323-8, 88078-7, 3016-3 ####[facility] LABIA [id number] [address] [address] [place] Sodium [Moles/Vol] 141 mmol/L Normal 136-144 [facility] Comment on above: Order Comment: Speci men Type: BLOOD SPECIMENOrdering Facility: [facility] Address: [address] [place] [address] Performed By: #### 2 4323-8, 72076-5, 3016-3 ####[facility] LABIA [id number] [address] [address] [place] Urea nitrogen [Mass/Vol] 10 mg/dL Normal 9-24 [facility] Comment on above: Order Comment: Speci men Type: BLOOD SPECIMENOrdering Facility: [facility] Address: [address] [place] [address] Performed By: #### 2 4323-8, 98646-3, 3016-3 ####[facility] LABIA [id number] [address] [address] [place] HbA1c (Bld)on 12-08-2024 Average glucose Estimated from glycated hemoglobin (Bld) [Mass/Vol] 137 mg/dL Normal [facility] Comment on above: Order Comment: Speci men Type: BLOOD SPECIMENOrdering Facility: [facility] Address: [address] [place] [address] Result Comment: eAG: (Estimated average glucose) is a calculated value from HgbA1c and is congressional representative of the average blood glucose level in the last 2-3 month period. Performed By: #### 5 5454-3 ####[facility] [id number] [address] [address] [place] HbA1c (Bld) [Mass fraction] 6.4 % High 4.3-5.6 [facility] Comment on above: Order Comment: Speci men Type: BLOOD SPECIMENOrdering Facility: [facility] Address: [address] [place] [address] Result Comment: [place] Diabetes Association guidelines indicate that patients with HgbA1c in the range 5.7-6.4% are at increased risk for development of diabetes, and intervention by lifestyle modification may be beneficial. HgbA1c greater or equal to 6.5% is considered diagnostic of diabetes. Performed By: #### 5 5454-3 ####[facility] LABCLIA [id number] [facility] [address] [address] [place] Lipid 1996 panelon 5 Cholesterol [Mass/Vol] 121 mg/dL Normal <200 [facility] Comment on above: Order Comment: Brittnee david Type: BLOOD SPECIMENOrdering Facility: [facility] Address: [address] [place] [address] Result Comment: <200 mg/dL, Desirable 200-239 mg/dL, Borderline high >239 mg/dL, High Performed By: #### 2 4323-8, 81657-8, 3016-3 ####[facility] LABCLIA [id number] [address] [place] [address] [place] Cholesterol in HDL [Mass/Vol] 33 mg/dL Low >39 [facility] Comment on above: Order Comment: Brittnee david Type: BLOOD SPECIMENOrdering Facility: [facility] Address: [address] [place] [address] Result Comment: 40-5 9 mg/dL, Acceptable >59 mg/dL, High: Negative risk factor for coronary heart disease <40 mg/dL, Low: Positive risk factor for coronary heart disease Performed By: #### 2 4323-8, 44373-7, 3016-3 ####[facility] LABCLIA [id number] [address] [place] [address] [facility] [place] Cholesterol in LDL [Mass/Vol] 66 mg/dL Normal <100 [facility] Comment on above: Order Comment: Brittnee david Type: BLOOD SPECIMENOrdering Facility: [facility] Address: [address] [place] [address] Result Comment: <100 mg/dL, Optimal 100-129 mg/dL, Near optimal/above optimal 130-159 mg/dL, Borderline high 160-189 mg/dL, High >189 mg/dL, Very high Secondary prevention optimal LDL Cholesterol levels are recommended to be < 70 mg/dL Performed By: #### 2 4323-8, 41783-6, 3016-3 ####[facility] LABCLIA [id number] [facility] [place] [id number] [address] [place] YESSICA Cholesterol in LDL/Cholesterol in HDL [Mass ratio] 2.00 {ratio} Normal <2.54 [facility] Comment on above: Order Comment: Speci men Type: BLOOD SPECIMENOrdering Facility: [facility] Address: [address] [place] [address] Result Comment: Refe vandana: 1. National Cholesterol Education Program ATP III Guideline At-A-Glance Quick Desk Reference: National Heart, Lung, and Blood [place]. National Institutes of Health. 2001: NIH Publication No. 01-3305. 2. An International Atherosclerosis Society position paper: global recommendations for the management of dyslipidemia: executive summary, Atherosclerosis. 2014: 232(2):410-413. Performed By: #### 2 4323-8, 25471-4, 6-3 ####[facility] LABCLIA [id number] [address] [address] [place] Cholesterol in VLDL [Mass/Vol] 22 mg/dL Normal <30 [facility] Comment on above: Order Comment: Speci men Type: BLOOD SPECIMENOrdering Facility: [facility] Address: [address] [place] [address] Performed By: #### 2 4323-8, 12432-2, 6-3 ####[facility] LABIA [id number] [facility] [place] [id number], [place] [address] [place] Cholesterol non HDL [Mass/Vol] 88 mg/dL Normal <130 [facility] Comment on above: Order Comment: Speci men Type: BLOOD SPECIMENOrdering Facility: [facility] Address: [address] [place] [address] Result Comment: <130 mg/dL, Optimal 130-159 mg/dL, Near optimal/above optimal 160-189 mg/dL, Borderline high 190-219 mg/dL, High >219 mg/dL, Very high Secondary prevention optimal non HDL Cholesterol levels are recommended to be <100 mg/dL Performed By: #### 2 4323-8, 38359-7, 3015-3 ####[facility] LABCLIA [id number] [facility] [id number], [place] [address] [place] Cholesterol.total /Cholesterol in HDL [Mass ratio] 3.67 {ratio} Normal <5.10 [facility] Comment on above: Order Comment: Speci men Type: BLOOD SPECIMENOrdering Facility: [facility] Address: [address] [place] [address] Performed By: #### 2 4323-8, 89662-2, 3015-11 ####[facility] LABCLIA [id number] [facility] [address] [place] [address] [place] FASTING TIME 12 hrs Normal [facility] Comment on above: Order Comment: Speci men Type: BLOOD SPECIMENOrdering Facility: [facility] Address: [address] [place], [place] [address] Performed By: #### 2 4323-8, , 3015-11 ####[facility] LABCLIA [id number] [facility] [address] [place] [address] [place] Triglyceride [Mass/Vol] 111 mg/dL Normal <150 [facility] Comment on above: Order Comment: Speci men Type: BLOOD SPECIMENOrdering Facility: [facility] Address: [address] [place] [id number] Result Comment: <150 mg/dL, Normal 150-199 mg/dL, Borderline high 200-499 mg/dL, High >499 mg/dL, Very high Performed By: #### 2 4323-8, 11448-1, 3015-11 ####[facility] LABCLIA [id number] [facility] [place] [id number], [place] [address] [place] TSH SerPl-aCncon 12-08-2024 TSH Qn 2.190 m[IU]/L Normal 0.270-4.200 [facility] Comment on above: Order Comment: Speci men Type: BLOOD SPECIMENOrdering Facility: [facility] Address: [address] [place] [address] Performed By: #### 2 4323-8, 57276-2, 3016-3 ####[facility] LABCLIA [id number] [place] [address] [place] C peptide SerPl-mCncon 06-14 C peptide [Mass/Vol] 7.4 ng/mL High 1.1-4.4 [facility] Comment on above: Order Comment: Brittnee david Type: BLOOD SPECIMENOrdering Facility: [facility] Address: [address] [place] [address] Performed By: #### 1 986-9 ####[facility] LABIA [id number] [place] [address] [place] HbA1c (Bld)on 06-14-2024 Average glucose Estimated from glycated hemoglobin (Bld) [Mass/Vol] 280 mg/dL Normal [facility] Comment on above: Order Comment: Brittnee men Type: BLOOD SPECIMENOrdering Facility: [facility] Address: [address] [place] [address] Result Comment: eAG: (Estimated average glucose) is a calculated value from HgbA1c and is congressional representative of the average blood glucose level in the last 2-3 month period. Performed By: #### 5 5454-3 ####[facility] LABIA [id number] [place] [address] [place] HbA1c (Bld) [Mass fraction] 11.4 % High 4.3-5.6 [facility] Comment on above: Order Comment: Brittnee joann Type: BLOOD SPECIMENOrdering Facility: [facility] Address: [address] [place] [address] Result Comment: Amer ican Diabetes Association guidelines indicate that patients with HgbA1c in the range 5.7-6.4% are at increased risk for development of diabetes, and intervention by lifestyle modification may be beneficial. HgbA1c greater or equal to 6.5% is considered diagnostic of diabetes. Performed By: #### 5 5454-3 ####[facility] LABCLIA [id number] [facility] [id number] [address] [place] Abdomen/Pelvis without Conto n 06-13-2024 Abdomen/Pelvis without Cont [facility] [address] [place] [address] Abdomen/Pelvis without Cont MR#: [id number] Acct: [id number] Name: MARCOS INFANTE Rep #: [id number] : 1975 M 48 From: Rd Mcdonald MD PCP: Dr. Sandi Bird MD Status: REG ER Study: Abdomen/Pelvis without Cont Date of Exam: 06/01 12/22 Exam# [id number] Ordering Dr: Greta De Leon DO [id number] EXAM: CT ABDOMEN AND PELVIS WITHOUT INTRAVENOUS CONTRAST CLINICAL INDICATION: Pain TECHNIQUE: Helically acquired images were obtained of the abdomen and pelvis without intravenous contrast. This CT exam was performed using one or more of the following dose reduction techniques: automated exposure control, adjustment of the mA and/or kV according to patient size, and/or use of iterative reconstruction technique. RADIATION DOSE: CTDIvol = 11.45 mGy, DLP = 643.57 mGy-cm COMPARISON: CT abdomen and pelvis 02/12/2016 FINDINGS: LOWER THORAX: Bibasilar dependent atelectasis. No cardiomegaly. No significant pericardial effusion. ABDOMEN: LIVER: Hepatomegaly. GALLBLADDER AND BILE DUCTS: Cholecystectomy. No intra- or extrahepatic biliary ductal dilation. PANCREAS: Unremarkable. No focal cystic mass. SPLEEN: Splenomegaly. ADRENALS: Unremarkable. No nodules. KIDNEYS AND URETERS: No ureteral stones or renal obstruction. Normal renal size and position. STOMACH AND BOWEL: Unremarkable. No stomach or bowel distention. No focal inflammatory change. PELVIS: APPENDIX: The appendix is normal. BLADDER: Unremarkable. REPRODUCTIVE: Unremarkable as visualized. No mass. ABDOMEN and PELVIS: INTRAPERITONEAL SPACE: Unremarkable. No ascites or other fluid collection. No free air. BONES/JOINTS: Degenerative changes of the spine. No suspicious lytic or blastic abnormality. SOFT TISSUES: Unremarkable. No discrete abdominal or pelvic wall hernia. VASCULATURE: Unremarkable. Abdominal aorta is non-dilated. LYMPH NODES: Multiple prominent inguinal lymph nodes bilaterally measuring up to 1 cm in short axis dimension. CT/Abdomen/Pelvis without Cont IMPRESSION: 1. No acute intra-abdominal abnormalities. 2. Multiple prominent inguinal lymph nodes bilaterally measuring up to 1 cm in short axis dimension. These may be reactive to an infectious/inflammatory process, but clinical follow-up is recommended to ensure resolution. Electronically Signed: Rd Mcdonald MD at 1:13 EDT , CC: Dr. 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, [address] CNOVon 06-13-2024 CNOV Office Visit (INTMWS ) MARCOS INFANTE ([id number]) 1975 M Date Time Provider Department 06/13/24 11:40 AM SANDI BIRD INTMWS During your visit today, we recorded the following information about you: Pulse Blood pressure Weight 58/minute 112/74 91.2 kg Sandi Bird MD 06/13/2024 1:06 PM Signed Reason for Visit Patient presents with: Pain: Buttocks, itchy, last night went to [facility] ER for left side pain. Marcos Infante is a 48 year old male who presents here today for Above Complaints. Health Maintenance Depression Screening Anxiety Screening Colorectal Cancer Screening Dilated Retinal Exam HPI Marcos is a very pleasant 48-year-old gentleman with a past medical history of diabetes mellitus type 2, unclear if he has turned into type 1, he current is on OHAs but blood sugars are not well controlled. , hyperlipidemia, hepatic steatosis, anxiety depression, vitamin D deficiency and reflux disease. Due to his current job where he has to be away 4 weeks and home only one week in 5 and hence unable to work towards his health needs as required. 06/13/24: patient noticed bumps in the the anal areas 10 days ago. They are very itchy, and burning, they burn if he sits for long time Been to the ER due to high blood sugar and pain in the left side , he was given IV fluids, insulin and toradol. And discharged. His sugars are very uncontrolled in the range of 3-4 100s. He has not given me the blood work that I have asked him to give. CT scan was done and there was multiple inguinal nodes on 1 cm bilaterally that was seen. Diabetes mellitus: We had placed him on GLP-1's because of his diabetes and to help him lose weight, he developed severe constipation. He did not have a bowel movement for 2 weeks. On looking at his medication list I think it was a combination of the Victoza with the colestipol which she was taking 3 pills daily 2 times a day that caused the constipation. He is still on his metformin as he stopped his Victoza his sugars were in the 300 range. 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 So he does not want to take semaglutide or any injectables if he can avoid that at least till this new job. Dermatitis. He has a lot of dermatitis in the hand after his scabies. His hands itch. He completed treatment for scabies and there is no burrows that he feels but just his hands and feet are peeling. l No problem-specific Assessment AND Plan notes found for this encounter. PAST MEDICAL HISTORY Diagnosis Date Acute cholecystitis Diabetes mellitus type 2 in obese 2011 Hypertriglyceridemia 12/2013 Low HDL (under 40) 12/2013 Poor dentition PAST SURGICAL HISTORY Procedure Laterality Date HERNIA REPAIR HX 1975 LAPS SURG CHOLECYSTECTOMY W/CHOLANGIOGRAPHY 10/17/13 FAMILY HISTORY Problem Relation Age of Onset Cancer Father COPD Mother Arthritis Mother Heart Maternal Grandmother Allergies Mother Social History Tobacco Use Smoking status: Never Smokeless tobacco: Never Vaping Use Vaping status: Never Used Substance Use Topics Alcohol use: No Drug use: No Past medical history, appointments, medications, allergies reviewed. Pertinent Lab/Diagnostic Studies are reviewed and discussed today Current Outpatient Medications: clobetasol (TEMOVATE) 0.05 % cream glipiZIDE (GLUCOTROL XL) 5 mg 24 hr tablet blood sugar diagnostic (BLOOD GLUCOSE TEST) test strip busPIRone (BUSPAR) 5 mg tablet metFORMIN ER (GLUCOPHAGE XR) 500 mg 24 hr tablet escitalopram oxalate (LEXAPRO) 20 mg tablet rosuvastatin (CRESTOR) 10 mg tablet Lancets lancets colestipol (COLESTID) 1 gram tablet omeprazole (PRILOSEC) 20 mg capsule Review of Systems CONSTITUTIONAL: No fevers, chills night sweats, unintended weight loss CARDIOVASCULAR: No chest pain, dyspnea, palpitations, orthopnea, PND, ankle edema. PULM: No dyspnea, unexplained cough. GI: No dysphagia/odynophagia, problematic reflux, constipation, diarrhea, changes in stool habits, hematochezia, melena. : No new urinary complaints, including dysuria, gross hematuria or pyuria. NEURO: No new balance problems, peripheral weakness/paresthesias or numbness of concern. Physical Exam BP 112/74 (BP Site: Right Arm) Pulse (!) 58 Wt 91.2 kg (201 lb 1 oz) SpO2 97% BMI 27.27 kg/m? General appearance: Well appearing, alert, in no acute distress, well nourished. Skin: Skin color, texture, turgor normal, no suspicious rashes or lesions Head: Normocephalic, no masses, lesions, tenderness or abnormalities Eyes: Anicteric sclera. Pupils are equally round and reactive to light. Extraocular movements are intact. Lungs: Lungs clear to auscultation. No wheezing, rhonchi, rales Heart: RRR without murmur, gallop, or rubs. Perianal exam: Patient has raised stuck on bumps which are around 0.8 cm in diameter. (more content not included)... Normal [facility] CNPNon 06-13-2024 SAVANAHN Telephone (INTMWS) MARCOS INFANTE ([id number]) 1975 M Date Time Provider Department 06/13/24 SANDI BIRD INTMWS During your visit today, we recorded the following information about you: Karen Watkins LPN 06/13/2024 1:36 PM Signed Called Patrick monsalve requesting a consults DERREK for patient, stated they could see him pretty quick, and would call to schedule appointment with patient. Faxed over GAVIN, Facesheet, and Consult order. Karen Watkins LPN June 13, 2024 1:35 PM Kaya Colorado APRN.CNP 06/13/2024 2:57 PM Signed Noted Kaya Colorado APRN.CNP Allergies As of Date: 06/13/2024 Noted Allergy Reaction HYDROCODONE 11/20/2013 8 - GI Upset Date Reviewed: 06/13/2024 Reviewed by: Karen Watkins LPN - Fully Assessed Reason for Visit: Consult [502] Cmt: Patrick monsalve Prescriptions as of 06/13/2024 - clobetasol (TEMOVATE) 0.05 % cream Apply to affected area two times a day. Apply 1 g application to affected area two times a day as needed - glipiZIDE (GLUCOTROL XL) 5 mg 24 hr tablet Take 1 tablet by mouth two times a day. - blood sugar diagnostic (BLOOD GLUCOSE TEST) test strip Test blood sugar(s) 1 times daily. Dx: Type 2 DM - Controlled E11.9 Insulin: No - busPIRone (BUSPAR) 5 mg tablet Take 1 tablet by mouth two times a day. - metFORMIN ER (GLUCOPHAGE XR) 500 mg 24 hr tablet Take 2 tablets by mouth two times a day with meals. - colestipol (COLESTID) 1 gram tablet Take 3 tablets by mouth two times a day. - escitalopram oxalate (LEXAPRO) 20 mg tablet Take 1 tablet by mouth once daily. - rosuvastatin (CRESTOR) 10 mg tablet Take 1 tablet by mouth daily at bedtime. - Lancets lancets Test blood sugar(s) 2-3 times daily and as needed. Dx: Type 2 DM - Controlled E11.9 Insulin: No - omeprazole (PRILOSEC) 20 mg capsule Take 1 capsule by mouth once daily. Problem List As Of Date 06/13/2024 Noted Resolved Cholelithiasis [K80.20] 10/23/2013 03/14/2016 Cholecystitis [K81.9] 10/23/2013 03/14/2016 Fracture of humerus, proximal, left, closed [S4*11/20/2013 03/14/2016 Insomnia [G47.00] 12/16/2013 Arm pain [M79.603] 01/12/2014 Closed fracture of unspecified part of upper en*01/12/2014 03/14/2016 Diabetes mellitus type 2, controlled, without c*10/14/2015 Low HDL (under 40) [E78.6] 12/30/2013 Hepatic steatosis [K76.0] 09/06/2021 Colitis [K52.9] 09/06/2021 Uncontrolled type 2 diabetes mellitus with hype*09/06/2021 Encounter Status:Closed by KAYA COLORADO on 06/13/24 Normal [facility] CBC W/Diff, Automatedon 06-01 Absolute Lymph 1.48 X10 3/uL Normal 0.83-4.51 [facility] Comment on above: Performed By: #### L 100.0100, L500.4050 #### [facility] [address] [place], [address] Absolute Neut 4.3 X10 3/uL Normal 2.0-7.7 [facility] Comment on above: Performed By: #### L 100.0100, L500.4050 #### [facility] [address] [place], [address] Basophils/100 WBC (Bld) 0.9 % Normal 0-1 [facility] Comment on above: Performed By: #### L 100.0100, L500.4050 #### [facility] [address] [place], [address] Eosinophils/100 WBC (Bld) 2.0 % Normal 0-5 [facility] Comment on above: Performed By: #### L 100.0100, L500.4050 #### [facility] [address] [place], [address] Erythrocyte distribution width (RBC) [Ratio] 14.1 % Normal 11.6-14.6 [facility] Comment on above: Performed By: #### L 100.0100, L500.4050 #### [facility] [address] [place], [address] Hematocrit (Bld) [Volume fraction] 39.2 % Low 40-54 [facility] Comment on above: Performed By: #### L 100.0100, L500.4050 #### [facility] [address] [place], [address] Hemoglobin (Bld) [Mass/Vol] 13.8 g/dL Normal 13.0-16.5 [facility] Comment on above: Performed By: #### L 100.0100, L500.4050 #### [facility] [address] [place], [address] IG% 0.300 Normal 0.0-0.9 [facility] Comment on above: Result Comment: IG% - Immature Granulocytes (promyelocytes, myelocytes and metamyelocytes) > 1% indicates that a LEFT SHIFT is Present. Performed By: #### L 100.0100, L500.4050 #### [facility] [address] [place], [address] Lymphocytes/100 WBC (Bld) 22.7 % Normal 19-41 [facility] Comment on above: Performed By: #### L 100.0100, L500.4050 #### [facility] [address] [place], [address] MCH (RBC) [Entitic mass] 29.9 pg Normal 27.0-32.0 [facility] Comment on above: Performed By: #### L 100.0100, L500.4050 #### [facility] [address] [place], [address] MCHC (RBC) [Mass/Vol] 35.2 g/dL Normal 32-36 [facility] Comment on above: Performed By: #### L 100.0100, L500.4050 #### [facility] [address] [place], [address] MCV (RBC) [Entitic vol] 84.8 fL Normal 80-94 [facility] Comment on above: Performed By: #### L 100.0100, L500.4050 #### [facility] [address] [place], [address] Monocytes/100 WBC (Bld) 8.0 % Normal 0-10 [facility] Comment on above: Performed By: #### L 100.0100, L500.4050 #### [facility] [address] [place], [address] Neutrophils/100 WBC (Bld) 66.1 % Normal 47-70 [facility] Comment on above: Performed By: #### L 100.0100, L500.4050 #### [facility] [address] [place], [address] Nucleated RBC (Bld) [#/Vol] 0 10*3/uL Normal 0-5 [facility] Comment on above: Performed By: #### L 100.0100, L500.4050 #### [facility] [address] [place], [address] Platelet mean volume (Bld) [Entitic vol] 9.2 fL Normal 6.2-12.0 [facility] Comment on above: Performed By: #### L 100.0100, L500.4050 #### [facility] [address] [place], [address] Platelets (Bld) [#/Vol] 200 10*3/uL Normal 150-450 [facility] Comment on above: Performed By: #### L 100.0100, L500.4050 #### [facility] [address] [place], [address] RBC (Bld) [#/Vol] 4.62 10*6/uL Normal 4.6-6.2 [facility] Comment on above: Performed By: #### L 100.0100, L500.4050 #### [facility] [address] [place], [address] RDW SD 43.4 fl Normal 35.1-43.9 [facility] Comment on above: Performed By: #### L 100.0100, L500.4050 #### [facility] [address] [place], [address] WBC (Bld) [#/Vol] 6.5 10*3/uL Normal 4.4-11.0 [facility] Comment on above: Performed By: #### L 100.0100, L500.4050 #### [facility] [address] [place], [address] Comprehensive Metabolic Prof ilon 06-12-2024 Albumin [Mass/Vol] 3.9 g/dL Normal 3.2-5.0 [facility] Comment on above: Performed By: #### L 100.0100, L500.4050 #### [facility] [address] [place], [address] Albumin/Globulin [Mass ratio] 0.9 {ratio} Normal 0.9-2.4 [facility] Comment on above: Performed By: #### L 100.0100, L500.4050 #### [facility] [address] [place], [address] ALK P 118 U/L High 45-117 [facility] Comment on above: Performed By: #### L 100.0100, L500.4050 #### [facility] [address] [place], [address] ALT [Catalytic activity/Vol] 19 U/L Normal 16-61 [facility] Comment on above: Performed By: #### L 100.0100, L500.4050 #### [facility] [address] [place], [address] AST [Catalytic activity/Vol] 14 U/L Low 15-37 [facility] Comment on above: Performed By: #### L 100.0100, L500.4050 #### [facility] [address] [place], [address] Bilirubin [Mass/Vol] 0.70 mg/dL Normal 0.20-1.00 [facility] Comment on above: Result Comment: For patients on eltrombopag therapy, use of Dimension [place] TBIL is not recommended. Performed By: #### L 100.0100, L500.4050 #### [facility] [address] [place], [address] BUN/CRE 12.9 RATIO Normal 10-20 [facility] Comment on above: Performed By: #### L 100.0100, L500.4050 #### [facility] [address] [place], [address] CA,Total 9.3 mg/dL Normal 8.5-10.1 [facility] Comment on above: Performed By: #### L 100.0100, L500.4050 #### [facility] [address] [place], [address] Chloride [Moles/Vol] 96 mmol/L Low 98-107 [facility] Comment on above: Performed By: #### L 100.0100, L500.4050 #### [facility] [address] [place], [address] CO2 [Moles/Vol] 27.0 mmol/L Normal 21.0-32.0 [facility] Comment on above: Performed By: #### L 100.0100, L500.4050 #### [facility] [address] [place], [address] Creatinine [Mass/Vol] 1.01 mg/dL Normal 0.70-1.30 [facility] Comment on above: Result Comment: The validity of the calculated GFR GFRAA in patients over 70 years has not been determined. Clinical correlation is essential. Performed By: #### L 100.0100, L500.4050 #### [facility] [address] [place], [address] ECRCL 102.18 ml/min Normal [facility] Comment on above: Performed By: #### L 100.0100, L500.4050 #### [facility] [address] [place], [address] EST GFR - AA 102 mL/min Normal >60 [facility] Comment on above: Result Comment: Afri can Sudanese GFR Calc Performed By: #### L 100.0100, L500.4050 #### [facility] [address] [place], [address] GAP 9 Normal 5-15 [facility] Comment on above: Performed By: #### L 100.0100, L500.4050 #### [facility] [address] [place], [address] GFR/1.73 sq M.predicted among non-blacks MDRD (S/P/Bld) [Vol rate/Area] 84 mL/min/{1.73_m2} Normal >60 [facility] Comment on above: Result Comment: Non- GFR Calc Performed By: #### L 100.0100, L500.4050 #### [facility] [address] [place], [address] Globulin (S) [Mass/Vol] 4.2 g/dL Normal 2.2-4.2 [facility] Comment on above: Performed By: #### L 100.0100, L500.4050 #### [facility] [address] [place], [address] Glucose [Mass/Vol] 454 mg/dL Invalid Interpretation Code 74-106 [facility] Comment on above: Result Comment: Crit ical Result(s) Called at: 23:53:38 06/12/2024 by: UMER JOHNSON TO YIN LORD . Results read back by same. Glucose result greater than or equal to 200 mg/dL suggests DIABETES MELLITUS per A.D.A. criteria. Performed By: #### L 100.0100, L500.4050 #### [facility] [address] [place], [address] Potassium [Moles/Vol] 3.6 mmol/L Normal 3.5-5.1 [facility] Comment on above: Performed By: #### L 100.0100, L500.4050 #### [facility] [address] [place], [address] Sodium [Moles/Vol] 132 mmol/L Low 136-145 [facility] Comment on above: Performed By: #### L 100.0100, L500.4050 #### [facility] [address] [place], [address] T PROT 8.1 g/dL Normal 6.4-8.2 [facility] Comment on above: Performed By: #### L 100.0100, L500.4050 #### [facility] [address] [place], [address] Urea nitrogen [Mass/Vol] 13 mg/dL Normal 7-18 [facility] Comment on above: Performed By: #### L 100.0100, L500.4050 #### [facility] [address] [place], [address] Emergency Department Summary on 06-12-2024 Emergency Department Summary [facility] Medical Records Department [address] [place] [address] Emergency Department Summary 06/12/24 MR#: [id number] Acct: [id number] Name: MARCOS INFANTE Rep #: [id number] : 1975 48 From: Greta De Leon DO PCP: Dr. Sandi Bird MD Status:DEP ER Location: ED HPI History of Present Illness Chief Complaint: Flank Pain Informant: patient Narrative Narrative: Patient is a 48-year-old male with history of rgc-fhhajxu-unmkkifrz type 2 diabetes mellitus, prior cholecystectomy, GERD, anxiety and depression and reports a history of passing a kidney stone. He is presenting today for high blood sugars for the past month. He states it was 323 today. He notes the past week his urine smelled like rotten eggs. Over the past day she is also developed some left flank pain. He states the pain is intermittent and worse with movement and then radiates to his back. He denies any dysuria, hematuria. He reports a low-grade temperature of 99.8 and some chills. Denies any recent change in his bowel movements. Notes he was having issues with diarrhea however because of his diabetic medications as well as having his gallbladder removed. No nausea vomiting reported. Denies any chest pain or difficulty breathing. No other complaints or concerns reported at this time. 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 [facility] Medical History Diabetes mellitus type 2 in obese Obesity, mild Dyslipidemia GERD (gastroesophageal reflux disease) Atypical chest pain Diabetes mellitus Home Medications ???Medication ???Instructions ???Recorded ???Last Taken ???Type omeprazole 20 mg capsule,delayed 20 mg PO DAILY 12/15/20 Unknown History release cholecalciferol (vitamin D3) 1,250 1,000 mcg PO WE 02/06/21 Unknown History mcg (50,000 unit) capsule dulaglutide 0.75 mg/0.5 mL 0.75 mg subcut QWEEK 01/16/22 Unknown History subcutaneous pen injector (Trulicity) clindamycin HCl 150 mg capsule 450 mg (3 x 150 mg) PO TID 7 days 03/26/22 Unknown Rx #63 caps colestipol 1 gram tablet 3 tab PO TID 03/26/22 Unknown History escitalopram oxalate 20 mg tablet 1 tab PO DAILY 03/26/22 Unknown History rosuvastatin 10 mg tablet 1 tab PO QHS 03/26/22 Unknown History Allergy/AdvReac Type Severity Reaction Status Date / Time hydrocodone AdvReac Nausea/Vom/ Verified 06/12/24 22:28 Diarrhea Family History Father Cancer Lung Surgical History History of esophagogastroduodenoscopy (EGD) S/P tonsillectomy S/P hernia repair S/P cholecystectomy Social History Smoking Status: Never smoker second hand exposure: No alcohol intake: never substance use type: does not use caffeine: Yes what type of physical activity do you participate in: none frequency: does not exercise seatbelt use: always ROS ROS ED Constitutional Constitutional ED: Reports chills and fever(s) ENT ENT ED: Denies sore throat Cardiovascular Cardiovascular: Denies chest pain Respiratory/Chest Respiratory/Chest: Denies cough Gastrointestinal Gastrointestinal: Reports abdominal pain; Denies nausea or vomiting Genitourinary Genitourinary ED: Reports other Details: Reports odor to his urine ; Denies dysuria, hematuria or urinary frequency Musculoskeletal Musculoskeletal: Reports back pain Integumentary Denies rash Neurologic Neurologic: Denies headache(s) EXAM Physical Exam Const Vital Signs: 06/12/24 22:04 06/12/24 22:21 06/13/24 00:03 Temperature 97.9 F Temperature Source Temporal Pulse Rate 106 H 95 Respiratory Rate 18 18 Respiratory Effort Normal Respiratory Pattern Normal Blood Pressure 141/105 H 123/90 H Blood Pressure Mean 117 101 Pulse Ox 95 97 Oxygen Delivery Method Room Air Room Air 06/13/24 02:00 Temperature Temperature Source Pulse Rate 77 Respiratory Rate 18 Respiratory Effort Respiratory Pattern Blood Pressure 131/80 H Blood Pressure Mean 97 Pulse Ox 97 Oxygen Delivery Method Room Air Positive well nourished and well developed General Appearance ED: well developed and NAD HEENT Reports dry mucous membranes Mouth ED: Yes dry mucous membranes Mouth: dry mucous membranes Eyes PERRL Neck supple Chest Wall inspection of chest normal and palpation of chest normal Resp normal respiratory effort and clear to auscultation bilaterally Cardio regular rate and regular rhythm GI normal to inspection, nondistended, normoactive bowel sounds GI Narrative: Mild tenderness to palpation in the left upper quadrant (more content not included)... Normal [facility] Urinalysis, Completeon 06-12 AMORPHOUS 1+ URATE Normal [facility] Comment on above: Order Comment: CLEAN CATCH Performed By: #### L 400.0001 #### [facility] [address] [place] [address] EPI,SQUAMOUS 0-5 SEEN Normal 0-5 [facility] Comment on above: Order Comment: CLEAN CATCH Performed By: #### L 400.0001 #### [facility] [address] [place], [address] BACTERIA 0 SEEN Normal None Seen [facility] Comment on above: Order Comment: CLEAN CATCH Performed By: #### L 400.0001 #### [facility] [address] [facility] [address] Mucus Ql (Urine sed) 0 SEEN Normal [facility] Comment on above: Order Comment: CLEAN CATCH Performed By: #### L 400.0001 #### [facility] [address] [place], [address] RBC 0 SEEN Normal 0-5 [facility] Comment on above: Order Comment: CLEAN CATCH Performed By: #### L 400.0001 #### [facility] [address] [facility] [address] WBC 0 SEEN Normal 0-5 [facility] Comment on above: Order Comment: CLEAN CATCH Performed By: #### L 400.0001 #### [facility] [address], [address] CNPNess [facility] MARCOS INFANTE ([id number]) 1975 M Date Time Provider Department 05/12/24 [facility] During your visit today, we recorded the following information about you: Fabiola Garza LPN 05/12/2024 9:35 AM Signed Lynne with [facility] calls to request provider review directions for rx for clobetasol 0.05% cream. Lynne reports for insurance purposes the directions needs to say how many grams is to be applied at a time. Also it says for vaginal irritation, Lynne is requesting this to be taken out of the rx since it does not apply to pt. Please review. Resend rx to pharmacy. Fabiola Garza LPN Allergies As of Date: 05/12/2024 Noted Allergy Reaction HYDROCODONE 11/20/2013 8 - GI Upset Date Reviewed: 05/09/2024 Reviewed by: Zenaida Ramos MA - Fully Assessed Reason for Visit: Medication Problem [65] Prescriptions as of 06/30/2024 - insulin glargine (LANTUS SOLOSTAR U-100 INSULIN) 100 unit/mL (3 mL) Inject 10 Units subcutaneously daily at bedtime. - clobetasol (TEMOVATE) 0.05 % cream Apply to affected area two times a day. Apply 1 g application to affected area two times a day as needed - glipiZIDE (GLUCOTROL XL) 5 mg 24 hr tablet Take 1 tablet by mouth two times a day. - blood sugar diagnostic (BLOOD GLUCOSE TEST) test strip Test blood sugar(s) 1 times daily. Dx: Type 2 DM - Controlled E11.9 Insulin: No - busPIRone (BUSPAR) 5 mg tablet Take 1 tablet by mouth two times a day. - metFORMIN ER (GLUCOPHAGE XR) 500 mg 24 hr tablet Take 2 tablets by mouth two times a day with meals. - colestipol (COLESTID) 1 gram tablet Take 3 tablets by mouth two times a day. - escitalopram oxalate (LEXAPRO) 20 mg tablet Take 1 tablet by mouth once daily. - rosuvastatin (CRESTOR) 10 mg tablet Take 1 tablet by mouth daily at bedtime. - Lancets lancets Test blood sugar(s) 2-3 times daily and as needed. Dx: Type 2 DM - Controlled E11.9 Insulin: No - omeprazole (PRILOSEC) 20 mg capsule Take 1 capsule by mouth once daily. Problem List As Of Date 05/12/2024 Noted Resolved Cholelithiasis [K80.20] 10/23/2013 03/14/2016 Cholecystitis [K81.9] 10/23/2013 03/14/2016 Fracture of humerus, proximal, left, closed [S4*11/20/2013 03/14/2016 Insomnia [G47.00] 12/16/2013 Arm pain [M79.603] 01/12/2014 Closed fracture of unspecified part of upper en*01/12/2014 03/14/2016 Diabetes mellitus type 2, controlled, without c*10/14/2015 Low HDL (under 40) [E78.6] 12/30/2013 Hepatic steatosis [K76.0] 09/06/2021 Colitis [K52.9] 09/06/2021 Uncontrolled type 2 diabetes mellitus with hype*09/06/2021 Encounter Status:Closed by FABIOLA GARZA on 06/30/24 [facility] Telephone (INTMWS) INFANTE,MARCOS M ([id number]) 1975 M Date Time Provider Department 05/12/24 SANDI BIRDWS During your visit today, we recorded the following information about you: Lulú Canseco LPN 05/12/2024 9:34 AM Signed Patient calling at his appt on 05/09/2024, was prescribed cream for his hands? But pharmacy would not fill rx that was sent to them, since it was vaginal cream. Patient asking thought he was to get steroid cream for his hands? [facility]. Please advise Sandi Bird MD 05/12/2024 4:46 PM Signed Apologies, Sending the right clobetasol Regards, Ally Pinzon MD, LPN 05/12/2024 5:16 PM Signed Lynne from [facility] called back AND stated the Rx was put in the same as the previous one. It needs to specify amount of grams per application. And it also says for vaginal irritation. Please change order. MATTY Messina Rachel L, MA 05/13/2024 8:12 AM Signed New order pended, please review and file if agreeable. Hilaria Camacho MA Allergies As of Date: 05/12/2024 Noted Allergy Reaction HYDROCODONE 11/20/2013 8 - GI Upset Date Reviewed: 05/09/2024 Reviewed by: Zenaida Ramos MA - Fully Assessed Reason for Visit: Medication Question [9978] Order(s):clobetasol (TEMOVATE) 0.05 % creamApply to affected area two times a day. Apply 1 g application to affected area two times a day as neededDisp: 30 gRfl: 5 Prescriptions as of 05/13/2024 - clobetasol (TEMOVATE) 0.05 % cream Apply to affected area two times a day. Apply 1 g application to affected area two times a day as needed - glipiZIDE (GLUCOTROL XL) 5 mg 24 hr tablet Take 1 tablet by mouth two times a day. - blood sugar diagnostic (BLOOD GLUCOSE TEST) test strip Test blood sugar(s) 1 times daily. Dx: Type 2 DM - Controlled E11.9 Insulin: No - busPIRone (BUSPAR) 5 mg tablet Take 1 tablet by mouth two times a day. - metFORMIN ER (GLUCOPHAGE XR) 500 mg 24 hr tablet Take 2 tablets by mouth two times a day with meals. - colestipol (COLESTID) 1 gram tablet Take 3 tablets by mouth two times a day. - escitalopram oxalate (LEXAPRO) 20 mg tablet Take 1 tablet by mouth once daily. - rosuvastatin (CRESTOR) 10 mg tablet Take 1 tablet by mouth daily at bedtime. - Lancets lancets Test blood sugar(s) 2-3 times daily and as needed. Dx: Type 2 DM - Controlled E11.9 Insulin: No - omeprazole (PRILOSEC) 20 mg capsule Take 1 capsule by mouth once daily. Problem List As Of Date 05/12/2024 Noted Resolved Cholelithiasis [K80.20] 10/23/2013 03/14/2016 Cholecystitis [K81.9] 10/23/2013 03/14/2016 Fracture of humerus, proximal, left, closed [S4*11/20/2013 03/14/2016 Insomnia [G47.00] 12/16/2013 Arm pain [M79.603] 01/12/2014 Closed fracture of unspecified part of upper en*01/12/2014 03/14/2016 Diabetes mellitus type 2, controlled, without c*10/14/2015 Low HDL (under 40) [E78.6] 12/30/2013 Hepatic steatosis [K76.0] 09/06/2021 Colitis [K52.9] 09/06/2021 Uncontrolled type 2 diabetes mellitus with hype*09/06/2021 Prescriptions ordered this encounter Disp Refills Start End CLOBETASOL 0.05 % TOPICAL CREAM 30 g 5 05/12/2024 05/13/2024 Route: TOPICAL Sig: Apply 1 application to affected area two times a day as needed (Vaginal Irritation - (Use no more than 2 weeks)). Apply at sparingly to perineum up to twice daily for no more than 2 weeks CLOBETASOL 0.05 % TOPICAL CREAM 30 g 5 05/13/2024 Route: TOPICAL Sig: Apply to affected area two times a day. Apply 1 g application to affected area two times a day as needed Medications Discontinued During This Encounter Prescriptions - clobetasol (TEMOVATE) 0.05 % cream (Discontinued) Apply 1 application to affected area two times a day as needed (Vaginal Irritation - (Use no more than 2 weeks)). Apply at sparingly to perineum up to twice daily for no more than 2 weeks - clobetasol (TEMOVATE) 0.05 % cream (Discontinued) Apply 1 application to affected area two times a day as needed (Vaginal Irritation - (Use no more than 2 weeks)). Apply at sparingly to perineum up to twice daily for no more than 2 weeks Encounter Status:Closed by KAYA COLORADO on 05/13/24 Normal [facility] CBC W Auto Differential pane l (Bld)on 05-09-2024 Basophils (Bld) [#/Vol] 0.05 10*3/uL Normal <0.11 [facility] Comment on above: Order Comment: Speci men Type: BLOOD SPECIMENOrdering Facility: [facility] Address: [address] [place] [address] Performed By: #### 5 7021-8 ####[facility] LABCLIA [id number] [place] [address] [place] Basophils/100 WBC (Bld) 0.9 % Normal [facility] Comment on above: Order Comment: Speci men Type: BLOOD SPECIMENOrdering Facility: [facility] Address: [address] [place] [address] Performed By: #### 5 7021-8 ####[facility] LABCLIA [id number] [place] [address] [place] Differential cell count method Nom (Bld) Auto Normal [facility] Comment on above: Order Comment: Speci men Type: BLOOD SPECIMENOrdering Facility: [facility] Address: [address] [place] [address] Performed By: #### 5 7021-8 ####[facility] LABCLIA [id number] [place] [address] [place] Eosinophils (Bld) [#/Vol] 0.08 10*3/uL Normal <0.46 [facility] Comment on above: Order Comment: Speci men Type: BLOOD SPECIMENOrdering Facility: [facility] Address: [address] [place] [address] Performed By: #### 5 7021-8 ####[facility] LABCLIA [id number] [place] [address] [place] Eosinophils/100 WBC (Bld) 1.4 % Normal [facility] Comment on above: Order Comment: Speci men Type: BLOOD SPECIMENOrdering Facility: [facility] Address: [address] [place] [address] Performed By: #### 5 7021-8 ####[facility] LABIA [id number] [place] [address] [place] Erythrocyte distribution width (RBC) [Ratio] 14.0 % Normal 11.5-15.0 [facility] Comment on above: Order Comment: Speci men Type: BLOOD SPECIMENOrdering Facility: [facility] Address: [address] [place] [address] Performed By: #### 5 7021-8 ####[facility] LABIA [id number] [place] [address] [place] Hematocrit (Bld) [Volume fraction] 41.6 % Normal 39.0-51.0 [facility] Comment on above: Order Comment: Speci men Type: BLOOD SPECIMENOrdering Facility: [facility] Address: [address] [place] [address] Performed By: #### 5 7021-8 ####[facility] LABIA [id number] [place] [address] [place] Hemoglobin (Bld) [Mass/Vol] 14.6 g/dL Normal 13.0-17.0 [facility] Comment on above: Order Comment: Speci men Type: BLOOD SPECIMENOrdering Facility: [facility] Address: [address] [place] [address] Performed By: #### 5 7021-8 ####[facility] LABCLIA [id number] [place] [address] [place] Immature granulocytes (Bld) [#/Vol] 10*3/uL Normal <0.10 [facility] Comment on above: Order Comment: Speci men Type: BLOOD SPECIMENOrdering Facility: [facility] Address: [address] [place] [address] Performed By: #### 5 7021-8 ####[facility] LABCLIA [id number] [place] [address] [place] Immature granulocytes/100 WBC (Bld) 0.4 % Normal [facility] Comment on above: Order Comment: Speci men Type: BLOOD SPECIMENOrdering Facility: [facility] Address: [address] [place] [address] Performed By: #### 5 7021-8 ####[facility] LABCLIA [id number] [place] [address] [place] Lymphocytes (Bld) [#/Vol] 1.14 10*3/uL Normal 1.00-4.00 [facility] Comment on above: Order Comment: Speci men Type: BLOOD SPECIMENOrdering Facility: [facility] Address: [address] [place] [address] Performed By: #### 5 7021-8 ####[facility] LABCLIA [id number] [place] [address] [place] Lymphocytes/100 WBC (Bld) 20.4 % Normal [facility] Comment on above: Order Comment: Speci men Type: BLOOD SPECIMENOrdering Facility: [facility] Address: [address] [place] [address] Performed By: #### 5 7021-8 ####[facility] LABCLIA [id number] [place] [address] [place] MCH (RBC) [Entitic mass] 29.7 pg Normal 26.0-34.0 [facility] Comment on above: Order Comment: Speci men Type: BLOOD SPECIMENOrdering Facility: [facility] Address: [address] [place] [address] Performed By: #### 5 7021-8 ####[facility] LABIA [id number] [place] [address] [place] MCHC (RBC) [Mass/Vol] 35.1 g/dL Normal 30.5-36.0 [facility] Comment on above: Order Comment: Speci men Type: BLOOD SPECIMENOrdering Facility: [facility] Address: [address] [place] [address] Performed By: #### 5 7021-8 ####[facility] [id number] [place] [address] [place] MCV (RBC) [Entitic vol] 84.6 fL Normal 80.0-100.0 [facility] Comment on above: Order Comment: Speci men Type: BLOOD SPECIMENOrdering Facility: [facility] Address: [address] [place] [address] Performed By: #### 5 7021-8 ####[facility] LABIA [id number] [place] [address] [place] Monocytes (Bld) [#/Vol] 0.47 10*3/uL Normal <0.87 [facility] Comment on above: Order Comment: Speci men Type: BLOOD SPECIMENOrdering Facility: [facility] Address: [address] [place] [address] Performed By: #### 5 7021-8 ####[facility] LABIA [id number] [place] [address] [place] Monocytes/100 WBC (Bld) 8.4 % Normal [facility] Comment on above: Order Comment: Speci men Type: BLOOD SPECIMENOrdering Facility: [facility] Address: [address] [place] [address] Performed By: #### 5 7021-8 ####[facility] LABCLIA [id number] [place] [address] [place] Neutrophils (Bld) [#/Vol] 3.84 10*3/uL Normal 1.45-7.50 [facility] Comment on above: Order Comment: Speci men Type: BLOOD SPECIMENOrdering Facility: [facility] Address: [address] [place] [address] Performed By: #### 5 7021-8 ####[facility] LABCLIA [id number] [place] [address] [place] Neutrophils/100 WBC (Bld) 68.5 % Normal [facility] Comment on above: Order Comment: Speci men Type: BLOOD SPECIMENOrdering Facility: [facility] Address: [address] [place] [address] Performed By: #### 5 7021-8 ####[facility] LABCLIA [id number] [place] [address] [place] Nucleated RBC (Bld) [#/Vol] 10*3/uL Normal <0.01 [facility] Comment on above: Order Comment: Speci men Type: BLOOD SPECIMENOrdering Facility: [facility] Address: [address] [place] [address] Performed By: #### 5 7021-8 ####[facility] LABCLIA [id number] [place] [address] [place] Nucleated RBC/100 WBC (Bld) [Ratio] 0.0 /100 WBC Normal [facility] Comment on above: Order Comment: Speci men Type: BLOOD SPECIMENOrdering Facility: [facility] Address: [address] [place] [address] Performed By: #### 5 7021-8 ####[facility] LABCLIA [id number] [place] [address] [place] Platelet mean volume (Bld) [Entitic vol] 10.6 fL Normal 9.0-12.7 [facility] Comment on above: Order Comment: Speci men Type: BLOOD SPECIMENOrdering Facility: [facility] Address: [address] [place] [address] Performed By: #### 5 7021-8 ####[facility] LABIA [id number] [place] [address] [place] Platelets (Bld) [#/Vol] 192 10*3/uL Normal 150-400 [facility] Comment on above: Order Comment: Speci men Type: BLOOD SPECIMENOrdering Facility: [facility] Address: [address] [place] [address] Performed By: #### 5 7021-8 ####[facility] LABIA [id number] [place] [address] [place] RBC (Bld) [#/Vol] 4.92 10*6/uL Normal 4.20-6.00 [facility] Comment on above: Order Comment: Speci men Type: BLOOD SPECIMENOrdering Facility: [facility] Address: [address] [place] [address] Performed By: #### 5 7021-8 ####[facility] LABIA [id number] [place] [address] [place] WBC (Bld) [#/Vol] 5.60 10*3/uL Normal 3.70-11.00 [facility] Comment on above: Order Comment: Speci men Type: BLOOD SPECIMENOrdering Facility: [facility] Address: [address] [place] [address] Performed By: #### 5 7021-8 ####[facility] LABIA [id number] [place] [address] [place] CNOVon 05-09-2024 CNOV Office Visit (INTMWS ) MARCOS INFANTE ([id number]) 1975 M Date Time Provider Department 05/09/24 4:00 PM SANDI BIRD INTMWS During your visit today, we recorded the following information about you: Pulse Respiration Blood pressure Weight 94/minute 16/minute 118/82 89.6 kg Sandi Bird MD 05/12/2024 5:02 PM Signed Reason for Visit Patient presents with: Diabetes: Follow up, discuss medications, dry skin on hands and feet, reports he had scabies x 1 month ago Marcos Infante is a 48 year old male who presents here today for Above Complaints. Health Maintenance Depression Screening Anxiety Screening Colorectal Cancer Screening Dilated Retinal Exam HPI Marcos is a very pleasant 48-year-old gentleman with a past medical history of diabetes mellitus type 2 on GLP-1's but had some complications using them, hyperlipidemia, hepatic steatosis, anxiety depression, vitamin D deficiency and reflux disease. Diabetes mellitus: We had placed him on GLP-1's because of his diabetes and to help him lose weight, he developed severe constipation. He did not have a bowel movement for 2 weeks. On looking at his medication list I think it was a combination of the Victoza with the colestipol which she was taking 3 pills daily 2 times a day that caused the constipation. He is still on his metformin as he stopped his Victoza his sugars were in the 300 range. 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 So he does not want to take semaglutide or any injectables if he can avoid that at least till this new job. Dermatitis. He has a lot of dermatitis in the hand after his scabies. His hands itch. He completed treatment for scabies and there is no burrows that he feels but just his hands and feet are peeling No problem-specific Assessment AND Plan notes found for this encounter. PAST MEDICAL HISTORY No date: Acute cholecystitis 2011: Diabetes mellitus type 2 in obese 12/2013: Hypertriglyceridemia 12/2013: Low HDL (under 40) No date: Poor dentition PAST SURGICAL HISTORY 1976: HERNIA REPAIR HX 10/17/13: LAPS SURG CHOLECYSTECTOMY W/CHOLANGIOGRAPHY FAMILY HISTORY Problem Relation Age of Onset Cancer Father COPD Mother Arthritis Mother Heart Maternal Grandmother Allergies Mother Social History Tobacco Use Smoking status: Never Smokeless tobacco: Never Vaping Use Vaping Use: Never used Substance Use Topics Alcohol use: No Drug use: No Past medical history, appointments, medications, allergies reviewed. Pertinent Lab/Diagnostic Studies are reviewed and discussed today Current Outpatient Medications: busPIRone (BUSPAR) 5 mg tablet metFORMIN ER (GLUCOPHAGE XR) 500 mg 24 hr tablet colestipol (COLESTID) 1 gram tablet escitalopram oxalate (LEXAPRO) 20 mg tablet rosuvastatin (CRESTOR) 10 mg tablet Lancets lancets omeprazole (PRILOSEC) 20 mg capsule glipiZIDE (GLUCOTROL XL) 5 mg 24 hr tablet blood sugar diagnostic (BLOOD GLUCOSE TEST) test strip clobetasol (TEMOVATE) 0.05 % cream Insulin Putney, Disposable, (BD ULTRA-FINE BRIJESH PEN NEEDLE) 32 gauge x 5/32 Ciclopirox (LOPROX) 8 % solution cholecalciferol, Vitamin D3, (VITAMIN D3) 1,250 mcg (50,000 unit) cap capsule Review of Systems CONSTITUTIONAL: No fevers, chills night sweats, unintended weight loss CARDIOVASCULAR: No chest pain, dyspnea, palpitations, orthopnea, PND, ankle edema. PULM: No dyspnea, unexplained cough. GI: No dysphagia/odynophagia, problematic reflux, constipation, diarrhea, changes in stool habits, hematochezia, melena. : No new urinary complaints, including dysuria, gross hematuria or pyuria. NEURO: No new balance problems, peripheral weakness/paresthesias or numbness of concern. Physical Exam BP 118/82 (BP Site: Left Arm, BP Position: Sitting, BP Cuff Size: Regular Adult) Pulse 94 Resp 16 Wt 89.6 kg (197 lb 9.6 oz) SpO2 97% BMI 26.80 kg/m? General appearance: Well appearing, alert, in no acute distress, well nourished. Skin: Skin color, texture, turgor normal, no suspicious rashes or lesions Head: Normocephalic, no masses, lesions, tenderness or abnormalities Eyes: Anicteric sclera. Pupils are equally round and reactive to light. Extraocular movements are intact. Lungs: Lungs clear to auscultation. No wheezing, rhonchi, rales Heart: RRR without murmur, gallop, or rubs. Extremities: Peeling skin in the hands and legs. ASSESSMENT/PLAN: 1. Controlled type 2 diabetes mellitus without complication, without long-term current use of insulin ([facility]) - ICD9: 250.00, ICD10: E11.9 (primary diagnosis) I asked him to start taking the glipizide 5 mg 1 tablet in the morning and then 1 in the afternoon after a few days to make it a total of 2 tablets. After a week so that his blood does not crash all of a sudden. As it has been high over the past few days. - GLI (more content not included)... Normal [facility] Comprehensive metabolic 2000 panelon 05-09-2024 Albumin [Mass/Vol] 4.2 g/dL Normal 3.9-4.9 [facility] Comment on above: Order Comment: Speci men Type: BLOOD SPECIMENOrdering Facility: [facility] Address: [address] [place] [address] Performed By: #### 2 4323-8 ####[facility] LABCLIA [id number] [place] [address] [place] ALP [Catalytic activity/Vol] 159 U/L High 38-113 [facility] Comment on above: Order Comment: Speci men Type: BLOOD SPECIMENOrdering Facility: [facility] Address: [address] [place] [address] Performed By: #### 2 4323-8 ####[facility] LABCLIA [id number] [place] [address] [place] ALT [Catalytic activity/Vol] 10 U/L Normal 10-54 [facility] Comment on above: Order Comment: Speci men Type: BLOOD SPECIMENOrdering Facility: [facility] Address: [address] [place] [address] Performed By: #### 2 4323-8 ####[facility] LABCLIA [id number] [place] [address] [place] Anion gap [Moles/Vol] 14 mmol/L Normal 8-15 [facility] Comment on above: Order Comment: Speci men Type: BLOOD SPECIMENOrdering Facility: [facility] Address: [address] [place] [address] Performed By: #### 2 4323-8 ####[facility] LABCLIA [id number] [place] [address] [place] AST [Catalytic activity/Vol] 13 U/L Low 14-40 [facility] Comment on above: Order Comment: Speci men Type: BLOOD SPECIMENOrdering Facility: [facility] Address: [address] [place] [address] Performed By: #### 2 4323-8 ####[facility] LABCLIA [id number] [place] [address] [place] Bilirubin [Mass/Vol] 0.9 mg/dL Normal 0.2-1.3 [facility] Comment on above: Order Comment: Speci men Type: BLOOD SPECIMENOrdering Facility: [facility] Address: [address] [place] [address] Performed By: #### 2 4323-8 ####[facility] LABCLIA [id number] [place] [address] [place] Calcium [Mass/Vol] 9.7 mg/dL Normal 8.5-10.2 [facility] Comment on above: Order Comment: Speci men Type: BLOOD SPECIMENOrdering Facility: [facility] Address: [address] [place] [address] Performed By: #### 2 4323-8 ####[facility] LABCLIA [id number] [place] [address] [place] Chloride [Moles/Vol] 99 mmol/L Normal 98-107 [facility] Comment on above: Order Comment: Speci men Type: BLOOD SPECIMENOrdering Facility: [facility] Address: [address] [place] [address] Performed By: #### 2 4323-8 ####[facility] LABCLIA [id number] [place] [address] [place] CO2 [Moles/Vol] 24 mmol/L Normal 22-30 [facility] Comment on above: Order Comment: Speci men Type: BLOOD SPECIMENOrdering Facility: [facility] Address: [address] [place] [address] Performed By: #### 2 4323-8 ####[facility] LABCLIA [id number] [place] [address] [place] Creatinine [Mass/Vol] 0.64 mg/dL Low 0.73-1.22 [facility] Comment on above: Order Comment: Speci men Type: BLOOD SPECIMENOrdering Facility: [facility] Address: [address] [place] [address] Performed By: #### 2 4323-8 ####[facility] LABIA [id number] [place] [address] [place] Creatinine and Glomerular filtration rate.predicted panel (S/P/Bld) 118 mL/min/1.73m??? Normal >=60 [facility] Comment on above: Order Comment: Speci men Type: BLOOD SPECIMENOrdering Facility: [facility] Address: [address] [place] [address] Result Comment: Tiffany mated Glomerular Filtration Rate (eGFR) is calculated using the 2020 CKD-EPI creatinine equation. This equation utilizes serum creatinine, sex, and age as parameters. The creatinine assay has traceable calibration to isotope dilution-mass spectrometry. Refer to KDIGO guidelines for clinical interpretation. In patients with unstable renal function, e.g. those with acute kidney injury, the eGFR may not accurately reflect actual GFR. Performed By: #### 2 4323-8 ####[facility] LABCLIA [id number] [place] [address] [place] Glucose [Mass/Vol] 332 mg/dL High 74-99 [facility] Comment on above: Order Comment: Speci men Type: BLOOD SPECIMENOrdering Facility: [facility] Address: [address] [place] [address] Result Comment: The [place] [employer] (ADA) provides guidance for cutoff values for fasting glucose and random glucose. The ADA defines fasting as no caloric intake for at least 8 hours. Fasting plasma glucose results between 100 to 125 mg/dL indicate increased risk for diabetes (prediabetes). Fasting plasma glucose results greater than or equal to 126 mg/dL meet the criteria for diagnosis of diabetes. In the absence of unequivocal hyperglycemia, results should be confirmed by repeat testing. In a patient with classic symptoms of hyperglycemia or hyperglycemic crisis, random plasma glucose results greater than or equal to 200 mg/dL meet the criteria for diagnosis of diabetes. Reference: Standards of Medical Care in Diabetes 2016, [place] [employer]. Diabetes Care. 2016.39(Suppl 1). Performed By: #### 2 4323-8 ####[facility] LABCLIA [id number] [place] [address] [place] Potassium [Moles/Vol] 4.3 mmol/L Normal 3.7-5.1 [facility] Comment on above: Order Comment: Ryanni men Type: BLOOD SPECIMENOrdering Facility: [facility] Address: [address] [place] [address] Performed By: #### 2 4323-8 ####[facility] LABCLIA [id number] [place] [address] [place] Protein [Mass/Vol] 7.7 g/dL Normal 6.3-8.0 [facility] Comment on above: Order Comment: Speci men Type: BLOOD SPECIMENOrdering Facility: [facility] Address: [address] [place] [address] Performed By: #### 2 4323-8 ####[facility] LABCLIA [id number] [place] [address] [place] Sodium [Moles/Vol] 137 mmol/L Normal 136-144 [facility] Comment on above: Order Comment: Speci men Type: BLOOD SPECIMENOrdering Facility: [facility] Address: [address] [place] [address] Performed By: #### 2 4323-8 ####[facility] LABCLIA [id number] [address] [place] Urea nitrogen [Mass/Vol] 12 mg/dL Normal 9-24 [facility] Comment on above: Order Comment: Speci men Type: BLOOD SPECIMENOrdering Facility: [facility] Address: [address] [place] [address] Performed By: #### 2 4323-8 ####[facility] LABCLIA [id number] [address] [facility] CNOVon 04-22-2024 CNOV Office Visit (UCWSTR ) MARCOS INFANTE ([id number]) 1975 M Date Time Provider Department 04/22/24 6:45 PM IZAIAH FOSTER [facility] During your visit today, we recorded the following information about you: Temperature Pulse Respiration Blood pressure 97.6 degrees 102/minute 16/minute 120/70 Weight 89.8 kg Izaiah Foster APRN.DEVELOPMENT CHEMIST 04/22/2024 7:08 PM Signed Subjective Patient came in with complaints of peeling skin on his palms. Patient was recently diagnosed with scabies and went through scabies treatment patient says that seems to be better but now he has this itching peeling skin. Patient denies any other symptoms. The history is provided by the patient. Review of Systems Constitutional: Negative. Skin: Negative. Objective Physical Exam Constitutional: Appearance: Normal appearance. Pulmonary: Effort: Pulmonary effort is normal. Musculoskeletal: Hands: Comments: Scaly peeling skin in the areas marked before. Neurological: Mental Status: He is alert. PAST MEDICAL HISTORY Diagnosis Date Acute cholecystitis Diabetes mellitus type 2 in obese (HCC) 2011 Hypertriglyceridemia 12/2013 Low HDL (under 40) 12/2013 Poor dentition PAST SURGICAL HISTORY Procedure Laterality Date HERNIA REPAIR HX 1976 LAPS SURG CHOLECYSTECTOMY W/CHOLANGIOGRAPHY 10/17/13 ALLERGIES Hydrocodone MEDICATIONS busPIRone (BUSPAR) 5 mg tablet Take 1 tablet by mouth two times a day. metFORMIN ER (GLUCOPHAGE XR) 500 mg 24 hr tablet Take 2 tablets by mouth two times a day with meals. colestipol (COLESTID) 1 gram tablet Take 3 tablets by mouth two times a day. escitalopram oxalate (LEXAPRO) 20 mg tablet Take 1 tablet by mouth once daily. rosuvastatin (CRESTOR) 10 mg tablet Take 1 tablet by mouth daily at bedtime. blood sugar diagnostic (BLOOD GLUCOSE TEST) test strip Test blood sugar(s) 1 times daily. Dx: Type 2 DM - Controlled E11.9 Insulin: No Lancets lancets Test blood sugar(s) 2-3 times daily and as needed. Dx: Type 2 DM - Controlled E11.9 Insulin: No omeprazole (PRILOSEC) 20 mg capsule Take 1 capsule by mouth once daily. triamcinolone (KENALOG) 0.025 % cream Apply to affected area two times a day for 7 days. liraglutide (VICTOZA) 0.6 mg/ 0.1 ml subcutaneous pen injector Inject 0.6 mg daily via pen for 7 days, if tolerated increase to 1.2mg daily. Please supply the 3 pack option Insulin Putney, Disposable, (BD ULTRA-FINE BRIJESH PEN NEEDLE) 32 gauge x 5/32 Use one needle for each dose of victoza. once/day. Ciclopirox (LOPROX) 8 % solution Apply to affected area daily at bedtime. cholecalciferol, Vitamin D3, (VITAMIN D3) 1,250 mcg (50,000 unit) cap capsule Take 1 capsule by mouth one time a week. FAMILY HISTORY Problem Relation Age of Onset Cancer Father COPD Mother Arthritis Mother Heart Maternal Grandmother Allergies Mother Social History Tobacco Use Smoking status: Never Smokeless tobacco: Never Vaping Use Vaping Use: Never used Substance Use Topics Alcohol use: No Drug use: No ASSESSMENT/PLAN: 1. Dry skin - ICD9: 701.1, ICD10: L85.3 - TRIAMCINOLONE ACETONIDE 0.025 % TOPICAL CREAM Was educated about proper use of medication and supportive therapies patient will use it on his palms. Patient is okay with this care plan and will follow-up if signs and symptoms seem to be getting worse not better. Izaiah Foster APRN.DEVELOPMENT CHEMIST Allergies As of Date: 04/22/2024 Noted Allergy Reaction HYDROCODONE 11/20/2013 8 - GI Upset Date Reviewed: 04/22/2024 Reviewed by: Bee Riddle MA - Fully Assessed Reason for Visit: Derm Problem [33] Cmt: palm of hands dry skin after using scabies treatment x 1 week Primary Visit Diagnosis:Dry skin [L85.3] Order(s):triamcinolone (KENALOG) 0.025 % creamApply to affected area two times a day for 7 days.Disp: 15 gRfl: 0 Prescriptions as of 04/22/2024 - triamcinolone (KENALOG) 0.025 % cream Apply to affected area two times a day for 7 days. - busPIRone (BUSPAR) 5 mg tablet Take 1 tablet by mouth two times a day. - metFORMIN ER (GLUCOPHAGE XR) 500 mg 24 hr tablet Take 2 tablets by mouth two times a day with meals. - colestipol (COLESTID) 1 gram tablet Take 3 tablets by mouth two times a day. - liraglutide (VICTOZA) 0.6 mg/ 0.1 ml subcutaneous pen injector Inject 0.6 mg daily via pen for 7 days, if tolerated increase to 1.2mg daily. Please supply the 3 pack option - Insulin Putney, Disposable, (BD ULTRA-FINE BRIJESH PEN NEEDLE) 32 gauge x Use one needle for each dose of victoza. once/day. - escitalopram oxalate (LEXAPRO) 20 mg tablet Take 1 tablet by mouth once daily. - rosuvastatin (CRESTOR) 10 mg tablet Take 1 tablet by mouth daily at bedtime. - Ciclopirox (LOPROX) 8 % solution Apply to affected area daily at bedtime. - blood sugar diagnostic (BLOOD GLUCOSE TEST) test strip Test blood sugar(s) 1 times daily. Dx: Type 2 (more content not included)... Normal [facility] CNPNon 04-22-2024 CNPN Telephone (INTMWS) NARESHMARCOS ([id number]) 1975 M Date Time Provider Department 04/22/24 SANDI BIRD During your visit today, we recorded the following information about you: Allergies As of Date: 04/22/2024 Noted Allergy Reaction HYDROCODONE 11/20/2013 8 - GI Upset Date Reviewed: 02/28/2024 Reviewed by: Rocío Bowles MA - Fully Assessed Prescriptions as of 04/22/2024 - busPIRone (BUSPAR) 5 mg tablet Take 1 tablet by mouth two times a day. - metFORMIN ER (GLUCOPHAGE XR) 500 mg 24 hr tablet Take 2 tablets by mouth two times a day with meals. - colestipol (COLESTID) 1 gram tablet Take 3 tablets by mouth two times a day. - liraglutide (VICTOZA) 0.6 mg/ 0.1 ml subcutaneous pen injector Inject 0.6 mg daily via pen for 7 days, if tolerated increase to 1.2mg daily. Please supply the 3 pack option - Insulin Putney, Disposable, (BD ULTRA-FINE BRIJESH PEN NEEDLE) 32 gauge x 5/32 Use one needle for each dose of victoza. once/day. - escitalopram oxalate (LEXAPRO) 20 mg tablet Take 1 tablet by mouth once daily. - rosuvastatin (CRESTOR) 10 mg tablet Take 1 tablet by mouth daily at bedtime. - Ciclopirox (LOPROX) 8 % solution Apply to affected area daily at bedtime. - blood sugar diagnostic (BLOOD GLUCOSE TEST) test strip Test blood sugar(s) 1 times daily. Dx: Type 2 DM - Controlled E11.9 Insulin: No - Lancets lancets Test blood sugar(s) 2-3 times daily and as needed. Dx: Type 2 DM - Controlled E11.9 Insulin: No - cholecalciferol, Vitamin D3, (VITAMIN D3) 1,250 mcg (50,000 unit) cap capsule Take 1 capsule by mouth one time a week. - omeprazole (PRILOSEC) 20 mg capsule Take 1 capsule by mouth once daily. Problem List As Of Date 04/22/2024 Noted Resolved Cholelithiasis [K80.20] 10/23/2013 03/14/2016 Cholecystitis [K81.9] 10/23/2013 03/14/2016 Fracture of humerus, proximal, left, closed [S4*11/20/2013 03/14/2016 Insomnia [G47.00] 12/16/2013 Arm pain [M79.603] 01/12/2014 Closed fracture of unspecified part of upper en*01/12/2014 03/14/2016 Diabetes mellitus type 2, controlled, without c*10/14/2015 Low HDL (under 40) [E78.6] 12/30/2013 Hepatic steatosis [K76.0] 09/06/2021 Colitis [K52.9] 09/06/2021 Uncontrolled type 2 diabetes mellitus with hype*09/06/2021 Encounter Status:Closed by SANDI BIRD on 04/22/24 Normal [facility] Bedside Glucoseon 03-13-2024 FINGERSTICK GLU 257 mg/dL High 74-106 [facility] Comment on above: Result Comment: DEEPAK SOTOMAYOR OF PATIENT CARE PER NURSING PROTOCOL Performed By: #### L 501.080 #### [facility] [address] [place] [place], [address] Chest PA and Lateralon 03-13 Chest PA and Lateral [facility] Services [address] [place] [address] Chest PA and Lateral MR#: [id number] Acct: [id number] Name: NARESHMARCOS Rep #: [id number] : 1975 M 48 From: Salvatore orosco MD PCP: Dr. Sandi Bird MD Status: DEP ER Study: Chest PA and Lateral Date of Exam: 03/13/24 Exam# [id number] Ordering Dr: Marcos Man MISDRAW HAND-C [id number] INDICATION: cough EXAMINATION/TECHNIQUE: X-RAY - XR Chest 2 Views COMPARISON: 01/16/2022. FINDINGS: The lungs are clear. The cardiomediastinal silhouette is unremarkable. No pleural effusion or pneumothorax. No acute osseous abnormalities. RAD/Chest PA and Lateral IMPRESSION: No acute radiographic abnormalities. Electronically Signed: Salvatore Hurt MD at 21:56 EDT , CC: WOO Man; Dr. 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 Sandi Bird MD Status:DEP ER Location: ED HPI History of Present Illness Chief Complaint: Abd Pain Narrative Narrative: Patient is 48-year-old male with history of hypertension hyperlipidemia, diabetes who presents to the emergency department for coughing, feeling short of breath. Patient dates he has had some lower abdominal pain that he was seen at [facility]. Patient had a CAT scan, this was negative. Enemas. Patient is currently going to the bathroom and there is no other pain. Patient states that he is feeling more short of breath and has coughing and is here for reevaluation. Patient denies any fever or chills, patient does have sometimes white sputum. He is currently not on antibiotics. [facility] Medical History Atypical chest pain Diabetes mellitus Diabetes mellitus type 2 in obese Dyslipidemia GERD (gastroesophageal reflux disease) Obesity, mild Home Medications ???Medication ???Instructions ???Recorded ???Last Taken ???Type omeprazole 20 mg capsule,delayed 20 mg PO DAILY 09/14/20 Unknown History release cholecalciferol (vitamin D3) 1,250 1,000 mcg PO WE 02/06/21 Unknown History mcg (50,000 unit) capsule dulaglutide 0.75 mg/0.5 mL 0.75 mg subcut QWEEK 01/16/22 Unknown History subcutaneous pen injector (Trulicity) clindamycin HCl 150 mg capsule 450 mg (3 x 150 mg) PO TID 7 days 03/26/22 Unknown Rx #63 caps colestipol 1 gram tablet 3 tab PO TID 03/26/22 Unknown History escitalopram oxalate 20 mg tablet 1 tab PO DAILY 03/26/22 Unknown History rosuvastatin 10 mg tablet 1 tab PO QHS 03/26/22 Unknown History Allergy/AdvReac Type Severity Reaction Status Date / Time hydrocodone AdvReac Nausea/Vom/ Verified 03/13/24 19:11 Diarrhea Family History Father Cancer Lung Surgical History History of esophagogastroduodenoscopy (EGD) S/P cholecystectomy S/P hernia repair S/P tonsillectomy Social History Smoking Status: Never smoker second hand exposure: No alcohol intake: never substance use type: does not use caffeine: Yes what type of physical activity do you participate in: none frequency: does not exercise seatbelt use: always ROS ROS ED ROS Narrative Constitutional: Negative for fever, chills, weight loss, weakness Eyes: Negative for vision loss, vision change, double vision ENT: Negative for any sore throat, ear pain, congestion Cardiovascular: Negative for any chest pain, tightness, palpitations Respiratory: Negative for any hemoptysis, dyspnea on exertion, orthopnea. Positive for cough, dyspnea, sputum production Gastrointestinal: Negative for any abdominal pain, nausea, vomiting, diarrhea, constipation, blood in stool, blood in vomit : Negative for any urinary frequency, dysuria, retention, blood in urine Muscle skeletal: Negative for any neck pain, back pain Neurological: Negative for any headache, syncope, dizziness Skin: Negative for any rashes, itching, abrasions, lacerations Psychiatric: Negative for any depression, anxiety, stress, suicidal ideation, homicidal ideation Hematologic: Negative for any excessive bruising, easy bleeding EXAM Physical Exam Narrative Exam Narrative: Vital signs reviewed. HEET: Head normocephalic atraumatic, TMs clear bilaterally. Posterior pharynx is clear, moist mucous membranes. Nares clear bilaterally. Neck: Supple with no lymphadenopathy or tenderness. No signs of meningismus. Cardiac: Regular rate and rhythm no murmurs gallops or rubs, equal peripheral pulses bilaterally. Respiratory: Lungs clear to auscultation bilaterally. No chest tenderness. Patient does cough throughout my entire exam. However there is no wheezing. Patient looks generally well. Abdomen: Soft, nontender, nondistended. No abdominal bruit or pulsatile masses. No hepatosplenomegaly Extremities: No peripheral edema, no signs of gross trauma or deformity. Active full range of motion of all extremities. Neuro: Cranial nerves II through XII intact, no focal neurological deficits. Skin: Clean dry and intact with no rash, purpura, petechiae, vesicles or pustules. Backs/flank: No CVA tenderness, no midline spinal tenderness, no deformity. Psych: Normal mood and affect. No SI, HI or acute psychosis. Const Vital Signs: 03/13/24 19:09 03/13/24 19:10 Temperature 98.4 F 98.4 F Temperature Source Temporal Temporal (more content not included)... Normal [facility] CBC + DIFFon 03-09-2024 Baso # 0.01 x10EE3/UL Normal 0.00 - 0.10 [facility] Comment on above: Performed By: #### 2 [id number] #### [facility],[address] [place] [address] [id number] Basophils/100 WBC (Bld) 0.5 % Normal 0.0 - 2.0 [facility] Comment on above: Performed By: #### 2 17559 #### [facility],[address] [place] [address] 33531 CBC + DIFF Normal [facility] Comment on above: Result Comment: CBC- COMPLETE BLOOD COUNT Performed By: #### 2 25022 #### [facility],[address] [place] [address] 89187 EO # 0.05 x10EE3/UL Normal 0.00 - 0.50 [facility] Comment on above: Performed By: #### 2 50844 #### [place] [id number] Eosinophils/100 WBC (Bld) 1.6 % Normal 0.0 - 7.0 [facility] Comment on above: Performed By: #### 2 88952 #### [place] [address] Erythrocyte distribution width (RBC) [Ratio] 12.9 % Normal 12.0 - 15.6 [facility] Comment on above: Performed By: #### 2 48842 #### [place] [address] Hematocrit (Bld) [Volume fraction] 38.6 % Low 40.0 - 52.0 [facility] Comment on above: Performed By: #### 2 54698 #### [place] [address] Hemoglobin (Bld) [Mass/Vol] 13.5 g/dL Normal 13.0 - 17.5 [facility] Comment on above: Performed By: #### 2 62437 #### [place] [address] Lymph # 0.82 x10EE3/UL Normal 0.80 - 2.80 [facility] Comment on above: Performed By: #### 2 71359 #### [place] [address] Lymphocytes/100 WBC (Bld) 26.2 % Normal 20.0 - 45.0 [facility] Comment on above: Performed By: #### 2 11092 #### [place] [id number] MANUAL DIFF N/A Normal [facility] Comment on above: Performed By: #### 2 63686 #### [place] [address] MCH (RBC) [Entitic mass] 32 pg Normal 27 - 33 [facility] Comment on above: Performed By: #### 2 79269 #### [facility],[address] [place] [address] MCHC 35 X10 3 Normal 32 - 36 [facility] Comment on above: Performed By: #### 2 31127 #### [facility],[address] [place], [place] [id number] MCV (RBC) [Entitic vol] 90 fL Normal 81 - 98 [facility] Comment on above: Performed By: #### 2 72281 #### [facility],[address] [place] [address] Buchanan # 0.37 x10EE3/UL Normal 0.20 - 1.00 [facility] Comment on above: Performed By: #### 2 40319 #### [facility],[address] [place] [address] MONOS % 11.8 % High 0.0 - 10.0 [facility] Comment on above: Performed By: #### 2 92433 #### [facility],[address] [place] [address] 88076 Morphology Dominick (Bld) [Interp] N/A Normal [facility] Comment on above: Performed By: #### 2 57340 #### [facility],[address] [place], [place] [id number] Neut # 1.89 x10EE3/UL Normal 1.50 - 7.10 [facility] Comment on above: Performed By: #### 2 59994 #### [place] [id number] Neutrophils/100 WBC (Bld) 60.0 % Normal 46.0 - 76.0 [facility] Comment on above: Performed By: #### 2 55425 #### [facility],[address] [place] [address] PLATELET 137 x10EE3/UL Low 150 - 450 [facility] Comment on above: Performed By: #### 2 43903 #### [facility],[address] [place] [address] Platelet mean volume (Bld) [Entitic vol] 8.0 fL Normal 6.4 - 10.5 [facility] Comment on above: Result Comment: AUTO MATED DIFFERENTIAL Performed By: #### 2 31015 #### [place] [address] RBC 4.29 x 10EE6/UL Low 4.50 - 6.00 [facility] Comment on above: Performed By: #### 2 91825 #### [place] [address] WBC 3.2 x 10EE3/UL Low 4.5 - 10.8 [facility] Comment on above: Performed By: #### 2 70448 #### [place] [address] CMP with eGFRon 03-09-2024 AGE 48 years Normal [facility] Comment on above: Performed By: #### 2 86607 #### [place] [id number] Albumin [Mass/Vol] 3.7 g/dL Normal 3.4 - 5.0 [facility] Comment on above: Performed By: #### 2 65635 #### [place] [id number] Albumin/Globulin [Mass ratio] 0.9 {ratio} Normal 0.9 - 1.6 [facility] Comment on above: Performed By: #### 2 32836 #### [place] [id number] ALK PHOS 430 U/L High 46 - 116 [facility] Comment on above: Performed By: #### 2 35503 #### [place] [id number] ALT [Catalytic activity/Vol] 122 U/L High 16 - 63 [facility] Comment on above: Performed By: #### 2 98692 #### [facility],[address] [place] [address] 65152 Anion gap [Moles/Vol] 10 mmol/L Normal 10 - 20 [facility] Comment on above: Performed By: #### 2 52865 #### [facility],[address] [place] [address] 00576 AST [Catalytic activity/Vol] 75 U/L High 15 - 37 [facility] Comment on above: Performed By: #### 2 97180 #### [facility],[address] [place] [address] 06221 B/C RATIO 11 ratio Normal 0 - 30 [facility] Comment on above: Performed By: #### 2 33951 #### [facility],[address] [place] [address] 86949 Bilirubin [Mass/Vol] 1.8 mg/dL High 0.2 - 1.0 [facility] Comment on above: Performed By: #### 2 94826 #### [facility],[address] [place] [address] 31583 Calcium [Mass/Vol] 8.9 mg/dL Normal 8.5 - 10.1 [facility] Comment on above: Performed By: #### 2 49626 #### [facility],[address] [place] [address] 82824 Chloride [Moles/Vol] 100 mmol/L Normal 98 - 107 [facility] Comment on above: Performed By: #### 2 48035 #### [facility],[address] [place] [address] 83118 CMP with eGFR Normal [facility] Comment on above: Result Comment: COMP REHENSIVE METABOLIC PANEL Performed By: #### 2 17884 #### [facility],[address] [place] [address] 09590 CO2 [Moles/Vol] 28.2 mmol/L Normal 21.0 - 32.0 [facility] Comment on above: Performed By: #### 2 11130 #### [facility],[address] [place] [address] 88615 Creatinine [Mass/Vol] 0.84 mg/dL Normal 0.70 - 1.30 [facility] Comment on above: Performed By: #### 2 07189 #### [facility],[address] [place], [place] [id number] GFR/1.73 sq M.predicted among non-blacks MDRD (S/P/Bld) [Vol rate/Area] mL/min/{1.73_m2} Normal 60 - 999 [facility] Comment on above: Performed By: #### 2 33800 #### [facility],[address] [place] [address] Result Comment: ACCO RDING TO THE NATIONAL KIDNEY DISEASE EDUCATION PROGRAM(NKDE), A NORMAL eGFR IS A VALUE GREATER THAN OR EQUAL TO 60 ML/MIN/1.73 SQ METERS. CHRONIC KIDNEY DISEASE: <60mL/MIN/1.73 SQ METERS KIDNEY FAILURE: <15mL/MIN/1.73 SQ METERS THIS TEST SHOULD ONLY BE USED FOR PATIENTS 18 YEARS OF AGE AND OLDER. Globulin (S) [Mass/Vol] 3.9 g/dL High 1.5 - 3.8 [facility] Comment on above: Performed By: #### 2 75343 #### [facility],[address] [place] [address] 53932 Glucose [Mass/Vol] 190 mg/dL High 74 - 106 [facility] Comment on above: Performed By: #### 2 38445 #### [facility],[address] [place] [address] 96245 Potassium [Moles/Vol] 3.6 mmol/L Normal 3.5 - 5.1 [facility] Comment on above: Performed By: #### 2 14950 #### [facility],[address] [place] [address] 09653 Protein [Mass/Vol] 7.6 g/dL Normal 6.4 - 8.2 [facility] Comment on above: Performed By: #### 2 22052 #### [address] [address] Sodium [Moles/Vol] 135 mmol/L Low 136 - 145 [facility] Comment on above: Performed By: #### 2 61185 #### [address] [address] Urea nitrogen [Mass/Vol] 9 mg/dL Normal 7 - 18 [facility] Comment on above: Performed By: #### 2 80008 #### [address] [address] [address] ABDOMEN/PELVIS [facility] 2023 CT ABDOMEN/PELVIS [place] [address] Patient: MARCOS INFANTE Phone#: : 1975 Age: 48 Gender: M Pt. Type: ER Account: [id number] Location: [facility] Ordering: [employer] Exam Date: 03/09/2024/17:05 Family Phys: Charge Code: [id number] Physician: [place] Order #: [id number] Dose#: 20.0 mGy PROCEDURE: CT ABDOMEN/PELVIS WITH CONTRAST COMPARISON: None. INDICATIONS: Abdominal pain. TECHNIQUE: After obtaining the patient's consent, CT images were created with non-ionic intravenous contrast material. All CT scans at this facility use dose modulation, iterative reconstruction, and/or weight based dosing when appropriate to reduce radiation dose to as low as reasonably achievable. IV CONTRAST: Omnipaque 350,100ml TOTAL DOSE: 20.0 CTDIvol(mGy) FINDINGS: LIVER: Normal. No enlargement, atrophy, abnormal density, or significant focal lesion. BILIARY: Gallbladder is absent. PANCREAS: Normal. No lesion, fluid collection, ductal dilatation, or atrophy. SPLEEN: Splenomegaly. Spleen is 17 centimeters in anterior/posterior dimension. KIDNEYS: Normal. No mass, obstruction, or calcification. ADRENALS: Normal. No mass or enlargement. AORTA/VASCULAR: Normal. No aneurysm or dissection. RETROPERITONEUM: Normal. No mass or adenopathy. BOWEL/MESENTERY: There is mild to moderate stool retention.. No visible mass, obstruction, or bowel wall thickening. ABDOMINAL WALL: Normal. No mass or hernia. URINARY BLADDER: Normal. No visible focal wall thickening, lesion, or calculus. PELVIC NODES: Normal. No adenopathy. PELVIC ORGANS: Normal. No visible mass. Pelvic organs appropriate for patient age. BONES: Mild degenerative changes of the spine are present. LUNG BASES: Normal. No visible pulmonary or pleural disease. OTHER: Negative. Continued Report - Page 2 of 2 Patient: MARCOS INFANTE Phone#: : 1975 Age: 48 Gender: M Pt. Type: ER Account: [id number] Location: 052 Ordering: [employer] Exam Date: 03/09/202417:05 Family Phys: Charge Code: [id number] Physician: [place] Order #: [id number] Dose#: 20.0 mGy CONCLUSION: 1. Splenomegaly. 2. There is no evidence of acute abdominal or pelvic abnormality. Dictated by: Yudith Hernandez MD on 03/10/2024 at 9:08 Approved by: Yudith Hernandez MD on 03/10/2024 at 9:21 Normal [facility] CT CHEST (PE PROTOCOL)on CT CHEST (PE PROTOCOL) [place] [address] Patient: MARCOS INFANTE Phone#: : 1975 Age: 48 Gender: M Pt. Type: ER Account: [id number] Location: 052 Ordering: [employer] Exam Date: 03/09/2024/17:05 Family Phys: Charge Code: [id number] Physician: [place] Order #: [id number] Dose#: 8.5 mGy PROCEDURE: CT CHEST WITH CONTRAST FOR PE COMPARISON: None. INDICATIONS: Chest pain. TECHNIQUE: After obtaining the patient's consent, CT images were obtained with non-ionic intravenous contrast material. Multi-planar images were created to optimize visualization of vascular anatomy with MPR/MIPS and 3D imaging. All CT scans at this facility use dose modulation, iterative reconstruction, and/or weight based dosing when appropriate to reduce radiation dose to as low as reasonably achievable. IV CONTRAST: Omnipaque 350,100ml TOTAL DOSE: 8.5 CTDIvol(mGy) FINDINGS: VASCULATURE: Normal. No visible pulmonary arterial thrombus or attenuation. AORTA: Normal. No aneurysm or dissection. LUNGS: Linear atelectasis at the left base. No visible pulmonary disease. TAMI: Normal. No mass or adenopathy. MEDIASTINUM: Normal. No mass or adenopathy. CARDIAC: Normal. No enlargement, pericardial thickening, or significant calcification. PLEURA: Normal. No mass or effusion. CHEST WALL: Normal. No mass or axillary adenopathy. LIMITED ABDOMEN: Normal. Limited images of the upper abdomen are unremarkable. BONES: Normal. No bony lesion or fracture. OTHER: Negative. CONCLUSION: 1. There is no evidence of acute pulmonary abnormality. 2. There is no evidence of pulmonary embolus. Dictated by: Yudith Hernandez MD on 03/10/2024 at 9:02 Continued Report - Page 2 of 2 Patient: MARCOS INFANTE Phone#: : 1975 Age: 48 Gender: M Pt. Type: ER Account: [id number] Location: [facility] Ordering: [employer] Exam Date: 03/09/2024/17:05 Family Phys: Charge Code: [id number] Physician: [place] Order #: [id number] Dose#: 8.5 mGy Approved by: Yudith Hernandez MD on 03/10/2024 at 9:05 Normal [facility] D-DIMER, QUANTITATIVEon 06-0 D-DIMER QUANT 611 ng/ml High 0 - 230 [facility] Comment on above: Performed By: #### 2 97532 #### [facility],[address] [place] [address] D-DIMER, QUANTITATIVE Normal [facility] Comment on above: Result Comment: ULICES T D-DIMER Performed By: #### 2 86634 #### [facility],[address] [place] [address] 53125 TROPONIN I, HIGH SENSITIVITY on 03-09-2024 HS TROPONIN <4.0 Normal 0.0 - 76.2 [facility] Comment on above: Performed By: #### 2 42757 #### [facility],[address] [place] [address] 59301 HS TROPONIN <4.0 Normal 0.0 - 76.2 [facility] Comment on above: Performed By: #### 2 72467 #### [facility],[address] [place] [address] 32947 URINALYSISon 03-09-2024 Amorphous NONE Normal [facility] Comment on above: Performed By: #### 2 31842 #### [facility],[address] [place] [address] 07251 Bacteria NONE Normal [facility] Comment on above: Performed By: #### 2 45480 #### [facility],[address] [place] [address] 11146 Bilirubin Ql (U) Negative Normal NORMAL: NEGATIVE [facility] Comment on above: Performed By: #### 2 46373 #### [facility],[address] [place] [address] 88459 Casts NONE Normal [facility] Comment on above: Performed By: #### 2 42050 #### [facility],[address] [place] [address] 85147 Clarity (U) clear Normal NORMAL: CLEAR [facility] Comment on above: Performed By: #### 2 47883 #### [facility],[address] [place] [address] 77280 Color (U) ita Normal NORMAL: YELLOW [facility] Comment on above: Performed By: #### 2 96985 #### [facility],[address] [place] [address] 76070 Crystals LM Nom (Urine sed) NONE Normal [facility] Comment on above: Performed By: #### 2 09895 #### [facility],[address] [place] [address] 62786 Epi Cells OCC Normal [facility] Comment on above: Performed By: #### 2 58202 #### [facility],[address] [place] [address] 26129 Glucose Ql (U) NORM Normal NORMAL: NORMAL [facility] Comment on above: Performed By: #### 2 16706 #### [facility],[address] [place] [address] 77923 Hemoglobin Ql (U) Negative Normal NORMAL: NEGATIVE [facility] Comment on above: Performed By: #### 2 74157 #### [facility],[address] [place] [address] 64718 Ketone 50 Abnormal NORMAL: NEGATIVE [facility] Comment on above: Performed By: #### 2 39418 #### [facility],[address] [place] [address] 27233 Leukocytes 25 Abnormal NORMAL: NEGATIVE [facility] Comment on above: Performed By: #### 2 34318 #### [facility],[address] [place] [address] 30840 Mucous NONE Normal [facility] Comment on above: Performed By: #### 2 07910 #### [facility],[address] [place] [address] 61596 Nitrite Ql (U) Negative Normal NORMAL: NEGATIVE [facility] Comment on above: Performed By: #### 2 68105 #### [facility],[address] [place] [address] 82532 pH (U) 6.5 [pH] Normal NORMAL: 5.0-8.0 [facility] Comment on above: Performed By: #### 2 16699 #### [facility],[address] [place] [address] 09216 Protein Ql (U) 30 Abnormal NORMAL: NEGATIVE [facility] Comment on above: Performed By: #### 2 51771 #### [facility],[address] [place] [address] 98669 Rbc NONE Normal 0-3/hpf [facility] Comment on above: Performed By: #### 2 42763 #### [facility],[address] [place] [address] Sp [place] 1.005 Low NORMAL: 1.010-1.030 [facility] Comment on above: Performed By: #### 2 51429 #### [facility],[address] [place] [address] Specimen Type Void Normal [facility] Comment on above: Performed By: #### 2 14430 #### [facility],[address] [place] [address] Urinalysis dipstick W Reflex Microscopic panel (U) SEE BELOW Normal [facility] Comment on above: Result Comment: MICR OSCOPIC Performed By: #### 2 88707 #### [facility],[address] [place] [address] Urobilinog 4 Abnormal NORMAL: NORMAL [facility] Comment on above: Performed By: #### 2 14973 #### [facility],[address] [place] [address] Wbc 1-5 Normal 0-5/hpf [facility] Comment on above: Performed By: #### 2 65054 #### [facility],[address] [place] [address] Yeast NONE Normal [facility] Comment on above: Performed By: #### 2 11695 #### [facility],[address] [place] [address] CNOVon 02-28-2024 CNOV Office Visit (INTMWS ) INFANTEMARCOS MERIDA ([id number]) 1975 M Date Time Provider Department 02/28/24 1:40 PM KAYA [place] During your visit today, we recorded the following information about you: Pulse Respiration Blood pressure Weight 80/minute 16/minute 130/70 97.1 kg Kaya [place] APRN.DEVELOPMENT CHEMIST 02/28/2024 1:57 PM Signed CC: Patient presents with: Recheck: ER follow up, DM HPI Marcos Infante is a 48 year old male who presents today for ER follow-up. Facility: [facility] Date of visit: 02/24/24 Reason for visit: Blood sugars at home in the 400s-500 Hospital course: blood work unremarkable - given 1 L of fluid, repeat glucose in the 300s so discharged Diagnosis: diabetes with hyperglycemia Discharge: follow up with PCP His Victoza became too hot so had to throw it away a month ago. Will be picking it up tomorrow. Is also decreasing sugar in his diet and now seeing FBS nos in the 230s. Has had increase in thirst and urination but this is also improving with the lower sugars. He denies chest pain or dyspnea , numbness, tingling or pain in extremities, new or unusual visual symptoms, low sugar/hypoglycemic reactions, weight loss/gain, lightheadedness/dizziness, and bowel changes/loose stools. Patient's last HgA1C was Hemoglobin A1C (%) Date Value 02/23/2024 8.6 09/05/2023 6.4 05/14/2021 8.5 11/27/2016 6.1 Hemoglobin A1C (POCT) (%) Date Value 08/21/2022 7.6 09/06/2021 8.5 ) Last Ophthalmology exam was within the past 3 months Elevated bilirubin, Alk phos, and triglycerides. Denies any abdominal pain, nausea, vomiting, or bowel changes. REVIEW OF SYSTEMS See HPI PAST MEDICAL HISTORY Diagnosis Date Acute cholecystitis Diabetes mellitus type 2 in obese (HCC) 2011 Hypertriglyceridemia 12/2013 Low HDL (under 40) 12/2013 Poor dentition PAST SURGICAL HISTORY Procedure Laterality Date HERNIA REPAIR HX 1975 LAPS SURG CHOLECYSTECTOMY W/CHOLANGIOGRAPHY 10/17/13 ALLERGIES Hydrocodone MEDICATIONS colestipol (COLESTID) 1 gram tablet Take 3 tablets by mouth two times a day. liraglutide (VICTOZA) 0.6 mg/ 0.1 ml subcutaneous pen injector Inject 0.6 mg daily via pen for 7 days, if tolerated increase to 1.2mg daily. Please supply the 3 pack option busPIRone (BUSPAR) 5 mg tablet Take 1 tablet by mouth twice daily Insulin [place], Disposable, (BD ULTRA-FINE BRIJESH PEN NEEDLE) 32 gauge x Use one needle for each dose of victoza. once/day. escitalopram oxalate (LEXAPRO) 20 mg tablet Take 1 tablet by mouth once daily. rosuvastatin (CRESTOR) 10 mg tablet Take 1 tablet by mouth daily at bedtime. Ciclopirox (LOPROX) 8 % solution Apply to affected area daily at bedtime. blood sugar diagnostic (BLOOD GLUCOSE TEST) test strip Test blood sugar(s) 1 times daily. Dx: Type 2 DM - Controlled E11.9 Insulin: No metFORMIN ER (GLUCOPHAGE XR) 500 mg 24 hr tablet Take 2 tablets by mouth twice daily with meals. Lancets lancets Test blood sugar(s) 2-3 times daily and as needed. Dx: Type 2 DM - Controlled E11.9 Insulin: No cholecalciferol, Vitamin D3, (VITAMIN D3) 1,250 mcg (50,000 unit) cap capsule Take 1 capsule by mouth one time a week. omeprazole (PRILOSEC) 20 mg capsule Take 1 capsule by mouth once daily. FAMILY HISTORY Problem Relation Age of Onset Cancer Father COPD Mother Arthritis Mother Heart Maternal Grandmother Allergies Mother Social History Tobacco Use Smoking status: Never Smokeless tobacco: Never Vaping Use Vaping Use: Never used Substance Use Topics Alcohol use: No Drug use: No PHYSICAL EXAM BP 130/70 Pulse 80 Resp 16 Wt 97.1 kg (214 lb) SpO2 98% BMI 29.02 kg/m? General Appearance: well appearing, in no acute distress, alert Pysch: mood and affect broad and appropriate Skin: Skin color, texture, turgor normal for age; Eyes: conjunctiva pink and moist, no icterus, sclera white, non-injected Lungs: Lungs clear to auscultation. No wheezing, rhonchi, rales. Heart: RRR without murmur, gallop, or rubs. No ectopy Abdomen: Abdomen soft, non-tender. Bowel sounds normal. No masses, organomegaly Colorectal Cancer Screening Never done Dilated Retinal Exam due on 06/23/2023 Behavioral Health Screening Never done Hepatitis A Vaccine(2 of 2 - Risk 2-dose series) due on 11/05/2024 Covid-19 Vaccine(1 - season) due on 11/05/2024 Pneumococcal Vaccine(2 of 2 - PCV) due on 11/05/2024 HbA1C due on 05/25/2024 Influenza Vaccine(Season Ended) due on 06/01/2024 Diabetic Foot Exam due on 11/05/2024 Annual PCP Team Chronic Disease Visit due on 11/05/2024 Urine Albumin:Creatinine Ratio due on 02/22/2025 LDL Cholesterol due on 02/22/2025 DTaP,Tdap,Td Vaccine(3 - Td or Tdap) due on 04/14/2029 Hepatitis B Vaccine Completed Hepatitis C Screening Completed HIV Screening Completed DATA REVIEWED: Most recent labs Outside chart from [place] reviewed. ASS (more content not included)... Normal [facility] CBC + DIFFon 02-24-2024 Baso # 0.03 x10EE3/UL Normal 0.00 - 0.10 [facility] Comment on above: Performed By: #### 2 [id number] #### [facility],[address] [place] [address] Basophils/100 WBC (Bld) 0.7 % Normal 0.0 - 2.0 [facility] Comment on above: Performed By: #### 2 26825 #### [facility],[address] [place] [address] CBC + DIFF Normal [facility] Comment on above: Result Comment: CBC- COMPLETE BLOOD COUNT Performed By: #### 2 41848 #### [facility],[address] [place] [address] EO # 0.15 x10EE3/UL Normal 0.00 - 0.50 [facility] Comment on above: Performed By: #### 2 93871 #### [facility],[address] [place] [address] 90681 Eosinophils/100 WBC (Bld) 3.0 % Normal 0.0 - 7.0 [facility] Comment on above: Performed By: #### 2 81689 #### [facility],[address] [place], [place] [id number] Erythrocyte distribution width (RBC) [Ratio] 13.9 % Normal 12.0 - 15.6 [facility] Comment on above: Performed By: #### 2 35018 #### [facility],[address] [place], [place] [id number] Hematocrit (Bld) [Volume fraction] 41.5 % Normal 40.0 - 52.0 [facility] Comment on above: Performed By: #### 2 59702 #### [facility],[address] [place] [address] Hemoglobin (Bld) [Mass/Vol] 14.5 g/dL Normal 13.0 - 17.5 [facility] Comment on above: Performed By: #### 2 47566 #### [facility],[address] [place] [address] 94867 Lymph # 1.60 x10EE3/UL Normal 0.80 - 2.80 [facility] Comment on above: Performed By: #### 2 19145 #### [facility],[address] [place] [address] 23814 Lymphocytes/100 WBC (Bld) 31.5 % Normal 20.0 - 45.0 [facility] Comment on above: Performed By: #### 2 71785 #### [facility],[address] [place] [address] 83487 MANUAL DIFF N/A Normal [facility] Comment on above: Performed By: #### 2 57000 #### [facility],[address] [place] [address] 40275 MCH (RBC) [Entitic mass] 31 pg Normal 27 - 33 [facility] Comment on above: Performed By: #### 2 47759 #### [facility],[address] [place] [address] 81396 MCHC 35 X10 3 Normal 32 - 36 [facility] Comment on above: Performed By: #### 2 95978 #### [facility],[address] [place] [address] 33685 MCV (RBC) [Entitic vol] 90 fL Normal 81 - 98 [facility] Comment on above: Performed By: #### 2 04184 #### [facility],[address] [place] [address] 01937 Buchanan # 0.58 x10EE3/UL Normal 0.20 - 1.00 [facility] Comment on above: Performed By: #### 2 51880 #### [facility],[address] [place] [address] 84054 MONOS % 11.4 % High 0.0 - 10.0 [facility] Comment on above: Performed By: #### 2 94908 #### [facility],[address] [place] [address] 15983 Morphology Dominick (Bld) [Interp] N/A Normal [facility] Comment on above: Performed By: #### 2 21411 #### [facility],[address] [place] [address] 22449 Neut # 2.71 x10EE3/UL Normal 1.50 - 7.10 [facility] Comment on above: Performed By: #### 2 09493 #### [facility],[address] [place], [place] [id number] Neutrophils/100 WBC (Bld) 53.4 % Normal 46.0 - 76.0 [facility] Comment on above: Performed By: #### 2 86275 #### [facility],[address] [place], [place] [id number] PLATELET 182 x10EE3/UL Normal 150 - 450 [facility] Comment on above: Performed By: #### 2 73300 #### [facility],[address] [place] [address] 94881 Platelet mean volume (Bld) [Entitic vol] 8.1 fL Normal 6.4 - 10.5 [facility] Comment on above: Result Comment: AUTO MATED DIFFERENTIAL Performed By: #### 2 73575 #### [facility],[address] [place] [address] 42369 RBC 4.61 x 10EE6/UL Normal 4.50 - 6.00 [facility] Comment on above: Performed By: #### 2 05961 #### [facility],[address] [place] [address] 32339 WBC 5.1 x 10EE3/UL Normal 4.5 - 10.8 [facility] Comment on above: Performed By: #### 2 37869 #### [facility],[address] [place] [address] 41626 CMP with eGFRon 02-24-2024 AGE 48 years Normal [facility] Comment on above: Performed By: #### 2 69936 #### [facility],[address] [place] [address] 61765 Albumin [Mass/Vol] 3.8 g/dL Normal 3.4 - 5.0 [facility] Comment on above: Performed By: #### 2 59230 #### [facility],[address] [place] [address] 57608 Albumin/Globulin [Mass ratio] 1.1 {ratio} Normal 0.9 - 1.6 [facility] Comment on above: Performed By: #### 2 65929 #### [facility],[address] [place] [address] 80268 ALK PHOS 123 U/L High 46 - 116 [facility] Comment on above: Performed By: #### 2 38799 #### [facility],[address] [place] [address] 39462 ALT [Catalytic activity/Vol] 45 U/L Normal 16 - 63 [facility] Comment on above: Performed By: #### 2 47141 #### [facility],[address] [place] [address] 80257 Anion gap [Moles/Vol] 12 mmol/L Normal 10 - 20 [facility] Comment on above: Performed By: #### 2 82980 #### [facility],[address] [place] [address] 60540 AST [Catalytic activity/Vol] 17 U/L Normal 15 - 37 [facility] Comment on above: Performed By: #### 2 44669 #### [facility],[address] [place] [address] 11591 B/C RATIO 11 ratio Normal 0 - 30 [facility] Comment on above: Performed By: #### 2 62988 #### [facility],[address] [place] [address] 97390 Bilirubin [Mass/Vol] 1.4 mg/dL High 0.2 - 1.0 [facility] Comment on above: Performed By: #### 2 38055 #### [facility],[address] [place] [address] 03046 Calcium [Mass/Vol] 8.6 mg/dL Normal 8.5 - 10.1 [facility] Comment on above: Performed By: #### 2 88944 #### [facility],[address] [place] [address] 36794 Chloride [Moles/Vol] 95 mmol/L Low 98 - 107 [facility] Comment on above: Performed By: #### 2 83853 #### [facility],[address] [place] [address] 12339 CMP with eGFR Normal [facility] Comment on above: Result Comment: COMP REHENSIVE METABOLIC PANEL Performed By: #### 2 44113 #### [facility],[address] [place] [address] 25597 CO2 [Moles/Vol] 27.2 mmol/L Normal 21.0 - 32.0 [facility] Comment on above: Performed By: #### 2 92803 #### [facility],[address] [place] [address] 52527 Creatinine [Mass/Vol] 0.97 mg/dL Normal 0.70 - 1.30 [facility] Comment on above: Performed By: #### 2 61442 #### [facility],[address] [place] [address] 98601 GFR/1.73 sq M.predicted among non-blacks MDRD (S/P/Bld) [Vol rate/Area] mL/min/{1.73_m2} Normal 60 - 999 [facility] Comment on above: Performed By: #### 2 58656 #### [facility],[address] [place] [address] 85458 Result Comment: ACCO RDING TO THE NATIONAL KIDNEY DISEASE EDUCATION PROGRAM(NKDE), A NORMAL eGFR IS A VALUE GREATER THAN OR EQUAL TO 60 ML/MIN/1.73 SQ METERS. CHRONIC KIDNEY DISEASE: <60mL/MIN/1.73 SQ METERS KIDNEY FAILURE: <15mL/MIN/1.73 SQ METERS THIS TEST SHOULD ONLY BE USED FOR PATIENTS 18 YEARS OF AGE AND OLDER. Globulin (S) [Mass/Vol] 3.4 g/dL Normal 1.5 - 3.8 [facility] Comment on above: Performed By: #### 2 68918 #### [facility],[address] [place] [address] 32821 Glucose [Mass/Vol] 395 mg/dL High 74 - 106 [facility] Comment on above: Performed By: #### 2 98525 #### [facility],[address] [place] [address] 11559 Potassium [Moles/Vol] 3.6 mmol/L Normal 3.5 - 5.1 [facility] Comment on above: Performed By: #### 2 36605 #### [facility],[address] [place] [address] 71607 Protein [Mass/Vol] 7.2 g/dL Normal 6.4 - 8.2 [facility] Comment on above: Performed By: #### 2 77828 #### [facility],[address] [place] [address] 17279 Sodium [Moles/Vol] 131 mmol/L Low 136 - 145 [facility] Comment on above: Performed By: #### 2 00464 #### [facility],[address] [place] [address] 14973 Urea nitrogen [Mass/Vol] 11 mg/dL Normal 7 - 18 [facility] Comment on above: Performed By: #### 2 93366 #### [facility],[address] [place] [address] 67779 KETONE, BLOOD, QUALon 2023 Ketones Ql (U) Negative Normal LAUREN - NEGATIVE [facility] Comment on above: Result Comment: SPEC IMEN SERUM Performed By: #### 2 76345 #### [facility],[address] [place], [place] [id number] OSMOLALITY - SERUMon 024 OSMO SERUM 307 mOsm/kg High 280 - 302 [facility] Comment on above: Performed By: #### 2 75502 #### [facility],[address] [place] [address] 67205 VBGon 02-24-2024 vBE 1 mmol/L Normal -2 - 3 [facility] Comment on above: Performed By: #### 2 04249 #### [facility],[address] [place] [address] 58799 vHCO3 26 mmol/L Normal 23 - 28 [facility] Comment on above: Performed By: #### 2 68402 #### [facility],[address] [place] [address] 34597 vpCO2 42 mmHg Normal 41 - 51 [facility] Comment on above: Performed By: #### 2 12017 #### [facility],[address] [place] [address] 52254 vpH 7.40 Normal 7.31 - 7.41 [facility] Comment on above: Performed By: #### 2 32410 #### [facility],[address] [place] [address] 88342 vpO2 41 mmHg Normal [facility] Comment on above: Performed By: #### 2 51507 #### [facility],[address] [place] [address] 55550 vsO2 76 % Normal [facility] Comment on above: Performed By: #### 2 67737 #### [facility],[address] [place] [address] 39091 Absolute lymphocyte counton 01-16-2022 Lymphocytes Auto (Unsp spec) [#/Vol] 1.10 10*3/uL 0.83-4.51 [facility] Work Phone: Basophil percentageon 2021 Basophils/100 WBC (Bld) 0.4 % 0-1 [facility] Work Phone: Chloride [Moles/Vol] 96 mmol/L 98-107 [facility] Work Phone: Eosinophils/100 WBC (Bld) 0.1 % 0-5 [facility] Work Phone: Glucose [Mass/Vol] 285 mg/dL 74-106 [facility] Work Phone: Comment on above: Glucose result great er than or equal to 200 mg/dLsuggests DIABETES MELLITUS per A.D.A. criteria. Neutrophils (Bld) [#/Vol] 5.5 10*3/uL 2.0-7.7 [facility] Work Phone: Neutrophils/100 WBC (Bld) 73.1 % 47-70 [facility] Work Phone: Potassium [Moles/Vol] 3.4 mmol/L 3.5-5.1 [facility] Work Phone: Sodium [Moles/Vol] 130 mmol/L 136-145 [facility] Work Phone: WBC (Bld) [#/Vol] 7.6 10*3/uL 4.4-11.0 [facility] Blood erythrocytes count (nu mber/volume)on 01-16-2022 RBC (Bld) [#/Vol] 5.36 10*6/uL 4.6-6.2 [facility]: Blood hemoglobin measurement (mass/volume)on 01-16-2022 Hemoglobin (Bld) [Mass/Vol] 16.7 g/dL 13.0-16.5 [facility] Work Phone: [phone] Blood lymphocytes/100 leukoc yteson 01-16-2022 Lymphocytes/100 WBC (Bld) 14.5 % 19-41 [facility] Work Phone: [phone] Blood monocytes/100 leukocyt eson 01-16-2022 Monocytes/100 WBC (Bld) 11.4 % 0-10 [facility] Work Phone: [phone] Blood platelet mean volumeon 01-16-2022 Platelet mean volume (Bld) [Entitic vol] 9.6 fL 6.2-12.0 [facility] Work Phone: Determination of erythrocyte mean corpuscular volume (MCV)on 01-16-2022 MCV (RBC) [Entitic vol] 86.4 fL 80-94 [facility] Work Phone: Hematocrit Auto (Bld) [Volum e fraction]on 01-16-2022 Hematocrit (Bld) [Volume fraction] 46.3 % 40-54 [facility] Work Phone: Laboratory - Chemistry and C hemistry - challengeon 01-16-2022 CO2 [Moles/Vol] 22.0 mmol/L 21.0-32.0 [facility] Work Phone: [phone] Urea nitrogen/Creatini ne [Mass ratio] 16.2 mg/mg 10-20 [facility] Work Phone: Laboratory - Hematology and Cell countson 01-16-2022 Erythrocyte distribution width (RBC) [Entitic vol] 41.4 fL 35.1-43.9 [facility] Work Phone: [phone] Erythrocyte distribution width (RBC) [Ratio] 13.3 % 11.6-14.6 [facility] Work Phone: [phone] Immature granulocytes/100 WBC (Bld) 0.500 % 0.0-0.9 [facility] Work Phone: [phone] Comment on above: IG% - Immature Granu locytes (promyelocytes, myelocytes and metamyelocytes) > 1% indicates that a LEFT SHIFT is Present. MCH (RBC) [Entitic mass] 31.2 pg 27.0-32.0 [facility] Work Phone: [phone] Nucleated RBC/100 WBC (Bld) [Ratio] 0 % 0-5 [facility] Work Phone: [phone] MCHC Auto (RBC) [Mass/Vol]on 01-16-2022 MCHC (RBC) [Mass/Vol] 36.1 g/dL 32-36 [facility] Work Phone: No Panel Informationon 01-16 Estimated Creatinine Clearance Calc 97.51 ml/min [facility] Work Phone: [phone] Estimated GFR (MDRD) Amer 98 mL/min >60 [facility] Work Phone: [phone] Comment on above: GFR Calc Estimated GFR (MDRD) Non-Af Amer 81 mL/min >60 [facility] Work Phone: [phone] Comment on above: Non- GFR Calc Troponin I High Sensitivity < 3 pg/mL 3.0-78.0 [facility] Work Phone: [phone] Comment on above: Please Note: New Marisol t Units and Gender Specific Reference Ranges. For more information see Policy Stat Procedure [place] High Sensitivity Troponin (TNIH) and attachments. Platelets bldon 01-16-2022 Platelets (Bld) [#/Vol] 169 10*3/uL 150-450 [facility] Work Phone: [phone] Serum or plasma calcium patrice urement (mass/volume)on 01-16-2022 Calcium [Mass/Vol] 8.5 mg/dL 8.5-10.1 [facility] Work Phone: Serum or plasma creatinine m easurement (mass/volume)on 01-16-2022 Creatinine [Mass/Vol] 1.05 mg/dL 0.70-1.30 [facility] Work Phone: [phone] Comment on above: The validity of the calculated GFR & GFRAA in patients over 70 years has not been determined. Clinical correlation is essential. Serum or plasma urea nitroge n measurement (mass/volume)on 01-16-2022 Urea nitrogen [Mass/Vol] 17 mg/dL - [facility] Work Phone: [phone] Thin prep Papanicolaou smear with manual screeningon 01-16-2022 Thin prep Papanicolaou smear with manual screening 12 5-15 [facility] Work Phone: [phone] Absolute lymphocyte counton 01-15-2022 Lymphocytes Auto (Unsp spec) [#/Vol] 0.48 10*3/uL 0.83-4.51 [facility] Work Phone: Basophil percentageon 2021 Basophils/100 WBC (Bld) 0.4 % 0-1 [facility] Work Phone: [phone] Bilirubin [Mass/Vol] 1.30 mg/dL 0.20-1.00 [facility] Work Phone: [phone] Comment on above: For patients on eltr ombopag therapy, use of Dimension [place] TBIL is not recommended. Chloride [Moles/Vol] 97 mmol/L 98-107 [facility] Work Phone: [phone] Eosinophils/100 WBC (Bld) 0.5 % 0-5 [facility] Work Phone: [phone] Glucose [Mass/Vol] 429 mg/dL 74-106 [facility] Work Phone: [phone] Comment on above: Glucose result great er than or equal to 200 mg/dLsuggests DIABETES MELLITUS per A.D.A. criteria. Neutrophils (Bld) [#/Vol] 6.0 10*3/uL 2.0-7.7 [facility] Work Phone: Neutrophils/100 WBC (Bld) 81.4 % 47-70 [facility] Work Phone: Potassium [Moles/Vol] 3.9 mmol/L 3.5-5.1 [facility] Work Phone: Protein [Mass/Vol] 7.8 g/dL 6.4-8.2 [facility] Work Phone: [phone] Sodium [Moles/Vol] 132 mmol/L 136-145 [facility] Work Phone: [phone] WBC (Bld) [#/Vol] 7.4 10*3/uL 4.4-11.0 [facility] Work Phone: [phone] Blood erythrocytes count (nu mber/volume)on 01-15-2022 RBC (Bld) [#/Vol] 5.11 10*6/uL 4.6-6.2 [facility] Work Phone: Blood hemoglobin measurement (mass/volume)on 01-15-2022 Hemoglobin (Bld) [Mass/Vol] 16.1 g/dL 13.0-16.5 [facility] Work Phone: Blood lymphocytes/100 leukoc yteson 01-15-2022 Lymphocytes/100 WBC (Bld) 6.5 % 19-41 [facility] Work Phone: Blood manual differential co mment interpretation (narrative result)on 01-15-2022 Manual differential comment Dominick (Bld) [Interp] COMMENT [facility] Work Phone: Comment on above: LYMPHOPENIA NOTED Blood monocytes/100 leukocyt eson 01-15-2022 Monocytes/100 WBC (Bld) 10.9 % 0-10 [facility] Work Phone: Blood platelet mean volumeon 01-15-2022 Platelet mean volume (Bld) [Entitic vol] 9.2 fL 6.2-12.0 [facility] Work Phone: [phone] Determination of erythrocyte mean corpuscular volume (MCV)on 01-15-2022 MCV (RBC) [Entitic vol] 84.7 fL 80-94 [facility] Work Phone: [phone] Hematocrit Auto (Bld) [Volum e fraction]on 01-15-2022 Hematocrit (Bld) [Volume fraction] 43.3 % 40-54 [facility] Work Phone: [phone] Laboratory - Chemistry and C hemistry - challengeon 01-15-2022 ALP [Catalytic activity/Vol] 100 U/L 45-117 [facility] Work Phone: [phone] ALT [Catalytic activity/Vol] 49 U/L 16-61 [facility] Work Phone: [phone] CO2 [Moles/Vol] 24.0 mmol/L 21.0-32.0 [facility] Work Phone: [phone] Globulin (S) [Mass/Vol] 3.6 g/dL 2.2-4.2 [facility] Work Phone: [phone] Urea nitrogen/Creatini ne [Mass ratio] 16.7 mg/mg 10-20 [facility] Work Phone: [phone] Laboratory - Hematology and Cell countson 01-15-2022 Erythrocyte distribution width (RBC) [Entitic vol] 41.7 fL 35.1-43.9 [facility] Work Phone: [phone] Erythrocyte distribution width (RBC) [Ratio] 13.5 % 11.6-14.6 [facility] Work Phone: [phone] Immature granulocytes/100 WBC (Bld) 0.300 % 0.0-0.9 [facility] Work Phone: [phone] Comment on above: IG% - Immature Granu locytes (promyelocytes, myelocytes and metamyelocytes) > 1% indicates that a LEFT SHIFT is Present. MCH (RBC) [Entitic mass] 31.5 pg 27.0-32.0 [facility] Work Phone: [phone] Nucleated RBC/100 WBC (Bld) [Ratio] 0 % 0-5 [facility] Work Phone: [phone] MCHC Auto (RBC) [Mass/Vol]on 01-15-2022 MCHC (RBC) [Mass/Vol] 37.2 g/dL 32-36 [facility] Work Phone: No Panel Informationon 01-15 Estimated Creatinine Clearance Calc 89.81 ml/min [facility] Work Phone: [phone] Estimated GFR (MDRD) Amer 89 mL/min >60 [facility] Work Phone: [phone] Comment on above: GFR Calc Estimated GFR (MDRD) Non-Af Amer 74 mL/min >60 [facility] Work Phone: Comment on above: Non- GFR Calc Platelets bldon 01-15-2022 Platelets (Bld) [#/Vol] 173 10*3/uL 150-450 [facility] Work Phone: Serum or plasma albumin patrice urement (mass/volume)on 01-15-2022 Albumin [Mass/Vol] 4.2 g/dL 3.2-5.0 [facility] Work Phone: [phone] Serum or plasma albumin/glob ulin mass ratioon 01-15-2022 Albumin/Globulin [Mass ratio] 1.2 {ratio} 0.9-2.4 [facility] Work Phone: [phone] Serum or plasma calcium patrice urement (mass/volume)on 01-15-2022 Calcium [Mass/Vol] 8.7 mg/dL 8.5-10.1 [facility] Work Phone: [phone] Serum or plasma creatinine m easurement (mass/volume)on 01-15-2022 Creatinine [Mass/Vol] 1.14 mg/dL 0.70-1.30 [facility] Work Phone: Comment on above: The validity of the calculated GFR & GFRAA in patients over 70 years has not been determined. Clinical correlation is essential. Serum or plasma urea nitroge n measurement (mass/volume)on 01-15-2022 Urea nitrogen [Mass/Vol] 19 mg/dL 7-18 [facility] Work Phone: Thin prep Papanicolaou smear with manual screeningon 01-15-2022 Thin prep Papanicolaou smear with manual screening 23 U/L 1537 [facility] Work Phone: Thin prep Papanicolaou smear with manual screening 11 5-15 [facility] Work Phone: [id number] 09-16-2021 Date of Onset [id number] Invalid Interpretation Code [facility] ([place]) Comment on above: Performed By: #### C [id number] #### [place] [id number] Employed in Healthcare No [facility] ([place]) Comment on above: Performed By: #### C OVD19 #### [place] [id number] First Test Unknown [facility] ([place] Comment on above: Performed By: #### C OVD19 #### [address] [address] Hospitalized No [facility] ([place] Comment on above: Performed By: #### C OVD19 #### [address] [address] ICU No [facility] [place] Comment on above: Performed By: #### C OVD19 #### [place] [address] Not [facility] [place] Comment on above: Performed By: #### C OVD19 #### [address] [address] Resides in Congregate Care Setting No [facility] [place] Comment on above: Performed By: #### C OVD19 #### [address] [address] SARS-CoV-2 (COVID-19) RNA YINA+probe Ql (Unsp spec) Positive Abnormal Negative [facility] ([place]) Comment on above: Performed By: #### C OVD19 #### [place] [address] SARS-CoV-2 (COVID-19) RNA YINA+probe Ql (Unsp spec) Normal [facility] ([place]) Comment on above: Result Comment: Posi tive results are indicative of the presence of SARS-CoV-2 RNA; clinical correlation with patient history and other diagnostic information is necessary to determine patient infection status. Positive results do not rule out bacterial infection or co-infection with other viruses. The agent detected may not be the definite cause of disease. Laboratories within the [facility] and its territories are required to report all positive results to the appropriate public health authorities. Detection of analyte target(s) does not imply that the corresponding virus(es) are infectious or are the causative agents for clinical symptoms. There is a risk of false positive values resulting from cross-contamination by target organisms, their nucleic acids or amplified product, or from non-specific signals in the assay. ORAL SARS-CoV-2 Assay is a Real-Time reverse-transcriptase polymerase chain reaction (RT-PCR) based qualitative in vitro diagnostic test intended for the qualitative detection of nucleic acid from the SARS-CoV-2 in nasopharyngeal swab specimens collected from individuals suspected of COVID-19 by their healthcare provider. Testing is limited to laboratories certified under the Clinical Laboratory Improvement Amendments of 1988 (CLIA), 42 U.S.C. ?263a, to perform moderate and high complexity tests. COVID-19 Int Performed By: #### C OVD19 #### [place] [address] Symptomatic as Defined by CDC Yes Normal [facility] ([place]) Comment on above: Performed By: #### C OVD19 #### [place] [id number] Urinalysis with Microscopico n 05-14-2020 Bacteria, UA NONE SEEN None Seen /HPF [place] Bilirubin Urine SMALL Abnormal Negative [place] Blood, Urine Negative Negative [place] Clarity, UA Clear Clear [place] Color, UA Yellow Straw/Yello w [place] Crystals, UA Few Abnormal None Seen /HPF [place] Comment on above: CALCIUM OXALATE Glucose, Ur 100 mg/dL Abnormal Negative [place] Interpretation and review of laboratory results Abnormal [place] Ketones Ql (U) TRACE Abnormal Negative mg/dL [place] Leukocyte esterase Test strip Ql (U) Negative Negative [place] Nitrite, Urine Negative Negative [place] pH, UA 5.5 [place] Protein (U) [Mass/Vol] TRACE Negative mg/dL [place] RBC (U) [#/Vol] NONE [place] Specific [place], UA >=1.030 [place] Urobilinogen, Urine 0.2 <2.0 E.U./dL [place] WBC, UA 0-1 [place] Urinalysis, with microscopic on 05-14-2020 Bacteria LM.HPF (Urine sed) [#/Area] NONE SEEN Normal None Seen [facility] Crystals LM Nom (Urine sed) Few Abnormal None Seen [facility] Comment on above: Result Comment: CALC IUM OXALATE RBC (U) [#/Vol] NONE Normal 0-2 [facility] WBC (U) [#/Vol] 0 /uL Normal 0-5 [facility] Bilirubin Ql (U) SMALL Abnormal Negative [facility] Clarity (U) Clear Normal Clear [facility] Color (U) Yellow Normal Straw/Yello w [facility] Glucose Ql (U) 100 mg/dL Abnormal Negative [facility] Hemoglobin Ql (U) Negative Normal Negative [facility] Ketones Ql (U) TRACE Abnormal Negative [facility] Leukocyte esterase Test strip Ql (U) Negative Normal Negative [facility] Nitrite Ql (U) Negative Normal Negative [facility] pH (U) 5.5 [pH] Normal 5.0-9.0 [facility] Protein Ql (U) TRACE Normal Negative [facility] Specific gravity (U) [Rel density] >=1.030 Normal 1.005-1.030 [facility] Urobilinogen Qn (U) 0.2 {Cesar'U}/dL Normal < 2.0 [facility] XR LUMBAR SPINE (2-3 VIEWS)o n 05-14-2020 XR LUMBAR SPINE (2-3 VIEWS) Patient : 1975 Age: 44 years Gender: Male Order Date: 05/14/2020 4:47 PM EXAM: XR LUMBAR SPINE (2-3 VIEWS) NUMBER OF IMAGES: 3 views INDICATION: lower back pain started ta work no injury lower back pain started ta work no injury COMPARISON: None Alignment of the vertebral bodies appears to be near-anatomic No fracture or foreign body is identified. The disc spaces demonstrate moderate degenerative changes. There is moderate loss of the vertebral body height The are moderate degenerative changes involving the facets. 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 The disc spaces demonstrate moderate degenerative changes. There is moderate loss of the vertebral body height The are moderate degenerative changes involving the facets. [place], Mhy Incoming Ra diant Results From [facility] - 05/14/2020 4:59 PM EDT Patient : 1975 Age: 44 years Gender: Male Order Date: 05/14/2020 4:47 PM EXAM: XR LUMBAR SPINE (2-3 VIEWS) NUMBER OF IMAGES: 3 views INDICATION: lower back pain started ta work no injury lower back pain started ta work no injury COMPARISON: None Alignment of the vertebral bodies appears to be near-anatomic No fracture or foreign body is identified. The disc spaces demonstrate moderate degenerative changes. There is moderate loss of the vertebral body height The are moderate degenerative changes involving the facets. IMPRESSION: Findings consistent with degenerative disc disease and degenerative facets disease [place] Vital Signs Date Time Vital Sign Value Performing Clinician Facility 01-16-2025 11:58-0400 Body mass index (BMI) [Ratio] 29.6 kg/m2 Tommy Clutter PA-C Work Phone: [facility] 01-16-2025 11:58-0400 Body temperature 97.9 [degF] Tommy Clutter PA-C Work Phone: [facility] 01-16-2025 11:58-0400 Body weight 99 kg Tommy Clutter PA-C Work Phone: [facility] 01-16-2025 11:58-0400 Diastolic blood pressure 87 mm[Hg] Tommy Clutter PA-C Work Phone: [facility] 01-16-2025 11:58-0400 Heart rate 85 /min Tommy Clutter PA-C Work Phone: [facility] 01-16-2025 11:58-0400 Respiratory rate 20 /min Tommy Clutter PA-C Work Phone: [facility] 01-16-2025 11:58-0400 SaO2% (BldA) [Mass fraction] 97 % Tommy Clutter PA-C Work Phone: [facility] 01-16-2025 11:58-0400 Systolic blood pressure 136 mm[Hg] Tommy Clutter PA-C Work Phone: [facility] 12-15-2024 13:06-0400 Body mass index (BMI) [Ratio] 28.89 kg/m2 Kaya Older COMPLIANCE ANALYST.DEVELOPMENT CHEMIST Work Phone: [facility] 12-15-2024 13:06-0400 Body weight 96.62 kg Kaya Older COMPLIANCE ANALYST.DEVELOPMENT CHEMIST Work Phone: [facility] 12-15-2024 13:06-0400 Diastolic blood pressure 72 mm[Hg] Kaya Older COMPLIANCE ANALYST.DEVELOPMENT CHEMIST Work Phone: [facility] 12-15-2024 13:06-0400 Heart rate 78 /min Kaya Older COMPLIANCE ANALYST.DEVELOPMENT CHEMIST Work Phone: [facility] 12-15-2024 13:06-0400 Respiratory rate 16 /min Kaya Older COMPLIANCE ANALYST.DEVELOPMENT CHEMIST Work Phone: [facility] 12-15-2024 13:06-0400 SaO2% (BldA) [Mass fraction] 98 % Kaya Older COMPLIANCE ANALYST.DEVELOPMENT CHEMIST Work Phone: [facility] 12-15-2024 13:06-0400 Systolic blood pressure 124 mm[Hg] Kaya Older COMPLIANCE ANALYST.DEVELOPMENT CHEMIST Work Phone: [facility] 06-13-2024 11:33-0400 Body mass index (BMI) [Ratio] 27.27 kg/m2 Sandi Bird MD Work Phone: [facility] 06-13-2024 11:33-0400 Body weight 91.2 kg Sandi Bird MD Work Phone: [facility] 06-13-2024 11:33-0400 Diastolic blood pressure 74 mm[Hg] Sandi Bird MD Work Phone: [facility] 06-13-2024 11:33-0400 Heart rate 58 /min Sandi Bird MD Work Phone: [facility] 06-13-2024 11:33-0400 SaO2% (BldA) [Mass fraction] 97 % Sandi Bird MD Work Phone: [facility] 06-13-2024 11:33-0400 Systolic blood pressure 112 mm[Hg] Sandi Bird MD Work Phone: [facility] 05-09-2024 16:12-0400 Body mass index (BMI) [Ratio] 26.8 kg/m2 Sandi Bird MD Work Phone: [facility] 05-09-2024 16:12-0400 Body weight 89.63 kg Sandi Bird MD Work Phone: [facility] 05-09-2024 16:12-0400 Diastolic blood pressure 82 mm[Hg] Sandi Bird MD Work Phone: [facility] 05-09-2024 16:12-0400 Heart rate 94 /min Sandi Bird MD Work Phone: [facility] 05-09-2024 16:12-0400 Respiratory rate 16 /min Sandi Bird MD Work Phone: [facility] 05-09-2024 16:12-0400 SaO2% (BldA) [Mass fraction] 97 % Sandi Bird MD Work Phone: [facility] 05-09-2024 16:12-0400 Systolic blood pressure 118 mm[Hg] Sandi Bird MD Work Phone: [facility] 04-22-2024 18:54-0400 Body mass index (BMI) [Ratio] 26.85 kg/m2 Izaiah Foster APRN.DEVELOPMENT CHEMIST Work Phone: [facility] 04-22-2024 18:54-0400 Body temperature 97.59 [degF] Izaiah Foster APRN.DEVELOPMENT CHEMIST Work Phone: [facility] 04-22-2024 18:54-0400 Body weight 89.8 kg Izaiah Foster APRN.DEVELOPMENT CHEMIST Work Phone: [facility] 04-22-2024 18:54-0400 Diastolic blood pressure 70 mm[Hg] Izaiah Foster APRN.DEVELOPMENT CHEMIST Work Phone: [facility] 04-22-2024 18:54-0400 Heart rate 102 /min Izaiah Foster APRN.DEVELOPMENT CHEMIST Work Phone: [facility] 04-22-2024 18:54-0400 Respiratory rate 16 /min Izaiah Foster APRN.DEVELOPMENT CHEMIST Work Phone: [facility] 04-22-2024 18:54-0400 SaO2% (BldA) [Mass fraction] 97 % Izaiah Foster APRN.DEVELOPMENT CHEMIST Work Phone: [facility] 04-22-2024 18:54-0400 Systolic blood pressure 120 mm[Hg] Izaiah Foster APRN.DEVELOPMENT CHEMIST Work Phone: [facility] 02-28-2024 13:35-0400 Body mass index (BMI) [Ratio] 29.02 kg/m2 Kaya [place] APRN.DEVELOPMENT CHEMIST Work Phone: [facility] 02-28-2024 13:35-0400 Body weight 97.07 kg Kaya Older COMPLIANCE ANALYST.DEVELOPMENT CHEMIST Work Phone: [facility] 02-28-2024 13:35-0400 Diastolic blood pressure 70 mm[Hg] Kaya Older COMPLIANCE ANALYST.DEVELOPMENT CHEMIST Work Phone: [facility] 02-28-2024 13:35-0400 Heart rate 80 /min Kaya Older COMPLIANCE ANALYST.DEVELOPMENT CHEMIST Work Phone: [facility] 02-28-2024 13:35-0400 Respiratory rate 16 /min Kaya Older COMPLIANCE ANALYST.DEVELOPMENT CHEMIST Work Phone: [facility] 02-28-2024 13:35-0400 SaO2% (BldA) [Mass fraction] 98 % Kaya Older COMPLIANCE ANALYST.DEVELOPMENT CHEMIST Work Phone: [facility] 02-28-2024 13:35-0400 Systolic blood pressure 130 mm[Hg] Kaya Older COMPLIANCE ANALYST.DEVELOPMENT CHEMIST Work Phone: [facility] 11-05-2023 13:30-0500 Diastolic blood pressure 78 mm[Hg] Kaya Older COMPLIANCE ANALYST.DEVELOPMENT CHEMIST Work Phone: [facility] 11-05-2023 13:30-0500 Systolic blood pressure 120 mm[Hg] Kaya Older COMPLIANCE ANALYST.DEVELOPMENT CHEMIST Work Phone: [facility] 11-05-2023 12:52-0500 Body weight 99.79 kg Kaya Older COMPLIANCE ANALYST.DEVELOPMENT CHEMIST Work Phone: [facility] 11-05-2023 12:52-0500 Heart rate 80 /min Kaya Older COMPLIANCE ANALYST.DEVELOPMENT CHEMIST Work Phone: [facility] 11-05-2023 12:52-0500 Respiratory rate 16 /min Kaya Older COMPLIANCE ANALYST.DEVELOPMENT CHEMIST Work Phone: [facility] 11-05-2023 12:52-0500 SaO2% (BldA) [Mass fraction] 98 % Kaya Older COMPLIANCE ANALYST.DEVELOPMENT CHEMIST Work Phone: [facility] 02-27-2023 16:34-0400 Diastolic blood pressure 70 mm[Hg] Sandi Bird MD Work Phone: [facility] 02-27-2023 16:34-0400 Systolic blood pressure 128 mm[Hg] Sandi Bird MD Work Phone: [facility] 02-27-2023 15:48-0400 Body height 182.9 cm Sandi Bird MD Work Phone: [facility] 02-27-2023 15:48-0400 Body temperature 97.5 [degF] Sandi Bird MD Work Phone: [facility] 02-27-2023 15:48-0400 Body weight 101.15 kg Sandi Bird MD Work Phone: [facility] 02-27-2023 15:48-0400 Heart rate 95 /min Sandi Bird MD Work Phone: [facility] 02-27-2023 15:48-0400 Respiratory rate 12 /min Sandi Bird MD Work Phone: [facility] 02-27-2023 15:48-0400 SaO2% (BldA) [Mass fraction] 99 % Sandi Bird MD Work Phone: [facility] 01-01-2023 11:48-0400 Body temperature 96.91 [degF] Mckenna Athy PA-C Work Phone: [facility] 01-01-2023 11:48-0400 Body weight 103.15 kg Mckenna Athy PA-C Work Phone: [facility] 01-01-2023 11:48-0400 Diastolic blood pressure 76 mm[Hg] Mckenna Athy PA-C Work Phone: [facility] 01-01-2023 11:48-0400 Heart rate 89 /min Mckenna Athy PA-C Work Phone: [facility] 01-01-2023 11:48-0400 Respiratory rate 18 /min Mckenna Athy PA-C Work Phone: [facility] 01-01-2023 11:48-0400 SaO2% (BldA) [Mass fraction] 98 % Mckennakimberly Eduardoanaya RAJPUT-Estefany Work Phone: [facility] 01-01-2023 11:48-0400 Systolic blood pressure 120 mm[Hg] Mckenna Salazar PA-C Work Phone: [facility] 03-26-2022 01:05-0400 Respiratory rate 16 /min [facility] Work Phone: 03-26-2022 00:43-0400 Body height 185.42 cm [facility] Work Phone: 03-26-2022 00:43-0400 Body mass index (BMI) [Ratio] 30.7 kg/m2 [facility] Work Phone: 03-26-2022 00:43-0400 Body temperature 98.2 [degF] [facility] Work Phone: 03-26-2022 00:43-0400 Body weight 105.7 kg [facility] Work Phone: 03-26-2022 00:43-0400 Diastolic blood pressure 109 mm[Hg] [facility] Work Phone: 03-26-2022 00:43-0400 Heart rate 103 /min [facility] Work Phone: 03-26-2022 00:43-0400 SaO2% (BldA) [Mass fraction] 98 % [facility] Work Phone: 03-26-2022 00:43-0400 Systolic blood pressure 149 mm[Hg] [facility] Work Phone: 01-16-2022 19:04-0400 Diastolic blood pressure 94 mm[Hg] [facility] Work Phone: 01-16-2022 19:04-0400 Heart rate 111 /min [facility] Work Phone: 01-16-2022 19:04-0400 Respiratory rate 22 /min [facility] Work Phone: 01-16-2022 19:04-0400 SaO2% (BldA) [Mass fraction] 97 % [facility] Work Phone: 01-16-2022 19:04-0400 Systolic blood pressure 139 mm[Hg] [facility] Work Phone: 01-16-2022 16:31-0400 Body height 182.88 cm [facility] Work Phone: 01-16-2022 16:31-0400 Body mass index (BMI) [Ratio] 30.8 kg/m2 [facility] Work Phone: 01-16-2022 16:31-0400 Body temperature 96.4 [degF] [facility] Work Phone: 01-16-2022 16:31-0400 Body weight 103.2 kg [facility] Work Phone: 01-15-2022 14:06-0400 Body temperature 98.4 [degF] [facility] Work Phone: 01-15-2022 14:06-0400 Diastolic blood pressure 78 mm[Hg] [facility] Work Phone: 01-15-2022 14:06-0400 Heart rate 104 /min [facility] Work Phone: 01-15-2022 14:06-0400 Respiratory rate 16 /min [facility] Work Phone: 01-15-2022 14:06-0400 SaO2% (BldA) [Mass fraction] 98 % [facility] Work Phone: 01-15-2022 14:06-0400 Systolic blood pressure 116 mm[Hg] [facility] Work Phone: 01-15-2022 11:19-0400 Body height 182.88 cm [facility] Work Phone: 01-15-2022 11:19-0400 Body mass index (BMI) [Ratio] 30.7 kg/m2 [facility] Work Phone: 01-15-2022 11:19-0400 Body weight 102.6 kg [facility] Work Phone: 05-14-2020 16:23-0400 Body weight 106.59 kg [facility] [place] 05-14-2020 16:23-0400 BP Diastolic 96 mm[Hg] [facility] [place] 05-14-2020 16:23-0400 BP Systolic 145 mm[Hg] [facility] [place] 05-14-2020 15:59-0400 Body Temperature 97.81 [degF] [facility], [place] 05-14-2020 15:59-0400 Pulse (Heart Rate) 77 /min [facility] [place] 05-14-2020 15:59-0400 Pulse Oximetry 98 % [facility] [place] Encounters Encounter Date Encounter Type Care Provider Facility Start: 05-19-2025 End: 06-02-2025 ambulatory Kaya Older COMPLIANCE ANALYST.DEVELOPMENT CHEMIST Work Phone: [facility] Comment on above: Medication Start: 05-01-2025 End: 05-04-2025 Refill Kaya Older COMPLIANCE ANALYST.DEVELOPMENT CHEMIST Work Phone: [facility] Comment on above: Refill Request colestipol Start: 04-21-2025 End: 04-30-2025 Refill Kaya Older COMPLIANCE ANALYST.DEVELOPMENT CHEMIST Work Phone: [facility] Comment on above: Refill Request Start: 04-18-2025 End: 04-20-2025 ambulatory Sandi Bird MD Work Phone: [facility] Comment on above: Fax Start: 02-03-2025 End: 02-04-2025 Emergency department patient visit NATASHA TSE [facility] Start: 01-16-2025 End: 01-16-2025 Office outpatient new 30 minutes Tommy Bassett PA-C Work Phone: [facility] Comment on above: Acute otitis externa of right ear, unspecified type (Primary Dx) Start: 01-16-2025 End: 01-16-2025 ambulatory SANDI BIRD Facility:[facility] Start: 01-09-2025 End: 01-10-2025 ambulatory Kaya [place] COMPLIANCE ANALYST.DEVELOPMENT CHEMIST Work Phone: [facility] Comment on above: Sugar Start: 01-08-2025 End: 01-08-2025 ambulatory Hugh RAJPUT Facility:[facility] Start: 12-31-2024 End: 12-31-2024 ambulatory Sandi Bird MD Work Phone: [facility] Comment on above: Test strips Start: 12-26-2024 End: 12-29-2024 Refill Sandi Bird MD Work Phone: [facility] Comment on above: Refill Request Start: 12-19-2024 End: 12-19-2024 ambulatory SELF Facility:[facility] Start: 12-19-2024 End: 12-19-2024 Nursing evaluation of patient and report Mi Nurse Work Phone: [facility] Comment on above: Encounter for immuni zation (Primary Dx) Start: 12-17-2024 End: 12-18-2024 Telephone encounter Sandi Bird MD Work Phone: [facility] Comment on above: Orders Start: 12-16-2024 End: 12-17-2024 Telephone encounter Sandi Bird MD Work Phone: [facility] Comment on above: Orders Start: 12-15-2024 End: 12-15-2024 ambulatory KAYA COLORADO Facility:[facility] Start: 12-15-2024 End: 12-15-2024 Patient encounter procedure Kaya [place] COMPLIANCE ANALYST.DEVELOPMENT CHEMIST Work Phone: [facility] Comment on above: Controlled type 2 di abetes mellitus without complication, without long-term current use of insulin (HCC) (Primary Dx); Diarrhea, unspecified type; Hypertriglyceridemia; Screening for colon cancer Start: 12-10-2024 End: 02-09-2025 Follow-up encounter Sandi Bird MD Work Phone: [facility] Start: 12-08-2024 End: 12-08-2024 ambulatory SANDI BIRD Facility:[facility] Start: 12-03-2024 End: 12-04-2024 Refill Kaya [place] APRN.CNP Work Phone: [facility] Comment on above: Refill Request Start: 12-01-2024 End: 12-05-2024 ambulatory Sandi Bird MD Work Phone: [facility] [place] Comment on above: Metformin Start: 11-24-2024 End: 11-25-2024 ambulatory Sandi Bird MD Work Phone: [facility] Comment on above: Marcos Infante Start: 11-21-2024 End: 12-08-2024 ambulatory Sandi Bird MD Work Phone: [facility] Comment on above: Diabetes Start: 10-07-2024 End: 10-13-2024 ambulatory Sandi Bird MD Work Phone: [facility] [place] Comment on above: Note Start: 08-17-2024 End: 08-19-2024 Refill Sandi Bird MD Work Phone: [facility] Comment on above: Refill Request Start: 06-16-2024 End: 06-19-2024 ambulatory Sandi Bird MD Work Phone: [facility] Comment on above: results Start: 06-16-2024 End: 06-19-2024 E-mail encounter from caregiver Sandi Bird MD Work Phone: [facility] Start: 06-14-2024 End: 06-14-2024 ambulatory SANDI BIRD Facility:[facility] Start: 06-13-2024 End: 06-13-2024 Telephone encounter Sandi Bird MD Work Phone: [facility] [place] Comment on above: Consult ([employer] [facility] ) Start: 06-13-2024 End: 06-13-2024 Office outpatient visit 25 minutes Sandi Bird MD Work Phone: [facility] [place] Comment on above: Perianal rash (Prima ry Dx); Diabetes mellitus type 2 with ketoacidosis, uncontrolled (HCC) Start: 06-13-2024 End: 06-13-2024 ambulatory [facility] Facility:[facility] Start: 06-12-2024 End: 06-13-2024 Emergency department patient visit [facility] Facility:[facility] Start: 05-12-2024 End: 06-30-2024 Telephone encounter Sandi Bird MD Work Phone: [facility] [place] Comment on above: Medication Question Medication Problem Start: 05-09-2024 End: 05-09-2024 Office outpatient visit 25 minutes Sandi Bird MD Work Phone: [facility] [place] Comment on above: Controlled type 2 di abetes mellitus without complication, without long-term current use of insulin (HCC) (Primary Dx); Dermatitis Start: 05-09-2024 End: 05-09-2024 ambulatory [facility] Facility:[facility] Start: 05-09-2024 End: 05-09-2024 [facility] Facility:[facility] Start: 04-25-2024 ambulatory Sandi Colon Work Phone: [facility] [place] Comment on above: Marcos Infante Start: 04-22-2024 End: 04-22-2024 [facility] Facility:[facility] Start: 04-22-2024 End: 04-22-2024 Patient encounter procedure Izaiah Foster APRN.DEVELOPMENT CHEMIST Work Phone: [facility] Comment on above: Dry skin (Primary Dx ) Start: 04-22-2024 Telephone encounter Sandi zimmerman MD Work Phone: [facility] [place] Start: 04-20-2024 ambulatory Sandi Colon Work Phone: [facility] [place] Comment on above: Sugar Start: 04-02-2024 ambulatory Kaya RussDEVELOPMENT CHEMIST Work Phone: [facility] [place] Comment on above: Scabies Start: 03-24-2024 ambulatory Kaya Older COMPLIANCE ANALYST .DEVELOPMENT CHEMIST Work Phone: [facility] [place] Comment on above: ER Start: 03-24-2024 End: 03-24-2024 Emergency department patient visit JONA SIMPSON [facility] Start: 03-21-2024 ambulatory Kaya Older COMPLIANCE ANALYST .DEVELOPMENT CHEMIST Work Phone: [facility] [place] Comment on above: Victoza Start: 03-13-2024 End: 03-13-2024 Emergency department patient visit Santy Groves Facility:[facility] Start: 03-09-2024 End: 03-09-2024 Emergency department patient visit ZENA Mosher MAGDA [facility] Start: 02-28-2024 End: 02-28-2024 ambulatory KAYA OLDER Facility:[facility] Start: 02-28-2024 End: 02-28-2024 Patient encounter procedure Kaya Older COMPLIANCE ANALYST.DEVELOPMENT CHEMIST Work Phone: [facility] [place] Comment on above: Controlled type 2 di abetes mellitus without complication, without long-term current use of insulin (HCC) (Primary Dx); Hypertriglyceridemia; Elevated bilirubin; Elevated alkaline phosphatase level Start: 02-24-2024 Refill Kaya Older COMPLIANCE ANALYST .DEVELOPMENT CHEMIST Work Phone: [facility] [place] Comment on above: Refill Request Start: 02-23-2024 End: 02-24-2024 Emergency department patient visit CHUCK RANDOLPH [facility] Start: 02-22-2024 Refill Rosemary Dejesus traci COMPLIANCE ANALYST.DEVELOPMENT CHEMIST Work Phone: [facility] [place] Comment on above: Refill Request Sugar Start: 01-15-2024 Refill Kaya Older COMPLIANCE ANALYST .DEVELOPMENT CHEMIST Work Phone: [facility] [place] Comment on above: Refill Request Start: 01-08-2024 ambulatory Zahira Slade RP h Work Phone: [facility] Comment on above: omeprazole 20 mg cap dunia Start: 12-19-2023 Telephone encounter Sandi zimmerman MD Work Phone: [facility] [place] Comment on above: Medication Problem Start: 12-17-2023 Telephone encounter Sandi zimmerman MD Work Phone: [facility] [place] Comment on above: Medication Problem Start: 12-12-2023 Telephone encounter Sandi zimmerman MD Work Phone: [facility] [place] Comment on above: Insurance Authorizat ion Start: 12-06-2023 ambulatory Kaya Older COMPLIANCE ANALYST .DEVELOPMENT CHEMIST Work Phone: [facility] [place] Comment on above: Trulicty Start: 12-04-2023 ambulatory Kaya Older COMPLIANCE ANALYST .DEVELOPMENT CHEMIST Work Phone: [facility] [place] Comment on above: Colonoscopy Start: 11-13-2023 Orders Only Kaya Older COMPLIANCE ANALYST .DEVELOPMENT CHEMIST Work Phone: [facility] [place] Start: 11-07-2023 ambulatory [facility] RP h Work Phone: [facility] Comment on above: Dermatology Start: 11-05-2023 End: 11-05-2023 Patient encounter procedure Kaya Older COMPLIANCE ANALYST.DEVELOPMENT CHEMIST Work Phone: [facility] [place] Comment on above: Controlled type 2 di abetes mellitus without complication, without long-term current use of insulin (HCC) (Primary Dx); Anxiety; Skin tag; Low HDL (under 40); Encounter for immunization Start: 07-19-2023 ambulatory [facility] RP h Work Phone: [facility] Comment on above: Dr Bird Start: 06-08-2023 Refill Cristine Fernandez PRN.DEVELOPMENT CHEMIST Work Phone: [facility] [place] Comment on above: Refill Request Start: 04-22-2023 Refill Kaya Older COMPLIANCE ANALYST .DEVELOPMENT CHEMIST Work Phone: [facility] [place] Comment on above: Refill Request Start: [facility]-17-[facility] Comment on above: New Doctor Start: 03-29-2023 End: 03-29-2023 Patient encounter procedure Chuck Gillis Work Phone: Podiatry Comment on above: Ingrown nail (Primar y Dx); Onychomycosis; Controlled type 2 diabetes mellitus without complication, without long-term current use of insulin (HCC) Start: 03-23-2023 ambulatory Zahira Max RP h Work Phone: [facility] Comment on above: Sleep meditation Start: 03-21-2023 Refill Sandi Colon Work Phone: [facility] [place] Start: 03-15-2023 Refill Sandi Colon Work Phone: [facility] [place] Comment on above: Opened In Error Start: 03-12-2023 ambulatory Sandi Colon Work Phone: [facility] [place] Comment on above: Blood Sugar Test strips Start: 02-27-2023 End: 02-27-2023 Patient encounter procedure Sandi Bird MD Work Phone: [facility] [place] Comment on above: Controlled type 2 di abetes mellitus without complication, without long-term current use of insulin (HCC) (Primary Dx); Insomnia, unspecified type; Elevated BP without diagnosis of hypertension Start: 02-11-2023 Refill Cristine BAIGDEVELOPMENT CHEMIST Work Phone: [facility] [place] Comment on above: Refill Request Start: 01-22-2023 Refill Sandi Colon Work Phone: [facility] [place] Comment on above: Refill Request Start: 01-18-2023 ambulatory Sandi Colon Work Phone: [facility] [place] Comment on above: Blood work Start: 01-02-2023 Telephone encounter Ishan johnston COMPLIANCE ANALYST.DEVELOPMENT CHEMIST Work Phone: [facility] Comment on above: Results Start: 01-01-2023 End: 01-01-2023 Patient encounter procedure Mckenna Salazar PA-C Work Phone: [facility] Comment on above: Viral URI (Primary D x) Start: 11-06-2022 ambulatory Sandi Colon Work Phone: [facility] [place] Comment on above: Medication Start: 11-03-2022 Refill Sandi Colon Work Phone: [facility] [place] Comment on above: Refill Request Start: 10-08-2022 Refill Kaya Older COMPLIANCE ANALYST .DEVELOPMENT CHEMIST Work Phone: [facility] [place] Comment on above: Refill Request Start: 10-05-2022 End: 10-05-2022 Patient encounter procedure Chuck Gillis Work Phone: Podiatry Comment on above: Onychomycosis (Prima ry Dx); Ingrown nail; Controlled type 2 diabetes mellitus without complication, without long-term current use of insulin ([facility]) Start: 09-27-2022 Refill Sandi Colon Work Phone: [facility] [place] Comment on above: Refill Request Start: 08-29-2022 ambulatory Sandi Colon Work Phone: [facility] [place] Comment on above: A1C Start: 08-29-2022 Telephone encounter Sandi zimmerman MD Work Phone: [facility] [place] Comment on above: Results Start: 08-20-2022 Refill Kaya Older COMPLIANCE ANALYST .DEVELOPMENT CHEMIST Work Phone: [facility] [place] Comment on above: Refill Request Start: 08-13-2022 ambulatory Sandi Colon Work Phone: [facility] [place] Comment on above: ADHD Start: 08-01-2022 ambulatory Sandi Colon Work Phone: [facility] [place] Comment on above: Sleep Start: 07-10-2022 Refill Rosemary Older COMPLIANCE ANALYST .DEVELOPMENT CHEMIST Work Phone: [facility] [place] Comment on above: Refill Request Start: 06-23-2022 Telephone encounter Sandi zimmerman MD Work Phone: [facility] [place] Comment on above: FYI-No Action Needed Start: 05-10-2022 Telephone encounter Kaya Colorado COMPLIANCE ANALYST.DEVELOPMENT CHEMIST Work Phone: [facility] [place] Comment on above: Results Start: 04-11-2022 Refill Sandi Colon Work Phone: [facility] [place] Comment on above: Refill Request Start: 03-30-2022 ambulatory Zahira Max RP Work Phone: [facility] Comment on above: Diabetes Start: 03-30-2022 E-mail encounter fro m caregiver Zahira Max [facility] Work Phone: [facility] Start: 03-26-2022 End: 03-26-2022 Emergency department patient visit [facility] Start: 02-24-2022 Refill Sandi Colon Work Phone: [facility] [place] Comment on above: Refill Request Start: 02-13-2022 ambulatory Sandi Colon Work Phone: [facility] [place] Comment on above: Metformin Start: 01-30-2022 Refill Rosemary Older COMPLIANCE ANALYST .DEVELOPMENT CHEMIST Work Phone: [facility] [place] Comment on above: Refill Request Start: 01-16-2022 End: 01-16-2022 Emergency department patient visit [facility] Start: 01-15-2022 End: 01-15-2022 [facility] Start: 05-14-2020 End: 05-14-2020 Emergency department patient [facility] Start: 05-14-2020 End: 05-14-2020 Emergency department patient visit [facility] Emergency [facility] Comment on above: Right-sided low back pain without sciatica, unspecified chronicity (Primary Dx); Degenerative disc disease, lumbar Procedures Date Procedure Procedure Detail Performing Clinician Start: 03-09-2024 Urinalysis NATASHA Argueta Comment on above: Result Comment: URIN ALYSIS Performed By: #### [id number] #### [facility],[address] [place] [address] Start: 01-16-2022 Plain chest X-ray Start: 05-14-2021 Adult depression scr eening assessment Rosemary Older COMPLIANCE ANALYST.DEVELOPMENT CHEMIST Work Phone: Start: 05-14-2020 Radex spine lumbosac ral 2/3 views DAVID STEPHENSON Start: 05-14-2020 Urnls dip stick/tabl et reagent auto microscopy DAVID STEPHENSON Start: 05-14-2020 Radex spine lumbosac ral 2/3 views Yanet Edwardsrg Work Phone: Start: 05-14-2020 Urnls dip stick/tabl et reagent auto microscopy Yanet Bermudez Work Phone: History of cholecystectomy S/P cholecyste ctomy History of tonsillectomy S/P tonsillectom y Plan of Treatment Date Care Activity Detail Author Start: 04-14-2029 Urine microalbumin profile DTaP,Tdap,Td Vaccine (3 - Td or Tdap) [facility] Start: 12-15-2025 Annual PCP Team Chronic Disease Visit Annual PCP Team Chronic Disease Visit [facility] Start: 12-15-2025 Diabetic foot examination Diabetic Foot Exam [facility] Start: 12-08-2025 Hepatitis B surface antibody level LDL Cholesterol [facility] Start: 06-13-2025 Annual PCP Team Chronic Disease Visit Annual PCP Team Chronic Disease Visit [facility] Start: 06-10-2025 Hemoglobin A1c measurement HbA1C [facility] Start: 06-01-2025 Influenza vaccination [facility] Start: 05-09-2025 Annual PCP Team Chronic Disease Visit Annual PCP Team Chronic Disease Visit [facility] Start: 03-30-2025 Influenza [facility] Comment on above: Postponed from 06/01/2024 (Declined at t his time) Start: 03-24-2025 End: 03-24-2025 Patient encounter procedure 03/24/2025 1:40 PM EDT Office Visit [facility] [place] [address] [place] [address] Sandi Bird MD [address] [place] [id number] 3 month follow up [facility] [place] Comment on above: 3 month follow up Start: 02-27-2025 Annual PCP Team Chronic Disease Visit Annual PCP Team Chronic Disease Visit [facility] Start: 02-22-2025 Hepatitis B screening Urine Albumin:Creatinine Ratio [facility] Start: 02-22-2025 Hepatitis B surface antibody level LDL Cholesterol [facility] Start: 01-31-2025 End: 01-31-2025 ambulatory 01/31/2025 10:30 AM EDT Results Only [facility] [address] [place] [address] [facility] Start: 01-17-2025 End: 01-17-2025 ambulatory 01/17/2025 9:45 AM EDT Results Only [facility] [address] [place] [address] [facility] Start: 01-02-2025 End: 01-02-2025 Patient encounter procedure 01/02/2025 2:45 PM EDT Appointment Ambulatory Surgery [address] [place] [address] Glenn Krishnan MD [address] [place] [address] Screening for colon cancer [Z12.11] Ambulatory Surgery Comment on above: Screening for colon cancer [Z12.11] Start: 01-02-2025 End: 01-02-2025 Patient encounter procedure 01/02/2025 9:30 AM EDT Appointment Ambulatory Surgery [address] [place] [address] Glenn Krishnan MD [address] [place] [address] Screening for colon cancer [Z12.11] Ambulatory Surgery Comment on above: Screening for colon cancer [Z12.11] Start: 12-19-2024 End: 12-19-2024 Nursing evaluation of patient and report 12/19/2024 1:15 PM EDT Nurse Visit [facility] [address] [place] [address] Nurse, Ut [address] [place] [address] pneumonia-Hep A [facility] [place] Comment on above: pneumonia-Hep A Start: 12-15-2024 End: 12-15-2024 Patient encounter procedure 12/15/2024 1:20 PM EDT Office Visit [facility] [place] [address] [facility] [place] [address] Kaya Colorado APRN.DEVELOPMENT CHEMIST [address] [place] [address] Follow up [facility] [place] Comment on above: Follow up Start: 12-08-2024 End: 12-08-2024 ambulatory 12/08/2024 11:15 AM EDT Results Only [facility] [address] [place] [address] [facility] Start: 11-05-2024 Annual PCP Team Chronic Disease Visit Annual PCP Team Chronic Disease Visit [facility] Start: 11-05-2024 Covid-19 Vaccine (#1) Covid-19 Vaccine (#1) [facility] Comment on above: Postponed from 06/24/1977 (Declined at t his time) Start: 11-05-2024 Covid-19 Vaccine ( season) Covid-19 Vaccine ( season) [facility] Comment on above: Postponed from 06/01/2023 (Declined at t his time) Start: 11-05-2024 Diabetic foot examination Diabetic Foot Exam [facility] Start: 11-05-2024 Hepatitis A Vaccine (2 of 2 - Risk 2-dose series) Hepatitis A Vaccine (2 of 2 - Risk 2-dose series) [facility] Comment on above: Postponed from 11/25/2016 (Declined at t his time) Start: 11-05-2024 Pneumococcal vaccination Pneumococcal Vaccine (2 of 2 - PCV) [facility] Comment on above: Postponed from 09/06/2022 (Declined at t his time) Start: 09-13-2024 Hemoglobin A1c measurement HbA1C [facility] Start: 09-05-2024 Hepatitis B surface antibody level LDL Cholesterol [facility] Start: 07-25-2024 End: 07-25-2024 Patient encounter procedure 07/25/2024 1:40 PM EDT Office Visit [facility] [place] [address] [facility] [place] [address] Sandi Bird MD [address] [place] [address] 4 week follow up [facility] [place] Comment on above: 4 week follow up Start: 06-27-2024 End: 06-27-2024 Patient encounter procedure 06/27/2024 4:00 PM EDT Office Visit [facility] [place] [address] [place] [id number] Sandi Bird MD [address] [place] [address] physical [facility] [place] Comment on above: physical Start: 06-14-2024 End: 06-14-2024 ambulatory 06/14/2024 10:00 AM EDT [facility] [address] [place] [address] [facility] Start: 06-09-2024 End: 09-08-2024 Hemoglobin A1c in Blood HEMOGLOBIN A1C Lab Routine Controlled type 2 diabetes mellitus without complication, without long-term current use of insulin (HCC) Expected: 06/09/2024, Expires: 09/08/2024 [facility] Work Phone: Comment on above: Expected: 06/09/2024, Expires: Start: 06-01-2024 Covid-19 Vaccine ( season) Covid-19 Vaccine ( season) [facility] Start: 06-01-2024 Covid-19 Vaccine ( season) Covid-19 Vaccine ( season) [facility] Start: 06-01-2024 Influenza vaccination [facility] Start: 05-25-2024 Hemoglobin A1c measurement HbA1C [facility] Start: 04-24-2024 End: 04-24-2024 Follow-up encounter 04/24/2024 2:00 PM EDT [facility] [place] [address] [facility] [place] [phone] Sandi Bird MD [address] [facility] [place] [phone] Follow up blood work and scabies follow up. [facility] [place] Comment on above: Follow up blood work and scabies follow up. Start: 04-12-2024 End: 04-12-2024 ambulatory 04/12/2024 9:00 AM EDT Results Only [facility] [address] [facility] [place] [address] [facility] Start: 04-10-2024 End: 04-10-2024 Patient encounter procedure 04/10/2024 9:40 AM EDT Office Visit [facility] [place] [address] [facility] [place] [place] [address] Sandi Bird MD [address] [facility] [place] [address] Follow up with new medicine [facility] [place] Comment on above: Follow up with new medicine Start: 03-06-2024 Hemoglobin A1c measurement HbA1C [facility] Start: 02-29-2024 Hepatitis B screening URINE ALBUMIN:CREATININE RATIO [facility] Start: 02-29-2024 Hepatitis B surface antibody level LDL CHOLESTEROL [facility] Start: 02-28-2024 ANNUAL PCP TEAM CHRONIC DISEASE VISIT ANNUAL PCP TEAM CHRONIC DISEASE VISIT [facility] Start: 02-28-2024 End: 02-28-2024 Patient encounter procedure 02/28/2024 1:40 PM EDT Office Visit [facility] [place] [address] [place] [address] Kaya Colorado APRN.DEVELOPMENT CHEMIST [address] [place] [address] ER follow up - [place] 02/24/24 records printed [facility] [place] Comment on above: ER follow up - [place] 02/24/24 recor ds printed Start: 02-23-2024 End: 02-23-2024 ambulatory [facility] Start: 10-01-2023 Behavioral Health Screening Behavioral Health Screening [facility] Start: 08-23-2023 Hepatitis B surface antibody level LDL CHOLESTEROL [facility] Start: 08-21-2023 3 comp foot exam completed DIABETIC FOOT EXAM [facility] Start: 08-21-2023 ANNUAL PCP TEAM CHRONIC DISEASE VISIT ANNUAL PCP TEAM CHRONIC DISEASE VISIT [facility] Start: 06-23-2023 Glaucoma screening Dilated Retinal Exam [facility] Start: 06-23-2023 Hepatitis C antibody, confirmatory test DILATED RETINAL EXAM [facility] Start: 06-01-2023 Influenza vaccination [facility] Start: 05-31-2023 Hemoglobin A1c/Hemoglobin.total in Blood HBA1C [facility] Start: 05-08-2023 Hepatitis B surface antibody level LDL CHOLESTEROL [facility] Start: 02-27-2023 End: 04-29-2023 ALBUMIN/CREAT RATIO RND UR ALBUMIN/CREAT RATIO RND UR Lab Routine Controlled type 2 diabetes mellitus without complication, without long-term current use of insulin (HCC) Expected: 02/27/2023, Expires: 04/29/2023 [facility] Work Phone: Comment on above: Expected: 02/27/2023, Expires: Start: 02-20-2023 Hemoglobin A1c/Hemoglobin.total in Blood HBA1C [facility] Start: 02-18-2023 Hemoglobin A1c/Hemoglobin.total in Blood HBA1C [facility] Start: 01-01-2023 End: 01-15-2023 SARS-CoV-2 (COVID-19) RNA [Presence] in Respiratory specimen by YINA with probe detection [facility] Work Phone: Comment on above: Expected: 01/01/2023, Expires: Start: 12-28-2022 Hepatitis B surface antibody level LDL CHOLESTEROL [facility] Start: 10-21-2022 Hepatitis B screening URINE ALBUMIN:CREATININE RATIO [facility] Start: 10-01-2022 DEPRESSION ASSESSMENT DEPRESSION ASSESSMENT [facility] Start: 09-06-2022 3 comp foot exam completed DIABETIC FOOT EXAM [facility] Start: 09-06-2022 ANNUAL PCP TEAM CHRONIC DISEASE VISIT ANNUAL PCP TEAM CHRONIC DISEASE VISIT [facility] Start: 09-06-2022 PNEUMOCOCCAL (2 - PCV) PNEUMOCOCCAL (2 - PCV) [facility] Start: 09-06-2022 Pneumococcal vaccination [facility] Start: 08-08-2022 Hemoglobin A1c/Hemoglobin.total in Blood HBA1C [facility] Start: 06-01-2022 Influenza vaccination [facility] Start: 05-14-2022 Adult depression screening assessment DEPRESSION SCREENING [facility] Start: 05-10-2022 End: 07-10-2022 Thyrotropin [Units/volume] in Serum or Plasma TSH BLD Lab Routine Hypertriglyceridemia Expected: 05/10/2022, Expires: 07/10/2022 [facility] Work Phone: Comment on above: Expected: 05/10/2022, Expires: Start: 03-30-2022 Hemoglobin A1c/Hemoglobin.total in Blood HBA1C [facility] Start: 01-16-2022 [facility] Work Phone: Start: 2021 COLOGUARD (FIT-DNA) COLOGUARD (FIT-DNA) [facility] Start: 2021 Colonoscopy COLONOSCOPY [facility] Start: 2021 COLORECTAL CANCER SCREENING COLORECTAL CANCER SCREENING [facility] Start: [address] COLONOGRAPHY [facility] Start: 2021 FECAL OCCULT BLOOD FECAL OCCULT BLOOD [facility] Start: 2021 Screening for malignant neoplasm of colon [facility] Start: 2021 SIGMOIDOSCOPY SIGMOIDOSCOPY [facility] [facility] Start: 10-01-2021 DEPRESSION ASSESSMENT DEPRESSION ASSESSMENT [facility] Start: 06-01-2020 Influenza vaccination Flu vaccine (#1) [place], [place] Start: 2016 Lipid panel Lipid screen [place], [place] Start: 11-25-2016 HEPATITIS A (2 of 2 - Risk 2-dose series) HEPATITIS A (2 of 2 - Risk 2-dose series) [facility] Start: 11-25-2016 Hepatitis A Vaccine (2 of 2 - Risk 2-dose series) Hepatitis A Vaccine (2 of 2 - Risk 2-dose series) [facility] Start: 12-23-1995 DTaP/Tdap/Td vaccine (1 - Tdap) DTaP/Tdap/Td vaccine (1 - Tdap) [place] Start: 12-23-1995 Urine microalbumin profile DTAP,TDAP,TD (1 - Tdap) [facility] Start: 1994 Anxiety Screening Anxiety Screening [facility] Start: 1994 Depression Screening Depression Screening [facility] Start: 12-23-1991 HIV screening HIV screen [place], [place] Start: 1986 Hepatitis C antibody, confirmatory test DILATED RETINAL EXAM [facility] Start: 1981 COVID-19 VACCINE (#1) COVID-19 VACCINE (#1) [facility] Start: 1981 COVID-19 VACCINE (1) COVID-19 VACCINE (1) [facility] Start: 06-24-1977 COVID-19 VACCINE (#1) COVID-19 VACCINE (#1) [facility] End: 08-10-2023 CBC panel - Blood by Automated count CBC Lab Routine Controlled type 2 diabetes mellitus without complication, without long-term current use of insulin (HCC) Every 6 months for 12 Occurrences starting 08/10/2022 until 08/10/2023 [facility] Work Phone: Comment on above: Every 6 months for 12 Occurrences starti ng 08/10/2022 until 08/10/2023 End: 02-28-2024 CBC panel - Blood by Automated count CBC Lab Routine Controlled type 2 diabetes mellitus without complication, without long-term current use of insulin (HCC) Every 6 months for 12 Occurrences starting 02/27/2023 until 02/28/2024 [facility] Work Phone: Comment on above: Every 6 months for 12 Occurrences starti ng 02/27/2023 until 02/28/2024 End: 12-05-2025 CBC panel - Blood by Automated count COMPLETE BLOOD COUNT Lab Routine Controlled type 2 diabetes mellitus without complication, without long-term current use of insulin (HCC) Every 6 months for 12 Occurrences starting 12/05/2024 until 12/05/2025 [facility] Comment on above: Every 6 months for 12 Occurrences starti ng 12/05/2024 until 12/05/2025 End: 08-10-2023 Comprehensive metabolic 2000 panel - Serum or Plasma COMP METABOLIC PANEL Lab Routine Controlled type 2 diabetes mellitus without complication, without long-term current use of insulin (HCC) Every 6 months for 12 Occurrences starting 08/10/2022 until 08/10/2023 [facility] Work Phone: Comment on above: Every 6 months for 12 Occurrences starti ng 08/10/2022 until 08/10/2023 End: 02-28-2024 Comprehensive metabolic 2000 panel - Serum or Plasma COMP METABOLIC PANEL Lab Routine Controlled type 2 diabetes mellitus without complication, without long-term current use of insulin (HCC) Every 6 months for 12 Occurrences starting 02/27/2023 until 02/28/2024 [facility] Work Phone: Comment on above: Every 6 months for 12 Occurrences starti ng 02/27/2023 until 02/28/2024 End: 12-05-2025 Comprehensive metabolic 2000 panel - Serum or Plasma COMPREHENSIVE METABOLIC PANEL Lab Routine Controlled type 2 diabetes mellitus without complication, without long-term current use of insulin (HCC) Every 6 months for 12 Occurrences starting 12/05/2024 until 12/05/2025 [facility] Comment on above: Every 6 months for 12 Occurrences starti ng 12/05/2024 until 12/05/2025 End: 08-10-2023 Hemoglobin A1c in Blood HGB A1C Lab Routine Controlled type 2 diabetes mellitus without complication, without long-term current use of insulin (HCC) Every 3 months for 24 Occurrences starting 08/10/2022 until 08/10/2023 [facility] Work Phone: Comment on above: Every 3 months for 24 Occurrences starti ng 08/10/2022 until 08/10/2023 End: 02-28-2024 Hemoglobin A1c in Blood HGB A1C Lab Routine Controlled type 2 diabetes mellitus without complication, without long-term current use of insulin (HCC) Every 3 months for 24 Occurrences starting 02/27/2023 until 02/28/2024 [facility] Work Phone: Comment on above: Every 3 months for 24 Occurrences starti ng 02/27/2023 until 02/28/2024 End: 12-05-2025 Hemoglobin A1c in Blood HEMOGLOBIN A1C Lab Routine Controlled type 2 diabetes mellitus without complication, without long-term current use of insulin (HCC) Every 3 months for 24 Occurrences starting 12/05/2024 until 12/05/2025 [facility] Work Phone: Comment on above: Every 3 months for 24 Occurrences starti ng 12/05/2024 until 12/05/2025 Hepa vaccine adult dose for intramuscular use HEP A VACCINE, ADULT (HAVRIX, VAQTA) Immunization/Injection Routine Encounter for immunization Ordered: 12/18/2024 [facility] Work Phone: Comment on above: Ordered: 12/18/2024 End: 08-10-2023 Lipid 1996 panel - Serum or Plasma LIPID PANEL BASIC Lab Routine Controlled type 2 diabetes mellitus without complication, without long-term current use of insulin (HCC) Every 6 months for 12 Occurrences starting 08/10/2022 until 08/10/2023 [facility] Work Phone: Comment on above: Every 6 months for 12 Occurrences starti ng 08/10/2022 until 08/10/2023 End: 02-28-2024 Lipid 1996 panel - Serum or Plasma LIPID PANEL BASIC Lab Routine Controlled type 2 diabetes mellitus without complication, without long-term current use of insulin (HCC) Every 6 months for 12 Occurrences starting 02/27/2023 until 02/28/2024 [facility] Work Phone: Comment on above: Every 6 months for 12 Occurrences starti ng 02/27/2023 until 02/28/2024 End: 12-05-2025 Lipid 1996 panel - Serum or Plasma LIPID PANEL BASIC Lab Routine Controlled type 2 diabetes mellitus without complication, without long-term current use of insulin (HCC) Every 6 months for 12 Occurrences starting 12/05/2024 until 12/05/2025 [facility] Comment on above: Every 6 months for 12 Occurrences starti ng 12/05/2024 until 12/05/2025 Patient Education [facility] Work Phone: Patient referral [facility] Work Phone: Pneumococcal vaccination PNEUMOCOCCAL VACCINE, 20 VALENT (PREVNAR 20) Immunization/Injection Routine Encounter for immunization Ordered: 12/16/2024 [facility] Work Phone: Comment on above: Ordered: 12/16/2024 End: 12-15-2025 Screening colonoscopy COLONOSCOPY SCREENING Endoscopy Routine Screening for colon cancer 1 Occurrences starting 12/15/2024 until 12/15/2025 [facility] Work Phone: Comment on above: 1 Occurrences starting 12/15/2024 until 12/15/2025 Thyrotropin [Units/volume] in Serum or Plasma TSH BLD Lab Routine Hypertriglyceridemia 05/11/2022 11:26 AM EDT [facility] Work Phone: End: 08-10-2023 Thyrotropin [Units/volume] in Serum or Plasma TSH BLD Lab Routine Controlled type 2 diabetes mellitus without complication, without long-term current use of insulin (HCC) Every 3 months for 24 Occurrences starting 08/10/2022 until 08/10/2023 [facility] Work Phone: Comment on above: Every 3 months for 24 Occurrences starti ng 08/10/2022 until 08/10/2023 End: 02-28-2024 Thyrotropin [Units/volume] in Serum or Plasma TSH BLD Lab Routine Controlled type 2 diabetes mellitus without complication, without long-term current use of insulin (HCC) Every 3 months for 24 Occurrences starting 02/27/2023 until 02/28/2024 [facility] Work Phone: Comment on above: Every 3 months for 24 Occurrences starti ng 02/27/2023 until 02/28/2024 End: 12-05-2025 Thyrotropin [Units/volume] in Serum or Plasma THYROID STIMULATING HORMONE Lab Routine Controlled type 2 diabetes mellitus without complication, without long-term current use of insulin ([facility]) Every 3 months for 24 Occurrences starting 12/05/2024 until 12/05/2025 [facility] Comment on above: Every 3 months for 24 Occurrences starti ng 12/05/2024 until 12/05/2025 [facility] Immunizations Immunization Date Immunization Notes Care Provider Farrah son 12-19-2024 hepatitis A vaccine, adult dosage Mi Nurse Work Phone: [facility] 12-19-2024 pneumococcal conjuga te (PCV20) vaccine, 20 valent (PREVNAR 20) Ut Nurse Work Phone: [facility] 08-21-2022 influenza, injectabl e, quadrivalent, contains preservative Sandi Bird MD Work Phone: [facility] Work Phone: 08-21-2022 influenza virus vacc ine, unspecified formulation Zahira Max [facility] Work Phone: [facility] 09-06-2021 pneumococcal polysaccharide vaccine, 23 valent Rosemary Older COMPLIANCE ANALYST.[facility] Work Phone: [facility] Work Phone: 11-27-2016 hepatitis B vaccine, adult dosage Rosemary Older COMPLIANCE ANALYST.DEVELOPMENT CHEMIST Work Phone: [facility] Work Phone: 07-03-2016 hepatitis B vaccine, adult dosage Rosemary Older COMPLIANCE ANALYST.DEVELOPMENT CHEMIST Work Phone: [facility] 05-25-2016 hepatitis A vaccine, adult dosage Rosemary Older COMPLIANCE ANALYST.DEVELOPMENT CHEMIST Work Phone: [facility] Work Phone: 05-25-2016 hepatitis B vaccine, adult dosage Rosemary Older COMPLIANCE ANALYST.DEVELOPMENT CHEMIST Work Phone: [facility] Work Phone: 07-01-2015 influenza, seasonal, injectable Rosemary Older COMPLIANCE ANALYST.DEVELOPMENT CHEMIST Work Phone: [facility] Work Phone: 09-08-2014 influenza, seasonal, injectable Rosemary Older COMPLIANCE ANALYST.DEVELOPMENT CHEMIST Work Phone: [facility] Work Phone: 07-29-2014 tetanus toxoid, redu di diphtheria toxoid, and acellular pertussis vaccine, adsorbed [facility] Work Phone: 10-18-2013 Influenza virus vaccine W [facility] Work Phone: Payers Date Payer Category Payer [employer] [id number] 2024 Unknown [id number] 2024 Self-pay [id number] 2022 Unknown [id number] 2013 Medicaid [employer] [facility] [id number] 2013-Present [phone] [address] [place] [address] Medicaid [id number] 2013 Medicaid [id number] 2013 Unknown [id number] 1976 Unknown [id number] 1976 Unknown [id number] 1976 Unknown [id number] 1976 Unknown [id number] 1976 Unknown [id number] Unknown [id number] Unknown [id number] Unknown [id number] Social History Date Type Detail Facility Start: 11-20-2013 End: 05-14-2020 Tobacco smoking status NHIS Never smoker [facility] Start: 11-20-2013 End: 05-14-2020 Tobacco use and exposure Never used [employer] [facility], [place]EL[place] Start: 05-14-2020 Alcohol intake Lifetime non-d conor (finding) [employer] [place], [place] Start: 05-14-2020 End: 02-17-2023 History SDOH Alcohol Frequency 1 [place], JACKELIN Sex Assigned At Not on file [place], [place]ELIN Start: 02-24-2022 End: 08-21-2022 Exposure to SARS-CoV-2 (event) Not sure [place] Start: 01-15-2022 End: 03-26-2022 Tobacco smoking status NHIS Unknown if ever smoked [facility] Work Phone: Start: 09-14-[address] [facility] Work Phone: Start: 09-14-2020 With Family [facility] Work Phone: Start: 02-06-2021 Non-smoker [facility] Work Phone: Start: 1975 Sex Assigned At Male C [facility] Start: 09-06-2021 End: 01-16-2025 Alcohol intake Current non-drinker of alcohol (finding) [facility] Start: 04-14-2021 History SDOH Alcohol Std Drinks 98 [facility] Start: 04-14-2021 End: 02-17-2023 History SDOH Social Connections Phone 5 [facility] Start: 04-14-2021 End: 02-17-2023 History SDOH Social Connections Get Together 4 [facility] Start: 04-14-2021 History SDOH Social Connections Living 6 [facility] Start: 04-14-2021 End: 02-17-2023 History SDOH Physical Activity MPS 2 [facility] Start: 09-06-2021 End: 02-17-2023 History SDOH Housing Places Lived 3 [facility] Start: 04-13-2021 Education 12 [facility] Start: 01-08-2022 End: 02-17-2022 Exposure to SARS-CoV-2 (event) Unable to assess [facility] Start: 02-17-2023 End: 03-22-2025 History of Social function [facility] Start: 02-17-2023 End: 03-22-2025 Social connection and isolation panel [facility] Do you belong to any clubs or organizations such as voodoo groups, unions, fraternal or athletic groups, or school groups? No [facility] Are you now , , , , never or living with a partner? [facility] How often to you hav e a drink containing alcohol? Monthly or less [facility] How many standard dr inks containing alcohol do you have on a typical day? 1 or 2 [facility] How often do you hav e 6 or more drinks on 1 occasion? Never [facility] How hard is it for y ou to pay for the very basics like food, housing, medical care, and heating Somewhat hard [facility] Start: 09-01-2012 Adult Depression Screening Assessment 0 [facility] Work Phone: Do you feel stress - tense, restless, nervous, or anxious, or unable to sleep at night because your mind is troubled all the time - these days [OSQ] Very much [facility] (I/We) worried wheth er (my/our) food would run out before (I/we) got money to buy more. Never true [facility] Start: 10-06-2020 Gender identity Identifies as male gender (finding) [facility] Start: 10-06-2020 Sexual orientation Choose not to dis close [facility] Are you now , , , , never or living with a partner? [facility] (I/We) worried wheth er (my/our) food would run out before (I/we) got money to buy more. Sometimes true [facility] In the past 12 month s, was there a time when you were not able to pay the mortgage or rent on time? Yes [facility] How hard is it for y ou to pay for the very basics like food, housing, medical care, and heating Hard [facility] (I/We) worried wheth er (my/our) food would run out before (I/we) got money to buy more. Often true [facility] Medical Equipment Procedure Code Equipment Code Equipment Original Text Equipment Identifier Dates [id number], [id number], [id number], [id number], [id number], [id number], [id number] Start: 10-24-2021 End: 12-31-2024 Comment on above: Test blood sugar(s) 2-3 times daily and as needed. Dx: Type 2 DM - Controlled E11.9 Insulin: No Test blood sugar(s) 1 times daily. Dx: Type 2 DM - Controlled E11.9 Insulin: No Test blood sugar(s) once daily. Dx: Type 2 DM - Controlled E11.9 Insulin: Yes [facility] Use one needle for e ach dose of victoza. once/day. Functional Status Date Assessment Result Facility 03-17-2015 Are you deaf, or do you have serious difficulty hearing No 03/17/2015 2:09 PM NATALYA CONWAY [facility] 03-17-2015 Are you blind, or do you have serious difficulty seeing, even when wearing glasses No 03/17/2015 2:09 PM NATALYA CONWAY [facility] 03-17-2015 Do you have serious difficulty walking or climbing stairs No 03/17/2015 2:09 PM NATALYA CONWAY [facility] 03-17-2015 Do you have difficul ty dressing or bathing No 03/17/2015 2:09 PM NATALYA CONWAY [facility] 03-17-2015 Because of a physica l, mental, or emotional condition, do you have difficulty doing errands alone such as visiting a physician's office or shopping No 03/17/2015 2:09 PM NATALYA CONWAY [facility] Mental Status Date Assessment Result Facility 01-16-2022 Cognitive function Level Of Cons ciousness Awake;Alert;Appropriate;Fol lows Commands [facility] Work Phone: 03-17-2015 Because of a physica l, mental, or emotional condition, do you have serious difficulty concentrating, remembering, or making decisions No 03/17/2015 2:09 PM NATALYA CONWAY [facility] Clinical Notes 01-12-2014 to 05-29-2025 Telephone Encounter - Sandi Bird MD - 05/29/2025 4:56 PM EDTTelephone Encounter - Sandi Bird MD - 05/29/2025 4:56 PM EDTTelephone Encounter - Sandi Bird MD - 05/19/2025 5:23 PM EDT Note Date & Type Note Facility 05-29-2025 Telephone encounter Note I sent some immodium for now He needs to be seen for further eval. Regards, Sandi Bird MD [facility] 05-29-2025 Miscellaneous Notes I sent some immodium for now He needs to be seen for further eval. Regards, Sandi Bird MD Would he consider a statin? Thanks. RegardsSandi MD Dr. Binu Luna is to expensive per patient. Did try to do PA but it is covered just higher copay on drug formulary Hannah Coffey MA documented in this encounter [facility] 05-19-2025 Telephone encounter Note Would he consider a statin? Thanks. Regards, Sandi Bird MD [facility] 05-19-[address] Binu Luna is to expensive per patient. Did try to do PA but it is covered just higher copay on drug formulary Hannah Coffey MA [facility] 05-01-2025 Telephone encounter Note Prescription Refill Information The patient has been identified by name and date of : Yes Caregiver verified no other encounters exist for this prescription request: Yes Caregiver confirmed with patient/requestor that no other refills are due, in the near future, with this provider at this time: Yes The last office visit in the department: 12/15/2024 Does the patient have a future office visit with this provider/department: Yes Requested Prescriptions Pending Prescriptions Disp Refills metFORMIN ER (GLUCOPHAGE XR) 500 mg 24 hr tablet 180 tablet 3 Sig: Take 1 tablet by mouth two times a day with meals. Zenaida Ramos MA May 01, 2025 1:44 PM [facility] 05-01-2025 Miscellaneous Notes Prescription Refill Information The patient has been identified by name and date of : Yes Caregiver verified no other encounters exist for this prescription request: Yes Caregiver confirmed with patient/requestor that no other refills are due, in the near future, with this provider at this time: Yes The last office visit in the department: 12/15/2024 Does the patient have a future office visit with this provider/department: Yes Requested Prescriptions Pending Prescriptions Disp Refills metFORMIN ER (GLUCOPHAGE XR) 500 mg 24 hr tablet 180 tablet 3 Sig: Take 1 tablet by mouth two times a day with meals. Zenaida Ramos MA May 01, 2025 1:44 PM documented in this encounter [facility] 04-28-2025 Telephone encounter Note Patient has been identified by name and date of : Yes Patient phones for refill(s): Requested Prescriptions Pending Prescriptions Disp Refills colestipol (COLESTID) 1 gram tablet 360 tablet 1 Sig: Take 3 tablets by mouth two times a day. Date of last office visit in primary care: 12/15/2024 Date of next office visit in primary care: Visit date not found Please advise. Thank you. Ladonna Engle LPN. [facility] 04-28-2025 Miscellaneous Notes Patient has been identified by name and date of : Yes Patient phones for refill(s): Requested Prescriptions Pending Prescriptions Disp Refills colestipol (COLESTID) 1 gram tablet 360 tablet 1 Sig: Take 3 tablets by mouth two times a day. Date of last office visit in primary care: 12/15/2024 Date of next office visit in primary care: Visit date not found Please advise. Thank you. Ladonna Engle LPN. documented in this encounter [facility] 02-19-2025 Note HNO ID: [id number] Author: ?, ?, ? Service: ? Author Type: ? Type: Progress Notes Filed: 02/19/2025 09:43 Note Text: Patient has an active order for colonoscopy, he stated he will schedule at his convenience. [facility] 02-17-2025 Note Patient Outreach ( WSTR) MARCOS INFANTE ([id number]) 1975 M Date Time Provider Department 02/17/25 SANDI BIRD ASTR During your visit today, we recorded the following information about you: Julissa Jennings, RN 02/17/2025 1:20 PM Signed COLONOSCOPY BOWEL PREPARATION INSTRUCTIONS MiraLAX? Your doctor has scheduled you for a colonoscopy. To have a successful colonoscopy, you must have a clean colon, that is empty. A clean colon allows your doctor to see the entire colon AND diagnose issues like polyps or cancer. For doctors, a clean colon is like driving on a shamika day; a dirty colon like driving in a storm. It is very important that you follow these instructions exactly, or your colonoscopy may not be as effective, could be canceled, and you may need to do the bowel prep and colonoscopy again. TRANSPORTATION REQUIREMENTS You are receiving IV sedation. For your safety, a responsible adult escort must accompany you to and from your procedure: Your adult escort MUST be present with you at check-in for your colonoscopy. Your adult escort MUST remain in the endoscopy area until you are discharged. Your adult escort MUST transport you home once you are discharged. You are NOT allowed to operate any form of transportation (i.e. drive a car, bicycle, etc) or leave the Endoscopy Center ALONE. It is not safe to do so. If you cannot meet these requirements, your procedure will be canceled. MEDICATION REQUIREMENTS For your safety, certain medications will need to be stopped or adjusted before you can have your procedure: BLOOD THINNERS: If you take blood thinners, such as Coumadin (warfarin), Plavix (clopidogrel), Ticlid (ticlopidine hydrochloride), Agrylin (anagrelide), Xarelto (Rivaroxaban), Pradaxa (Dabigatran), Eliquis (Apixaban), or Effient (Prasugrel), contact the physician who is prescribing these medications at least 2 weeks prior to your procedure to discuss any necessary adjustments. DIABETES: If you take medications for diabetes, your dosage may need to be adjusted. If you are being treated for diabetes with insulin, diabetic pills, or other injectable medications do not take your REGULAR dose after midnight on the day of your procedure. If you are taking any other types of insulin such as Lantus, Humalog, NPH (long-acting insulin), or 70/30 insulin, take half your normal dose the day before your procedure. DIABETES/WEIGHT MANAGEMENT: If you take medications for weight-loss, your dosage may need to be adjusted Contact the doctor who prescribes this medication for further instructions. If you take medications for weight-loss like semaglutide (Ozempic, Wegovy, Rybelsus), dulaglutide (Trulicity), liraglutide (Victoza, Saxenda), exenatide (Byetta, Bydureon), or lixisenatide (Adylyxin), stop your medication 1 week prior to your procedure. If you take medications like canagliflozin (Invokana), dapagliflozin (Farxiga, Forxiga), empagliflozin (Jardiance), stop your medication 3 days prior to your procedure. If you take ertugliflozin (Steglatro) stop your medication 4 days prior to your procedure. IRON: If you take iron pills, STOP them 1 week BEFORE your procedure, may resume after. OTHER MEDS: May take all other medications (including aspirin, antibiotics, water pills / diuretics like Lasix or Metolozone, blood pressure meds, etc.) at their usual scheduled time with water. DIET REQUIREMENTS The day before your colonoscopy, you may have a clear liquid diet (see below). The day of your colonoscopy, you may continue a clear liquid diet until 3 hours before your colonoscopy. Within 3 hours of your colonoscopy, take only any medications (as above) with a sip of water. Clear Liquid Diet Broth (chicken, beef or vegetable broth or bullion. Just the broth, no solids). Water Coffee or Tea (NO milk or creamer), but sugar and sugar substitutes are allowed. Clear liquids including clear, yellow, green, blue (NO red, NO orange, NO purple) Sodas / soft drinks; Gatorade or other sports drinks Fruit juice (strained; no-pulp); Joseph-Aid or flavored drinks Plain Jell-O or other gelatins Popsicles or hard candy Bowel prep can work differently from person to person. ? Some people's bowels move slowly and they may need different instructions. Please see your doctor in office or virtually for personalized bowel prep instructions if you have: BOWEL PREPARATION (MIRALAX/GATORADE) Split Dosing Bowel Prep: This means drinking your bowel prep in two doses. Split dosing helps clean your colon better and makes it less likely that your procedure will be canceled. You will need to purchase the following (no prescriptions are needed): 64 ounces Gatorade, Propel, Crystal Lite or other noncarbonated clear liquid sports drink (NOT red, orange, or purple). Diabetic patients buy sugar-free, e.g (more content not included)... [facility] 01-16-2025 Note HNO ID: [id number] Author: TOMMY BASSETT PA-C Service: ? Author Type: Physician Manufacturing Operations Manager Type: Progress Notes Filed: 01/16/2025 12:07 Note Text: This note was created using NoteWriter. Subjective Marcos Infante is a 49 year old male. Patient is a 49-year-old male who complains of acute onset of right ear pain that began at approximately 0300 this morning. Patient states that his left ear is asymptomatic and nontender. Patient reports no congestion, sinus pressure, sore throat, cough or other illness symptoms. Patient has noted no bleeding, serous appearing fluid to his right ear. Patient denies fever, chills or myalgia. Ear Pain Review of Systems HENT: Positive for ear pain. All other systems reviewed and are negative. Objective BP 136/87 Pulse 85 Temp 36.6 ?C (97.9 ?F) Resp 20 Wt 99 kg (218 lb 4.1 oz) SpO2 97% BMI 29.60 kg/m? Physical Exam Vitals and nursing note reviewed. Constitutional: Appearance: Normal appearance. He is normal weight. HENT: Head: Normocephalic and atraumatic. Right Ear: Tympanic membrane and external ear normal. There is no impacted cerumen. Left Ear: Tympanic membrane, ear canal and external ear normal. There is no impacted cerumen. Ears: Comments: Tympanic membranes are clear bilaterally with excellent color and light reflex. There is moderate edema noted to the right external canal the patient demonstrated significant tenderness with speculum insertion and otic exam. No bleeding, serous appearing fluid is noted at the right external canal. Right auricle is clear without erythema or edema. Exam of the left external canal is unremarkable. Nose: Nose normal. Mouth/Throat: Mouth: Mucous membranes are moist. Pharynx: Oropharynx is clear. Eyes: Extraocular Movements: Extraocular movements intact. Conjunctiva/sclera: Conjunctivae normal. Pupils: Pupils are equal, round, and reactive to light. Cardiovascular: Rate and Rhythm: Normal rate and regular rhythm. Pulses: Normal pulses. Heart sounds: Normal heart sounds. Pulmonary: Effort: Pulmonary effort is normal. Breath sounds: Normal breath sounds. Musculoskeletal: Cervical back: Normal range of motion and neck supple. Skin: General: Skin is warm and dry. Capillary Refill: Capillary refill takes less than 2 seconds. Neurological: General: No focal deficit present. Mental Status: He is alert and oriented to person, place, and time. Psychiatric: Mood and Affect: Mood normal. Behavior: Behavior normal. Thought Content: Thought content normal. Judgment: Judgment normal. Assessment and Plan Physical exam findings as noted above. Patient was provided with prescription for ofloxacin 0.3% otic solution and instructions for application were discussed. Patient verbalizes clear understanding of same. CLINICAL IMPRESSION: Acute Otitis Externa Right Ear ASSESSMENT/PLAN: 1. Acute otitis externa of right ear, unspecified type - ICD9: 380.10, ICD10: H60.501 - OFLOXACIN 0.3% EYE DROPS - OTIC USE ONLY MDM Risk of Complications, Morbidity, and/or Mortality Presenting problems: low Diagnostic procedures: low Management options: nehemias Bassett PA-C [facility] 01-16-2025 History of Present illness Narrative This note was created using CTQuanter. Subjective Marcos Infante is a 49 year old male. Patient is a 49-year-old male who complains of acute onset of right ear pain that began at approximately 0300 this morning. Patient states that his left ear is asymptomatic and nontender. Patient reports no congestion, sinus pressure, sore throat, cough or other illness symptoms. Patient has noted no bleeding, serous appearing fluid to his right ear. Patient denies fever, chills or myalgia. Ear Pain Review of Systems HENT: Positive for ear pain. All other systems reviewed and are negative. Objective BP 136/87 Pulse 85 Temp 36.6 C (97.9 F) Resp 20 Wt 99 kg (218 lb 4.1 oz) SpO2 97% BMI 29.60 kg/m Physical Exam Vitals and nursing note reviewed. Constitutional: Appearance: Normal appearance. He is normal weight. HENT: Head: Normocephalic and atraumatic. Right Ear: Tympanic membrane and external ear normal. There is no impacted cerumen. Left Ear: Tympanic membrane, ear canal and external ear normal. There is no impacted cerumen. Ears: Comments: Tympanic membranes are clear bilaterally with excellent color and light reflex. There is moderate edema noted to the right external canal the patient demonstrated significant tenderness with speculum insertion and otic exam. No bleeding, serous appearing fluid is noted at the right external canal. Right auricle is clear without erythema or edema. Exam of the left external canal is unremarkable. Nose: Nose normal. Mouth/Throat: Mouth: Mucous membranes are moist. Pharynx: Oropharynx is clear. Eyes: Extraocular Movements: Extraocular movements intact. Conjunctiva/sclera: Conjunctivae normal. Pupils: Pupils are equal, round, and reactive to light. Cardiovascular: Rate and Rhythm: Normal rate and regular rhythm. Pulses: Normal pulses. Heart sounds: Normal heart sounds. Pulmonary: Effort: Pulmonary effort is normal. Breath sounds: Normal breath sounds. Musculoskeletal: Cervical back: Normal range of motion and neck supple. Skin: General: Skin is warm and dry. Capillary Refill: Capillary refill takes less than 2 seconds. Neurological: General: No focal deficit present. Mental Status: He is alert and oriented to person, place, and time. Psychiatric: Mood and Affect: Mood normal. Behavior: Behavior normal. Thought Content: Thought content normal. Judgment: Judgment normal. Assessment and Plan Physical exam findings as noted above. Patient was provided with prescription for ofloxacin 0.3% otic solution and instructions for application were discussed. Patient verbalizes clear understanding of same. CLINICAL IMPRESSION: Acute Otitis Externa Right Ear ASSESSMENT/PLAN: 1. Acute otitis externa of right ear, unspecified type - ICD9: 380.10, ICD10: H60.501 - OFLOXACIN 0.3% EYE DROPS - OTIC USE ONLY MDM Risk of Complications, Morbidity, and/or Mortality Presenting problems: low Diagnostic procedures: low Management options: nehemias Bassett PA-C documented in this encounter [facility] 12-31-2024 Telephone encounter Note Per office note 12/15/24 he checks sugars 2-3 times daily New rx pended Hannah Coffey MA [facility] 12-31-2024 Miscellaneous Notes Per office note 12/15/24 he checks sugars 2-3 times daily New rx pended Hannah Coffey MA documented in this encounter [facility] 12-29-2024 Telephone encounter Note Patient wanting RX to go to different pharmacy. Patient has been identified by name and date of : Yes Patient phones for refill(s): Requested Prescriptions Pending Prescriptions Disp Refills Lancets 100 Each 11 Sig: Test blood sugar(s) 2-3 times daily and as needed. Dx: Type 2 DM - Controlled E11.9 Insulin: No Date of last office visit in primary care: 12/15/2024 Date of next office visit in primary care: 12/26/2024 Please advise. Thank you. Ladonan Engle LPN. [facility] 12-29-2024 Miscellaneous Notes Patient wanting RX to go to different pharmacy. Patient has been identified by name and date of : Yes Patient phones for refill(s): Requested Prescriptions Pending Prescriptions Disp Refills Lancets 100 Each 11 Sig: Test blood sugar(s) 2-3 times daily and as needed. Dx: Type 2 DM - Controlled E11.9 Insulin: No Date of last office visit in primary care: 12/15/2024 Date of next office visit in primary care: 12/26/2024 Please advise. Thank you. Ladonna Engle LPN. documented in this encounter [facility] 12-29-2024 Telephone encounter Note Patient wanting to go to local pharmacy. Patient has been identified by name and date of : Yes Patient phones for refill(s): Requested Prescriptions Pending Prescriptions Disp Refills blood sugar diagnostic (BLOOD GLUCOSE TEST) test strip 50 Strip 11 Sig: Test blood sugar(s) 1 times daily. Dx: Type 2 DM - Controlled E11.9 Insulin: No Date of last office visit in primary care: 12/15/2024 Date of next office visit in primary care: 03/24/2025 Please advise. Thank you. Ladonna Engle LPN. [facility] 12-29-2024 Miscellaneous Notes Patient wanting to go to local pharmacy. Patient has been identified by name and date of : Yes Patient phones for refill(s): Requested Prescriptions Pending Prescriptions Disp Refills blood sugar diagnostic (BLOOD GLUCOSE TEST) test strip 50 Strip 11 Sig: Test blood sugar(s) 1 times daily. Dx: Type 2 DM - Controlled E11.9 Insulin: No Date of last office visit in primary care: 12/15/2024 Date of next office visit in primary care: 03/24/2025 Please advise. Thank you. Ladonna Engle LPN. documented in this encounter [facility] 12-19-2024 Note HNO ID: [id number] Author: ?, ?, ? Service: ? Author Type: LICENSED NURSE Type: Progress Notes Filed: 12/19/2024 13:22 Note Text: Patient presents for Pneumococcal and Hepatitis A vaccines. Denies any problems at this time. Tolerated injections well. Natalya Ramirez LPN [facility] 12-19-2024 History of Present illness Narrative Patient presents for Pneumococcal and Hepatitis A vaccines. Denies any problems at this time. Tolerated injections well. Natalya Ramirez LPN documented in this encounter [facility] 12-17-2024 Telephone encounter Note Patient scheduled for nurse visit 12/19/24 to receive Hepatitis A. Please place order at this time. Natalya Ramirez LPN [facility] 12-17-2024 Miscellaneous Notes Patient scheduled for nurse visit 12/19/24 to receive Hepatitis A. Please place order at this time. Natalya Ramirez LPN documented in this encounter [facility] 03-18-2025 Telephone encounter Note Patient scheduled for nurse visit 12/19/24 to receive Pneumococcal vaccine. Please place order at this time. Natalya Ramirez LPN [facility] 12-16-2024 Miscellaneous Notes Patient scheduled for nurse visit 12/19/24 to receive Pneumococcal vaccine. Please place order at this time. Natalya Ramirez LPN documented in this encounter [facility] 12-15-2024 Instructions Kaya Colorado APRN.DEVELOPMENT CHEMIST - 12/15/2024 1:29 PM EDT COLONOSCOPY BOWEL PREPARATION INSTRUCTIONS MiraLAX Your doctor has scheduled you for a colonoscopy. To have a successful colonoscopy, you must have a clean colon, that is empty. A clean colon allows your doctor to see the entire colon & diagnose issues like polyps or cancer. For doctors, a clean colon is like driving on a shamika day; a dirty colon like driving in a storm. It is very important that you follow these instructions exactly, or your colonoscopy may not be as effective, could be canceled, and you may need to do the bowel prep and colonoscopy again. TRANSPORTATION REQUIREMENTS You are receiving IV sedation. For your safety, a responsible adult escort must accompany you to and from your procedure: Your adult escort MUST be present with you at check-in for your colonoscopy. Your adult escort MUST remain in the endoscopy area until you are discharged. Your adult escort MUST transport you home once you are discharged. You are NOT allowed to operate any form of transportation (i.e. drive a car, bicycle, etc) or leave the Endoscopy Center ALONE. It is not safe to do so. If you cannot meet these requirements, your procedure will be canceled. MEDICATION REQUIREMENTS For your safety, certain medications will need to be stopped or adjusted before you can have your procedure: BLOOD THINNERS: If you take blood thinners, such as Coumadin (warfarin), Plavix (clopidogrel), Ticlid (ticlopidine hydrochloride), Agrylin (anagrelide), Xarelto (Rivaroxaban), Pradaxa (Dabigatran), Eliquis (Apixaban), or Effient (Prasugrel), contact the physician who is prescribing these medications at least 2 weeks prior to your procedure to discuss any necessary adjustments. DIABETES: If you take medications for diabetes, your dosage may need to be adjusted. If you are being treated for diabetes with insulin, diabetic pills, or other injectable medications do not take your REGULAR dose after midnight on the day of your procedure. If you are taking any other types of insulin such as Lantus, Humalog, NPH (long-acting insulin), or 70/30 insulin, take half your normal dose the day before your procedure. DIABETES/WEIGHT MANAGEMENT: If you take medications for weight-loss, your dosage may need to be adjusted Contact the doctor who prescribes this medication for further instructions. If you take medications for weight-loss like semaglutide (Ozempic, Wegovy, Rybelsus), dulaglutide (Trulicity), liraglutide (Victoza, Saxenda), exenatide (Byetta, Bydureon), or lixisenatide (Adylyxin), stop your medication 1 week prior to your procedure. If you take medications like canagliflozin (Invokana), dapagliflozin (Farxiga, Forxiga), empagliflozin (Jardiance), stop your medication 3 days prior to your procedure. If you take ertugliflozin (Steglatro) stop your medication 4 days prior to your procedure. IRON: If you take iron pills, STOP them 1 week BEFORE your procedure, may resume after. OTHER MEDS: May take all other medications (including aspirin, antibiotics, water pills / diuretics like Lasix or Metolozone, blood pressure meds, etc.) at their usual scheduled time with water. DIET REQUIREMENTS The day before your colonoscopy, you may have a clear liquid diet (see below). The day of your colonoscopy, you may continue a clear liquid diet until 3 hours before your colonoscopy. Within 3 hours of your colonoscopy, take only any medications (as above) with a sip of water. Clear Liquid Diet Broth (chicken, beef or vegetable broth or bullion. Just the broth, no solids). Water Coffee or Tea (NO milk or creamer), but sugar and sugar substitutes are allowed. Clear liquids including clear, yellow, green, blue (NO red, NO orange, NO purple) Sodas / soft drinks; Gatorade or other sports drinks Fruit juice (strained; no-pulp); Joseph-Aid or flavored drinks Plain Jell-O or other gelatins Popsicles or hard candy Bowel prep can work differently from person to person. Some people's bowels move slowly and they may need different instructions. Please see your doctor in office or virtually for personalized bowel prep instructions if you have: BOWEL PREPARATION (MIRALAX/GATORADE) Split Dosing Bowel Prep: This means drinking your bowel prep in two doses. Split dosing helps clean your colon better and makes it less likely that your procedure will be canceled. You will need to purchase the following (no prescriptions are needed): 64 ounces Gatorade, Propel, Crystal Lite or other noncarbonated clear liquid sports drink (NOT red, orange, or purple). Diabetic patients buy sugar-free, e.g. Gatorade G2 4 Dulcolax laxative tablets containing 5mg bisacodyl each (do not buy the stool softener) 8.3 oz MiraLAX (238g) powder or generic polyethylene glycol 3350 (find in laxative aisle) The day before your colonoscopy mix 64 oz of the sports drink with 8.3 oz MiraLAX (238 g) in a pitcher. Stir or shake until MiraLAX completely dissolved. Chill if desired. On the evening before your colonoscopy: 5 PM take 4 Dulcolax laxative tablets with water by mouth. 6 PM drink the first half of the Gatorade/MiraLAX solution Drink one 8-ounce glass every 15 minutes. Six hours before your colonoscopy, drink the second half of the solution. Drink one 8-ounce glass every 15 minutes. You may continue a clear liquid diet until 3 hours before your colonoscopy. Bowel prep can work differently from person to person. Some people's bowels move slowly and they may need different instructions. Please see your doctor in office or virtually for personalized bowel prep instructions if you have: Medical condition that needs special accommodations Had a poor bowel prep results or failed bowel prep attempts in the past. Had difficulty with anesthesia during the procedure. FREQUENTLY ASKED QUESTIONS Q: What if I suffer from constipation? A: Recommend taking extra laxatives to resolve your constipation days prior to entering the bowel prep day. Q: What if have had prior poor preps results in past? A: Contact your physician as you will likely need additional bowel prep instructions. Q: What if I have motility issues like Parkinson's, MS (multiple sclerosis), wheelchair dependent, etc.? or on medications that slow colonic transit times (narcotics, gabapentin, anticholinergic medications etc.) A: Contact your physician as you will likely need extra time and additional laxatives to complete your bowel prep. Q: What if I cannot drink large volume of liquid? A: Start your prep 2-3 hours earlier to allow yourself more time to complete the entire prep. Q: What if I had bariatric surgery? Do I still have to complete the entire prep? A: Yes, gastric bypass surgery involves the stomach & small bowel. You may need to drink smaller amounts, slower (may need more time to complete your bowel prep). Gastric bypass does not alter the length of your colon so you will need to complete the entire bowel prep, it may just take longer time to complete it. Q: What if I am on dialysis? A: Please consult your bonding molder prior to scheduling to get instructions pertinent to you. In general, dialysis patients take the Taking Pointly bowel prep and have the procedure same day of their dialysis (colonoscopy in AM, dialysis in PM). Q: How do I know if something is considered as clear liquid diet? A: If you can pour it in a glass and you can see through it, it is considered clear liquid Q: Can I eat nuts, seeds, beans, popcorn, dried fruits, vegetables & fruits that have skin peel? A: No, you will need to not eat these items starting 3 days prior to procedure. Q: Can I take Uber/Lyft/taxi/bus home? A: An adult MUST be present with you at check-in for your colonoscopy and remain in the endoscopy area until you are discharged. You can take Uber home only if this adult escort is with you at check in, remain in the endoscopy area until you are discharged, and takes the Uber with you to home. Q: Can I sleep it off here and drive myself home? A: No, you must have an adult with you at time of procedure check in, remain in the endoscopy center during your procedure, and drive you home. You cannot drive a vehicle after your procedure the rest of the day. Q: What if I can't finish my bowel prep? A: If you cannot complete your entire bowel prep, there is high likelihood that your colonoscopy will need to be rescheduled due to inadequate prep quality. documented in this encounter [facility] 12-15-2024 Note HNO ID: [id number] Author: KAYA COLORADO APRN.CNP Service: ? Author Type: Nurse Practitioner Type: Progress Notes Filed: 12/15/2024 13:42 Note Text: CC: Patient presents with: Recheck: 6 month follow up HPI Marcos Infante is a 48 year old male who presents today for routine follow up. DIABETES MELLITUS: Mr. Infante denies excessive thirst or increased frequency of urination, chest pain or dyspnea , numbness, tingling or pain in extremities, new or unusual visual symptoms, low sugar/hypoglycemic reactions, weight loss/gain, and lightheadedness/dizziness. Follows a diabetic diet some of the time. He is compliant with medication(s) but would like to stop the metformin as it causes diarrhea which is why he takes the colestipol he says and it does not work. States he has diarrhea 2-3 times a day which he states he has the entire time he has taken the metformin and does not want to do it anymore. Currently is taking 2 tablets once a day. He reports checking his glucose on a twice a day schedule with sugars in the 130s range. Patient's last HgA1C was Hemoglobin A1C (%) Date Value 12/08/2024 6.4 06/14/2024 11.4 05/14/2021 8.5 11/27/2016 6.1 Hemoglobin A1C (POCT) (%) Date Value 08/21/2022 7.6 09/06/2021 8.5 ) Elevated Triglycerides: Taking statin therapy as ordered. Typically walks 7 days a week but has been walking less in the cold weather since moving back from [place]. Eating a healthy diet some of the time. REVIEW OF SYSTEMS See HPI PAST MEDICAL HISTORY Diagnosis Date Acute cholecystitis Diabetes mellitus type 2 in obese 2011 Hypertriglyceridemia 12/2013 Low HDL (under 40) 12/2013 Poor dentition PAST SURGICAL HISTORY Procedure Laterality Date HERNIA REPAIR HX 1976 LAPS SURG CHOLECYSTECTOMY W/CHOLANGIOGRAPHY 10/17/13 ALLERGIES Hydrocodone MEDICATIONS insulin glargine (LANTUS SOLOSTAR U-100 INSULIN) 100 unit/mL (3 mL) Inject 10 Units subcutaneously daily at bedtime. colestipol (COLESTID) 1 gram tablet Take 3 tablets by mouth two times a day. glipiZIDE (GLUCOTROL XL) 5 mg 24 hr tablet Take 1 tablet by mouth two times a day. busPIRone (BUSPAR) 5 mg tablet Take 1 tablet by mouth two times a day. escitalopram oxalate (LEXAPRO) 20 mg tablet Take 1 tablet by mouth once daily. rosuvastatin (CRESTOR) 10 mg tablet Take 1 tablet by mouth daily at bedtime. clobetasol (TEMOVATE) 0.05 % cream Apply to affected area two times a day. Apply 1 g application to affected area two times a day as needed blood sugar diagnostic (BLOOD GLUCOSE TEST) test strip Test blood sugar(s) 1 times daily. Dx: Type 2 DM - Controlled E11.9 Insulin: No metFORMIN ER (GLUCOPHAGE XR) 500 mg 24 hr tablet Take 2 tablets by mouth two times a day with meals. Lancets lancets Test blood sugar(s) 2-3 times daily and as needed. Dx: Type 2 DM - Controlled E11.9 Insulin: No omeprazole (PRILOSEC) 20 mg capsule Take 1 capsule by mouth once daily. FAMILY HISTORY Problem Relation Age of Onset Cancer Father COPD Mother Arthritis Mother Heart Maternal Grandmother Allergies Mother Social History Tobacco Use Smoking status: Never Smokeless tobacco: Never Vaping Use Vaping status: Never Used Substance Use Topics Alcohol use: No Drug use: No PHYSICAL EXAM BP 124/72 Pulse 78 Resp 16 Wt 96.6 kg (213 lb) SpO2 98% BMI 28.89 kg/m? General Appearance: well appearing, in no acute distress, alert Eyes: conjunctiva pink and moist, no icterus, sclera white, non-injected Lungs: Lungs clear to auscultation. No wheezing, rhonchi, rales. Heart: RRR without murmur, gallop, or rubs. No ectopy Abdomen: Abdomen soft, non-tender. Bowel sounds normal. No masses, organomegaly Extremities: No deformities, edema, skin discoloration, clubbing or cyanosis. Good capillary refill. Feet:Shoes and socks removed, normal distal pulses, sensitive to 10 gm monofilament, and vibratory perception normal Health maintenance reviewed with patient: Depression Screening Never done Anxiety Screening Never done Hepatitis A Vaccine(2 of 2 - Risk 2-dose series) due on 11/25/2016 Colorectal Cancer Screening Never done Pneumococcal Vaccine(2 of 2 - PCV) due on 09/06/2022 Dilated Retinal Exam due on 06/23/2023 Influenza Vaccine(1) due on 06/01/2024 Covid-19 Vaccine(1 - season) Never done Diabetic Foot Exam due on 11/05/2024 Urine Albumin:Creatinine Ratio due on 02/22/2025 HbA1C due on 06/10/2025 Annual PCP Team Chronic Disease Visit due on 06/13/2025 LDL Cholesterol due on 12/08/2025 DTaP,Tdap,Td Vaccine(3 - Td or Tdap) due on 04/14/2029 Hepatitis B Vaccine Completed Hepatitis C Screening Completed HIV Screening Completed DATA REVIEWED: Most recent labs ASSESSMENT/PLAN: 1. Controlled type 2 diabetes mellitus without complication, without long-term current use of insulin (HCC) - ICD9: 250.00, ICD10: E11.9 (primary diagnosis) - Controlled - Continue current medications - will tria (more content not included)... [facility] 12-15-2024 History of Present illness Narrative CC: Patient presents with: Recheck: 6 month follow up HPI Marcos Infante is a 48 year old male who presents today for routine follow up. DIABETES MELLITUS: Mr. Infante denies excessive thirst or increased frequency of urination, chest pain or dyspnea , numbness, tingling or pain in extremities, new or unusual visual symptoms, low sugar/hypoglycemic reactions, weight loss/gain, and lightheadedness/dizziness. Follows a diabetic diet some of the time. He is compliant with medication(s) but would like to stop the metformin as it causes diarrhea which is why he takes the colestipol he says and it does not work. States he has diarrhea 2-3 times a day which he states he has the entire time he has taken the metformin and does not want to do it anymore. Currently is taking 2 tablets once a day. He reports checking his glucose on a twice a day schedule with sugars in the 130s range. Patient's last HgA1C was Hemoglobin A1C (%) Date Value 12/08/2024 6.4 06/14/2024 11.4 05/14/2021 8.5 11/27/2016 6.1 Hemoglobin A1C (POCT) (%) Date Value 08/21/2022 7.6 09/06/2021 8.5 ) Elevated Triglycerides: Taking statin therapy as ordered. Typically walks 7 days a week but has been walking less in the cold weather since moving back from [place]. Eating a healthy diet some of the time. REVIEW OF SYSTEMS See HPI PAST MEDICAL HISTORY Diagnosis Date Acute cholecystitis Diabetes mellitus type 2 in obese 2011 Hypertriglyceridemia 12/2013 Low HDL (under 40) 12/2013 Poor dentition PAST SURGICAL HISTORY Procedure Laterality Date HERNIA REPAIR HX 1976 LAPS SURG CHOLECYSTECTOMY W/CHOLANGIOGRAPHY 10/17/13 ALLERGIES Hydrocodone MEDICATIONS insulin glargine (LANTUS SOLOSTAR U-100 INSULIN) 100 unit/mL (3 mL) Inject 10 Units subcutaneously daily at bedtime. colestipol (COLESTID) 1 gram tablet Take 3 tablets by mouth two times a day. glipiZIDE (GLUCOTROL XL) 5 mg 24 hr tablet Take 1 tablet by mouth two times a day. busPIRone (BUSPAR) 5 mg tablet Take 1 tablet by mouth two times a day. escitalopram oxalate (LEXAPRO) 20 mg tablet Take 1 tablet by mouth once daily. rosuvastatin (CRESTOR) 10 mg tablet Take 1 tablet by mouth daily at bedtime. clobetasol (TEMOVATE) 0.05 % cream Apply to affected area two times a day. Apply 1 g application to affected area two times a day as needed blood sugar diagnostic (BLOOD GLUCOSE TEST) test strip Test blood sugar(s) 1 times daily. Dx: Type 2 DM - Controlled E11.9 Insulin: No metFORMIN ER (GLUCOPHAGE XR) 500 mg 24 hr tablet Take 2 tablets by mouth two times a day with meals. Lancets lancets Test blood sugar(s) 2-3 times daily and as needed. Dx: Type 2 DM - Controlled E11.9 Insulin: No omeprazole (PRILOSEC) 20 mg capsule Take 1 capsule by mouth once daily. FAMILY HISTORY Problem Relation Age of Onset Cancer Father COPD Mother Arthritis Mother Heart Maternal Grandmother Allergies Mother Social History Tobacco Use Smoking status: Never Smokeless tobacco: Never Vaping Use Vaping status: Never Used Substance Use Topics Alcohol use: No Drug use: No PHYSICAL EXAM BP 124/72 Pulse 78 Resp 16 Wt 96.6 kg (213 lb) SpO2 98% BMI 28.89 kg/m General Appearance: well appearing, in no acute distress, alert Eyes: conjunctiva pink and moist, no icterus, sclera white, non-injected Lungs: Lungs clear to auscultation. No wheezing, rhonchi, rales. Heart: RRR without murmur, gallop, or rubs. No ectopy Abdomen: Abdomen soft, non-tender. Bowel sounds normal. No masses, organomegaly Extremities: No deformities, edema, skin discoloration, clubbing or cyanosis. Good capillary refill. Feet:Shoes and socks removed, normal distal pulses, sensitive to 10 gm monofilament, and vibratory perception normal Health maintenance reviewed with patient: Depression Screening Never done Anxiety Screening Never done Hepatitis A Vaccine(2 of 2 - Risk 2-dose series) due on 11/25/2016 Colorectal Cancer Screening Never done Pneumococcal Vaccine(2 of 2 - PCV) due on 09/06/2022 Dilated Retinal Exam due on 06/23/2023 Influenza Vaccine(1) due on 06/01/2024 Covid-19 Vaccine(1 - season) Never done Diabetic Foot Exam due on 11/05/2024 Urine Albumin:Creatinine Ratio due on 02/22/2025 HbA1C due on 06/10/2025 Annual PCP Team Chronic Disease Visit due on 06/13/2025 LDL Cholesterol due on 12/08/2025 DTaP,Tdap,Td Vaccine(3 - Td or Tdap) due on 04/14/2029 Hepatitis B Vaccine Completed Hepatitis C Screening Completed HIV Screening Completed DATA REVIEWED: Most recent labs ASSESSMENT/PLAN: 1. Controlled type 2 diabetes mellitus without complication, without long-term current use of insulin (HCC) - ICD9: 250.00, ICD10: E11.9 (primary diagnosis) - Controlled - Continue current medications - will trial the metformin 1 tab twice a day. - Blood glucose monitoring on a twice daily schedule - Counseled on healthy diet and regular exercise - Discussed need for and benefit of weight loss. BMI 28.89 kg/(m^2) 2. Diarrhea, unspecified type - ICD9: 787.91, ICD10: R19.7 Chronic - has had for many years.was diagnosed years ago with colitis vs post diarrhea related to cholecystectomy. Possibly not from the metformin. 3. Hypertriglyceridemia - ICD9: 272.1, ICD10: E78.1 - Controlled - Continue current medications - Counseled on healthy diet and regular exercise - Discussed need for and benefit of weight loss. BMI 28.89 kg/(m^2) 4. Screening for colon cancer - ICD9: V76.51, ICD10: Z12.11 - COLONOSCOPY SCREENING Prescription instructions reviewed with patient as applicable. Potential red flag symptoms discussed with the patient. Reviewed appropriate action plan to take if red flag symptoms occur. Patient agreeable to treatment plan. Kaya Colorado APRN.CNP documented in this encounter [facility] 12-08-2024 Note HNO ID: [id number] Author: CRYSTAL GAY LPN Service: ? Author Type: LICENSED NURSE Type: Progress Notes Filed: 12/08/2024 09:57 Note Text: Appt and labs ordered for 12/15/24 appt. [facility] 12-08-2024 History of Present illness Narrative Appt and labs ordered for 12/15/24 appt. My chart message to pt to call for appt to review diabetes. documented in this encounter [facility] 12-04-2024 Telephone encounter Note Due for routine follow up. Thank you Kaya Colorado APRN.CNP [facility] 12-04-2024 Miscellaneous Notes Due for routine follow up. Thank you Kaya Colorado APRN.CNP Patient has been identified by name and date of : Yes Patient phones for refill(s): Requested Prescriptions Pending Prescriptions Disp Refills insulin glargine (LANTUS SOLOSTAR U-100 INSULIN) 100 unit/mL (3 mL) 9 mL 3 Sig: Inject 10 Units subcutaneously daily at bedtime. Date of last office visit in primary care: 06/13/2024 Date of next office visit in primary care: 12/03/2024 Please advise. Thank you. Ladonna Engle LPN. documented in this encounter [facility] 12-03-2024 Telephone encounter Note Patient has been identified by name and date of : Yes Patient phones for refill(s): Requested Prescriptions Pending Prescriptions Disp Refills colestipol (COLESTID) 1 gram tablet 360 tablet 0 Sig: Take 3 tablets by mouth two times a day. Date of last office visit in primary care: 06/13/2024 Date of next office visit in primary care: 12/15/2024 Please advise. Thank you. Ladonna Engle LPN. [facility] 12-03-2024 Miscellaneous Notes Patient has been identified by name and date of : Yes Patient phones for refill(s): Requested Prescriptions Pending Prescriptions Disp Refills colestipol (COLESTID) 1 gram tablet 360 tablet 0 Sig: Take 3 tablets by mouth two times a day. Date of last office visit in primary care: 06/13/2024 Date of next office visit in primary care: 12/15/2024 Please advise. Thank you. Ladonna Engle LPN. documented in this encounter [facility] 12-03-2024 Telephone encounter Note Patient has been identified by name and date of : Yes Patient phones for refill(s): Requested Prescriptions Pending Prescriptions Disp Refills insulin glargine (LANTUS SOLOSTAR U-100 INSULIN) 100 unit/mL (3 mL) 9 mL 3 Sig: Inject 10 Units subcutaneously daily at bedtime. Date of last office visit in primary care: 06/13/2024 Date of next office visit in primary care: 12/03/2024 Please advise. Thank you. Ladonna Engle LPN. [facility] 11-25-2024 Telephone encounter Note Health information was requested via fax from Primary Care [facility] Karen Watkins LPN November 25, 2024 12:27 PM [facility] 11-25-2024 Miscellaneous Notes Health information was requested via fax from [facility] Care [facility] Karen Watkins LPN November 25, 2024 12:27 PM documented in this encounter [facility] 11-21-2024 Note HNO ID: [id number] Author: CRYSTAL GAY LPN Service: ? Author Type: LICENSED NURSE Type: Progress Notes Filed: 12/08/2024 09:57 Note Text: My chart message to pt to call for appt to review diabetes. [facility] 11-21-2024 Note Patient Outreach (IN TMWS) AMRCOS INFANTE ([id number]) 1975 M Date Time Provider Department 11/21/24 SANDI BIRD During your visit today, we recorded the following information about you: Crystal Gay LPN 12/08/2024 9:57 AM Signed My chart message to pt to call for appt to review diabetes. Crystal Gay LPN 12/08/2024 9:57 AM Signed Appt and labs ordered for 12/15/24 appt. Allergies As of Date: 11/21/2024 Noted Allergy Reaction HYDROCODONE 11/20/2013 8 - GI Upset Date Reviewed: 06/13/2024 Reviewed by: Karen Watkins LPN - Fully Assessed Reason for Visit: Diabetes [34] Prescriptions as of 12/08/2024 - insulin glargine (LANTUS SOLOSTAR U-100 INSULIN) 100 unit/mL (3 mL) Inject 10 Units subcutaneously daily at bedtime. - colestipol (COLESTID) 1 gram tablet Take 3 tablets by mouth two times a day. - glipiZIDE (GLUCOTROL XL) 5 mg 24 hr tablet Take 1 tablet by mouth two times a day. - busPIRone (BUSPAR) 5 mg tablet Take 1 tablet by mouth two times a day. - escitalopram oxalate (LEXAPRO) 20 mg tablet Take 1 tablet by mouth once daily. - rosuvastatin (CRESTOR) 10 mg tablet Take 1 tablet by mouth daily at bedtime. - clobetasol (TEMOVATE) 0.05 % cream Apply to affected area two times a day. Apply 1 g application to affected area two times a day as needed - blood sugar diagnostic (BLOOD GLUCOSE TEST) test strip Test blood sugar(s) 1 times daily. Dx: Type 2 DM - Controlled E11.9 Insulin: No - metFORMIN ER (GLUCOPHAGE XR) 500 mg 24 hr tablet Take 2 tablets by mouth two times a day with meals. - Lancets lancets Test blood sugar(s) 2-3 times daily and as needed. Dx: Type 2 DM - Controlled E11.9 Insulin: No - omeprazole (PRILOSEC) 20 mg capsule Take 1 capsule by mouth once daily. Problem List As Of Date 11/21/2024 Noted Resolved Cholelithiasis [K80.20] 10/23/2013 03/14/2016 Cholecystitis [K81.9] 10/23/2013 03/14/2016 Fracture of humerus, proximal, left, closed [S4*11/20/2013 03/14/2016 Insomnia [G47.00] 12/16/2013 Arm pain [M79.603] 01/12/2014 Closed fracture of unspecified part of upper en*01/12/2014 03/14/2016 Diabetes mellitus type 2, controlled, without c*10/14/2015 Low HDL (under 40) [E78.6] 12/30/2013 Hepatic steatosis [K76.0] 09/06/2021 Colitis [K52.9] 09/06/2021 Uncontrolled type 2 diabetes mellitus with hype*09/06/2021 Encounter Status:Closed by CRYSTAL GAY on 12/08/24 [facility] 10-13-2024 Telephone encounter Note Letter mailed as requested. [facility] 10-13-2024 Miscellaneous Notes Letter mailed as requested. Please mail as requested. Thank you Kaya Colorado APRN.CNP documented in this encounter [facility] 10-13-2024 Telephone encounter Note Please mail as requested. Thank you Kaya Colorado APRN.CNP [facility] 08-19-2024 Telephone encounter Note Duplication. Mattie Tobar LPN [facility] 08-19-2024 Miscellaneous Notes Duplication. Mattie Tobar LPN documented in this encounter [facility] 08-18-2024 Telephone encounter Note Prescription Refill Information The patient has been identified by name and date of : Yes Caregiver verified no other encounters exist for this prescription request: Yes Caregiver confirmed with patient/requestor that no other refills are due, in the near future, with this provider at this time: Yes The last office visit in the department: 06/13/24 Does the patient have a future office visit with this provider/department: Yes Requested Prescriptions Pending Prescriptions Disp Refills glipiZIDE XL (GLUCOTROL XL) 5 mg 24 hr tablet 60 tablet 5 Sig: Take 1 tablet by mouth two times a day. insulin glargine (LANTUS SOLOSTAR U-100 INSULIN) 100 unit/mL (3 mL) 9 mL 0 Sig: Inject 10 Units subcutaneously daily at bedtime. busPIRone (BUSPAR) 5 mg tablet 60 tablet 2 Sig: Take 1 tablet by mouth two times a day. escitalopram oxalate (LEXAPRO) 20 mg tablet 90 tablet 3 Sig: Take 1 tablet by mouth once daily. rosuvastatin (CRESTOR) 10 mg tablet 90 tablet 3 Sig: Take 1 tablet by mouth daily at bedtime. Hilaria Camacho MA August 18, 2024 10:47 AM [facility] 08-18-2024 Miscellaneous Notes Prescription Refill Information The patient has been identified by name and date of : Yes Caregiver verified no other encounters exist for this prescription request: Yes Caregiver confirmed with patient/requestor that no other refills are due, in the near future, with this provider at this time: Yes The last office visit in the department: 06/13/24 Does the patient have a future office visit with this provider/department: Yes Requested Prescriptions Pending Prescriptions Disp Refills glipiZIDE XL (GLUCOTROL XL) 5 mg 24 hr tablet 60 tablet 5 Sig: Take 1 tablet by mouth two times a day. insulin glargine (LANTUS SOLOSTAR U-100 INSULIN) 100 unit/mL (3 mL) 9 mL 0 Sig: Inject 10 Units subcutaneously daily at bedtime. busPIRone (BUSPAR) 5 mg tablet 60 tablet 2 Sig: Take 1 tablet by mouth two times a day. escitalopram oxalate (LEXAPRO) 20 mg tablet 90 tablet 3 Sig: Take 1 tablet by mouth once daily. rosuvastatin (CRESTOR) 10 mg tablet 90 tablet 3 Sig: Take 1 tablet by mouth daily at bedtime. Hilaria Camacho MA August 18, 2024 10:47 AM documented in this encounter [facility] 06-13-2024 Telephone encounter Note Noted Kaya Colorado APRN.CNP [facility] 06-13-2024 Miscellaneous Notes Noted Kaya Colorado APRN.CNP Called Patrick monsalve requesting a consults DERREK for patient, stated they could see him pretty quick, and would call to schedule appointment with patient. Faxed over GAVIN, Facesheet, and Consult order. Karen Watkins LPN June 13, 2024 1:35 PM documented in this encounter [facility] 06-13-2024 Telephone encounter Note Called Patrick monsalve requesting a consults EDRREK for patient, stated they could see him pretty quick, and would call to schedule appointment with patient. Faxed over GAVIN, Facesheet, and Consult order. Karen Watkins LPN June 13, 2024 1:35 PM [facility] 06-13-2024 Note HNO ID: [id number] Author: SANDI BIRD MD Service: ? Author Type: Physician Type: Progress Notes Filed: 06/13/2024 13:06 Note Text: Reason for Visit Patient presents with: Pain: Buttocks, itchy, last night went to [facility] ER for left side pain. Marcos Infante is a 48 year old male who presents here today for Above Complaints. Health Maintenance Depression Screening Anxiety Screening Colorectal Cancer Screening Dilated Retinal Exam HPI Marcos is a very pleasant 48-year-old gentleman with a past medical history of diabetes mellitus type 2, unclear if he has turned into type 1, he current is on OHAs but blood sugars are not well controlled. , hyperlipidemia, hepatic steatosis, anxiety depression, vitamin D deficiency and reflux disease. Due to his current job where he has to be away 4 weeks and home only one week in 5 and hence unable to work towards his health needs as required. 06/13/24: patient noticed bumps in the the anal areas 10 days ago. They are very itchy, and burning, they burn if he sits for long time Been to the ER due to high blood sugar and pain in the left side , he was given IV fluids, insulin and toradol. And discharged. His sugars are very uncontrolled in the range of 3-4 100s. He has not given me the blood work that I have asked him to give. CT scan was done and there was multiple inguinal nodes on 1 cm bilaterally that was seen. Diabetes mellitus: We had placed him on GLP-1's because of his diabetes and to help him lose weight, he developed severe constipation. He did not have a bowel movement for 2 weeks. On looking at his medication list I think it was a combination of the Victoza with the colestipol which she was taking 3 pills daily 2 times a day that caused the constipation. He is still on his metformin as he stopped his Victoza his sugars were in the 300 range. 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 So he does not want to take semaglutide or any injectables if he can avoid that at least till this new job. Dermatitis. He has a lot of dermatitis in the hand after his scabies. His hands itch. He completed treatment for scabies and there is no burrows that he feels but just his hands and feet are peeling. l No problem-specific Assessment AND Plan notes found for this encounter. PAST MEDICAL HISTORY Diagnosis Date Acute cholecystitis Diabetes mellitus type 2 in obese 2011 Hypertriglyceridemia 12/2013 Low HDL (under 40) 12/2013 Poor dentition PAST SURGICAL HISTORY Procedure Laterality Date HERNIA REPAIR HX 1976 LAPS SURG CHOLECYSTECTOMY W/CHOLANGIOGRAPHY 10/17/13 FAMILY HISTORY Problem Relation Age of Onset Cancer Father COPD Mother Arthritis Mother Heart Maternal Grandmother Allergies Mother Social History Tobacco Use Smoking status: Never Smokeless tobacco: Never Vaping Use Vaping status: Never Used Substance Use Topics Alcohol use: No Drug use: No Past medical history, appointments, medications, allergies reviewed. Pertinent Lab/Diagnostic Studies are reviewed and discussed today Current Outpatient Medications: clobetasol (TEMOVATE) 0.05 % cream glipiZIDE (GLUCOTROL XL) 5 mg 24 hr tablet blood sugar diagnostic (BLOOD GLUCOSE TEST) test strip busPIRone (BUSPAR) 5 mg tablet metFORMIN ER (GLUCOPHAGE XR) 500 mg 24 hr tablet escitalopram oxalate (LEXAPRO) 20 mg tablet rosuvastatin (CRESTOR) 10 mg tablet Lancets lancets colestipol (COLESTID) 1 gram tablet omeprazole (PRILOSEC) 20 mg capsule Review of Systems CONSTITUTIONAL: No fevers, chills night sweats, unintended weight loss CARDIOVASCULAR: No chest pain, dyspnea, palpitations, orthopnea, PND, ankle edema. PULM: No dyspnea, unexplained cough. GI: No dysphagia/odynophagia, problematic reflux, constipation, diarrhea, changes in stool habits, hematochezia, melena. : No new urinary complaints, including dysuria, gross hematuria or pyuria. NEURO: No new balance problems, peripheral weakness/paresthesias or numbness of concern. Physical Exam BP 112/74 (BP Site: Right Arm) Pulse (!) 58 Wt 91.2 kg (201 lb 1 oz) SpO2 97% BMI 27.27 kg/m? General appearance: Well appearing, alert, in no acute distress, well nourished. Skin: Skin color, texture, turgor normal, no suspicious rashes or lesions Head: Normocephalic, no masses, lesions, tenderness or abnormalities Eyes: Anicteric sclera. Pupils are equally round and reactive to light. Extraocular movements are intact. Lungs: Lungs clear to auscultation. No wheezing, rhonchi, rales Heart: RRR without murmur, gallop, or rubs. Perianal exam: Patient has raised stuck on bumps which are around 0.8 cm in diameter. The whole area that is approximating the buttock cleft is red a little indurated. There are few bumps that are umbilicated. These are all round ia little brown and crusted. There are bumps even on the anal verge. Reminders of erythema multifo (more content not included)... [facility] 06-13-2024 History of Present illness Narrative Reason for Visit Patient presents with: Pain: Buttocks, itchy, last night went to [facility] ER for left side pain. Marcos Infante is a 48 year old male who presents here today for Above Complaints. Health Maintenance Depression Screening Anxiety Screening Colorectal Cancer Screening Dilated Retinal Exam HPI Marcos is a very pleasant 48-year-old gentleman with a past medical history of diabetes mellitus type 2, unclear if he has turned into type 1, he current is on OHAs but blood sugars are not well controlled. , hyperlipidemia, hepatic steatosis, anxiety depression, vitamin D deficiency and reflux disease. Due to his current job where he has to be away 4 weeks and home only one week in 5 and hence unable to work towards his health needs as required. 06/13/24: patient noticed bumps in the the anal areas 10 days ago. They are very itchy, and burning, they burn if he sits for long time Been to the ER due to high blood sugar and pain in the left side , he was given IV fluids, insulin and toradol. And discharged. His sugars are very uncontrolled in the range of 3-4 100s. He has not given me the blood work that I have asked him to give. CT scan was done and there was multiple inguinal nodes on 1 cm bilaterally that was seen. Diabetes mellitus: We had placed him on GLP-1's because of his diabetes and to help him lose weight, he developed severe constipation. He did not have a bowel movement for 2 weeks. On looking at his medication list I think it was a combination of the Victoza with the colestipol which she was taking 3 pills daily 2 times a day that caused the constipation. He is still on his metformin as he stopped his Victoza his sugars were in the 300 range. 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 So he does not want to take semaglutide or any injectables if he can avoid that at least till this new job. Dermatitis. He has a lot of dermatitis in the hand after his scabies. His hands itch. He completed treatment for scabies and there is no burrows that he feels but just his hands and feet are peeling. l No problem-specific Assessment & Plan notes found for this encounter. PAST MEDICAL HISTORY Diagnosis Date Acute cholecystitis Diabetes mellitus type 2 in obese 2011 Hypertriglyceridemia 12/2013 Low HDL (under 40) 12/2013 Poor dentition PAST SURGICAL HISTORY Procedure Laterality Date HERNIA REPAIR HX 1976 LAPS SURG CHOLECYSTECTOMY W/CHOLANGIOGRAPHY 10/17/13 FAMILY HISTORY Problem Relation Age of Onset Cancer Father COPD Mother Arthritis Mother Heart Maternal Grandmother Allergies Mother Social History Tobacco Use Smoking status: Never Smokeless tobacco: Never Vaping Use Vaping status: Never Used Substance Use Topics Alcohol use: No Drug use: No Past medical history, appointments, medications, allergies reviewed. Pertinent Lab/Diagnostic Studies are reviewed and discussed today Current Outpatient Medications: clobetasol (TEMOVATE) 0.05 % cream glipiZIDE (GLUCOTROL XL) 5 mg 24 hr tablet blood sugar diagnostic (BLOOD GLUCOSE TEST) test strip busPIRone (BUSPAR) 5 mg tablet metFORMIN ER (GLUCOPHAGE XR) 500 mg 24 hr tablet escitalopram oxalate (LEXAPRO) 20 mg tablet rosuvastatin (CRESTOR) 10 mg tablet Lancets lancets colestipol (COLESTID) 1 gram tablet omeprazole (PRILOSEC) 20 mg capsule Review of Systems CONSTITUTIONAL: No fevers, chills night sweats, unintended weight loss CARDIOVASCULAR: No chest pain, dyspnea, palpitations, orthopnea, PND, ankle edema. PULM: No dyspnea, unexplained cough. GI: No dysphagia/odynophagia, problematic reflux, constipation, diarrhea, changes in stool habits, hematochezia, melena. : No new urinary complaints, including dysuria, gross hematuria or pyuria. NEURO: No new balance problems, peripheral weakness/paresthesias or numbness of concern. Physical Exam BP 112/74 (BP Site: Right Arm) Pulse (!) 58 Wt 91.2 kg (201 lb 1 oz) SpO2 97% BMI 27.27 kg/m General appearance: Well appearing, alert, in no acute distress, well nourished. Skin: Skin color, texture, turgor normal, no suspicious rashes or lesions Head: Normocephalic, no masses, lesions, tenderness or abnormalities Eyes: Anicteric sclera. Pupils are equally round and reactive to light. Extraocular movements are intact. Lungs: Lungs clear to auscultation. No wheezing, rhonchi, rales Heart: RRR without murmur, gallop, or rubs. Perianal exam: Patient has raised stuck on bumps which are around 0.8 cm in diameter. The whole area that is approximating the buttock cleft is red a little indurated. There are few bumps that are umbilicated. These are all round ia little brown and crusted. There are bumps even on the anal verge. Reminders of erythema multiforme kind of picture there is a particular smell to his whole perineal area ASSESSMENT/PLAN: 1. Perianal rash - ICD9: 782.1, ICD10: R21 (primary diagnosis) It is very unclear to me what the rashes. He did say that his HIV was checked in January was negative, is denied having any sexual partners in the past year. His diabetes is uncontrolled and definitely what ever is going on is much worse because of that - CONSULT TO DERMATOLOGY 2. Diabetes mellitus type 2 with ketoacidosis, uncontrolled (HCC) - ICD9: 250.12, ICD10: E11.10 Has failed to give me blood work to help diagnose if he has type I and would need insulin. He has been taking the glipizide and metformin. However his sugars are really high. No obvious labs were abnormal in the ER yesterday night Sandi Bird MD documented in this encounter [facility] 05-13-2024 Telephone encounter Note New order pended, please review and file if agreeable. Hilaria Camacho MA [facility] 05-13-2024 Miscellaneous Notes New order pended, please review and file if agreeable. Hilaria Camacho MA Lynne from [facility] pharmacy called back & stated the Rx was put in the same as the previous one. It needs to specify amount of grams per application. And it also says for vaginal irritation. Please change order. Ally Pérez LPN Apologies, Sending the right clobetasol Sandi Washington MD Patient calling at his appt on 05/09/2024, was prescribed cream for his hands? But pharmacy would not fill rx that was sent to them, since it was vaginal cream. Patient asking thought he was to get steroid cream for his hands? Patient uses [facility] for his pharmacy. Please advise documented in this encounter [facility] 05-12-2024 Telephone encounter Note Lynne from [facility] pharmacy called back & stated the Rx was put in the same as the previous one. It needs to specify amount of grams per application. And it also says for vaginal irritation. Please change order. Ally Pérez LPN [facility] 05-12-2024 Telephone encounter Note Apologies, Sending the right clobetasol Sandi Washington MD [facility] 05-12-2024 Telephone encounter Note Patient calling at his appt on 05/09/2024, was prescribed cream for his hands? But pharmacy would not fill rx that was sent to them, since it was vaginal cream. Patient asking thought he was to get steroid cream for his hands? Patient uses [facility] for his [facility]. Please advise [facility] 05-12-2024 Telephone encounter Note Lynne with [facility] calls to request provider review directions for rx for clobetasol 0.05% cream. Lynne reports for insurance purposes the directions needs to say how many grams is to be applied at a time. Also it says for vaginal irritation, Lynne is requesting this to be taken out of the rx since it does not apply to pt. Please review. Resend rx to pharmacy. Fabiola Garza LPN [facility] 05-12-2024 Miscellaneous Notes Lynne with [facility] calls to request provider review directions for rx for clobetasol 0.05% cream. Lynne reports for insurance purposes the directions needs to say how many grams is to be applied at a time. Also it says for vaginal irritation, Lynne is requesting this to be taken out of the rx since it does not apply to pt. Please review. Resend rx to pharmacy. Fabiola Garza LPN documented in this encounter [facility] 05-09-2024 Note HNO ID: [id number] Author: SANDI BIRD MD Service: ? Author Type: Physician Type: Progress Notes Filed: 05/12/2024 17:02 Note Text: Reason for Visit Patient presents with: Diabetes: Follow up, discuss medications, dry skin on hands and feet, reports he had scabies x 1 month ago Marcos Infante is a 48 year old male who presents here today for Above Complaints. Health Maintenance Depression Screening Anxiety Screening Colorectal Cancer Screening Dilated Retinal Exam HPI Marcos is a very pleasant 48-year-old gentleman with a past medical history of diabetes mellitus type 2 on GLP-1's but had some complications using them, hyperlipidemia, hepatic steatosis, anxiety depression, vitamin D deficiency and reflux disease. Diabetes mellitus: We had placed him on GLP-1's because of his diabetes and to help him lose weight, he developed severe constipation. He did not have a bowel movement for 2 weeks. On looking at his medication list I think it was a combination of the Victoza with the colestipol which she was taking 3 pills daily 2 times a day that caused the constipation. He is still on his metformin as he stopped his Victoza his sugars were in the 300 range. 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 So he does not want to take semaglutide or any injectables if he can avoid that at least till this new job. Dermatitis. He has a lot of dermatitis in the hand after his scabies. His hands itch. He completed treatment for scabies and there is no burrows that he feels but just his hands and feet are peeling No problem-specific Assessment AND Plan notes found for this encounter. PAST MEDICAL HISTORY No date: Acute cholecystitis 2012: Diabetes mellitus type 2 in obese 12/2013: Hypertriglyceridemia 12/2013: Low HDL (under 40) No date: Poor dentition PAST SURGICAL HISTORY 1976: HERNIA REPAIR HX 10/17/13: LAPS SURG CHOLECYSTECTOMY W/CHOLANGIOGRAPHY FAMILY HISTORY Problem Relation Age of Onset Cancer Father COPD Mother Arthritis Mother Heart Maternal Grandmother Allergies Mother Social History Tobacco Use Smoking status: Never Smokeless tobacco: Never Vaping Use Vaping Use: Never used Substance Use Topics Alcohol use: No Drug use: No Past medical history, appointments, medications, allergies reviewed. Pertinent Lab/Diagnostic Studies are reviewed and discussed today Current Outpatient Medications: busPIRone (BUSPAR) 5 mg tablet metFORMIN ER (GLUCOPHAGE XR) 500 mg 24 hr tablet colestipol (COLESTID) 1 gram tablet escitalopram oxalate (LEXAPRO) 20 mg tablet rosuvastatin (CRESTOR) 10 mg tablet Lancets lancets omeprazole (PRILOSEC) 20 mg capsule glipiZIDE (GLUCOTROL XL) 5 mg 24 hr tablet blood sugar diagnostic (BLOOD GLUCOSE TEST) test strip clobetasol (TEMOVATE) 0.05 % cream Insulin [place], Disposable, (BD ULTRA-FINE BRIJESH PEN NEEDLE) 32 gauge x 5/32 Ciclopirox (LOPROX) 8 % solution cholecalciferol, Vitamin D3, (VITAMIN D3) 1,250 mcg (50,000 unit) cap capsule Review of Systems CONSTITUTIONAL: No fevers, chills night sweats, unintended weight loss CARDIOVASCULAR: No chest pain, dyspnea, palpitations, orthopnea, PND, ankle edema. PULM: No dyspnea, unexplained cough. GI: No dysphagia/odynophagia, problematic reflux, constipation, diarrhea, changes in stool habits, hematochezia, melena. : No new urinary complaints, including dysuria, gross hematuria or pyuria. NEURO: No new balance problems, peripheral weakness/paresthesias or numbness of concern. Physical Exam BP 118/82 (BP Site: Left Arm, BP Position: Sitting, BP Cuff Size: Regular Adult) Pulse 94 Resp 16 Wt 89.6 kg (197 lb 9.6 oz) SpO2 97% BMI 26.80 kg/m? General appearance: Well appearing, alert, in no acute distress, well nourished. Skin: Skin color, texture, turgor normal, no suspicious rashes or lesions Head: Normocephalic, no masses, lesions, tenderness or abnormalities Eyes: Anicteric sclera. Pupils are equally round and reactive to light. Extraocular movements are intact. Lungs: Lungs clear to auscultation. No wheezing, rhonchi, rales Heart: RRR without murmur, gallop, or rubs. Extremities: Peeling skin in the hands and legs. ASSESSMENT/PLAN: 1. Controlled type 2 diabetes mellitus without complication, without long-term current use of insulin ([facility]) - ICD9: 250.00, ICD10: E11.9 (primary diagnosis) I asked him to start taking the glipizide 5 mg 1 tablet in the morning and then 1 in the afternoon after a few days to make it a total of 2 tablets. After a week so that his blood does not crash all of a sudden. As it has been high over the past few days. - GLIPIZIDE ER 5 MG TABLET, EXTENDED RELEASE 24 HR - BLOOD SUGAR DIAGNOSTIC STRIPS - HEMOGLOBIN A1C 2. Dermatitis - ICD9: 692.9, ICD10: L30.9 - CLOBETASOL 0.05 % TOPICAL CREAM Sandi Bird MD [facility] 05-09-2024 History of Present illness Narrative Reason for Visit Patient presents with: Diabetes: Follow up, discuss medications, dry skin on hands and feet, reports he had scabies x 1 month ago Marcos Infante is a 48 year old male who presents here today for Above Complaints. Health Maintenance Depression Screening Anxiety Screening Colorectal Cancer Screening Dilated Retinal Exam HPI Marcos is a very pleasant 48-year-old gentleman with a past medical history of diabetes mellitus type 2 on GLP-1's but had some complications using them, hyperlipidemia, hepatic steatosis, anxiety depression, vitamin D deficiency and reflux disease. Diabetes mellitus: We had placed him on GLP-1's because of his diabetes and to help him lose weight, he developed severe constipation. He did not have a bowel movement for 2 weeks. On looking at his medication list I think it was a combination of the Victoza with the colestipol which she was taking 3 pills daily 2 times a day that caused the constipation. He is still on his metformin as he stopped his Victoza his sugars were in the 300 range. 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 So he does not want to take semaglutide or any injectables if he can avoid that at least till this new job. Dermatitis. He has a lot of dermatitis in the hand after his scabies. His hands itch. He completed treatment for scabies and there is no burrows that he feels but just his hands and feet are peeling No problem-specific Assessment & Plan notes found for this encounter. PAST MEDICAL HISTORY No date: Acute cholecystitis 2011: Diabetes mellitus type 2 in obese 12/2013: Hypertriglyceridemia 12/2013: Low HDL (under 40) No date: Poor dentition PAST SURGICAL HISTORY 1976: HERNIA REPAIR HX 10/17/13: LAPS SURG CHOLECYSTECTOMY W/CHOLANGIOGRAPHY FAMILY HISTORY Problem Relation Age of Onset Cancer Father COPD Mother Arthritis Mother Heart Maternal Grandmother Allergies Mother Social History Tobacco Use Smoking status: Never Smokeless tobacco: Never Vaping Use Vaping Use: Never used Substance Use Topics Alcohol use: No Drug use: No Past medical history, appointments, medications, allergies reviewed. Pertinent Lab/Diagnostic Studies are reviewed and discussed today Current Outpatient Medications: busPIRone (BUSPAR) 5 mg tablet metFORMIN ER (GLUCOPHAGE XR) 500 mg 24 hr tablet colestipol (COLESTID) 1 gram tablet escitalopram oxalate (LEXAPRO) 20 mg tablet rosuvastatin (CRESTOR) 10 mg tablet Lancets lancets omeprazole (PRILOSEC) 20 mg capsule glipiZIDE (GLUCOTROL XL) 5 mg 24 hr tablet blood sugar diagnostic (BLOOD GLUCOSE TEST) test strip clobetasol (TEMOVATE) 0.05 % cream Insulin [place], Disposable, (BD ULTRA-FINE BRIJESH PEN NEEDLE) 32 gauge x 5/32 Ciclopirox (LOPROX) 8 % solution cholecalciferol, Vitamin D3, (VITAMIN D3) 1,250 mcg (50,000 unit) cap capsule Review of Systems CONSTITUTIONAL: No fevers, chills night sweats, unintended weight loss CARDIOVASCULAR: No chest pain, dyspnea, palpitations, orthopnea, PND, ankle edema. PULM: No dyspnea, unexplained cough. GI: No dysphagia/odynophagia, problematic reflux, constipation, diarrhea, changes in stool habits, hematochezia, melena. : No new urinary complaints, including dysuria, gross hematuria or pyuria. NEURO: No new balance problems, peripheral weakness/paresthesias or numbness of concern. Physical Exam BP 118/82 (BP Site: Left Arm, BP Position: Sitting, BP Cuff Size: Regular Adult) Pulse 94 Resp 16 Wt 89.6 kg (197 lb 9.6 oz) SpO2 97% BMI 26.80 kg/m General appearance: Well appearing, alert, in no acute distress, well nourished. Skin: Skin color, texture, turgor normal, no suspicious rashes or lesions Head: Normocephalic, no masses, lesions, tenderness or abnormalities Eyes: Anicteric sclera. Pupils are equally round and reactive to light. Extraocular movements are intact. Lungs: Lungs clear to auscultation. No wheezing, rhonchi, rales Heart: RRR without murmur, gallop, or rubs. Extremities: Peeling skin in the hands and legs. ASSESSMENT/PLAN: 1. Controlled type 2 diabetes mellitus without complication, without long-term current use of insulin (HCC) - ICD9: 250.00, ICD10: E11.9 (primary diagnosis) I asked him to start taking the glipizide 5 mg 1 tablet in the morning and then 1 in the afternoon after a few days to make it a total of 2 tablets. After a week so that his blood does not crash all of a sudden. As it has been high over the past few days. - GLIPIZIDE ER 5 MG TABLET, EXTENDED RELEASE 24 HR - BLOOD SUGAR DIAGNOSTIC STRIPS - HEMOGLOBIN A1C 2. Dermatitis - ICD9: 692.9, ICD10: L30.9 - CLOBETASOL 0.05 % TOPICAL CREAM Sandi Bird MD documented in this encounter [facility] 04-22-2024 History of Present illness Narrative Images from the original note were not included. Subjective Patient came in with complaints of peeling skin on his palms. Patient was recently diagnosed with scabies and went through scabies treatment patient says that seems to be better but now he has this itching peeling skin. Patient denies any other symptoms. The history is provided by the patient. Review of Systems Constitutional: Negative. Skin: Negative. Objective Physical Exam Constitutional: Appearance: Normal appearance. Pulmonary: Effort: Pulmonary effort is normal. Musculoskeletal: Hands: Comments: Scaly peeling skin in the areas marked before. Neurological: Mental Status: He is alert. PAST MEDICAL HISTORY Diagnosis Date Acute cholecystitis Diabetes mellitus type 2 in obese ([facility]) 2011 Hypertriglyceridemia 12/2013 Low HDL (under 40) 12/2013 Poor dentition PAST SURGICAL HISTORY Procedure Laterality Date HERNIA REPAIR HX 1976 LAPS SURG CHOLECYSTECTOMY W/CHOLANGIOGRAPHY 10/17/13 ALLERGIES Hydrocodone MEDICATIONS busPIRone (BUSPAR) 5 mg tablet Take 1 tablet by mouth two times a day. metFORMIN ER (GLUCOPHAGE XR) 500 mg 24 hr tablet Take 2 tablets by mouth two times a day with meals. colestipol (COLESTID) 1 gram tablet Take 3 tablets by mouth two times a day. escitalopram oxalate (LEXAPRO) 20 mg tablet Take 1 tablet by mouth once daily. rosuvastatin (CRESTOR) 10 mg tablet Take 1 tablet by mouth daily at bedtime. blood sugar diagnostic (BLOOD GLUCOSE TEST) test strip Test blood sugar(s) 1 times daily. Dx: Type 2 DM - Controlled E11.9 Insulin: No Lancets lancets Test blood sugar(s) 2-3 times daily and as needed. Dx: Type 2 DM - Controlled E11.9 Insulin: No omeprazole (PRILOSEC) 20 mg capsule Take 1 capsule by mouth once daily. triamcinolone (KENALOG) 0.025 % cream Apply to affected area two times a day for 7 days. liraglutide (VICTOZA) 0.6 mg/ 0.1 ml subcutaneous pen injector Inject 0.6 mg daily via pen for 7 days, if tolerated increase to 1.2mg daily. Please supply the 3 pack option Insulin [place]ney, Disposable, (BD ULTRA-FINE BRIJESH PEN NEEDLE) 32 gauge x 5/32 Use one needle for each dose of victoza. once/day. Ciclopirox (LOPROX) 8 % solution Apply to affected area daily at bedtime. cholecalciferol, Vitamin D3, (VITAMIN D3) 1,250 mcg (50,000 unit) cap capsule Take 1 capsule by mouth one time a week. FAMILY HISTORY Problem Relation Age of Onset Cancer Father COPD Mother Arthritis Mother Heart Maternal Grandmother Allergies Mother Social History Tobacco Use Smoking status: Never Smokeless tobacco: Never Vaping Use Vaping Use: Never used Substance Use Topics Alcohol use: No Drug use: No ASSESSMENT/PLAN: 1. Dry skin - ICD9: 701.1, ICD10: L85.3 - TRIAMCINOLONE ACETONIDE 0.025 % TOPICAL CREAM Was educated about proper use of medication and supportive therapies patient will use it on his palms. Patient is okay with this care plan and will follow-up if signs and symptoms seem to be getting worse not better. Izaiah Foster APRN.SAVANAH documented in this encounter [facility] 04-22-2024 Note HNO ID: [id number] Author: IZAIAH FOSTER APRN.CNP Service: ? Author Type: Nurse Practitioner Type: Progress Notes Filed: 04/22/2024 19:08 Note Text: Subjective Patient came in with complaints of peeling skin on his palms. Patient was recently diagnosed with scabies and went through scabies treatment patient says that seems to be better but now he has this itching peeling skin. Patient denies any other symptoms. The history is provided by the patient. Review of Systems Constitutional: Negative. Skin: Negative. Objective Physical Exam Constitutional: Appearance: Normal appearance. Pulmonary: Effort: Pulmonary effort is normal. Musculoskeletal: Hands: Comments: Scaly peeling skin in the areas marked before. Neurological: Mental Status: He is alert. PAST MEDICAL HISTORY Diagnosis Date Acute cholecystitis Diabetes mellitus type 2 in obese (HCC) 2011 Hypertriglyceridemia 12/2013 Low HDL (under 40) 12/2013 Poor dentition PAST SURGICAL HISTORY Procedure Laterality Date HERNIA REPAIR HX 1976 LAPS SURG CHOLECYSTECTOMY W/CHOLANGIOGRAPHY 10/17/13 ALLERGIES Hydrocodone MEDICATIONS busPIRone (BUSPAR) 5 mg tablet Take 1 tablet by mouth two times a day. metFORMIN ER (GLUCOPHAGE XR) 500 mg 24 hr tablet Take 2 tablets by mouth two times a day with meals. colestipol (COLESTID) 1 gram tablet Take 3 tablets by mouth two times a day. escitalopram oxalate (LEXAPRO) 20 mg tablet Take 1 tablet by mouth once daily. rosuvastatin (CRESTOR) 10 mg tablet Take 1 tablet by mouth daily at bedtime. blood sugar diagnostic (BLOOD GLUCOSE TEST) test strip Test blood sugar(s) 1 times daily. Dx: Type 2 DM - Controlled E11.9 Insulin: No Lancets lancets Test blood sugar(s) 2-3 times daily and as needed. Dx: Type 2 DM - Controlled E11.9 Insulin: No omeprazole (PRILOSEC) 20 mg capsule Take 1 capsule by mouth once daily. triamcinolone (KENALOG) 0.025 % cream Apply to affected area two times a day for 7 days. liraglutide (VICTOZA) 0.6 mg/ 0.1 ml subcutaneous pen injector Inject 0.6 mg daily via pen for 7 days, if tolerated increase to 1.2mg daily. Please supply the 3 pack option Insulin [place], Disposable, (BD ULTRA-FINE BRIJESH PEN NEEDLE) 32 gauge x /32 Use one needle for each dose of victoza. once/day. Ciclopirox (LOPROX) 8 % solution Apply to affected area daily at bedtime. cholecalciferol, Vitamin D3, (VITAMIN D3) 1,250 mcg (50,000 unit) cap capsule Take 1 capsule by mouth one time a week. FAMILY HISTORY Problem Relation Age of Onset Cancer Father COPD Mother Arthritis Mother Heart Maternal Grandmother Allergies Mother Social History Tobacco Use Smoking status: Never Smokeless tobacco: Never Vaping Use Vaping Use: Never used Substance Use Topics Alcohol use: No Drug use: No ASSESSMENT/PLAN: 1. Dry skin - ICD9: 701.1, ICD10: L85.3 - TRIAMCINOLONE ACETONIDE 0.025 % TOPICAL CREAM Was educated about proper use of medication and supportive therapies patient will use it on his palms. Patient is okay with this care plan and will follow-up if signs and symptoms seem to be getting worse not better. Izaiah Foster APRN.[facility] 04-22-2024 Telephone encounter Note Please call patient and ask him to make an appointment to discuss this issue. In the future anything that requires major decisions like starting a new medication which has not been discussed before or CGM it needs to be an appointment. Regards, Sandi Bird MD [facility] 04-22-2024 Miscellaneous Notes Please call patient and ask him to make an appointment to discuss this issue. In the future anything that requires major decisions like starting a new medication which has not been discussed before or CGM it needs to be an appointment. Regards, Sandi Bird MD documented in this encounter [facility] 03-24-2024 Telephone encounter Note Spoke with patient, since stopping the Victoza patient has had no more thoughts of suicide or constipation. Reinforced to patient that if any of these feelings return to go straight to the ER or call crisis. Number given. [facility] 03-24-2024 Miscellaneous Notes Spoke with patient, since stopping the Victoza patient has had no more thoughts of suicide or constipation. Reinforced to patient that if any of these feelings return to go straight to the ER or call crisis. Number given. Please call patient. States he doesn't want to live anymore If with suicidal ideation needs to call crisis or go straight to ER. If not, needs to be seen DERREK by a provider. Thank you Kaya Colorado APRN.CNP documented in this encounter [facility] 03-24-2024 Telephone encounter Note Please call patient. States he doesn't want to live anymore If with suicidal ideation needs to call crisis or go straight to ER. If not, needs to be seen DERREK by a provider. Thank you Kaya Colorado APRN.CNP [facility] 02-28-2024 Note HNO ID: [id number] Author: KAYA COLORADO APRN.CNP Service: ? Author Type: Nurse Practitioner Type: Progress Notes Filed: 02/28/2024 13:57 Note Text: CC: Patient presents with: Recheck: ER follow up, DM HPI Marcos Infante is a 48 year old male who presents today for ER follow-up. Facility: [facility] Date of visit: 02/24/24 Reason for visit: Blood sugars at home in the 400s-500 Hospital course: blood work unremarkable - given 1 L of fluid, repeat glucose in the 300s so discharged Diagnosis: diabetes with hyperglycemia Discharge: follow up with PCP His Victoza became too hot so had to throw it away a month ago. Will be picking it up tomorrow. Is also decreasing sugar in his diet and now seeing FBS nos in the 230s. Has had increase in thirst and urination but this is also improving with the lower sugars. He denies chest pain or dyspnea , numbness, tingling or pain in extremities, new or unusual visual symptoms, low sugar/hypoglycemic reactions, weight loss/gain, lightheadedness/dizziness, and bowel changes/loose stools. Patient's last HgA1C was Hemoglobin A1C (%) Date Value 02/23/2024 8.6 09/05/2023 6.4 05/14/2021 8.5 11/27/2016 6.1 Hemoglobin A1C (POCT) (%) Date Value 08/21/2022 7.6 09/06/2021 8.5 ) Last Ophthalmology exam was within the past 3 months Elevated bilirubin, Alk phos, and triglycerides. Denies any abdominal pain, nausea, vomiting, or bowel changes. REVIEW OF SYSTEMS See HPI PAST MEDICAL HISTORY Diagnosis Date Acute cholecystitis Diabetes mellitus type 2 in obese (HCC) 2011 Hypertriglyceridemia 12/2013 Low HDL (under 40) 12/2013 Poor dentition PAST SURGICAL HISTORY Procedure Laterality Date HERNIA REPAIR HX 1976 LAPS SURG CHOLECYSTECTOMY W/CHOLANGIOGRAPHY 10/17/13 ALLERGIES Hydrocodone MEDICATIONS colestipol (COLESTID) 1 gram tablet Take 3 tablets by mouth two times a day. liraglutide (VICTOZA) 0.6 mg/ 0.1 ml subcutaneous pen injector Inject 0.6 mg daily via pen for 7 days, if tolerated increase to 1.2mg daily. Please supply the 3 pack option busPIRone (BUSPAR) 5 mg tablet Take 1 tablet by mouth twice daily Insulin Putney, Disposable, (BD ULTRA-FINE BRIJESH PEN NEEDLE) 32 gauge x 5/32 Use one needle for each dose of victoza. once/day. escitalopram oxalate (LEXAPRO) 20 mg tablet Take 1 tablet by mouth once daily. rosuvastatin (CRESTOR) 10 mg tablet Take 1 tablet by mouth daily at bedtime. Ciclopirox (LOPROX) 8 % solution Apply to affected area daily at bedtime. blood sugar diagnostic (BLOOD GLUCOSE TEST) test strip Test blood sugar(s) 1 times daily. Dx: Type 2 DM - Controlled E11.9 Insulin: No metFORMIN ER (GLUCOPHAGE XR) 500 mg 24 hr tablet Take 2 tablets by mouth twice daily with meals. Lancets lancets Test blood sugar(s) 2-3 times daily and as needed. Dx: Type 2 DM - Controlled E11.9 Insulin: No cholecalciferol, Vitamin D3, (VITAMIN D3) 1,250 mcg (50,000 unit) cap capsule Take 1 capsule by mouth one time a week. omeprazole (PRILOSEC) 20 mg capsule Take 1 capsule by mouth once daily. FAMILY HISTORY Problem Relation Age of Onset Cancer Father COPD Mother Arthritis Mother Heart Maternal Grandmother Allergies Mother Social History Tobacco Use Smoking status: Never Smokeless tobacco: Never Vaping Use Vaping Use: Never used Substance Use Topics Alcohol use: No Drug use: No PHYSICAL EXAM BP 130/70 Pulse 80 Resp 16 Wt 97.1 kg (214 lb) SpO2 98% BMI 29.02 kg/m? General Appearance: well appearing, in no acute distress, alert Pysch: mood and affect broad and appropriate Skin: Skin color, texture, turgor normal for age; Eyes: conjunctiva pink and moist, no icterus, sclera white, non-injected Lungs: Lungs clear to auscultation. No wheezing, rhonchi, rales. Heart: RRR without murmur, gallop, or rubs. No ectopy Abdomen: Abdomen soft, non-tender. Bowel sounds normal. No masses, organomegaly Colorectal Cancer Screening Never done Dilated Retinal Exam due on 06/23/2023 Behavioral Health Screening Never done Hepatitis A Vaccine(2 of 2 - Risk 2-dose series) due on 11/05/2024 Covid-19 Vaccine( - 2022- season) due on 11/05/2024 Pneumococcal Vaccine(2 of 2 - PCV) due on 11/05/2024 HbA1C due on 05/25/2024 Influenza Vaccine(Season Ended) due on 06/01/2024 Diabetic Foot Exam due on 11/05/2024 Annual PCP Team Chronic Disease Visit due on 11/05/2024 Urine Albumin:Creatinine Ratio due on 02/22/2025 LDL Cholesterol due on 02/22/2025 DTaP,Tdap,Td Vaccine(3 - Td or Tdap) due on 04/14/2029 Hepatitis B Vaccine Completed Hepatitis C Screening Completed HIV Screening Completed DATA REVIEWED: Most recent labs Outside chart from [facility] reviewed. ASSESSMENT/PLAN: 1. Controlled type 2 diabetes mellitus without complication, without long-term current use of insulin (HCC) - ICD9: 250.00, ICD10: E11.9 (primary diagnosis) - Uncontrolled without victoza for a month but improved some with healthy diet (more content not included)... [facility] 02-28-2024 History of Present illness Narrative CC: Patient presents with: Recheck: ER follow up, DM HPI Marcos Infante is a 48 year old male who presents today for ER follow-up. Facility: [facility] Date of visit: 02/24/24 Reason for visit: Blood sugars at home in the 400s-500 Hospital course: blood work unremarkable - given 1 L of fluid, repeat glucose in the 300s so discharged Diagnosis: diabetes with hyperglycemia Discharge: follow up with PCP His Victoza became too hot so had to throw it away a month ago. Will be picking it up tomorrow. Is also decreasing sugar in his diet and now seeing FBS nos in the 230s. Has had increase in thirst and urination but this is also improving with the lower sugars. He denies chest pain or dyspnea , numbness, tingling or pain in extremities, new or unusual visual symptoms, low sugar/hypoglycemic reactions, weight loss/gain, lightheadedness/dizziness, and bowel changes/loose stools. Patient's last HgA1C was Hemoglobin A1C (%) Date Value 02/23/2024 8.6 09/05/2023 6.4 05/14/2021 8.5 11/27/2016 6.1 Hemoglobin A1C (POCT) (%) Date Value 08/21/2022 7.6 09/06/2021 8.5 ) Last Ophthalmology exam was within the past 3 months Elevated bilirubin, Alk phos, and triglycerides. Denies any abdominal pain, nausea, vomiting, or bowel changes. REVIEW OF SYSTEMS See HPI PAST MEDICAL HISTORY Diagnosis Date Acute cholecystitis Diabetes mellitus type 2 in obese (HCC) 2011 Hypertriglyceridemia 12/2013 Low HDL (under 40) 12/2013 Poor dentition PAST SURGICAL HISTORY Procedure Laterality Date HERNIA REPAIR HX 1976 LAPS SURG CHOLECYSTECTOMY W/CHOLANGIOGRAPHY 10/17/13 ALLERGIES Hydrocodone MEDICATIONS colestipol (COLESTID) 1 gram tablet Take 3 tablets by mouth two times a day. liraglutide (VICTOZA) 0.6 mg/ 0.1 ml subcutaneous pen injector Inject 0.6 mg daily via pen for 7 days, if tolerated increase to 1.2mg daily. Please supply the 3 pack option busPIRone (BUSPAR) 5 mg tablet Take 1 tablet by mouth twice daily Insulin Putney, Disposable, ([employer]-FINE BRIJESH PEN NEEDLE) 32 gauge x 32 Use one needle for each dose of victoza. once/day. escitalopram oxalate (LEXAPRO) 20 mg tablet Take 1 tablet by mouth once daily. rosuvastatin (CRESTOR) 10 mg tablet Take 1 tablet by mouth daily at bedtime. Ciclopirox (LOPROX) 8 % solution Apply to affected area daily at bedtime. blood sugar diagnostic (BLOOD GLUCOSE TEST) test strip Test blood sugar(s) 1 times daily. Dx: Type 2 DM - Controlled E11.9 Insulin: No metFORMIN ER (GLUCOPHAGE XR) 500 mg 24 hr tablet Take 2 tablets by mouth twice daily with meals. Lancets lancets Test blood sugar(s) 2-3 times daily and as needed. Dx: Type 2 DM - Controlled E11.9 Insulin: No cholecalciferol, Vitamin D3, (VITAMIN D3) 1,250 mcg (50,000 unit) cap capsule Take 1 capsule by mouth one time a week. omeprazole (PRILOSEC) 20 mg capsule Take 1 capsule by mouth once daily. FAMILY HISTORY Problem Relation Age of Onset Cancer Father COPD Mother Arthritis Mother Heart Maternal Grandmother Allergies Mother Social History Tobacco Use Smoking status: Never Smokeless tobacco: Never Vaping Use Vaping Use: Never used Substance Use Topics Alcohol use: No Drug use: No PHYSICAL EXAM BP 130/70 Pulse 80 Resp 16 Wt 97.1 kg (214 lb) SpO2 98% BMI 29.02 kg/m General Appearance: well appearing, in no acute distress, alert Pysch: mood and affect broad and appropriate Skin: Skin color, texture, turgor normal for age; Eyes: conjunctiva pink and moist, no icterus, sclera white, non-injected Lungs: Lungs clear to auscultation. No wheezing, rhonchi, rales. Heart: RRR without murmur, gallop, or rubs. No ectopy Abdomen: Abdomen soft, non-tender. Bowel sounds normal. No masses, organomegaly Colorectal Cancer Screening Never done Dilated Retinal Exam due on 06/23/2023 Behavioral Health Screening Never done Hepatitis A Vaccine(2 of 2 - Risk 2-dose series) due on 11/05/2024 Covid-19 Vaccine( - 2022- season) due on 11/05/2024 Pneumococcal Vaccine(2 of 2 - PCV) due on 11/05/2024 HbA1C due on 05/25/2024 Influenza Vaccine(Season Ended) due on 06/01/2024 Diabetic Foot Exam due on 11/05/2024 Annual PCP Team Chronic Disease Visit due on 11/05/2024 Urine Albumin:Creatinine Ratio due on 02/22/2025 LDL Cholesterol due on 02/22/2025 DTaP,Tdap,Td Vaccine(3 - Td or Tdap) due on 04/14/2029 Hepatitis B Vaccine Completed Hepatitis C Screening Completed HIV Screening Completed DATA REVIEWED: Most recent labs Outside chart from [facility] reviewed. ASSESSMENT/PLAN: 1. Controlled type 2 diabetes mellitus without complication, without long-term current use of insulin (HCC) - ICD9: 250.00, ICD10: E11.9 (primary diagnosis) - Uncontrolled without victoza for a month but improved some with healthy diet changes. Will restart victoza tomorrow and continue to monitor at home - follow up in 6 weeks with home blood sugar readings. - Continue current medications - Blood glucose monitoring on a once daily schedule - Counseled on healthy diet and regular exercise - Discussed need for and benefit of weight loss. BMI 29.02 kg/(m^2) 2. Hypertriglyceridemia - ICD9: 272.1, ICD10: E78.1 - Uncontrolled - TSH normal, most likely due to elevated glucose. Will get diabetes back under control and recheck - Continue current medications - Counseled on healthy diet and regular exercise - Discussed need for and benefit of weight loss. BMI 29.02 kg/(m^2) 3. Elevated bilirubin - ICD9: 277.4, ICD10: R17 Was lower in ER visit but still slightly elevated. Assessment normal and asymptomatic Will need rechecked at follow up appointment and if still elevated or for any concerns will need further workup and US 4. Elevated alkaline phosphatase level - ICD9: 790.5, ICD10: R74.8 As above Prescription instructions reviewed with patient as applicable. Potential red flag symptoms discussed with the patient. Reviewed appropriate action plan to take if red flag symptoms occur. Patient agreeable to treatment plan. Kaya Colorado APRN.CNP documented in this encounter [facility] 02-26-2024 Telephone encounter Note ER notes received. Will await patient's MC message to see who he will scheduled with. Will forward ER records to appropriate provider. Hilaria Camacho MA [facility] 02-26-2024 Miscellaneous Notes ER notes received. Will await patient's MC message to see who he will scheduled with. Will forward ER records to appropriate provider. Hilaria Camacho MA Request for most recent ER visit faxed to D[facility]. Hilaria Camacho MA documented in this encounter [facility] 02-26-2024 Telephone encounter Note Request for most recent ER visit faxed to Dirk Crawford. Hilaria Camacho MA [facility] 02-26-2024 Telephone encounter Note Pharmacy request denied. Patient needs to contact office for refills. Hilaria Camacho MA [facility] 02-26-2024 Miscellaneous Notes Pharmacy request denied. Patient needs to contact office for refills. Hilaria Camacho MA documented in this encounter [facility] 02-22-2024 Telephone encounter Note The following approved medication requests have been transmitted electronically. Requested Prescriptions Pending Prescriptions Disp Refills colestipol (COLESTID) 1 gram tablet 360 tablet 0 Sig: Take 3 tablets by mouth two times a day. Richard Coleman APRN.CNP [facility] Work Phone: 02-22-2024 Telephone encounter Note The following approved medication requests have been transmitted electronically. Requested Prescriptions Pending Prescriptions Disp Refills liraglutide (VICTOZA 2-MELLY) 0.6 mg/0.1 mL (18 mg/3 mL) 9 mL 1 Sig: Inject 0.6 mg daily via pen for 7 days, if tolerated increase to 1.2mg daily. Please supply the 3 pack option Richard Coleman APRN.CNP [facility] Work Phone: 02-22-2024 Miscellaneous Notes The following approved medication requests have been transmitted electronically. Requested Prescriptions Pending Prescriptions Disp Refills colestipol (COLESTID) 1 gram tablet 360 tablet 0 Sig: Take 3 tablets by mouth two times a day. Richard Coleman APRN.CNP Patient has been identified by name and date of : Yes phones for refill(s): Requested Prescriptions Pending Prescriptions Disp Refills colestipol (COLESTID) 1 gram tablet 360 tablet 0 Sig: Take 3 tablets by mouth two times a day. Date of last office visit in primary care: 11/05/2023 Date of next office visit in primary care: 04/10/2024 Please advise. Thank you. KLAUDIA Goins. documented in this encounter [facility] 02-22-2024 Miscellaneous Notes The following approved medication requests have been transmitted electronically. Requested Prescriptions Pending Prescriptions Disp Refills liraglutide (VICTOZA 2-MELLY) 0.6 mg/0.1 mL (18 mg/3 mL) 9 mL 1 Sig: Inject 0.6 mg daily via pen for 7 days, if tolerated increase to 1.2mg daily. Please supply the 3 pack option Richard Coleman APRN.SAVANAH Patient comment: I need DERREK that's why my sugar off my other reached temperature over 100 so they where no good. Patient has been identified by name and date of : Yes Patient phones for refill(s): Requested Prescriptions Pending Prescriptions Disp Refills liraglutide (VICTOZA 2-MELLY) 0.6 mg/0.1 mL (18 mg/3 mL) 9 mL 1 Sig: Inject 0.6 mg daily via pen for 7 days, if tolerated increase to 1.2mg daily. Please supply the 3 pack option Date of last office visit in primary care: 11/05/2023 Date of next office visit in primary care: 04/10/2024 Please advise. Thank you. KLAUDIA Goins. documented in this encounter [facility] 02-22-2024 Telephone encounter Note Patient comment: I need DERREK that's why my sugar off my other reached temperature over 100 so they where no good. Patient has been identified by name and date of : Yes Patient phones for refill(s): Requested Prescriptions Pending Prescriptions Disp Refills liraglutide (VICTOZA 2-MELLY) 0.6 mg/0.1 mL (18 mg/3 mL) 9 mL 1 Sig: Inject 0.6 mg daily via pen for 7 days, if tolerated increase to 1.2mg daily. Please supply the 3 pack option Date of last office visit in primary care: 11/05/2023 Date of next office visit in primary care: 04/10/2024 Please advise. Thank you. KLAUDIA Goins. [facility] 02-22-2024 Telephone encounter Note Patient has been identified by name and date of : Yes phones for refill(s): Requested Prescriptions Pending Prescriptions Disp Refills colestipol (COLESTID) 1 gram tablet 360 tablet 0 Sig: Take 3 tablets by mouth two times a day. Date of last office visit in primary care: 11/05/2023 Date of next office visit in primary care: 04/10/2024 Please advise. Thank you. KLAUDIA Goins. [facility] 01-15-2024 Miscellaneous Notes Requested Prescriptions Pending Prescriptions Disp Refills colestipol (COLESTID) 1 gram tablet 360 tablet 2 Sig: Take 3 tablets by mouth two times a day. Date of last office visit in primary care: 11/05/2023 Date of next office visit in primary care: 01/15/2024 Please advise. Thank you. Gerard Jacobson MA. documented in this encounter [facility] 12-20-2023 Miscellaneous Notes TC to patient who verbalized understanding of providers message below. Nothing further at this time. KLAUDIA Goins Pen needle for victoza sent. The following approved medication requests have been transmitted electronically. Requested Prescriptions Signed Prescriptions Disp Refills Insulin Putney, Disposable, (BD ULTRA-FINE BRIJESH PEN NEEDLE) 32 gauge x 5/32 100 Each 1 Sig: Use one needle for each dose of victoza. once/day. Authorizing Provider: TRINA PORTER PA-C Spoke with Pharmacist and states box of 50 can be purchased OTC the counter or if RX can be sent although unsure if covered by Insurance. Relion 4mm pen needle. Please call pharmacy to clarify. I have no options for victoza needles. They usually come with the pen. Thank you Kaya Colorado APRN.CNP Patient calling with request for script for pen needles for Victoza. [facility]. Alycia Gutierrez RN documented in this encounter [facility] 12-17-2023 Miscellaneous Notes Prescription updated and sent. Kaya Colorado APRN.CNP Paul Pharmacist with [facility] in [place] called and is notified of providers message and instructions. He voices understanding, but states they only have the 3 pen packs in stock and were told it would be mid to late December before they would get the 2 pen packs back. He states they have been telling them this for a while now. He states every pen has 3 mLs in it, so it would be a total of 9 mLs. He states the dosing can be ordered the same, but he doesn't know if the Pts insurance will pay for it. Pina Beck, YIN Please call pharmacy and clarify. Patient has never taken this before so needs to start on a low dose and taper up. Thank you Kaya Colorado APRN.CNP Patient calling to say [facility] advised him to call provider for new script to increase quantity of doses for Victoza. They tell him they have a package of nine available not the smaller dose. Alycia Gutierrez, RN documented in this encounter [facility] 12-17-2023 Miscellaneous Notes Patient scheduled for today. Prescription sent, please have patient follow up in 2-4 weeks. Thank you Kaya Colorado APRN.CNP Patient is notified and ok to start Victoza. Please send Anny Smith. Patient had been taking trulicity and A1c went from 9.6 to 6.4. Trulicity no longer available. Call patient and ask if he is willing to try victoza which is a daily injectable though versus once a week. Thank you Kaya Colorado APRN.CNP This was denied. Coverage is provided when the member meets all the followin. Coverage is provided when the member has a history of at least 120 days of therapy with THREE preferred (medication covered by the Plan) medications [ONE of the 120 day trials must be Byetta (5 mcg and 10 mcg), Victoza (18 MG/3 ML PEN) or Trulicity (0.75 mg, 1.5 mg, 3 mg and 4.5 mg)], which include but are not limited to: Farxiga 5 and 10 mg, Invokana 100 mg and 300 mg, Victoza 18 MG/3 ML PEN, and Jardiance 10 and 25 mg. 2. Member has had an inadequate clinical response (the inability to reach A1C goal (less than 7%) (a test result that shows a three-month average of blood sugars) after at least 120 days of current regimen, with use of two or more drugs concomitantly (at the same time) per ADA guidelines ([place] [employer]) and, 3. Member has documented adherence (taking medications correctly) and appropriate dose escalation (must achieve maximum recommended dose or document that maximum recommended dose is not tolerated or is clinically inappropriate) and, 4. Documentation includes a patient specific A1C goal if less than 7% and must include current A1C (within the last 6 months). Electronic PA completed again for ozempic as the trulicity is on back order from the drapery supervisor. documented in this encounter [facility] 12-14-2023 Miscellaneous Notes See TE with PA Kaya Colorado APRN.CNP Patient unable to get trulicty as it is not available at this time. Switching to ozempic. Kaya Colorado APRN.CNP documented in this encounter [facility] 11-05-2023 History of Present illness Narrative CC: Patient presents with: Recheck: DM follow up HPI Marcos Clay is a 47 year old male who presents today for routine follow up. DIABETES MELLITUS: Mr. Clay denies excessive thirst or increased frequency of urination, chest pain or dyspnea , numbness, tingling or pain in extremities, new or unusual visual symptoms, low sugar/hypoglycemic reactions, weight loss/gain, lightheadedness/dizziness, and bowel changes/loose stools. Follows a diabetic diet some of the time. He is compliant with medication(s) and is tolerating med(s) without any side effects. Working with clinical pharmacology to get ozempic approved to switch from trulicity. He reports checking his glucose on a once a day schedule with sugars in the fasting 170s range. Patient's last HgA1C was Hemoglobin A1C (%) Date Value 09/05/2023 6.4 02/28/2023 9.6 05/14/2021 8.5 11/27/2016 6.1 Hemoglobin A1C (POCT) (%) Date Value 08/21/2022 7.6 09/06/2021 8.5 ) Last Ophthalmology exam was over a year ago. Needs to call to schedule annual exam. Low HDL: Takes medication as ordered. Walks a lot daily. Eats healthy some of the time. Denies any chest pain, shortness of breath, or exercise intolerance. Skin tag to upper lip appearing 2 months ago and getting larger. Would like to have removed. Denies pain, bleeding, or drainage. Anxiety: Gets irritable with people as the day goes on and feels it could be better controlled. Sleep: is described as normal Alcohol use: does not drink any alcohol Drug use: No Appetite: good Suicidal Thoughts: No suicidal or homicidal ideation, intent or plan Support: Comes from multiple sources including significant other Counseling: No REVIEW OF SYSTEMS General: no fevers, no chills, no night sweats, no recurrent infections, no change in appetite, no change in energy, and no significant changes in weight Respiratory: no cough, no wheezing, no shortness of breath, no hemoptysis Cardiovascular: no chest pain, no chest pressure, no palpitations, and no swelling Neurologic: No headache, weakness, numbness, dizziness, memory loss, syncope. PHQ2 is 0 PAST MEDICAL HISTORY Diagnosis Date Acute cholecystitis Diabetes mellitus type 2 in obese (HCC) 2011 Hypertriglyceridemia 12/2013 Low HDL (under 40) 12/2013 Poor dentition PAST SURGICAL HISTORY Procedure Laterality Date HERNIA REPAIR HX 1976 LAPS SURG CHOLECYSTECTOMY W/CHOLANGIOGRAPHY 10/17/13 ALLERGIES Hydrocodone MEDICATIONS busPIRone (BUSPAR) 5 mg tablet Take 1 tablet by mouth two times a day. semaglutide (OZEMPIC) 0.25 mg or 0.5 mg (2 mg/3 mL) pen Inject 0.5 mg subcutaneously one time a week. This REPLACES Trulicity escitalopram oxalate (LEXAPRO) 20 mg tablet Take 1 tablet by mouth once daily. dulaglutide (TRULICITY) 1.5 mg/0.5 mL pen injector Inject 1.5 mg subcutaneously one time a week. rosuvastatin (CRESTOR) 10 mg tablet Take 1 tablet by mouth daily at bedtime. colestipol (COLESTID) 1 gram tablet Take 3 tablets by mouth twice daily. traZODone (DESYREL) 100 mg tablet Take 1 tablet by mouth daily at bedtime. Ciclopirox (LOPROX) 8 % solution Apply to affected area daily at bedtime. blood sugar diagnostic (BLOOD GLUCOSE TEST) test strip Test blood sugar(s) 1 times daily. Dx: Type 2 DM - Controlled E11.9 Insulin: No blood sugar diagnostic (FREESTYLE LITE STRIPS) test strip Test blood sugar(s) once daily. Dx: Type 2 DM - Controlled E11.9 Insulin: Yes Trulicity metFORMIN ER (GLUCOPHAGE XR) 500 mg 24 hr tablet Take 2 tablets by mouth twice daily with meals. Lancets lancets Test blood sugar(s) 2-3 times daily and as needed. Dx: Type 2 DM - Controlled E11.9 Insulin: No fluticasone (FLONASE) 50 mcg/actuation nasal spray Use 2 Sprays in each nostril once daily. Rinse mouth after use. benzonatate (TESSALON PERLES) 100 mg capsule Take 2 capsules by mouth three times daily as needed. cholecalciferol, Vitamin D3, (VITAMIN D3) 1,250 mcg (50,000 unit) cap capsule Take 1 capsule by mouth one time a week. omeprazole (PRILOSEC) 20 mg capsule Take 1 capsule by mouth once daily. FAMILY HISTORY Problem Relation Age of Onset Cancer Father COPD Mother Arthritis Mother Heart Maternal Grandmother Allergies Mother Social History Tobacco Use Smoking status: Never Smokeless tobacco: Never Vaping Use Vaping Use: Never used Substance Use Topics Alcohol use: No Drug use: No PHYSICAL EXAM BP 120/78 Pulse 80 Resp 16 Wt 99.8 kg (220 lb) SpO2 98% BMI 29.84 kg/m General Appearance: well appearing, in no acute distress, alert Pysch: mood and affect broad and appropriate Skin: Skin color, texture, turgor normal for age; skin tag noticeable to left upper lip, no redness, edema, or drainage noted. Eyes: conjunctiva pink and moist, no icterus, sclera white, non-injected Lungs: Lungs clear to auscultation. No wheezing, rhonchi, rales. Heart: RRR without murmur, gallop, or rubs. No ectopy Extremities: No deformities, edema, skin discoloration, clubbing or cyanosis. Good capillary refill. Feet:Shoes and socks removed, normal distal pulses, sensitive to 10 gm monofilament, and vibratory perception normal Health maintenance reviewed with patient: Covid-19 Vaccine(1) Never done Hepatitis A Vaccine(2 of 2 - Risk 2-dose series) due on 11/25/2016 Colorectal Cancer Screening Never done Pneumococcal Vaccine(2 of 2 - PCV) due on 09/06/2022 Influenza Vaccine(1) due on 06/01/2023 Dilated Retinal Exam due on 06/23/2023 Diabetic Foot Exam due on 08/21/2023 Depression Assessment due on 10/01/2023 Annual PCP Team Chronic Disease Visit due on 02/28/2024 Urine Albumin:Creatinine Ratio due on 02/29/2024 HbA1C due on 03/06/2024 LDL Cholesterol due on 09/05/2024 DTaP,Tdap,Td Vaccine(3 - Td or Tdap) due on 04/14/2029 Hepatitis B Vaccine Completed Hepatitis C Screening Completed HIV Screening Completed HPV Vaccine Aged Out DATA REVIEWED: Most recent labs ASSESSMENT/PLAN: 1. Controlled type 2 diabetes mellitus without complication, without long-term current use of insulin (HCC) - ICD9: 250.00, ICD10: E11.9 (primary diagnosis) - Controlled - Continue current medications - Blood glucose monitoring on a once daily schedule - Counseled on healthy diet and regular exercise - Discussed need for and benefit of weight loss. BMI 29.84 kg/(m^2) 2. Anxiety - ICD9: 300.00, ICD10: F41.9 Uncontrolled Adding buspar - Reviewed concept of neurochemical imbalance wth depression/anxiety, treatment options and benefits of counseling in combination with medication. Also reviewed benefits of sleep hygeine, diet and exercise - Follow-up in 6 weeks or sooner as needed - Instructed patient to contact office or [id number] after-hours promptly should condition worsen or any new symptoms appear. - Counseling Center [facility] and after hours crisis line 3. Skin tag - ICD9: 701.9, ICD10: L91.8 - CONSULT TO DERMATOLOGY 4. Low HDL (under 40) - ICD9: 272.5, ICD10: E78.6 - Controlled - Continue current medications - Counseled on healthy diet and regular exercise - Discussed need for and benefit of weight loss. BMI 29.84 kg/(m^2) 5. Encounter for immunization - ICD9: V03.89, ICD10: Z23 - INFLUENZA VACCINE, AGE 6 MO - 64 YR, QUADRIVALENT (AFLURIA, FLULAVAL, FLUZONE) Prescription instructions reviewed with patient as applicable. Potential red flag symptoms discussed with the patient. Reviewed appropriate action plan to take if red flag symptoms occur. Patient agreeable to treatment plan. Kaya Colorado APRN.SAVANAH documented in this encounter [facility] 06-08-2023 Miscellaneous Notes Patient has been identified by name and date of : No Patient phones for refill(s): Requested Prescriptions Pending Prescriptions Disp Refills colestipol (COLESTID) 1 gram tablet 360 tablet 0 Sig: Take 3 tablets by mouth twice daily. Date of last office visit in primary care: 02/27/23 Last 2 Encounter Wt Readings: Date: Wt: 02/27/2023 101.2 kg (223 lb) 01/01/2023 103.1 kg (227 lb 6.4 oz) Previous labs/tests for medication: Not applicable Please advise. Thank you. Rupal Sanchez LPN documented in this encounter [facility] 04-23-2023 Miscellaneous Notes Patient has been identified by name and date of : No Patient phones for refill(s): Requested Prescriptions Pending Prescriptions Disp Refills colestipol (COLESTID) 1 gram tablet 360 tablet 0 Sig: Take 3 tablets by mouth twice daily. Date of last office visit in primary care: 02/27/23 Last 2 Encounter Wt Readings: Date: Wt: 02/27/2023 101.2 kg (223 lb) 01/01/2023 103.1 kg (227 lb 6.4 oz) Previous labs/tests for medication: Not applicable Please advise. Thank you. Rupal Tyler LPN documented in this encounter [facility] 03-29-2023 History of Present illness Narrative FOLLOW UP PODIATRIC OFFICE VISIT Chief Complaint: This 47 year old who presents for follow up:b/l hallux nail discoloration Patient presents to clinic for discussion regarding permanent removal of toenails PAIN EVALUATION No data found in the last 1 encounters. Hemoglobin A1C Date Value Ref Range Status 02/28/2023 9.6 (H) 4.3 - 5.6 % Final Comment: [place] [employer] guidelines indicate that patients with HgbA1c in the range 5.7-6.4% are at increased risk for development of diabetes, and intervention by lifestyle modification may be beneficial. HgbA1c greater or equal to 6.5% is considered diagnostic of diabetes. PCP: Sandi Bird MD PAST MEDICAL HISTORY Diagnosis Date Acute cholecystitis Diabetes mellitus type 2 in obese (HCC) 2011 Hypertriglyceridemia 12/2013 Low HDL (under 40) 12/2013 Poor dentition Current Outpatient Medications Medication Sig blood sugar diagnostic (BLOOD GLUCOSE TEST) test strip Test blood sugar(s) 1 times daily. Dx: Type 2 DM - Controlled E11.9 Insulin: No metFORMIN ER (GLUCOPHAGE XR) 500 mg 24 hr tablet Take 2 tablets by mouth twice daily with meals. Lancets lancets Test blood sugar(s) 2-3 times daily and as needed. Dx: Type 2 DM - Controlled E11.9 Insulin: No dulaglutide (TRULICITY) 1.5 mg/0.5 mL pen injector Inject 1.5 mg subcutaneously one time a week. colestipol (COLESTID) 1 gram tablet Take 3 tablets by mouth twice daily. omeprazole (PRILOSEC) 20 mg capsule Take 1 capsule by mouth once daily. rosuvastatin (CRESTOR) 10 mg tablet Take 1 tablet by mouth daily at bedtime. escitalopram oxalate (LEXAPRO) 20 mg tablet Take 1 tablet by mouth once daily. Ciclopirox (LOPROX) 8 % solution Apply to affected area daily at bedtime. blood sugar diagnostic (FREESTYLE LITE STRIPS) test strip Test blood sugar(s) once daily. Dx: Type 2 DM - Controlled E11.9 Insulin: Yes Trulicity fluticasone (FLONASE) 50 mcg/actuation nasal spray Use 2 Sprays in each nostril once daily. Rinse mouth after use. benzonatate (TESSALON PERLES) 100 mg capsule Take 2 capsules by mouth three times daily as needed. cholecalciferol, Vitamin D3, (VITAMIN D3) 1,250 mcg (50,000 unit) cap capsule Take 1 capsule by mouth one time a week. traZODone (DESYREL) 50 mg tablet Take 1 tablet by mouth daily at bedtime. cholestyramine (QUESTRAN) 4 gram packet Take 1 Packet by mouth twice daily with meals. (Patient not taking: Reported on 10/05/2022) No current facility-administered medications for this visit. ALLERGIES Allergen Reactions Hydrocodone GI Upset PAST SURGICAL HISTORY Procedure Laterality Date HERNIA REPAIR HX 1976 LAPS SURG CHOLECYSTECTOMY W/CHOLANGIOGRAPHY 10/17/13 Physical Exam: OBJECTIVE: Constitutional: Pt is a well developed 47 year old male who is alert, oriented, cooperative and in no apparent distress. Eyes: Following during examination. No redness or drainage. Respiratory: RR normal and nonlabored. Even breathing. No evidence of distress. Psychology: Patient is engaged during conversation. Normal affect and mood. Does not appear depressed or anxious. NVSI unchanged from previous visit. Dermatological: B/l hallux toenail is thick, discolored, dystrophic. Lesser toenails show some discoloration. Webspaces slightly macerated. Skin appears well hydrated and supple. good color, texture, turgor. No open lesions present. No callosities present. ASSESSMENT: (L60.0) Ingrown nail (primary encounter diagnosis) (B35.1) Onychomycosis (E11.9) Controlled type 2 diabetes mellitus without complication, without long-term current use of insulin ([facility]) PLAN: Discussed thickening of b/l hallux toenail. Discussed optinos not limited to topical medication, oral medication, laser therapy vs removal. He is really interested in removal of the toenail but his a1c is 9.6. I would not recommend elective removal of toenail at this time due to poor sugar control I would recommend he continue to keep the nails cut straight across. He can try penlac but discussed low success of penlac. Discussed lamisil and he is not interested in this. Recommend he use powder between his toes and/or betadine as needed for maceration Can f/u for matrixectomy once his sugars are better controlled Chuck Gillis DPM AMB ROOMING INTAKE FLOWSHEET DATA Patient presents with: Left Great Toe - Established Patient, Ingrown Toenail Right Great Toe - Established Patient, Ingrown Toenail Sonia Wyatt LPN documented in this encounter [facility] 03-21-2023 Miscellaneous Notes Patient called stating the test strips he was prescribed does not work in his meter. Patient is asking for a order for a Lee Metrix glucometer. He can use the current test strips in this meter. documented in this encounter [facility] 03-14-2023 Miscellaneous Notes Rxed medication documented in this encounter [facility] 02-27-2023 History of Present illness Narrative Reason for Visit Patient presents with: Follow Up: patient is wanting labs and needs trulicity Marcos Clay is a 47 year old male who presents here today for Above Complaints.. Health Maintenance COVID-19 VACCINE(1) DTAP,TDAP,TD(1 - Tdap) HEPATITIS A(2 of 2 - Risk 2-dose series) COLORECTAL CANCER SCREENING PNEUMOCOCCAL(2 - PCV) DEPRESSION ASSESSMENT URINE ALBUMIN:CREATININE RATIO HBA1C HPI Patient has 3 skin lesions , that are bothering him, they are like skin tags Since I last saw him he had seen podiatry who wanted to remove the nails of those toes. With trulicity he is losing weight was 237 in the past and now is 223. Did not have hba1c done yet Will get labs done, takes medication regularly. Patient does not usually check his sugars but when he checks them , they are in the range of 120. Cont the metformin, We will, need to recheck lipids, takes crestor. Tolerates medication Sleeps well with trazodone Bp today is on the higher side. No problem-specific Assessment & Plan notes found for this encounter. PAST MEDICAL HISTORY Diagnosis Date Acute cholecystitis Diabetes mellitus type 2 in obese (HCC) 2011 Hypertriglyceridemia 12/2013 Low HDL (under 40) 12/2013 Poor dentition PAST SURGICAL HISTORY Procedure Laterality Date HERNIA REPAIR HX 1976 LAPS SURG CHOLECYSTECTOMY W/CHOLANGIOGRAPHY 10/17/13 FAMILY HISTORY Problem Relation Age of Onset Cancer Father COPD Mother Arthritis Mother Heart Maternal Grandmother Allergies Mother Social History Tobacco Use Smoking status: Never Smokeless tobacco: Never Vaping Use Vaping Use: Never used Substance Use Topics Alcohol use: No Drug use: No Past medical history, appointments, medications, allergies reviewed. Pertinent Lab/Diagnostic Studies are reviewed and discussed today Current Outpatient Medications: metFORMIN ER (GLUCOPHAGE XR) 500 mg 24 hr tablet colestipol (COLESTID) 1 gram tablet fluticasone (FLONASE) 50 mcg/actuation nasal spray benzonatate (TESSALON PERLES) 100 mg capsule dulaglutide (TRULICITY) 1.5 mg/0.5 mL pen injector cholecalciferol, Vitamin D3, (VITAMIN D3) 1,250 mcg (50,000 unit) cap capsule omeprazole (PRILOSEC) 20 mg capsule rosuvastatin (CRESTOR) 10 mg tablet escitalopram oxalate (LEXAPRO) 20 mg tablet traZODone (DESYREL) 50 mg tablet cholestyramine (QUESTRAN) 4 gram packet Lancets lancets Review of Systems CONSTITUTIONAL: No fevers, chills night sweats, unintended weight loss CARDIOVASCULAR: No chest pain, dyspnea, palpitations, orthopnea, PND, ankle edema. PULM: No dyspnea, unexplained cough. GI: No dysphagia/odynophagia, problematic reflux, constipation, diarrhea, changes in stool habits, hematochezia, melena. : No new urinary complaints, including dysuria, gross hematuria or pyuria. NEURO: No new balance problems, peripheral weakness/paresthesias or numbness of concern. Physical Exam BP 136/72 (BP Site: Left Arm, BP Position: Sitting, BP Cuff Size: Large Adult) Pulse 95 Temp 36.4 C (97.5 F) Resp 12 Ht 182.9 cm (6') Wt 101.2 kg (223 lb) SpO2 99% BMI 30.24 kg/m General appearance: Well appearing, alert, in no acute distress, well nourished. Skin: Skin color, texture, turgor normal, no suspicious rashes or lesions Head: Normocephalic, no masses, lesions, tenderness or abnormalities Eyes: Anicteric sclera. Pupils are equally round and reactive to light. Extraocular movements are intact. Lungs: Lungs clear to auscultation. No wheezing, rhonchi, rales Heart: RRR without murmur, gallop, or rubs. Extremities: No deformities, edema, skin discoloration, clubbing or cyanosis. Good capillary refill. ASSESSMENT/PLAN: 1. Controlled type 2 diabetes mellitus without complication, without long-term current use of insulin (HCC) - ICD9: 250.00, ICD10: E11.9 (primary diagnosis) - DULAGLUTIDE 1.5 MG/0.5 ML SUBCUTANEOUS PEN INJECTOR - HGB A1C - COMP METABOLIC PANEL - CBC - TSH BLD - LIPID PANEL BASIC - ALBUMIN/CREAT RATIO RND UR 2. Insomnia, unspecified type - ICD9: 780.52, ICD10: G47.00 3. Elevated BP without diagnosis of hypertension - ICD9: 796.2, ICD10: R03.0 - Encouraged dietary sodium restriction/DASH diet - Recommended regular aerobic exercise. - Recommend home blood pressure monitoring, to bring results in on next visit - Goal of BP <130/80 Sandi Bird MD documented in this encounter [facility] 02-13-2023 Miscellaneous Notes Spoke with pt and information listed below given. Pt verbalizes understanding. Pt has apt booked. Mattie Tobar LPN Patient needs scheduled for routine follow up. Thank you Kaya Colorado APRN.DEVELOPMENT CHEMIST Patient has been identified by name and date of : No Patient phones for refill(s): Requested Prescriptions Pending Prescriptions Disp Refills colestipol (COLESTID) 1 gram tablet 360 tablet 3 Sig: Take 3 tablets by mouth twice daily. Date of last office visit in primary care: 08/21/22 Last 2 Encounter Wt Readings: Date: Wt: 01/01/2023 103.1 kg (227 lb 6.4 oz) 08/21/2022 100.2 kg (221 lb) Previous labs/tests for medication: Not applicable Please advise. Thank you. Rupal Tyler LPN documented in this encounter [facility] 01-23-2023 Miscellaneous Notes Marcos, our office did receive your refill request for Lexapro (Escitalopram) however, it was initially written 08/21/2022 for 90 tablets, 3 refills, sent to [facility]. You have refills, please check with your pharmacy. Ladonna Engle LPN documented in this encounter [facility] 01-02-2023 Miscellaneous Notes Patient returned call and given provider's message below and patient verbalized understanding. Jorge Herndon RN Left message to return call COVID-19, PCR test are negative. Continue supportive therapies as discussed during visit. Follow-up with PCP if symptoms are not improving. Ishan Willard APRN.SAVANAH documented in this encounter [facility] 01-01-2023 History of Present illness Narrative This note was created using Byclerriter. Subjective Marcos Clay is a 47 year old male. HPI Presents with a chief complaint of sore throat, congestion, ear pain, mild cough over the past 2 days. Denies fever. No vomiting or diarrhea. His work wanted him to come in to be seen. He did take a home COVID test yesterday which was negative. Ears are ringing off and on. Review of Systems Constitutional: Positive for fatigue. Negative for fever. HENT: Positive for congestion, sore throat and tinnitus. Negative for ear discharge and ear pain. Respiratory: Positive for cough. Negative for shortness of breath and wheezing. Cardiovascular: Negative for chest pain. Gastrointestinal: Negative. Genitourinary: Negative. Musculoskeletal: Negative. Neurological: Positive for headaches. All other systems reviewed and are negative. PAST MEDICAL HISTORY Diagnosis Date Acute cholecystitis Diabetes mellitus type 2 in obese ([facility]) 2011 Hypertriglyceridemia 12/2013 Low HDL (under 40) 12/2013 Poor dentition Current Outpatient Medications Medication Sig Dispense Refill fluticasone (FLONASE) 50 mcg/actuation nasal spray Use 2 Sprays in each nostril once daily. Rinse mouth after use. 1 Each 0 guaiFENesin (MUCINEX) 600 mg 12 hr tablet Take 2 tablets by mouth twice daily for 5 days. 20 tablet 0 benzonatate (TESSALON PERLES) 100 mg capsule Take 2 capsules by mouth three times daily as needed. 30 capsule 0 dulaglutide (TRULICITY) 1.5 mg/0.5 mL pen injector Inject 1.5 mg subcutaneously one time a week. 4 Each 5 cholecalciferol, Vitamin D3, (VITAMIN D3) 1,250 mcg (50,000 unit) cap capsule Take 1 capsule by mouth one time a week. 12 capsule 0 colestipol (COLESTID) 1 gram tablet Take 3 tablets by mouth twice daily. 360 tablet 3 omeprazole (PRILOSEC) 20 mg capsule Take 1 capsule by mouth once daily. 90 capsule 3 rosuvastatin (CRESTOR) 10 mg tablet Take 1 tablet by mouth daily at bedtime. 90 tablet 3 metFORMIN ER (GLUCOPHAGE XR) 500 mg 24 hr tablet Take 1 tablet by mouth twice daily with meals. 180 tablet 3 escitalopram oxalate (LEXAPRO) 20 mg tablet Take 1 tablet by mouth once daily. 90 tablet 3 traZODone (DESYREL) 50 mg tablet Take 1 tablet by mouth daily at bedtime. 30 tablet 1 cholestyramine (QUESTRAN) 4 gram packet Take 1 Packet by mouth twice daily with meals. (Patient not taking: Reported on 10/05/2022) 60 Packet 3 Lancets lancets Test blood sugar(s) 2-3 times daily and as needed. Dx: Type 2 DM - Controlled E11.9 Insulin: No 100 Each 11 No current facility-administered medications for this visit. PAST SURGICAL HISTORY Procedure Laterality Date HERNIA REPAIR HX 1976 LAPS SURG CHOLECYSTECTOMY W/CHOLANGIOGRAPHY 10/17/13 FAMILY HISTORY Problem Relation Age of Onset Cancer Father COPD Mother Arthritis Mother Heart Maternal Grandmother Allergies Mother Social History Tobacco Use Smoking status: Never Smokeless tobacco: Never Vaping Use Vaping Use: Never used Substance Use Topics Alcohol use: No Drug use: No Objective BP 120/76 Pulse 89 Temp 36.1 C (96.9 F) Resp 18 Wt 103.1 kg (227 lb 6.4 oz) SpO2 98% BMI 30.84 kg/m Physical Exam Vitals reviewed. Constitutional: Appearance: Normal appearance. HENT: Head: Normocephalic and atraumatic. Right Ear: Tympanic membrane, ear canal and external ear normal. Left Ear: Tympanic membrane, ear canal and external ear normal. Nose: Congestion present. Mouth/Throat: Mouth: Mucous membranes are moist. Pharynx: Oropharynx is clear. Cardiovascular: Rate and Rhythm: Normal rate and regular rhythm. Heart sounds: Normal heart sounds. Pulmonary: Effort: Pulmonary effort is normal. Breath sounds: Normal breath sounds. Musculoskeletal: Cervical back: Neck supple. Skin: General: Skin is warm and dry. Findings: No rash. Neurological: Mental Status: He is alert. Assessment and Plan ASSESSMENT/PLAN: 1. Viral URI - ICD9: 465.9, ICD10: J06.9 - Discussed viral etiology and rationale for treatment. - Symptomatic treatment with prn analgesia - Supportive care with fluids and rest - Follow up in 3-5 days if symptoms persist or sooner if worsening of symptoms - 2019 CORONAVIRUS Mckenna Salazar PA-C documented in this encounter [facility] 11-17-2022 Miscellaneous Notes Please set apt for patient to me Regards, Sandi Bird MD documented in this encounter [facility] 11-06-2022 Miscellaneous Notes Patient has been identified by name and date of : No Patient phones for refill(s): Requested Prescriptions Pending Prescriptions Disp Refills dulaglutide (TRULICITY) 1.5 mg/0.5 mL pen injector 4 Each 5 Sig: Inject 1.5 mg subcutaneously one time a week. Date of last office visit in primary care: 08/21/22 Last 2 Encounter Wt Readings: Date: Wt: 08/21/2022 100.2 kg (221 lb) 03/06/2022 104.1 kg (229 lb 6.4 oz) Previous labs/tests for medication: Diabetes: Hemoglobin A1C (%) Date Value 08/23/2022 6.9 05/08/2022 9.9 05/14/2021 8.5 11/27/2016 6.1 Hemoglobin A1C (POCT) (%) Date Value 08/21/2022 7.6 09/06/2021 8.5 Please advise. Thank you. Rupal Tyler LPN documented in this encounter [facility] 10-09-2022 Miscellaneous Notes Patient has been identified by name and date of : No Patient phones for refill(s): Requested Prescriptions Pending Prescriptions Disp Refills cholecalciferol, Vitamin D3, (VITAMIN D3) 1,250 mcg (50,000 unit) cap capsule 12 capsule 0 Sig: Take 1 capsule by mouth one time a week. Date of last office visit in primary care: 08/21/2022 Last 2 Encounter Wt Readings: Date: Wt: 08/21/2022 100.2 kg (221 lb) 03/06/2022 104.1 kg (229 lb 6.4 oz) Previous labs/tests for medication: Not applicable Please advise. Thank you. Rupal Tyler LPN documented in this encounter [facility] 10-05-2022 Instructions Chuck Gillis - 10/05/2022 9:57 AM EST Diabetes Foot Care Instructions When you have diabetes, proper foot care is very important. Poor foot care may lead to amputation of a foot or leg. As a person with diabetes, you are more vulnerable to foot problems, because diabetes can damage your nerves and reduce blood flow to your feet. Here are some diabetes foot care tips to follow: Wash and Dry Your Feet Daily Use mild soaps Use warm water Pat your skin dry; do not rub. Thoroughly dry your feet. After washing, use lotion on your feet to prevent cracking. Do not put lotion between your toes. Examine Your Feet Each Day Check the tops and bottoms of your feet. Have someone else look at your feet if you cannot see them. Check for dry, cracked skin. Look for blisters, cuts, scratches, or other sores. Check for redness, increased warmth, or tenderness when touching any area of your feet. Check for ingrown toenails, corns, and calluses. If you get a blister or sore from your shoes, do not pop it. Apply a bandage and wear a different pair of shoes. Take Care of Your Toenails Cut toenails after bathing, when they are soft. Cut toenails straight across and smooth with a nail file. Avoid cutting into the corners of toes. Do not cut cuticles. If you have neuropathy (or decreased sensation in your feet) a industrial gas fitter should always cut your toenails. Be Careful When Exercising Walk and exercise in comfortable shoes. Do not exercise when you have open sores on your feet. Protect Your Feet With Shoes and Socks Never go barefoot. Always protect your feet by wearing shoes or hard-soled slippers or footwear. Avoid shoes with high heels and pointed toes. Avoid shoes that expose your toes or heels (such as open-toed shoes or sandals). These types of shoes increase your risk for injury and potential infections. Try on new footwear with the type of socks you usually wear. Do not wear new shoes for more than an hour at a time. Change your socks daily. Look and feel inside your shoes before putting them on to make sure there are no foreign objects or rough areas. Avoid tight socks. Wear natural-fiber socks (cotton, wool, or a cotton-wool blend). Wear special shoes if your health care provider recommends them. Wear shoes/boots that will protect your feet from various weather conditions (cold, moisture, etc.). Make sure your shoes fit properly. If you have neuropathy (nerve damage), you may not notice that your shoes are too tight. Perform the footwear test described below. Footwear Test Use this simple test to see if your shoes fit correctly: Stand on a piece of paper. (Make sure you are standing and not sitting, because your foot changes shape when you stand.) Trace the outline of your foot. Trace the outline of your shoe. Compare the tracings: Is the shoe too narrow? Is your foot crammed into the shoe? The shoe should be at least 1/2 inch longer than your longest toe and as wide as your foot. Proper Shoe Choices The following types of shoes are best for people with diabetes Closed toes and heels Leather uppers without a seam inside At least 1/2 inch extra space at the end of your longest toe Inside of shoe should be soft with no rough areas Outer sole should be made of stiff material Shoes should be at least as wide as your feet Tips for Foot Care in Diabetes Don't wait to treat a minor foot problem if you have diabetes. Follow your health care provider's guidelines and first aid guidelines. Report foot injuries and infections to your health care provider immediately. Check water temperature with your elbow, not your foot. Do not use a heating pad on your feet. Do not cross your legs. Do not self-treat your corns, calluses, or other foot problems. Go to your health care provider or industrial gas fitter to treat these conditions. documented in this encounter [facility] 10-05-2022 History of Present illness Narrative Consultation requested by Dr. Bird for an opinion regarding ingrowing toenail. My final recommendations will be communicated back to the requesting physician by way of shared Medical record or letter to requesting physician via US mail. Initial Office Visit Subjective: This 46 year old male presents to clinic for diabetic foot check. Patient has the following complaints: ingrowing toenail of both great toes Patient presents to clinic for evaluation of b/l feet. He complains of ingrowing toenails of b/l hallux. He had ingrowing toenails for several years and has even had partial matrixectomy 2 years ago to the lateral border of left hallux. He states he continues to have pain to the toenails, L>R. He is here to discuss options. Patient admits to being diabetic for 15 years now. Patient -B/T/N in feet at this time. Patient -pain in legs when walking. No other pedal complaints at this time. No change in medications or medical history since last visit. PAIN EVALUATION 10/05/2022 0943 Pain Level: 4 Pain Location: Toe Description: Sharp;Stabbing Duration Amount of Time: 2 Duration Units: Months Frequency: Intermittent Intervention/Comfort measure: Reposition;Distractions;Relaxation Hemoglobin A1C (%) Date Value 08/23/2022 6.9 05/08/2022 9.9 12/28/2021 10.0 05/14/2021 8.5 11/27/2016 6.1 08/22/2016 6.5 03/01/2016 6.3 08/31/2015 5.3 Hemoglobin A1C (POCT) (%) Date Value 08/21/2022 7.6 09/06/2021 8.5 PCP: Sandi Bird MD PAST MEDICAL HISTORY Diagnosis Date Acute cholecystitis Diabetes mellitus type 2 in obese (HCC) 2011 Hypertriglyceridemia 12/2013 Low HDL (under 40) 12/2013 Poor dentition Current Outpatient Medications Medication Sig colestipol (COLESTID) 1 gram tablet Take 3 tablets by mouth twice daily. omeprazole (PRILOSEC) 20 mg capsule Take 1 capsule by mouth once daily. rosuvastatin (CRESTOR) 10 mg tablet Take 1 tablet by mouth daily at bedtime. metFORMIN ER (GLUCOPHAGE XR) 500 mg 24 hr tablet Take 1 tablet by mouth twice daily with meals. escitalopram oxalate (LEXAPRO) 20 mg tablet Take 1 tablet by mouth once daily. dulaglutide (TRULICITY) 1.5 mg/0.5 mL pen injector Inject 1.5 mg subcutaneously one time a week. traZODone (DESYREL) 50 mg tablet Take 1 tablet by mouth daily at bedtime. cholecalciferol, Vitamin D3, (VITAMIN D3) 1,250 mcg (50,000 unit) cap capsule Take 1 capsule by mouth one time a week. Lancets lancets Test blood sugar(s) 2-3 times daily and as needed. Dx: Type 2 DM - Controlled E11.9 Insulin: No cholestyramine (QUESTRAN) 4 gram packet Take 1 Packet by mouth twice daily with meals. (Patient not taking: Reported on 10/05/2022) No current facility-administered medications for this visit. ALLERGIES Allergen Reactions Hydrocodone GI Upset PAST SURGICAL HISTORY Procedure Laterality Date HERNIA REPAIR HX 1976 LAPS SURG CHOLECYSTECTOMY W/CHOLANGIOGRAPHY 10/17/13 FAMILY HISTORY Problem Relation Age of Onset Cancer Father COPD Mother Arthritis Mother Heart Maternal Grandmother Allergies Mother Social History Tobacco Use Smoking status: Never Smokeless tobacco: Never Vaping Use Vaping Use: Never used Substance Use Topics Alcohol use: No Drug use: No REVIEW OF SYSTEMS GENERAL: Negative for Malaise, significant weight loss, fever RESPIRATORY: Negative for cough, wheezing and shortness of breath CARDIOVASCULAR: Negative for chest pain, leg swelling and palpitations GI: Negative for abdominal discomfort, blood in stools or black stools and change in bowel habits : Negative for dysuria, frequency and incontinence MUSCULOSKELETAL: Negative for joint pain or swelling, back pain, and muscle pain. SKIN: Negative for lesions, rash, and itching. HEMATOLOGY/LYMPHOLOGY Negative for prolonged bleeding, bruising easily, and swollen nodes. ENDOCRINE: Negative for cold or heat intolerance, polyuria, polydipsia and goiter. NEURO: negative The remainder of the review of systems is noncontributory. Objective: Patient presents to clinic ambulating in [facility] Constitutional: Pt is a well developed 46 year old male who is alert, oriented, cooperative and in no apparent distress. Eyes: Following during examination. No redness or drainage. Respiratory: RR normal and nonlabored. Even breathing. No evidence of distress. Psychology: Patient is engaged during conversation. Normal affect and mood. Does not appear depressed or anxious. Vasc: DP and PT pulses are palpable bilateral. CFT is less than 5 seconds bilateral. Skin temperature is warm to warm proximal to distal bilateral. There is no edema or varicosities noted. Hair growth present. Neuro: Protective sensation is intact to the foot and toes when tested with the 5.07 SWM bilateral. Vibratory sensation is slightly decreased bilateral. + Significant neurological defecits. Derm: Inspection and palpation performed. Nails 1-5 b/l are discolored-yellow, thick, crumbly, dystrophic and with subungal debris. No ingrown are noted current but ingrowing tendency is noted to b/l hallux. Skin is of normal turgor and texture. Hyperkeratosis noted to not present. NO ulcerations, scars, verruca or other lesions noted. Ortho: Ankle joint DF is full with the knee extended and full with knee flexed. No pain or crepitus noted. STJ, MTJ ROM are full and free of pain or crepitus. Muscle strength is 5/5 for dorsiflexors, plantarflexors, inverters, everters. Digital deformities include no. Assessment: (B35.1) Onychomycosis (primary encounter diagnosis) (L60.0) Ingrown nail (E11.9) Controlled type 2 diabetes mellitus without complication, without long-term current use of insulin ([facility]) Plan: 1. Patient was seen and evaluated. 2. Patient was instructed on the continued importance of diabetic foot care along with proper diet and keeping their blood sugar under control to prevent complications. Instructions given both oral and written. 3. We discussed the possible etiologies of discolored, dystrophic, and thickened nails including fungus, yeast, mold as well as in some instances, prior trauma, or mechanical causes such as repetitive microtrauma in shoe gear. We discussed topical medication for discolored toenails which has very low success but no major side effects. We discussed oral medication. Patient will need hepatic testing prior to use. Patient informed of risks associated with Lamisil. We discussed removal of toenails. 4. I informed patient that his thickening in nails is likely cause for the ingrowing tendency. He would like to pursue removal of b/l hallux nail. I offered this today but he would like to schedule for another time Chuck Gillis DPM AMB ROOMING INTAKE FLOWSHEET DATA Risk Screening Do you have concerns about personal safety or safety in the home?: No Pain Pain Level: 4 Pain Location: Toe Description: Sharp, Stabbing Duration Amount of Time: 2 Duration Units: Months Frequency: Intermittent Intervention/Comfort measure: Reposition, Distractions, Relaxation Patient presents with: Left Great Toe - New, Pain, Ingrown Toenail Right Great Toe - New, Ingrown Toenail Patient presents for bilateral hallux ingrown. Patient had matrixectomy to left hallux about a year or 2 ago and it has grown back causing pain. documented in this encounter [facility] 09-27-2022 Miscellaneous Notes Patient has been identified by name and date of : Yes Last office visit in this department: 08/21/2022 Labs-08/23/22 NOV-11/27/22 med filled 02/02/22 RX INSTRUCTIONS: Patient aware RX will be sent to pharmacy. No need to notify patient. Patient phones requesting refills as follows: Requested Prescriptions Pending Prescriptions Disp Refills colestipol (COLESTID) 1 gram tablet 360 tablet 3 Sig: Take 3 tablets by mouth twice daily. Please review and advise. Bee Curran Pss documented in this encounter [facility] 08-31-2022 Miscellaneous Notes Noted. Kaya Colorado APRN.CNP Patient notified of results and provider's instructions. Patient verbalizes understanding. Patient states that he is trying to get Hgb A1C below 5.0 Patient states that he always heard that diet soda is not good for diabetics due to it making you want to drink more soda. Marcelle Rothman RN ----- Message from Sandi Bird MD sent at 08/29/2022 6:38 AM EST ----- Interestingly your hb is 6.9 And the thyroid is normal The rest of the labs including the lipids are not concerning at this point. Regards, Sandi Bird MD documented in this encounter [facility] 08-21-2022 Miscellaneous Notes refilled at todays office visit documented in this encounter [facility] 08-10-2022 Miscellaneous Notes I would like to see patient as he did give me blood work 3 months ago but has not been seen for over 6 months. New blood work is ordered. We would like to address his other concerns as well as insomnia Would he be willing to try the trazodone ? I can put him in for one. Regards, Sandi Bird MD documented in this encounter [facility] 07-10-2022 Miscellaneous Notes Patient has been identified by name and date of : Yes Patient phones for refill(s): Requested Prescriptions Pending Prescriptions Disp Refills omeprazole (PRILOSEC) 20 mg capsule 90 capsule 3 Sig: Take 1 capsule by mouth once daily. cholecalciferol, Vitamin D3, (VITAMIN D3) 1,250 mcg (50,000 unit) cap capsule 12 capsule 3 Sig: Take 1 capsule by mouth one time a week. rosuvastatin (CRESTOR) 10 mg tablet 90 tablet 3 Sig: Take 1 tablet by mouth daily at bedtime. Date of last office visit in primary care: 09/06/21 Last 2 Encounter Wt Readings: Date: Wt: 03/06/2022 104.1 kg (229 lb 6.4 oz) 09/06/2021 106.1 kg (234 lb) Previous labs/tests for medication: Cholesterol: HDL Cholesterol (mg/dL) Date Value 05/08/2022 29 10/21/2021 29 LDL Cholesterol Date Value 05/08/2022 Comment: Unable to calculate due to increased Triglycerides. See LDL-Chol, Direct. 10/21/2021 44 mg/dL ALT (U/L) Date Value 05/08/2022 47 05/14/2021 42 Non HDL Cholesterol (mg/dL) Date Value 05/08/2022 126 10/21/2021 83 Please advise. Thank you. Rupal Tyler LPN documented in this encounter [facility] 06-23-2022 Miscellaneous Notes Patient called and requested that we call and request his Vision Screening results from [facility]. This nurse called and requested the results. They will fax them to [phone]. documented in this encounter [facility] 05-11-2022 Miscellaneous Notes Pt called and is notified of providers results and instructions. Pt voices understanding. Pina Beck RN Left message for return call. Please let patient know his triglycerides are very high. This may be a result of his elevated blood sugar, diet, or a combination of both. It is very important he keep his upcoming appointment with Rosaura and Dr. Bird to review all of these lab results. I am ordering a thyroid level because this can increase triglycerides as well. Also, since this can increase your risk of pancreatitis, he needs to refrain from alcohol until we get them lower. Thank you Kaya Colorado APRN.SAVANAH documented in this encounter [facility] 04-11-2022 Miscellaneous Notes Patient has been identified by name and date of : Yes Patient phones for refill(s): Pending Prescriptions Disp Refills ESCITALOPRAM 20 MG TABLET 30 tablet 5 Sig: Take 1 tablet by mouth once daily. LADONNA: No Date of last office visit in primary care: 09/06/21 Last 2 Encounter Wt Readings: Date: Wt: 03/06/2022 104.1 kg (229 lb 6.4 oz) 09/06/2021 106.1 kg (234 lb) Previous labs/tests for medication: Not applicable Please advise. Thank you. Rupal Tyler LPN documented in this encounter [facility] 02-24-2022 Miscellaneous Notes Patient has been identified by name and date of : Yes Patient phones for refill(s): Pending Prescriptions Disp Refills TRULICITY 0.75 MG/0.5 ML SUBCUTANEOUS PEN INJECTOR 4 Each 5 Sig: Inject 0.75 mg subcutaneously one time a week. Inject dose once per week. Discard Pen After LADONNA: No Date of last office visit in primary care: 09/06/2022 Last 2 Encounter Wt Readings: Date: Wt: 09/06/2021 106.1 kg (234 lb) 07/12/2021 105.1 kg (231 lb 9.6 oz) Previous labs/tests for medication: Diabetes: Hemoglobin A1C (%) Date Value 12/28/2021 10.0 05/14/2021 8.5 11/27/2016 6.1 Hemoglobin A1C (POCT) (%) Date Value 09/06/2021 8.5 Please advise. Thank you. Rupal Tyler LPN documented in this encounter [facility] 02-17-2022 Miscellaneous Notes Please let patient know this, and if he insists he wants to discuss the metformin prior to follow up with us, he would need to see other provider. Thank you Kaya Colorado APRN.CNP Unfortunately there are no appointments available in his time frame. Unless patient is seen in Family Practice? Please advise Is patient able to get an earlier appointment? Thank you Kaya Colorado APRN.CNP documented in this encounter [facility] 01-30-2022 Miscellaneous Notes Patient has been identified by name and date of : Yes Patient phones for refill(s): Pending Prescriptions Disp Refills COLESTIPOL 1 GRAM TABLET 360 tablet 3 Sig: Take 3 tablets by mouth twice daily. LADONNA: No Date of last office visit in primary care: 09/06/21 Last 2 Encounter Wt Readings: Date: Wt: 09/06/2021 106.1 kg (234 lb) 07/12/2021 105.1 kg (231 lb 9.6 oz) Previous labs/tests for medication: Not applicable Please advise. Thank you. Rupal Tyler LPN documented in this encounter [facility] 01-12-2014 History of Past i llness Narrative Problem Noted Date Resolved Date Closed fracture of unspecified part of upper end of humerus 01/12/2014 03/14/2016 Fracture of humerus, proximal, left, closed 11/0203/14/2016 Cholelithiasis 10/23/2013 03/14/2016 Cholecystitis 10/23/2013 03/14/2016 documented as of this encounter (statuses as of 01/31/2022) [facility] History of Past illness Narrative* Problem Noted Date Resolved Date Closed fracture of unspecified part of upper end of humerus 01/12/2014 03/14/2016 Fracture of humerus, proximal, left, closed 11/0203/14/2016 Cholelithiasis 10/23/2013 03/14/2016 Cholecystitis 10/23/2013 03/14/2016 documented as of this encounter (statuses as of 02/17/2022) [facility] History of Past illness Narrative* Problem Noted Date Resolved Date Closed fracture of unspecified part of upper end of humerus 01/12/2014 03/14/2016 Fracture of humerus, proximal, left, closed 02/2 03/14/2016 Cholelithiasis 10/23/2013 03/14/2016 Cholecystitis 10/23/2013 03/14/2016 documented as of this encounter (statuses as of 02/24/2022) [facility] History of Past illness Narrative* Problem Noted Date Resolved Date Closed fracture of unspecified part of upper end of humerus 01/12/2014 03/14/2016 Fracture of humerus, proximal, left, closed 02/2 03/14/2016 Cholelithiasis 10/23/2013 03/14/2016 Cholecystitis 10/23/2013 03/14/2016 documented as of this encounter (statuses as of 03/30/2022) [place] [id number] History of Past illness Narrative* Problem Noted Date Resolved Date Closed fracture of unspecified part of upper end of humerus 01/12/2014 03/14/2016 Fracture of humerus, proximal, left, closed 02/2 03/14/2016 Cholelithiasis 10/23/2013 03/14/2016 Cholecystitis 10/23/2013 03/14/2016 documented as of this encounter (statuses as of 04/12/2022) [facility] History of Past illness Narrative* Problem Noted Date Resolved Date Closed fracture of unspecified part of upper end of humerus 01/12/2014 03/14/2016 Fracture of humerus, proximal, left, closed 02/2 03/14/2016 Cholelithiasis 10/23/2013 03/14/2016 Cholecystitis 10/23/2013 03/14/2016 documented as of this encounter (statuses as of 05/11/2022) [place] [id number] History of Past illness Narrative* Problem Noted Date Resolved Date Closed fracture of unspecified part of upper end of humerus 01/12/2014 03/14/2016 Fracture of humerus, proximal, left, closed 02/2 03/14/2016 Cholelithiasis 10/23/2013 03/14/2016 Cholecystitis 10/23/2013 03/14/2016 documented as of this encounter (statuses as of 06/23/2022) [address] History of Past illness Narrative* Problem Noted Date Resolved Date Closed fracture of unspecified part of upper end of humerus 01/12/2014 03/14/2016 Fracture of humerus, proximal, left, closed 02/2 03/14/2016 Cholelithiasis 10/23/2013 03/14/2016 Cholecystitis 10/23/2013 03/14/2016 documented as of this encounter (statuses as of 07/10/2022) [facility] History of Past illness Narrative* Problem Noted Date Resolved Date Closed fracture of unspecified part of upper end of humerus 01/12/2014 03/14/2016 Fracture of humerus, proximal, left, closed 02/2 03/14/2016 Cholelithiasis 10/23/2013 03/14/2016 Cholecystitis 10/23/2013 03/14/2016 documented as of this encounter (statuses as of 08/10/2022) [facility] History of Past illness Narrative* Problem Noted Date Resolved Date Closed fracture of unspecified part of upper end of humerus 01/12/2014 03/14/2016 Fracture of humerus, proximal, left, closed 02/2 03/14/2016 Cholelithiasis 10/23/2013 03/14/2016 Cholecystitis 10/23/2013 03/14/2016 documented as of this encounter (statuses as of 08/14/2022) [facility] History of Past illness Narrative* Problem Noted Date Resolved Date Closed fracture of unspecified part of upper end of humerus 01/12/2014 03/14/2016 Fracture of humerus, proximal, left, closed 02/2 03/14/2016 Cholelithiasis 10/23/2013 03/14/2016 Cholecystitis 10/23/2013 03/14/2016 documented as of this encounter (statuses as of 08/21/2022) [facility] History of Past illness Narrative* Problem Noted Date Resolved Date Closed fracture of unspecified part of upper end of humerus 01/12/2014 03/14/2016 Fracture of humerus, proximal, left, closed 02/2 03/14/2016 Cholelithiasis 10/23/2013 03/14/2016 Cholecystitis 10/23/2013 03/14/2016 documented as of this encounter (statuses as of 08/29/2022) [address] History of Past illness Narrative* Problem Noted Date Resolved Date Closed fracture of unspecified part of upper end of humerus 01/12/2014 03/14/2016 Fracture of humerus, proximal, left, closed 02/2 03/14/2016 Cholelithiasis 10/23/2013 03/14/2016 Cholecystitis 10/23/2013 03/14/2016 documented as of this encounter (statuses as of 08/31/2022) [address] History of Past illness Narrative* Problem Noted Date Resolved Date Closed fracture of unspecified part of upper end of humerus 01/12/2014 03/14/2016 Fracture of humerus, proximal, left, closed 02/2 03/14/2016 Cholelithiasis 10/23/2013 03/14/2016 Cholecystitis 10/23/2013 03/14/2016 documented as of this encounter (statuses as of 10/03/2022) [place] [id number] History of Past illness Narrative* Problem Noted Date Resolved Date Closed fracture of unspecified part of upper end of humerus 01/12/2014 03/14/2016 Fracture of humerus, proximal, left, closed 02/2 03/14/2016 Cholelithiasis 10/23/2013 03/14/2016 Cholecystitis 10/23/2013 03/14/2016 documented as of this encounter (statuses as of 10/06/2022) [facility] History of Past illness Narrative* Problem Noted Date Resolved Date Closed fracture of unspecified part of upper end of humerus 01/12/2014 03/14/2016 Fracture of humerus, proximal, left, closed 02/2 03/14/2016 Cholelithiasis 10/23/2013 03/14/2016 Cholecystitis 10/23/2013 03/14/2016 documented as of this encounter (statuses as of 10/10/2022) [facility] History of Past illness Narrative* Problem Noted Date Resolved Date Closed fracture of unspecified part of upper end of humerus 01/12/2014 03/14/2016 Fracture of humerus, proximal, left, closed 02/2 03/14/2016 Cholelithiasis 10/23/2013 03/14/2016 Cholecystitis 10/23/2013 03/14/2016 documented as of this encounter (statuses as of 11/07/2022) [facility] History of Past illness Narrative* Problem Noted Date Resolved Date Closed fracture of unspecified part of upper end of humerus 01/12/2014 03/14/2016 Fracture of humerus, proximal, left, closed 02/2 03/14/2016 Cholelithiasis 10/23/2013 03/14/2016 Cholecystitis 10/23/2013 03/14/2016 documented as of this encounter (statuses as of 11/17/2022) [place] [id number] History of Past illness Narrative* Problem Noted Date Resolved Date Closed fracture of unspecified part of upper end of humerus 01/12/2014 03/14/2016 Fracture of humerus, proximal, left, closed 02/2 03/14/2016 Cholelithiasis 10/23/2013 03/14/2016 Cholecystitis 10/23/2013 03/14/2016 documented as of this encounter (statuses as of 01/01/2023) [facility] History of Past illness Narrative* Problem Noted Date Resolved Date Closed fracture of unspecified part of upper end of humerus 01/12/2014 03/14/2016 Fracture of humerus, proximal, left, closed 02/2 03/14/2016 Cholelithiasis 10/23/2013 03/14/2016 Cholecystitis 10/23/2013 03/14/2016 documented as of this encounter (statuses as of 01/02/2023) [facility] History of Past illness Narrative* Problem Noted Date Resolved Date Closed fracture of unspecified part of upper end of humerus 01/12/2014 03/14/2016 Fracture of humerus, proximal, left, closed 02/2 03/14/2016 Cholelithiasis 10/23/2013 03/14/2016 Cholecystitis 10/23/2013 03/14/2016 documented as of this encounter (statuses as of 01/18/2023) [facility] History of Past illness Narrative* Problem Noted Date Resolved Date Closed fracture of unspecified part of upper end of humerus 01/12/2014 03/14/2016 Fracture of humerus, proximal, left, closed 02/2 03/14/2016 Cholelithiasis 10/23/2013 03/14/2016 Cholecystitis 10/23/2013 03/14/2016 documented as of this encounter (statuses as of 01/23/2023) [facility] History of Past illness Narrative* Problem Noted Date Resolved Date Closed fracture of unspecified part of upper end of humerus 01/12/2014 03/14/2016 Fracture of humerus, proximal, left, closed 02/2 03/14/2016 Cholelithiasis 10/23/2013 03/14/2016 Cholecystitis 10/23/2013 03/14/2016 documented as of this encounter (statuses as of 02/14/2023) [facility] History of Past illness Narrative* Problem Noted Date Resolved Date Closed fracture of unspecified part of upper end of humerus 01/12/2014 03/14/2016 Fracture of humerus, proximal, left, closed 02/2 03/14/2016 Cholelithiasis 10/23/2013 03/14/2016 Cholecystitis 10/23/2013 03/14/2016 documented as of this encounter (statuses as of 02/28/2023) [facility] History of Past illness Narrative* Problem Noted Date Resolved Date Closed fracture of unspecified part of upper end of humerus 01/12/2014 03/14/2016 Fracture of humerus, proximal, left, closed 02/2 03/14/2016 Cholelithiasis 10/23/2013 03/14/2016 Cholecystitis 10/23/2013 03/14/2016 documented as of this encounter (statuses as of 03/15/2023) [facility] History of Past illness Narrative* Problem Noted Date Resolved Date Closed fracture of unspecified part of upper end of humerus 01/12/2014 03/14/2016 Fracture of humerus, proximal, left, closed 02/2 03/14/2016 Cholelithiasis 10/23/2013 03/14/2016 Cholecystitis 10/23/2013 03/14/2016 documented as of this encounter (statuses as of 03/15/2023) [facility] History of Past illness Narrative* Problem Noted Date Resolved Date Closed fracture of unspecified part of upper end of humerus 01/12/2014 03/14/2016 Fracture of humerus, proximal, left, closed 02/2 03/14/2016 Cholelithiasis 10/23/2013 03/14/2016 Cholecystitis 10/23/2013 03/14/2016 documented as of this encounter (statuses as of 03/21/2023) [facility] History of Past illness Narrative* Problem Noted Date Resolved Date Closed fracture of unspecified part of upper end of humerus 01/12/2014 03/14/2016 Fracture of humerus, proximal, left, closed 02/2 03/14/2016 Cholelithiasis 10/23/2013 03/14/2016 Cholecystitis 10/23/2013 03/14/2016 documented as of this encounter (statuses as of 03/22/2023) [facility] History of Past illness Narrative* Problem Noted Date Resolved Date Closed fracture of unspecified part of upper end of humerus 01/12/2014 03/14/2016 Fracture of humerus, proximal, left, closed 02/2 03/14/2016 Cholelithiasis 10/23/2013 03/14/2016 Cholecystitis 10/23/2013 03/14/2016 documented as of this encounter (statuses as of 03/23/2023) [facility] History of Past illness Narrative* Problem Noted Date Resolved Date Closed fracture of unspecified part of upper end of humerus 01/12/2014 03/14/2016 Fracture of humerus, proximal, left, closed 02/2 03/14/2016 Cholelithiasis 10/23/2013 03/14/2016 Cholecystitis 10/23/2013 03/14/2016 documented as of this encounter (statuses as of 03/29/2023) [facility] History of Past illness Narrative* Problem Noted Date Diagnosed Date Resolved Date Closed fracture of unspecifi ed part of upper end of humerus 01/12/2014 03/14/2016 Fracture of humerus, proximal, left, closed 11/20/2013 03/14/2016 Cholelithiasis 10/23/2013 03/14/2016 Cholecystitis 10/23/2013 03/14/2016 documented as of this encounter (statuses as of 04/18/2023) [address]14-2014 History of Past illness Narrative* Problem Noted Date Diagnosed Date Resolved Date Closed fracture of unspecifi ed part of upper end of humerus 01/12/2014 03/14/2016 Fracture of humerus, proximal, left, closed 11/20/2013 03/14/2016 Cholelithiasis 10/23/2013 03/14/2016 Cholecystitis 10/23/2013 03/14/2016 documented as of this encounter (statuses as of 04/23/2023) [facility] History of Past illness Narrative* Problem Noted Date Diagnosed Date Resolved Date Closed fracture of unspecifi ed part of upper end of humerus 01/12/2014 03/14/2016 Fracture of humerus, proximal, left, closed 11/20/2013 03/14/2016 Cholelithiasis 10/23/2013 03/14/2016 Cholecystitis 10/23/2013 03/14/2016 documented as of this encounter (statuses as of 06/09/2023) [facility] History of Past illness Narrative* Problem Noted Date Diagnosed Date Resolved Date Closed fracture of unspecifi ed part of upper end of humerus 01/12/2014 03/14/2016 Fracture of humerus, proximal, left, closed 11/20/2013 03/14/2016 Cholelithiasis 10/23/2013 03/14/2016 Cholecystitis 10/23/2013 03/14/2016 documented as of this encounter (statuses as of 07/20/2023) [facility] History of Past illness Narrative* Problem Noted Date Diagnosed Date Resolved Date Closed fracture of unspecifi ed part of upper end of humerus 01/12/2014 03/14/2016 Fracture of humerus, proximal, left, closed 11/20/2013 03/14/2016 Cholelithiasis 10/23/2013 03/14/2016 Cholecystitis 10/23/2013 03/14/2016 documented as of this encounter (statuses as of 11/06/2023) [facility] History of Past illness Narrative* Problem Noted Date Diagnosed Date Resolved Date Closed fracture of unspecifi ed part of upper end of humerus 01/12/2014 03/14/2016 Fracture of humerus, proximal, left, closed 11/20/2013 03/14/2016 Cholelithiasis 10/23/2013 03/14/2016 Cholecystitis 10/23/2013 03/14/2016 documented as of this encounter (statuses as of 11/08/2023) [address]14-2014 History of Past illness Narrative* Problem Noted Date Diagnosed Date Resolved Date Closed fracture of unspecifi ed part of upper end of humerus 01/12/2014 03/14/2016 Fracture of humerus, proximal, left, closed 11/20/2013 03/14/2016 Cholelithiasis 10/23/2013 03/14/2016 Cholecystitis 10/23/2013 03/14/2016 documented as of this encounter (statuses as of 11/13/2023) [place] [address]-14-2014 History of Past illness Narrative* Problem Noted Date Diagnosed Date Resolved Date Closed fracture of unspecifi ed part of upper end of humerus 01/12/2014 03/14/2016 Fracture of humerus, proximal, left, closed 11/20/2013 03/14/2016 Cholelithiasis 10/23/2013 03/14/2016 Cholecystitis 10/23/2013 03/14/2016 documented as of this encounter (statuses as of 12/05/2023) [facility] History of Past illness Narrative* Problem Noted Date Diagnosed Date Resolved Date Closed fracture of unspecifi ed part of upper end of humerus 01/12/2014 03/14/2016 Fracture of humerus, proximal, left, closed 11/20/2013 03/14/2016 Cholelithiasis 10/23/2013 03/14/2016 Cholecystitis 10/23/2013 03/14/2016 documented as of this encounter (statuses as of 12/14/2023) [facility] History of Past illness Narrative* Problem Noted Date Diagnosed Date Resolved Date Closed fracture of unspecifi ed part of upper end of humerus 01/12/2014 03/14/2016 Fracture of humerus, proximal, left, closed 11/20/2013 03/14/2016 Cholelithiasis 10/23/2013 03/14/2016 Cholecystitis 10/23/2013 03/14/2016 documented as of this encounter (statuses as of 12/17/2023) [facility] History of Past illness Narrative* Problem Noted Date Diagnosed Date Resolved Date Closed fracture of unspecifi ed part of upper end of humerus 01/12/2014 03/14/2016 Fracture of humerus, proximal, left, closed 11/20/2013 03/14/2016 Cholelithiasis 10/23/2013 03/14/2016 Cholecystitis 10/23/2013 03/14/2016 documented as of this encounter (statuses as of 12/18/2023) [facility] History of Past illness Narrative* Problem Noted Date Diagnosed Date Resolved Date Closed fracture of unspecifi ed part of upper end of humerus 01/12/2014 03/14/2016 Fracture of humerus, proximal, left, closed 11/20/2013 03/14/2016 Cholelithiasis 10/23/2013 03/14/2016 Cholecystitis 10/23/2013 03/14/2016 documented as of this encounter (statuses as of 12/20/2023) [facility] History of Past illness Narrative* Problem Noted Date Diagnosed Date Resolved Date Closed fracture of unspecifi ed part of upper end of humerus 01/12/2014 03/14/2016 Fracture of humerus, proximal, left, closed 11/20/2013 03/14/2016 Cholelithiasis 10/23/2013 03/14/2016 Cholecystitis 10/23/2013 03/14/2016 documented as of this encounter (statuses as of 01/09/2024) [facility] History of Past illness Narrative* Problem Noted Date Diagnosed Date Resolved Date Closed fracture of unspecifi ed part of upper end of humerus 01/12/2014 03/14/2016 Fracture of humerus, proximal, left, closed 11/20/2013 03/14/2016 Cholelithiasis 10/23/2013 03/14/2016 Cholecystitis 10/23/2013 03/14/2016 documented as of this encounter (statuses as of 01/16/2024) [facility] History of Past illness Narrative* Problem Noted Date Diagnosed Date Resolved Date Closed fracture of unspecifi ed part of upper end of humerus 01/12/2014 03/14/2016 Fracture of humerus, proximal, left, closed 11/20/2013 03/14/2016 Cholelithiasis 10/23/2013 03/14/2016 Cholecystitis 10/23/2013 03/14/2016 documented as of this encounter (statuses as of 01/16/2024) [facility] noteNo assessment information availableWTriHealth [facility] Work Phone: Evaluation note* Diagnosis Diarrhea, unspecified type documented in this encounter [facility] note* Diagnosis Hypertriglyceridemia- Primary Pure hyperglyceridemia documented in this encounter [facility] note* Diagnosis Vitamin D deficiency Unspecified vitamin D deficiency documented in this encounter [facility] note* Diagnosis Controlled type 2 diabetes mellitus without complication, without long-term current use of insulin (HCC)- Primary documented in this encounter [facility] note* Diagnosis Diarrhea, unspecified type documented in this encounter [facility] note* Diagnosis Onychomycosis- Primary Dermatophytosis of nail Ingrown nail Ingrowing nail Controlled type 2 diabetes mellitus without complication, without long-term current use of insulin (HCC) documented in this encounter [facility] note* Diagnosis Vitamin D deficiency Unspecified vitamin D deficiency documented in this encounter [facility] note* Diagnosis Viral URI- Primary Acute upper respiratory infections of unspecified site documented in this encounter [facility] note* Diagnosis Diarrhea, unspecified type documented in this encounter [facility] note* Diagnosis Controlled type 2 diabetes mellitus without complication, without long-term current use of insulin ([facility])- Primary Insomnia, unspecified type Elevated BP without diagnosis of hypertension documented in this encounter [facility] note* Diagnosis Ingrown nail- Primary Ingrowing nail Onychomycosis Dermatophytosis of nail Controlled type 2 diabetes mellitus without complication, without long-term current use of insulin (HCC) documented in this encounter [facility] note* Diagnosis Diarrhea, unspecified type documented in this encounter [facility] note* Diagnosis Diarrhea, unspecified type documented in this encounter [facility] note* Diagnosis Controlled type 2 diabetes mellitus without complication, without long-term current use of insulin (HCC)- Primary Anxiety Anxiety state, unspecified Skin tag Unspecified hypertrophic and atrophic condition of skin Low HDL (under 40) Lipoprotein deficiencies Encounter for immunization Need for other specified prophylactic vaccination against single bacterial disease documented in this encounter [facility] note* Diagnosis Controlled type 2 diabetes mellitus without complication, without long-term current use of insulin (HCC)- Primary [facility] Controlled type 2 diabetes mellitus without complication, without long-term current use of insulin (HCC)- Primary [facility]* Diagnosis Diarrhea, unspecified type [facility]* Diagnosis Controlled type 2 diabetes mellitus without complication, without long-term current use of insulin (HCC)- Primary Hypertriglyceridemia Pure hyperglyceridemia Elevated bilirubin Jaundice, unspecified, not of Elevated alkaline phosphatase level Other nonspecific abnormal serum enzyme levels [facility]* Diagnosis Dry skin- Primary Other specified disease of sebaceous glands [facility]* Diagnosis Controlled type 2 diabetes mellitus without complication, without long-term current use of insulin (HCC)- Primary Dermatitis Contact dermatitis and other eczema, due to unspecified cause [facility] Diagnosis Perianal rash- Primary Rash and other nonspecific skin eruption Diabetes mellitus type 2 with ketoacidosis, uncontrolled (HCC) Type II or unspecified type diabetes mellitus with ketoacidosis, uncontrolled [facility]* Diagnosis Controlled type 2 diabetes mellitus without complication, without long-term current use of insulin (HCC) [facility] Diagnosis Diarrhea, unspecified type [facility] Diagnosis Controlled type 2 diabetes mellitus without complication, without long-term current use of insulin (HCC)- Primary [facility]* Diagnosis Controlled type 2 diabetes mellitus without complication, without long-term current use of insulin (HCC)- Primary Diarrhea, unspecified type Hypertriglyceridemia Pure hyperglyceridemia Screening for colon cancer Special screening for malignant neoplasms, colon [facility]* Diagnosis Encounter for immunization Need for other specified prophylactic vaccination against single bacterial disease [facility]* Diagnosis Encounter for immunization- Primary Need for other specified prophylactic vaccination against single bacterial disease [facility]* Diagnosis Controlled type 2 diabetes mellitus without complication, without long-term current use of insulin (HCC) [facility]* Diagnosis Controlled type 2 diabetes mellitus without complication, without long-term current use of insulin (HCC) [facility]* Diagnosis Acute otitis externa of right ear, unspecified type- Primary [facility]* Diagnosis Diarrhea, unspecified type documented in this encounter [facility] Discharge Instructions * Discharge Instr - COLE* Hilaria Arana PA-C - 05/14/2020 3:59 PM EDT Continuity of Care Form Patient Name: Marcos Clay : 1975 Admit date: 05/14/2020 Discharge date: Code Status Order: No Order Advance Directives: Admitting Physician: No admitting provider for patient encounter. PCP: Hannah Inman, PT, PT Discharging Nurse: Discharging Hospital Unit/Room#: 47/ST-2 Discharging Unit Phone Number: Emergency Contact: No emergency contact information on file. Past Surgical History: Past Surgical History: Procedure Laterality Date HERNIA REPAIR Immunization History: There is no immunization history on file for this patient. Active Problems: There is no problem list on file for this patient. Isolation/Infection: Isolation No Isolation Patient Infection Status None to display Nurse Assessment: Last Vital Signs: BP (!) 145/96 Pulse 77 Temp 97.8 F (36.6 C) Wt 235 lb (106.6 kg) SpO2 98% Last documented pain score (0-10 scale): Pain Level: 8 Last Weight: Wt Readings from Last 1 Encounters: 05/14/20 235 lb (106.6 kg) Mental Status: {IP PT MENTAL STATUS:44218} IV Access: { [facility] IV ACCESS:793562018} Nursing Mobility/ADLs: Walking {CHP DME ADLs:239384825} Transfer {CHP DME ADLs:584701898} Bathing {CHP DME ADLs:515980084} Dressing {CHP DME ADLs:853668205} Toileting {CHP DME ADLs:087575660} Feeding {CHP DME ADLs:815089653} Desk Manager {P DME ADLs:503753031} Med Delivery { COLE MED Delivery:191927249} Wound Care Documentation and Therapy: Elimination: Continence: Bowel: {YES / NO:} Bladder: {YES / NO:} Urinary Catheter: {Urinary Catheter:525485674} Colostomy/Ileostomy/Ileal Conduit: {YES / NO:} Date of Last BM: No intake or output data in the 24 hours ending 05/14/20 1635 No intake/output data recorded. Safety Concerns: { COLE Safety Concerns:450738800} Impairments/Disabilities: { COLE Impairments/Disabilities:883773721} Nutrition Therapy: Current Nutrition Therapy: { [facility] Diet List:744650565} Routes of Feeding: {[facility] DME Other Feedings:834118708} Liquids: {[facility] liquid thickness:57134} Daily Fluid Restriction: {[facility] DME Yes amt example:242924960} Last Modified Barium Swallow with Video (Video Swallowing Test): {Done Not Done Date:} Treatments at the Time of Hospital Discharge: Respiratory Treatments: Oxygen Therapy: {Therapy; copd oxygen:80394} Ventilator: { CC Vent List:263109109} Rehab Therapies: {THERAPEUTIC INTERVENTION:1820391946} Weight Bearing Status/Restrictions: {[facility] Weight Bearin} Other Medical Equipment (for information only, NOT a DME order): {EQUIPMENT:101488766} Other Treatments: Patient's personal belongings (please select all that are sent with patient): {[facility] DME Belongings:142490337} RN SIGNATURE: {Esignature:781852492} CASE MANAGEMENT/SOCIAL WORK SECTION Inpatient Status Date: Readmission Risk Assessment Score: Readmission Risk Risk of Unplanned Readmission: 0 Discharging to Facility/ Agency Name: Address: Phone: Fax: Dialysis Facility (if applicable) Name: Address: Dialysis Schedule: Phone: Fax: Trucksmith/Price Analyst signature: {Esignature:068186174} PHYSICIAN SECTION Prognosis: {Prognosis:4494231585} Condition at Discharge: { Patient Condition:304143001} Rehab Potential (if transferring to Rehab): {Prognosis:1615964342} Recommended Labs or Other Treatments After Discharge: Physician Certification: I certify the above information and transfer of Marcos Clay is necessaryfor the continuing treatment of the diagnosis listed and that he requires {Admit to Appropriate Level of Care:99080} for {GREATER/LESS:247362561} 30 days. Update Admission H&P: {CHP DME Changes in HandP:761976832} PHYSICIAN SIGNATURE: {Esignature:876415865} * Attachments The following attachments cannot be sent through Care Everywhere. 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 Advance Directives and Living Will Power of Rug Clipper Advance Directive Response Recorded Date/ Time Advance Directives No August 1:13am Living Will No January 15, 2022 11:37am Power of Rug Clipper No January 15 11:37am Advance Directive Response Recorded Date/ Time Advance Directives No August 1:13am Living Will No January 16, 2022 4:33pm Power of Rug Clipper No January 16 4:33pm Advance Directive Response Recorded Date/ Time Advance Directives No August 1:13am Living Will No March 26, 2022 12:48am Power of Rug Clipper No March 26 12:48am Summary Purpose Family History Relationship Condition Age at Onset Recorded Date/T roula father Malignant neoplasm Unknown Chief Complaint and Reason for Visit Chief Complaint vomiting, diarrhea Chief Complaint vomiting, diarrhea general illness Chief Complaint vomiting, diarrhea general illness abcess Health Concerns Infection Onset Date Last Indicated Resolved Time COVID-19 Rule-Out 01/01/2023 01/01/2023 Infection Onset Date Last Indicated Resolved Time COVID-19 Rule-Out 01/01/2023 01/01/2023 01/02/2023 4:36 AM EDT Reason for Referral Specialty Diagnoses / Procedures Referred By Josias mart Referred To Contact Dermatology Diagnoses Skin tag Procedures CONSULT TO DERMATOLOGY Kaya [place] APRN.SAVANAH [address] [place] [address] Referral ID Status Reason Start Date Expiration Date Visits Requested Visits Authorized [id number] Ref Not Required PCP Requested Referral 11/05/2023 11/04/2024 1 1 Specialty Diagnoses / Procedures Referred By Contac t Referred To Contact Diagnoses Controlled type 2 diabetes mellitus without complication, without long-term current use of insulin (HCC) Kaya [place] APRN.CNP [address] [place] [address] Referral ID Status Reason Start Date Expiration Date Visits Re quested Visits Authorized [id number] Denied 1 1 Specialty Diagnoses / Procedures Referred By Contac t Referred To Contact Dermatology Diagnoses Perianal rash Procedures CONSULT TO DERMATOLOGY Sandi Bird MD [address] [place] [address] Referral ID Status Reason Start Date Expiration Date Visits Requested Visits Authorized [id number] Ref Not Required PCP Requested Referral 06/13/2024 06/13/2025 1 1 Additional Source Comments Reason for Visit (unrecogniz ed section and content) Reason Comments Back Pain mid to right lower b ack pain, started today, denies urinary symptoms Reason Onset Date Comments Refill Request 01/30/2022 Reason Onset Date Comments Refill Request 02/24/2022 Reason Onset Date Comments Refill Request 04/11/2022 Reason Comments Results Reason Comments FYI-No Action Needed Reason Onset Date Comments Refill Request 07/10/2022 Reason Comments Refill Request Reason Onset Date Comments Refill Request 09/27/2022 Reason Comments New Pain Ingrown Toenail Specialty Diagnoses / Procedures Referred By Contac t Referred To Contact Podiatry Diagnoses Ingrown nail Procedures CONSULT TO PODIATRY OFFICE/OUTPATIENT NEW HIGH MDM 60-74 MINUTES Sandi Bird MD [address] [place], [place] [id number] Referral ID Status Reason Start Date Expiration Date V isits Requested Visits Authorized [id number] Closed PCP Requested Referral 08/21/2022 08/21/2023 1 1 Reason Onset Date Comments Refill Request 10/08/2022 Reason Onset Date Comments Refill Request 11/03/2022 Reason Comments Sore Throat Runny nose, R ear ri nging x2 days Reason Onset Date Comments Refill Request 01/22/2023 Reason Onset Date Comments Refill Request 02/11/2023 Reason Comments Follow Up patient is wanting l abs and needs trulicity Reason Onset Date Comments Opened In Error 03/15/2023 Reason Comments Established Patient Ingrown Toenail Reason Onset Date Comments Refill Request 04/22/2023 Reason Onset Date Comments Refill Request 06/08/2023 Reason Comments Recheck DM follow up Reason Comments Insurance Authorization Reason Comments Medication Problem Reason Onset Date Comments Refill Request 01/15/2024 Reason Onset Date Comments Refill Request 02/22/2024 Reason Comments Recheck ER follow up, DM Reason Comments Derm Problem palm of hands dry sk in after using scabies treatment x 1 week Reason Comments Diabetes Follow up, discuss m edications, dry skin on hands and feet, reports he had scabies x 1 month ago Reason Comments Medication Question Reason Comments Pain Buttocks, itchy, las t night went to [facility] ER for left side pain. Reason Comments Consult [employer] Reason Onset Date Comments Refill Request 08/17/2024 Reason Onset Date Comments Refill Request 12/03/2024 Reason Onset Date Comments Diabetes 11/21/2024 Reason Comments Recheck 6 month follow up Reason Comments Orders Reason Comments Imm/Inj Reason Onset Date Comments Refill Request 12/26/2024 Reason Comments Ear Pain R ear pain x this am nasal congestion Reason Onset Date Comments Refill Request 04/21/2025 Reason Onset Date Comments Refill Request 05/01/2025 (unrecognized sect ion and content) No Status Records FoundNo Status Records FoundNo Status Records FoundNo Status Records FoundNo Status Records Found INFORMATION SOURCE (unrecogn ized section and content) DATE CREATED AUTHOR 05/15/2020 [facility] DATE CREATED AUTHOR AUTHOR'S ORGANIZ ATION 09/17/2021 [facility] ([place]) DATE CREATED AUTHOR AUTHOR'S ORGANIZ ATION 01/17/2025 [facility] DATE CREATED AUTHOR AUTHOR'S ORGANIZ ATION 02/06/2025 [facility] DATE CREATED AUTHOR AUTHOR'S ORGANIZ ATION 02/25/2025 [facility] Goals (unrecognized section and content) Goals may be documented in a n alternate sectionGoals may be documented in an alternate sectionGoals may be documented in an alternate section Source Comments (unrecognize d section and content) In the event this informatio n is protected by the Federal Confidentiality of Alcohol and Drug Abuse Patient Records regulations: The Federal rules restrict any use of the information to criminally investigate or prosecute any alcohol or drug abuse patient.[facility] the event this information is protected by the Federal Confidentiality of Alcohol and Drug Abuse Patient Records regulations: The Federal rules restrict any use of the information to criminally investigate or prosecute any alcohol or drug abuse patient.[facility] RehabilitationIn the event this information is protected by the Federal Confidentiality of Alcohol and Drug Abuse Patient Records regulations: The Federal rules restrict any use of the information to criminally investigate or prosecute any alcohol or drug abuse patient.[facility] RehabilitationIn the event this information is protected by the Federal Confidentiality of Alcohol and Drug Abuse Patient Records regulations: The Federal rules restrict any use of the information to criminally investigate or prosecute any alcohol or drug abuse patient.[facility] the event this information is protected by the Federal Confidentiality of Alcohol and Drug Abuse Patient Records regulations: The Federal rules restrict any use of the information to criminally investigate or prosecute any alcohol or drug abuse patient.[facility] RehabilitationIn the event this information is protected by the Federal Confidentiality of Alcohol and Drug Abuse Patient Records regulations: The Federal rules restrict any use of the information to criminally investigate or prosecute any alcohol or drug abuse patient.[facility] RehabilitationIn the event this information is protected by the Federal Confidentiality of Alcohol and Drug Abuse Patient Records regulations: The Federal rules restrict any use of the information to criminally investigate or prosecute any alcohol or drug abuse patient.[facility] RehabilitationIn the event this information is protected by the Federal Confidentiality of Alcohol and Drug Abuse Patient Records regulations: The Federal rules restrict any use of the information to criminally investigate or prosecute any alcohol or drug abuse patient.[facility] RehabilitationIn the event this information is protected by the Federal Confidentiality of Alcohol and Drug Abuse Patient Records regulations: The Federal rules restrict any use of the information to criminally investigate or prosecute any alcohol or drug abuse patient.[facility] RehabilitationIn the event this information is protected by the Federal Confidentiality of Alcohol and Drug Abuse Patient Records regulations: The Federal rules restrict any use of the information to criminally investigate or prosecute any alcohol or drug abuse patient.[facility] RehabilitationIn the event this information is protected by the Federal Confidentiality of Alcohol and Drug Abuse Patient Records regulations: The Federal rules restrict any use of the information to criminally investigate or prosecute any alcohol or drug abuse patient.[facility] RehabilitationIn the event this information is protected by the Federal Confidentiality of Alcohol and Drug Abuse Patient Records regulations: The Federal rules restrict any use of the information to criminally investigate or prosecute any alcohol or drug abuse patient.[facility] RehabilitationIn the event this information is protected by the Federal Confidentiality of Alcohol and Drug Abuse Patient Records regulations: The Federal rules restrict any use of the information to criminally investigate or prosecute any alcohol or drug abuse patient.[facility] RehabilitationIn the event this information is protected by the Federal Confidentiality of Alcohol and Drug Abuse Patient Records regulations: The Federal rules restrict any use of the information to criminally investigate or prosecute any alcohol or drug abuse patient.[facility] RehabilitationIn the event this information is protected by the Federal Confidentiality of Alcohol and Drug Abuse Patient Records regulations: The Federal rules restrict any use of the information to criminally investigate or prosecute any alcohol or drug abuse patient.[facility] RehabilitationIn the event this information is protected by the Federal Confidentiality of Alcohol and Drug Abuse Patient Records regulations: The Federal rules restrict any use of the information to criminally investigate or prosecute any alcohol or drug abuse patient.[facility] RehabilitationIn the event this information is protected by the Federal Confidentiality of Alcohol and Drug Abuse Patient Records regulations: The Federal rules restrict any use of the information to criminally investigate or prosecute any alcohol or drug abuse patient.[facility] RehabilitationIn the event this information is protected by the Federal Confidentiality of Alcohol and Drug Abuse Patient Records regulations: The Federal rules restrict any use of the information to criminally investigate or prosecute any alcohol or drug abuse patient.[facility] RehabilitationIn the event this information is protected by the Federal Confidentiality of Alcohol and Drug Abuse Patient Records regulations: The Federal rules restrict any use of the information to criminally investigate or prosecute any alcohol or drug abuse patient.[facility] RehabilitationIn the event this information is protected by the Federal Confidentiality of Alcohol and Drug Abuse Patient Records regulations: The Federal rules restrict any use of the information to criminally investigate or prosecute any alcohol or drug abuse patient.[facility] RehabilitationIn the event this information is protected by the Federal Confidentiality of Alcohol and Drug Abuse Patient Records regulations: The Federal rules restrict any use of the information to criminally investigate or prosecute any alcohol or drug abuse patient.[facility] RehabilitationIn the event this information is protected by the Federal Confidentiality of Alcohol and Drug Abuse Patient Records regulations: The Federal rules restrict any use of the information to criminally investigate or prosecute any alcohol or drug abuse patient.[facility] RehabilitationIn the event this information is protected by the Federal Confidentiality of Alcohol and Drug Abuse Patient Records regulations: The Federal rules restrict any use of the information to criminally investigate or prosecute any alcohol or drug abuse patient.[facility] RehabilitationIn the event this information is protected by the Federal Confidentiality of Alcohol and Drug Abuse Patient Records regulations: The Federal rules restrict any use of the information to criminally investigate or prosecute any alcohol or drug abuse patient.[facility] RehabilitationIn the event this information is protected by the Federal Confidentiality of Alcohol and Drug Abuse Patient Records regulations: The Federal rules restrict any use of the information to criminally investigate or prosecute any alcohol or drug abuse patient.[facility] RehabilitationIn the event this information is protected by the Federal Confidentiality of Alcohol and Drug Abuse Patient Records regulations: The Federal rules restrict any use of the information to criminally investigate or prosecute any alcohol or drug abuse patient.[facility] RehabilitationIn the event this information is protected by the Federal Confidentiality of Alcohol and Drug Abuse Patient Records regulations: The Federal rules restrict any use of the information to criminally investigate or prosecute any alcohol or drug abuse patient.[facility] RehabilitationIn the event this information is protected by the Federal Confidentiality of Alcohol and Drug Abuse Patient Records regulations: The Federal rules restrict any use of the information to criminally investigate or prosecute any alcohol or drug abuse patient.[facility] RehabilitationIn the event this information is protected by the Federal Confidentiality of Alcohol and Drug Abuse Patient Records regulations: The Federal rules restrict any use of the information to criminally investigate or prosecute any alcohol or drug abuse patient.[facility] RehabilitationIn the event this information is protected by the Federal Confidentiality of Alcohol and Drug Abuse Patient Records regulations: The Federal rules restrict any use of the information to criminally investigate or prosecute any alcohol or drug abuse patient.[facility] RehabilitationIn the event this information is protected by the Federal Confidentiality of Alcohol and Drug Abuse Patient Records regulations: The Federal rules restrict any use of the information to criminally investigate or prosecute any alcohol or drug abuse patient.[facility] RehabilitationIn the event this information is protected by the Federal Confidentiality of Alcohol and Drug Abuse Patient Records regulations: The Federal rules restrict any use of the information to criminally investigate or prosecute any alcohol or drug abuse patient.[facility] RehabilitationIn the event this information is protected by the Federal Confidentiality of Alcohol and Drug Abuse Patient Records regulations: The Federal rules restrict any use of the information to criminally investigate or prosecute any alcohol or drug abuse patient.[facility] RehabilitationIn the event this information is protected by the Federal Confidentiality of Alcohol and Drug Abuse Patient Records regulations: The Federal rules restrict any use of the information to criminally investigate or prosecute any alcohol or drug abuse patient.[facility] RehabilitationIn the event this information is protected by the Federal Confidentiality of Alcohol and Drug Abuse Patient Records regulations: The Federal rules restrict any use of the information to criminally investigate or prosecute any alcohol or drug abuse patient.[facility] RehabilitationIn the event this information is protected by the Federal Confidentiality of Alcohol and Drug Abuse Patient Records regulations: The Federal rules restrict any use of the information to criminally investigate or prosecute any alcohol or drug abuse patient.[facility] RehabilitationIn the event this information is protected by the Federal Confidentiality of Alcohol and Drug Abuse Patient Records regulations: The Federal rules restrict any use of the information to criminally investigate or prosecute any alcohol or drug abuse patient.[facility] RehabilitationIn the event this information is protected by the Federal Confidentiality of Alcohol and Drug Abuse Patient Records regulations: The Federal rules restrict any use of the information to criminally investigate or prosecute any alcohol or drug abuse patient.[facility] RehabilitationIn the event this information is protected by the Federal Confidentiality of Alcohol and Drug Abuse Patient Records regulations: The Federal rules restrict any use of the information to criminally investigate or prosecute any alcohol or drug abuse patient.[facility] RehabilitationIn the event this information is protected by the Federal Confidentiality of Alcohol and Drug Abuse Patient Records regulations: The Federal rules restrict any use of the information to criminally investigate or prosecute any alcohol or drug abuse patient.[facility] RehabilitationIn the event this information is protected by the Federal Confidentiality of Alcohol and Drug Abuse Patient Records regulations: The Federal rules restrict any use of the information to criminally investigate or prosecute any alcohol or drug abuse patient.[facility] RehabilitationIn the event this information is protected by the Federal Confidentiality of Alcohol and Drug Abuse Patient Records regulations: The Federal rules restrict any use of the information to criminally investigate or prosecute any alcohol or drug abuse patient.[facility] RehabilitationIn the event this information is protected by the Federal Confidentiality of Alcohol and Drug Abuse Patient Records regulations: The Federal rules restrict any use of the information to criminally investigate or prosecute any alcohol or drug abuse patient.[facility] RehabilitationIn the event this information is protected by the Federal Confidentiality of Alcohol and Drug Abuse Patient Records regulations: The Federal rules restrict any use of the information to criminally investigate or prosecute any alcohol or drug abuse patient.[facility] RehabilitationIn the event this information is protected by the Federal Confidentiality of Alcohol and Drug Abuse Patient Records regulations: The Federal rules restrict any use of the information to criminally investigate or prosecute any alcohol or drug abuse patient.[facility] RehabilitationIn the event this information is protected by the Federal Confidentiality of Alcohol and Drug Abuse Patient Records regulations: The Federal rules restrict any use of the information to criminally investigate or prosecute any alcohol or drug abuse patient.[facility] RehabilitationIn the event this information is protected by the Federal Confidentiality of Alcohol and Drug Abuse Patient Records regulations: The Federal rules restrict any use of the information to criminally investigate or prosecute any alcohol or drug abuse patient.[facility] RehabilitationIn the event this information is protected by the Federal Confidentiality of Alcohol and Drug Abuse Patient Records regulations: The Federal rules restrict any use of the information to criminally investigate or prosecute any alcohol or drug abuse patient.[facility] RehabilitationIn the event this information is protected by the Federal Confidentiality of Alcohol and Drug Abuse Patient Records regulations: The Federal rules restrict any use of the information to criminally investigate or prosecute any alcohol or drug abuse patient.[facility] RehabilitationIn the event this information is protected by the Federal Confidentiality of Alcohol and Drug Abuse Patient Records regulations: The Federal rules restrict any use of the information to criminally investigate or prosecute any alcohol or drug abuse patient.[facility] RehabilitationIn the event this information is protected by the Federal Confidentiality of Alcohol and Drug Abuse Patient Records regulations: The Federal rules restrict any use of the information to criminally investigate or prosecute any alcohol or drug abuse patient.[facility] the event this information is protected by the Federal Confidentiality of Alcohol and Drug Abuse Patient Records regulations: The Federal rules restrict any use of the information to criminally investigate or prosecute any alcohol or drug abuse patient.[facility] RehabilitationIn the event this information is protected by the Federal Confidentiality of Alcohol and Drug Abuse Patient Records regulations: The Federal rules restrict any use of the information to criminally investigate or prosecute any alcohol or drug abuse patient.[facility] RehabilitationIn the event this information is protected by the Federal Confidentiality of Alcohol and Drug Abuse Patient Records regulations: The Federal rules restrict any use of the information to criminally investigate or prosecute any alcohol or drug abuse patient.[facility]In the event this information is protected by the Federal Confidentiality of Alcohol and Drug Abuse Patient Records regulations: The Federal rules restrict any use of the information to criminally investigate or prosecute any alcohol or drug abuse patient.[facility] RehabilitationIn the event this information is protected by the Federal Confidentiality of Alcohol and Drug Abuse Patient Records regulations: The Federal rules restrict any use of the information to criminally investigate or prosecute any alcohol or drug abuse patient.[facility] RehabilitationIn the event this information is protected by the Federal Confidentiality of Alcohol and Drug Abuse Patient Records regulations: The Federal rules restrict any use of the information to criminally investigate or prosecute any alcohol or drug abuse patient.[facility] RehabilitationIn the event this information is protected by the Federal Confidentiality of Alcohol and Drug Abuse Patient Records regulations: The Federal rules restrict any use of the information to criminally investigate or prosecute any alcohol or drug abuse patient.[facility] RehabilitationIn the event this information is protected by the Federal Confidentiality of Alcohol and Drug Abuse Patient Records regulations: The Federal rules restrict any use of the information to criminally investigate or prosecute any alcohol or drug abuse patient.[facility] RehabilitationIn the event this information is protected by the Federal Confidentiality of Alcohol and Drug Abuse Patient Records regulations: The Federal rules restrict any use of the information to criminally investigate or prosecute any alcohol or drug abuse patient.[facility] RehabilitationIn the event this information is protected by the Federal Confidentiality of Alcohol and Drug Abuse Patient Records regulations: The Federal rules restrict any use of the information to criminally investigate or prosecute any alcohol or drug abuse patient.[facility] RehabilitationIn the event this information is protected by the Federal Confidentiality of Alcohol and Drug Abuse Patient Records regulations: The Federal rules restrict any use of the information to criminally investigate or prosecute any alcohol or drug abuse patient.[facility] RehabilitationIn the event this information is protected by the Federal Confidentiality of Alcohol and Drug Abuse Patient Records regulations: The Federal rules restrict any use of the information to criminally investigate or prosecute any alcohol or drug abuse patient.[facility] RehabilitationIn the event this information is protected by the Federal Confidentiality of Alcohol and Drug Abuse Patient Records regulations: The Federal rules restrict any use of the information to criminally investigate or prosecute any alcohol or drug abuse patient.[facility] RehabilitationIn the event this information is protected by the Federal Confidentiality of Alcohol and Drug Abuse Patient Records regulations: The Federal rules restrict any use of the information to criminally investigate or prosecute any alcohol or drug abuse patient.[facility] RehabilitationIn the event this information is protected by the Federal Confidentiality of Alcohol and Drug Abuse Patient Records regulations: The Federal rules restrict any use of the information to criminally investigate or prosecute any alcohol or drug abuse patient.[facility] RehabilitationIn the event this information is protected by the Federal Confidentiality of Alcohol and Drug Abuse Patient Records regulations: The Federal rules restrict any use of the information to criminally investigate or prosecute any alcohol or drug abuse patient.[facility] RehabilitationIn the event this information is protected by the Federal Confidentiality of Alcohol and Drug Abuse Patient Records regulations: The Federal rules restrict any use of the information to criminally investigate or prosecute any alcohol or drug abuse patient.[facility] RehabilitationIn the event this information is protected by the Federal Confidentiality of Alcohol and Drug Abuse Patient Records regulations: The Federal rules restrict any use of the information to criminally investigate or prosecute any alcohol or drug abuse patient.[place] [facility] RehabilitationIn the event this information is protected by the Federal Confidentiality of Alcohol and Drug Abuse Patient Records regulations: The Federal rules restrict any use of the information to criminally investigate or prosecute any alcohol or drug abuse patient.[facility] RehabilitationIn the event this information is protected by the Federal Confidentiality of Alcohol and Drug Abuse Patient Records regulations: The Federal rules restrict any use of the information to criminally investigate or prosecute any alcohol or drug abuse patient.[facility] RehabilitationIn the event this information is protected by the Federal Confidentiality of Alcohol and Drug Abuse Patient Records regulations: The Federal rules restrict any use of the information to criminally investigate or prosecute any alcohol or drug abuse patient.[facility] RehabilitationIn the event this information is protected by the Federal Confidentiality of Alcohol and Drug Abuse Patient Records regulations: The Federal rules restrict any use of the information to criminally investigate or prosecute any alcohol or drug abuse patient.[facility] RehabilitationIn the event this information is protected by the Federal Confidentiality of Alcohol and Drug Abuse Patient Records regulations: The Federal rules restrict any use of the information to criminally investigate or prosecute any alcohol or drug abuse patient.[facility] RehabilitationIn the event this information is protected by the Federal Confidentiality of Alcohol and Drug Abuse Patient Records regulations: The Federal rules restrict any use of the information to criminally investigate or prosecute any alcohol or drug abuse patient.[facility] RehabilitationIn the event this information is protected by the Federal Confidentiality of Alcohol and Drug Abuse Patient Records regulations: The Federal rules restrict any use of the information to criminally investigate or prosecute any alcohol or drug abuse patient.[facility] RehabilitationIn the event this information is protected by the Federal Confidentiality of Alcohol and Drug Abuse Patient Records regulations: The Federal rules restrict any use of the information to criminally investigate or prosecute any alcohol or drug abuse patient.[facility] RehabilitationIn the event this information is protected by the Federal Confidentiality of Alcohol and Drug Abuse Patient Records regulations: The Federal rules restrict any use of the information to criminally investigate or prosecute any alcohol or drug abuse patient.[facility] RehabilitationIn the event this information is protected by the Federal Confidentiality of Alcohol and Drug Abuse Patient Records regulations: The Federal rules restrict any use of the information to criminally investigate or prosecute any alcohol or drug abuse patient.[facility] RehabilitationIn the event this information is protected by the Federal Confidentiality of Alcohol and Drug Abuse Patient Records regulations: The Federal rules restrict any use of the information to criminally investigate or prosecute any alcohol or drug abuse patient.[facility] RehabilitationIn the event this information is protected by the Federal Confidentiality of Alcohol and Drug Abuse Patient Records regulations: The Federal rules restrict any use of the information to criminally investigate or prosecute any alcohol or drug abuse patient.[facility] RehabilitationIn the event this information is protected by the Federal Confidentiality of Alcohol and Drug Abuse Patient Records regulations: The Federal rules restrict any use of the information to criminally investigate or prosecute any alcohol or drug abuse patient.[facility] RehabilitationIn the event this information is protected by the Federal Confidentiality of Alcohol and Drug Abuse Patient Records regulations: The Federal rules restrict any use of the information to criminally investigate or prosecute any alcohol or drug abuse patient.[facility] RehabilitationIn the event this information is protected by the Federal Confidentiality of Alcohol and Drug Abuse Patient Records regulations: The Federal rules restrict any use of the information to criminally investigate or prosecute any alcohol or drug abuse patient.[facility] RehabilitationIn the event this information is protected by the Federal Confidentiality of Alcohol and Drug Abuse Patient Records regulations: The Federal rules restrict any use of the information to criminally investigate or prosecute any alcohol or drug abuse patient.[facility] RehabilitationIn the event this information is protected by the Federal Confidentiality of Alcohol and Drug Abuse Patient Records regulations: The Federal rules restrict any use of the information to criminally investigate or prosecute any alcohol or drug abuse patient.[facility] RehabilitationIn the event this information is protected by the Federal Confidentiality of Alcohol and Drug Abuse Patient Records regulations: The Federal rules restrict any use of the information to criminally investigate or prosecute any alcohol or drug abuse patient.[facility] Care Teams (unrecognized sec tion and content) County Historian Relationship Specialty Start Date End Date Sandi Bird MD [address] [place] [address] PCP - General Internal Medicine 05/09/21 [facility] [address] [place] [address] Pharmacist Pharmacy 08/05/21 County Historian Relationship Specialty Start Date End Date Sandi Bird MD [address] [place], [place] [address] [phone] PCP - General Internal Medicine 05/09/21 [facility] [address] [place] [address] Pharmacist Pharmacy 08/05/21 County Historian Relationship Specialty Start Date End Date Sandi Bird MD [address] [place] [address] PCP - General Internal Medicine 05/09/21 [facility] [address] [place] [address] Pharmacist Pharmacy 08/05/21 County Historian Relationship Specialty Start Date End Date Sandi Bird MD [address] [place] [address] PCP - General Internal Medicine 05/09/21 [facility] [address] [place] [address] Pharmacist Pharmacy 08/05/21 County Historian Relationship Specialty Start Date End Date Sandi Bird MD [address] [facility] [place] [address] PCP - General Internal Medicine 05/09/21 County Historian Relationship Specialty Start Date End Date Sandi Bird MD [address] [place] [address] PCP - General Internal Medicine 05/09/21 County Historian Relationship Specialty Start Date End Date Sandi Bird MD [address] [facility] [place] [address] PCP - General Internal Medicine 05/09/21 County Historian Relationship Specialty Start Date End Date Sandi Bird MD [address] [facility] [place] [address] PCP - General Internal Medicine 05/09/21 County Historian Relationship Specialty Start Date End Date Sandi Bird MD [address] [place] [address] PCP - General Internal Medicine 05/09/21 County Historian Relationship Specialty Start Date End Date Sandi Bird MD [address] [facility] [place] [address] PCP - General Internal Medicine 05/09/21 County Historian Relationship Specialty Start Date End Date Sandi Bird MD [address] [facility] [place] [address] PCP - General Internal Medicine 05/09/21 County Historian Relationship Specialty Start Date End Date Sandi Bird MD [address] [facility] [place] [address] PCP - General Internal Medicine 05/09/21 County Historian Relationship Specialty Start Date End Date Sandi Bird MD [address] [facility] [place] [address] PCP - General Internal Medicine 05/09/21 County Historian Relationship Specialty Start Date End Date Sandi Bird MD [address] [facility] [place] [address] PCP - General Internal Medicine 05/09/21 County Historian Relationship Specialty Start Date End Date Sandi Bird MD [address] [facility] [place] [address] PCP - General Internal Medicine 05/09/21 County Historian Relationship Specialty Start Date End Date Sandi Bird MD [address] [facility] [place] [address] PCP - General Internal Medicine 05/09/21 County Historian Relationship Specialty Start Date End Date Sandi Bird MD [address] [facility] [place] [address] PCP - General Internal Medicine 05/09/21 County Historian Relationship Specialty Start Date End Date Sandi Bird MD [address] [facility] [place] [address] PCP - General Internal Medicine 05/09/21 County Historian Relationship Specialty Start Date End Date Sandi Bird MD [address] [place] [address] PCP - General Internal Medicine 05/09/21 County Historian Relationship Specialty Start Date End Date Sandi Bird MD [address] [place] [address] PCP - General Internal Medicine 05/09/21 County Historian Relationship Specialty Start Date End Date Sandi Bird MD [address] [place] [address] PCP - General Internal Medicine 05/09/21 County Historian Relationship Specialty Start Date End Date Sandi Bird MD [address] [place] [address] PCP - General Internal Medicine 05/09/21 County Historian Relationship Specialty Start Date End Date Sandi Bird MD [address] [place] [address] PCP - General Internal Medicine 05/09/21 County Historian Relationship Specialty Start Date End Date Sandi Bird MD [address] [place] [address] PCP - General Internal Medicine 05/09/21 County Historian Relationship Specialty Start Date End Date Sandi Bird MD [address] [place] [address] PCP - General Internal Medicine 05/09/21 County Historian Relationship Specialty Start Date End Date Sandi Bird MD [address] [place] [address] PCP - General Internal Medicine 05/09/21 County Historian Relationship Specialty Start Date End Date Sandi Bird MD [address] [place] [address] PCP - General Internal Medicine 05/09/21 County Historian Relationship Specialty Start Date End Date Sandi Bird MD [address] [place] [address] PCP - General Internal Medicine 05/09/21 County Historian Relationship Specialty Start Date End Date Sandi Bird MD [address] [place] [address] PCP - General Internal Medicine 05/09/21 County Historian Relationship Specialty Start Date End Date Sandi Bird MD [address] [place] [address] PCP - General Internal Medicine 05/09/21 County Historian Relationship Specialty Start Date End Date Sandi Bird MD [address] [place] [address] PCP - General Internal Medicine 05/09/21 County Historian Relationship Specialty Start Date End Date Sandi Bird MD [address] [place] [address] PCP - General Internal Medicine 05/09/21 County Historian Relationship Specialty Start Date End Date Sandi Bird MD [address] [place] [address] PCP - General Internal Medicine 05/09/21 County Historian Relationship Specialty Start Date End Date Sandi Bird MD [address] [place] [address] PCP - General Internal Medicine 05/09/21 County Historian Relationship Specialty Start Date End Date Sandi Bird MD [address] [place] [address] PCP - General Internal Medicine 05/09/21 Hilaria Foster PA-C [address] [place] [address] [facility] 09/07/24 Kaya Colorado APRN.DEVELOPMENT CHEMIST [address] [place] [address] [facility] 09/07/24 Isela Anne PA-C [address] [place] [address] [facility] 09/07/24 County Historian Relationship Specialty Start Date End Date Sandi Bird MD [address] [place] [address] PCP - General Internal Medicine 05/09/21 Hilaria Foster PA-C [address] [place] [address] [facility] 09/07/24 Kaya Colorado APRN.DEVELOPMENT CHEMIST [address] [place] [address] [facility] 09/07/24 Isela Anne PA-C [address] [place] [address] [facility] 09/07/24 County Historian Relationship Specialty Start Date End Date Sandi Bird MD [address] [place] [address] PCP - General Internal Medicine 05/09/21 Hilaria Foster PA-C [address] [place] [address] [facility] 09/07/24 Kaya Colorado APRN.DEVELOPMENT CHEMIST [address] [place] [address] [facility] 09/07/24 Isela Anne PA-C [address] [place] [address] [facility] 09/07/24 County Historian Relationship Specialty Start Date End Date Sandi Bird MD [address] [place] [address] PCP - General Internal Medicine 05/09/21 Hilaria Foster PA-C [address] [place] [address] [facility] 09/07/24 Kaya Colorado, COMPLIANCE ANALYST.DEVELOPMENT CHEMIST [address] [place] [address] [facility] 09/07/24 Isela Anne PA-C [address] [place] [address] [facility] 09/07/24 County Historian Relationship Specialty Start Date End Date Sandi Bird MD [address] [place] [address] PCP - General Internal Medicine 05/09/21 Hilaria Foster PA-C [address] [place] [address] [facility] 09/07/24 Kaya Colorado APRN.DEVELOPMENT CHEMIST [address] [place] [address] [facility] 09/07/24 Isela Anne PA-C [address] [place] [address] [facility] 09/07/24 County Historian Relationship Specialty Start Date End Date Sandi Bird MD [address] [place] [address] PCP - General Internal Medicine 05/09/21 Hilaria Foster PA-C [address] [place] [address] [facility] 09/07/24 Kaya Colorado APRN.DEVELOPMENT CHEMIST [address] [place] [address] [facility] 09/07/24 Isela Anne PA-C [address] [place] [address] [facility] 09/07/24 County Historian Relationship Specialty Start Date End Date Sandi Bird MD [address] [place] [address] PCP - General Internal Medicine 05/09/21 Kaya Colorado, COMPLIANCE ANALYST.DEVELOPMENT CHEMIST [address] [place] [address] [facility] 09/07/24 County Historian Relationship Specialty Start Date End Date Sandi Bird MD [address] [place] [address] PCP - General Internal Medicine 05/09/21 Kaya Colorado, COMPLIANCE ANALYST.DEVELOPMENT CHEMIST [address] [place] [address] [facility] 09/07/24 County Historian Relationship Specialty Start Date End Date Sandi Bird MD [address] [place] [address] PCP - General Internal Medicine 05/09/21 Kaya Colorado, COMPLIANCE ANALYST.DEVELOPMENT CHEMIST [address] [place] [address] [facility] 09/07/24 County Historian Relationship Specialty Start Date End Date Sandi Bird MD [address] [place] [address] PCP - General Internal Medicine 05/09/21 Kaya Colorado, COMPLIANCE ANALYST.DEVELOPMENT CHEMIST [address] [place] [address] [facility] 09/07/24 County Historian Relationship Specialty Start Date End Date Sandi Bird MD [address] [place] [address] PCP - General Internal Medicine 05/09/21 Hilaria Foster PA-C [address] [place] [address] [facility] 09/07/24 12/21/24 Kaya Colorado APRN.DEVELOPMENT CHEMIST [address] [place] [address] [facility] 09/07/24 Isela Anne PA-C [address] [place] [address] [facility] 09/07/24 12/21/24 County Historian Relationship Specialty Start Date End Date Sandi Bird MD [address] [place] [address] PCP - General Internal Medicine 05/09/21 Kaya Colorado APRN.DEVELOPMENT CHEMIST [address] [place] [address] [facility] 09/07/24 County Historian Relationship Specialty Start Date End Date Sandi Bird MD [address] [place] [address] PCP - General Internal Medicine 05/09/21 Kaya Colorado APRN.DEVELOPMENT CHEMIST [address] [place] [address] [facility] 09/07/24 County Historian Relationship Specialty Start Date End Date Sandi Bird MD [address] [place] [address] PCP - General Internal Medicine 05/09/21 Kaya Colorado APRN.DEVELOPMENT CHEMIST [address] [place] [address] [facility] 09/07/24 County Historian Relationship Specialty Start Date End Date Sandi Bird MD [address] [facility] [place] [address] PCP - General Internal Medicine 05/09/21 Kaya Colorado APRN.DEVELOPMENT CHEMIST [address] [place] [address] [facility] 09/07/24 FOR RECORDS PERTAINING TO PATIENTS WHO ARE OR HAVE BEEN ENROLLED IN A CHEMICAL DEPENDENCY/SUBSTANCEABUSE PROGRAM, SOME INFORMATION MAY BE OMITTED. This clinical summary was aggregated from multiple sources. Caution should be exercised in using it in the provision of clinical care. This summary normalizes information from multiple sources, and as a consequence, information in this document may materially change the coding, format and clinical context of patient data. In addition, data may be omitted in some cases. CLINICAL DECISIONS SHOULD BE BASED ON THE PRIMARY CLINICAL RECORDS. [employer] provides no warranty or guarantee of the accuracy or completeness of information in this document.
[2025-06-07 19:28] VITALS: BP 136/92; PULSE 74; RESP 14; TEMP 36.9; O2SAT 97
== END 2025-06-07 19:39 | disposition home or self-care (01) ==
PROVIDERS: Emergency Provider Emergency Medicine; PCP Internal Medicine; Visit Provider Emergency Medicine
DX: S93.401A Sprain of unspecified ligament of right ankle, initial encounter (principal); E11.9 Type 2 diabetes mellitus without complications; X50.1XXA Overexertion from prolonged static or awkward postures, initial encounter; Y93.01 Activity, walking, marching and hiking; K21.9 Gastro-esophageal reflux disease without esophagitis; E66.9 Obesity, unspecified; E78.5 Hyperlipidemia, unspecified; Z79.85 Long-term (current) use of injectable non-insulin antidiabetic drugs; Z79.899 Other long term (current) drug therapy
CPT/HCPCS: 73610; 99284